=== PATIENT | female | born 1940 | race Caucasian/White ===

== ENCOUNTER 2021-02-07 14:41 | Inpatient (IN) | payer MEDICARE, OTHER ==
[2021-02-07] MEDS ORDERED: SODIUM CHLORIDE 0.9% 500 ML 500 ML IV ONE (15:02)
--- NOTE | 2021-02-07 15:21 | ED ---
Altered Mental Status HPI - General Chief Complaint: Altered Mental Status Stated Complaint: Altered mental status Time Seen by Provider: 02/07/21 15:01 Source: EMS Mode of arrival: EMS Limitations: no limitations - History of Present Illness Initial Comments: Sari is a 80 yo F who presents to the ER via ambulance to generalized weakness and change in mental status. Patient's family member works for [employer] and visits the patient daily. She states yesterday she noted she seemed to be weaker and more fatigued than usual, at that time she made her a doctor's appointment to be seen later today. When she went to the house today to check on the patient she noted that she was much more weak and fatigued and didn't think she could get her to the doctor's appointment on her own thought she needed to come to the ER. Patient reports she just does not feel good. She denies any specific complaints. He denies any dysuria hematuria or fever. Family member states that she always looks pale and has never been anemic for needed blood transfusions in the past. Patient has no history of A. fib. - Related Data Home Medications Medication Instructions Recorded Confirmed Gabapentin 300 mg PO TID 02/07/21 02/07/21 Levothyroxine Sodium [Synthroid] 100 mcg PO DAILY 02/07/21 02/07/21 Milnacipran HCl [Savella] 100 mg PO BID 02/07/21 02/07/21 Omeprazole [PriLOSEC] 20 mg PO DAILY 02/07/21 02/07/21 Pioglitazone [Actos] 15 mg PO DAILY 02/07/21 02/07/21 Trospium Chloride [Sanctura] 20 mg PO BID 02/07/21 02/07/21 Venlafaxine HCl ER [Effexor Xr] 37.5 mg PO BID 02/07/21 02/07/21 amLODIPine [Norvasc] 5 mg PO DAILY 02/07/21 02/07/21 atenoloL [Atenolol] 25 mg PO DAILY 02/07/21 02/07/21 metFORMIN HCL 500 mg PO DAILY 02/07/21 02/07/21 traMADol HCL 50 mg PO BID 02/07/21 02/07/21 traZODone HCL [Desyrel] 50 mg PO HS 02/07/21 02/07/21 Allergies Allergy/AdvReac Type Severity Reaction Status Date / Time codeine Allergy Itching Verified 02/07/21 16:35 Review of Systems ROS Statement: Those systems with pertinent positive or pertinent negative responses have been documented in the HPI. ROS Other: All systems not noted in ROS Statement are negative. Past Medical History Smoking Status: Never smoker General Exam - General Exam Comments Initial Comments: Physical Exam GENERAL: Ill-appearing elderly female, quite pale in appearance HENT: Normocephalic, Atraumatic. EYES: PERRL, EOMI Conjunctiva pallor PULMONARY: Unlabored respirations. No audible rales rhonchi or wheezing was noted. CARDIOVASCULAR: Irregularly irregular tachycardia ABDOMEN: Soft and nontender with normal bowel sounds. SKIN: Skin is clear with no lesions or rashes and otherwise unremarkable. : Deferred NEUROLOGIC: Patient is alert and oriented x3. Moving all extremities spontaneously MUSCULOSKELETAL: Normal extremities with adequate strength and full range of motion. No lower extremity swelling or edema. No calf tenderness. PSYCHIATRIC: Normal psychiatric evaluation. Limitations: no limitations Course Vital Signs 02/07/21 02/07/21 02/07/21 14:48 16:13 17:01 Temperature 97.9 F Pulse Rate 129 H 134 H 130 H Pulse Rate [ Pulse Oximetery ] Respiratory 18 18 18 Rate Blood Pressure 131/97 128/86 130/93 Blood Pressure [Right Arm Supine] O2 Sat by Pulse 95 95 96 Oximetry 02/07/21 02/07/21 02/07/21 18:15 18:28 19:16 Temperature 97.9 F Pulse Rate 104 H 98 Pulse Rate [ 109 H Pulse Oximetery ] Respiratory 18 16 18 Rate Blood Pressure 142/89 121/69 Blood Pressure 96/50 [Right Arm Supine] O2 Sat by Pulse 95 97 97 Oximetry Medical Decision Making - Medical Decision Making Patient was seen and evaluated history is obtained from the patient and family member bedside Elderly females quite pale appearing, is tachycardic in A. fib with RVR Labs and imaging ordered At this time we will hold on heparin until hemoglobin results as the tachycardia may be reactive to anemia Labs were obtained, patient has leukocytosis, normal hemoglobin level Patient has evidence of a UTI, Rocephin was ordered Cardizem and heparin were ordered for new onset A. fib with RVR Patient care was discussed with admitting physician, Dr. Patton who accepts admission - Lab Data Result diagrams: 02/07/21 15:36 02/07/21 15:27 Lab Results 02/07/21 02/07/21 02/07/21 Range/Units 15:27 15:27 15:27 WBC (3.8-10.6) k/uL RBC (3.80-5.40) m/uL Hgb (11.4-16.0) gm/dL Hct (34.0-46.0) % MCV (80.0-100.0) fL MCH (25.0-35.0) pg MCHC (31.0-37.0) g/dL RDW (11.5-15.5) % Plt Count (150-450) k/uL MPV Neutrophils % % Lymphocytes % % Monocytes % % Eosinophils % % Basophils % % Neutrophils # (1.3-7.7) k/uL Lymphocytes # (1.0-4.8) k/uL Monocytes # (0-1.0) k/uL Eosinophils # (0-0.7) k/uL Basophils # (0-0.2) k/uL PT (9.0-12.0) sec INR (<1.2) APTT (22.0-30.0) sec Sodium 135 L (137-145) mmol/L Potassium 3.9 (3.5-5.1) mmol/L Chloride 102 (98-107) mmol/L Carbon Dioxide 22 (22-30) mmol/L Anion Gap 11 mmol/L BUN 21 H (7-17) mg/dL Creatinine 0.71 (0.52-1.04) mg/dL Est GFR (CKD-EPI)AfAm >90 (>60 ml/min/1.73 sqM) Est GFR (CKD-EPI)NonAf 80 (>60 ml/min/1.73 sqM) Glucose 263 H (74-99) mg/dL POC Glucose (mg/dL) (75-99) mg/dL POC Glu [employer] ID Calcium 8.9 (8.4-10.2) mg/dL Total Bilirubin 0.7 (0.2-1.3) mg/dL AST 21 (14-36) U/L ALT 14 (4-34) U/L Alkaline Phosphatase 109 (38-126) U/L Troponin I <0.012 (0.000-0.034) ng/mL Total Protein 6.7 (6.3-8.2) g/dL Albumin 3.4 L (3.5-5.0) g/dL TSH 1.450 (0.465-4.680) mIU/L Urine Color Urine Appearance (Clear) Urine pH (5.0-8.0) Ur Specific [place] (1.001-1.035) Urine Protein (Negative) Urine Glucose (UA) (Negative) Urine Ketones (Negative) Urine Blood (Negative) Urine Nitrite (Negative) Urine Bilirubin (Negative) Urine Urobilinogen (<2.0) mg/dL Ur Leukocyte Esterase (Negative) Urine RBC (0-5) /hpf Urine WBC (0-5) /hpf Ur Squamous Epith Cells (0-4) /hpf Urine Bacteria (None) /hpf Urine Mucus (None) /hpf Urine Opiates Screen (NotDetected) Ur Oxycodone Screen (NotDetected) Urine Methadone Screen (NotDetected) Ur Propoxyphene Screen (NotDetected) Ur Barbiturates Screen (NotDetected) U Tricyclic Antidepress (NotDetected) Ur Phencyclidine Scrn (NotDetected) Ur Amphetamines Screen (NotDetected) U Methamphetamines Scrn (NotDetected) U Benzodiazepines Scrn (NotDetected) Urine Cocaine Screen (NotDetected) U Marijuana (THC) Screen (NotDetected) 02/07/21 02/07/21 02/07/21 Range/Units 15:36 15:36 15:36 WBC 16.7 H (3.8-10.6) k/uL RBC 4.05 (3.80-5.40) m/uL Hgb 12.0 (11.4-16.0) gm/dL Hct 37.0 (34.0-46.0) % MCV 91.3 (80.0-100.0) fL MCH 29.7 (25.0-35.0) pg MCHC 32.5 (31.0-37.0) g/dL RDW 14.3 (11.5-15.5) % Plt Count 244 (150-450) k/uL MPV 7.8 Neutrophils % 85 % Lymphocytes % 9 % Monocytes % 5 % Eosinophils % 1 % Basophils % 0 % Neutrophils # 14.2 H (1.3-7.7) k/uL Lymphocytes # 1.4 (1.0-4.8) k/uL Monocytes # 0.8 (0-1.0) k/uL Eosinophils # 0.1 (0-0.7) k/uL Basophils # 0.0 (0-0.2) k/uL PT 11.3 (9.0-12.0) sec INR 1.1 (<1.2) APTT 25.5 (22.0-30.0) sec Sodium (137-145) mmol/L Potassium (3.5-5.1) mmol/L Chloride (98-107) mmol/L Carbon Dioxide (22-30) mmol/L Anion Gap mmol/L BUN (7-17) mg/dL Creatinine (0.52-1.04) mg/dL Est GFR (CKD-EPI)AfAm (>60 ml/min/1.73 sqM) Est GFR (CKD-EPI)NonAf (>60 ml/min/1.73 sqM) Glucose (74-99) mg/dL POC Glucose (mg/dL) (75-99) mg/dL POC Glu [employer] ID Calcium (8.4-10.2) mg/dL Total Bilirubin (0.2-1.3) mg/dL AST (14-36) U/L ALT (4-34) U/L Alkaline Phosphatase (38-126) U/L Troponin I (0.000-0.034) ng/mL Total Protein (6.3-8.2) g/dL Albumin (3.5-5.0) g/dL TSH (0.465-4.680) mIU/L Urine Color Yellow Urine Appearance Cloudy H (Clear) Urine pH 5.5 (5.0-8.0) Ur Specific [place] 1.019 (1.001-1.035) Urine Protein 1+ H (Negative) Urine Glucose (UA) 1+ H (Negative) Urine Ketones 1+ H (Negative) Urine Blood Negative (Negative) Urine Nitrite Negative (Negative) Urine Bilirubin Negative (Negative) Urine Urobilinogen <2.0 (<2.0) mg/dL Ur Leukocyte Esterase Moderate H (Negative) Urine RBC <1 (0-5) /hpf Urine WBC 14 H (0-5) /hpf Ur Squamous Epith Cells <1 (0-4) /hpf Urine Bacteria Many H (None) /hpf Urine Mucus Few H (None) /hpf Urine Opiates Screen Not Detected (NotDetected) Ur Oxycodone Screen Not Detected (NotDetected) Urine Methadone Screen Not Detected (NotDetected) Ur Propoxyphene Screen Not Detected (NotDetected) Ur Barbiturates Screen Not Detected (NotDetected) U Tricyclic Antidepress Not Detected (NotDetected) Ur Phencyclidine Scrn Not Detected (NotDetected) Ur Amphetamines Screen Not Detected (NotDetected) U Methamphetamines Scrn Not Detected (NotDetected) U Benzodiazepines Scrn Not Detected (NotDetected) Urine Cocaine Screen Not Detected (NotDetected) U Marijuana (THC) Screen Not Detected (NotDetected) 02/07/21 Range/Units 15:43 WBC (3.8-10.6) k/uL RBC (3.80-5.40) m/uL Hgb (11.4-16.0) gm/dL Hct (34.0-46.0) % MCV (80.0-100.0) fL MCH (25.0-35.0) pg MCHC (31.0-37.0) g/dL RDW (11.5-15.5) % Plt Count (150-450) k/uL MPV Neutrophils % % Lymphocytes % % Monocytes % % Eosinophils % % Basophils % % Neutrophils # (1.3-7.7) k/uL Lymphocytes # (1.0-4.8) k/uL Monocytes # (0-1.0) k/uL Eosinophils # (0-0.7) k/uL Basophils # (0-0.2) k/uL PT (9.0-12.0) sec INR (<1.2) APTT (22.0-30.0) sec Sodium (137-145) mmol/L Potassium (3.5-5.1) mmol/L Chloride (98-107) mmol/L Carbon Dioxide (22-30) mmol/L Anion Gap mmol/L BUN (7-17) mg/dL Creatinine (0.52-1.04) mg/dL Est GFR (CKD-EPI)AfAm (>60 ml/min/1.73 sqM) Est GFR (CKD-EPI)NonAf (>60 ml/min/1.73 sqM) Glucose (74-99) mg/dL POC Glucose (mg/dL) 242 H (75-99) mg/dL POC Glu [employer] Ghassan Sloan Calcium (8.4-10.2) mg/dL Total Bilirubin (0.2-1.3) mg/dL AST (14-36) U/L ALT (4-34) U/L Alkaline Phosphatase (38-126) U/L Troponin I (0.000-0.034) ng/mL Total Protein (6.3-8.2) g/dL Albumin (3.5-5.0) g/dL TSH (0.465-4.680) mIU/L Urine Color Urine Appearance (Clear) Urine pH (5.0-8.0) Ur Specific [place] (1.001-1.035) Urine Protein (Negative) Urine Glucose (UA) (Negative) Urine Ketones (Negative) Urine Blood (Negative) Urine Nitrite (Negative) Urine Bilirubin (Negative) Urine Urobilinogen (<2.0) mg/dL Ur Leukocyte Esterase (Negative) Urine RBC (0-5) /hpf Urine WBC (0-5) /hpf Ur Squamous Epith Cells (0-4) /hpf Urine Bacteria (None) /hpf Urine Mucus (None) /hpf Urine Opiates Screen (NotDetected) Ur Oxycodone Screen (NotDetected) Urine Methadone Screen (NotDetected) Ur Propoxyphene Screen (NotDetected) Ur Barbiturates Screen (NotDetected) U Tricyclic Antidepress (NotDetected) Ur Phencyclidine Scrn (NotDetected) Ur Amphetamines Screen (NotDetected) U Methamphetamines Scrn (NotDetected) U Benzodiazepines Scrn (NotDetected) Urine Cocaine Screen (NotDetected) U Marijuana (THC) Screen (NotDetected) - EKG Data -: EKG Interpreted by Me EKG Comments: EKG was obtained at 1510, rate is 138 rhythm is narrow complex irregularly irregular tachycardia consistent with atrial fibrillation with RVR. There are no acute ST elevations or depressions no evidence of acute ischemia or infarction. Disposition Clinical Impression: Altered mental status, Atrial fibrillation with RVR, UTI (urinary tract infection) Disposition: ADMITTED IP TO THIS HOSP Condition: Serious Is patient prescribed a controlled substance at d/c from ED?: No
[2021-02-07 15:44] LABS: Glucose,Whole Blood 242 mg/dL (75-99)
[2021-02-07 15:46] LABS: Basophils % (A) 0 %; Eosinophils # (A) 0.1 k/uL (0-0.7); Eosinophils % (A) 1 %; Lymphocytes # (A) 1.4 k/uL (1.0-4.8); Lymphocytes % (A) 9 %; MCH 29.7 pg (25.0-35.0); MCHC 32.5 g/dL (31.0-37.0); MCV 91.3 fL (80.0-100.0); Mean Platelet Volume 7.8; Monocytes # (A) 0.8 k/uL (0-1.0); Monocytes % (A) 5 %; Neutrophils # (A) 14.2 k/uL (1.3-7.7); Neutrophils % (A) 85 %; Platelet Count 244 k/uL (150-450); RBC 4.05 m/uL (3.80-5.40); RDW 14.3 % (11.5-15.5); WBC 16.7 k/uL (3.8-10.6)
[2021-02-07 15:56] LABS: ALT 14 U/L (4-34); AST 21 U/L (14-36); African American GFR (CKD) >90 (>60 ml/min/1.73 sqM); Albumin 3.4 g/dL (3.5-5.0); Alkaline Phosphatase 109 U/L (38-126); Anion Gap 11 mmol/L; Blood Urea Nitrogen 21 mg/dL (7-17); Calcium 8.9 mg/dL (8.4-10.2); Carbon Dioxide 22 mmol/L (22-30); Chloride 102 mmol/L (98-107); Glucose 263 mg/dL (74-99); Non-African American GFR(CKD) 80 (>60 ml/min/1.73 sqM); Potassium 3.9 mmol/L (3.5-5.1); Sodium 135 mmol/L (137-145); Total Bilirubin 0.7 mg/dL (0.2-1.3); Total Protein 6.7 g/dL (6.3-8.2)
[2021-02-07 16:03] LABS: INR 1.1 (<1.2); Partial Thromboplastin Time 25.5 sec (22.0-30.0); Prothrombin Time 11.3 sec (9.0-12.0)
[2021-02-07 16:30] LABS: Appearance,Urine Cloudy (Clear); Bacteria,Urine Many /hpf; Bilirubin,Urine Negative (Negative); Blood,Urine Negative (Negative); Color,Urine Yellow; Glucose,Urine (UA) 1+ (Negative); Ketones,Urine 1+ (Negative); Leukocyte Esterase,Urine Moderate (Negative); Mucus,Urine Few /hpf; Nitrite,Urine Negative (Negative); PH, Urine 5.5 (5.0-8.0); Protein,Urine 1+ (Negative); RBC,Urine <1 /hpf (0-5); Specific Gravity,Urine 1.019 (1.001-1.035); Squamous Epithelial Cell,Urine <1 /hpf (0-4); Urobilinogen,Urine <2.0 mg/dL (<2.0); WBC,Urine 14 /hpf (0-5)
[2021-02-07 16:46] LABS: Amphetamine Screen,Urine Not Detected (NotDetected); Barbiturate Screen,Urine Not Detected (NotDetected); Benzodiazepines Screen,Urine Not Detected (NotDetected); Cocaine Screen,Urine Not Detected (NotDetected); Methadone Screen, Urine Not Detected (NotDetected); Opiate Screen,Urine Not Detected (NotDetected); Oxycodone Screen, Urine Not Detected (NotDetected); Phencyclidine Screen,Urine Not Detected (NotDetected); Tricyclic Antidepressant,Urine Not Detected (NotDetected); Urn Cannabinoid Scrn Not Detected (NotDetected)
[2021-02-07] MEDS ORDERED: DILTIAZEM DRIP BOLUS FROM BAG 1 MG SOLN IV ONE (17:26)
[2021-02-07] MEDS ORDERED: HEPARIN SODIUM 1,000 UN/ML (10ML VL) IV ONE (17:26)
[2021-02-07] MEDS ORDERED: cefTRIAXone IN SWFI 1,000 MG/10 ML SYRINGE IVP STA (17:26)
[2021-02-07] MEDS ORDERED: NALOXONE 0.4 MG/ML 1 ML VIAL IV PRN (17:31)
--- NOTE | 2021-02-07 17:46 | XR ---
EXAMINATION TYPE: XR chest 2V DATE OF EXAM: 02/07/2021 COMPARISON: NONE HISTORY: 80-year-old female with altered mental status TECHNIQUE: Frontal and lateral views of the chest are obtained. FINDINGS: Pulmonary vascular congestion. Patchy peripheral opacities greater on the left. Cardiomegaly. No evidence of pneumothorax or pleural effusion. No acute osseous abnormality. IMPRESSION: 1. Cardiomegaly with pulmonary vascular congestion concern for CHF. 2. Patchy bilateral left greater than right opacities, correlate clinically for multifocal pneumonia such as Covid 19 infection.
[2021-02-07] MEDS: HEPARIN SOD,PORK IN 0.45% NACL 25,000 UNIT in 0.45% NACL 1 250ML.BAG IV SCH (17:56)
[2021-02-07] MEDS: DILTIAZEM 125 MG in SODIUM CHLORIDE 0.9% 100 ML IV SCH (18:27)
[2021-02-07 20:21] LABS: Glucose,Whole Blood 139 mg/dL (75-99)
[2021-02-08] MEDS: DILTIAZEM 125 MG in SODIUM CHLORIDE 0.9% 100 ML IV SCH (03:02)
[2021-02-08 06:17] LABS: Glucose,Whole Blood 137 mg/dL (75-99)
[2021-02-08 07:41] LABS: INR 1.1 (<1.2); Prothrombin Time 11.1 sec (9.0-12.0)
[2021-02-08 07:43] LABS: Basophils % (A) 0 %; Eosinophils # (A) 0.1 k/uL (0-0.7); Eosinophils % (A) 1 %; HCT 34.8 % (34.0-46.0); HGB 11.6 gm/dL (11.4-16.0); Lymphocytes # (A) 1.8 k/uL (1.0-4.8); Lymphocytes % (A) 14 %; MCH 30.3 pg (25.0-35.0); MCHC 33.3 g/dL (31.0-37.0); MCV 91.2 fL (80.0-100.0); Mean Platelet Volume 7.8; Monocytes # (A) 0.8 k/uL (0-1.0); Monocytes % (A) 6 %; Neutrophils # (A) 9.7 k/uL (1.3-7.7); Neutrophils % (A) 77 %; Platelet Count 221 k/uL (150-450); RBC 3.81 m/uL (3.80-5.40); RDW 14.3 % (11.5-15.5); WBC 12.6 k/uL (3.8-10.6)
[2021-02-08 07:58] LABS: Partial Thromboplastin Time 27.5 sec (22.0-30.0)
[2021-02-08] MEDS: metFORMIN 500 MG TAB PO SCH (08:58)
[2021-02-08] MEDS: HEPARIN SODIUM 1,000 UN/ML (10ML VL) IV PRN ×2 (08:59→16:01)
[2021-02-08] MEDS ORDERED: amLODIPine 5 MG TAB PO SCH (09:00)
[2021-02-08] MEDS ORDERED: atenoloL 25 MG TAB PO SCH (09:00)
[2021-02-08] MEDS ORDERED: GABAPENTIN 300 MG CAP PO SCH (09:00)
[2021-02-08] MEDS: PANTOPRAZOLE 40 MG TABLET PO SCH (10:00)
[2021-02-08] MEDS: PIOGLITAZONE 15 MG TAB PO SCH (10:01)
[2021-02-08] MEDS: MILNACIPRAN HCL 100 MG PO SCH ×2 (10:01→21:10)
[2021-02-08] MEDS: VENLAFAXINE HCL ER 37.5 MG CAP PO SCH ×2 (10:01→21:24)
[2021-02-08] MEDS: LEVOTHYROXINE 100 MCG TAB PO SCH (10:01)
[2021-02-08 11:41] LABS: Glucose,Whole Blood 154 mg/dL (75-99)
[2021-02-08] MEDS: INSULIN ASPART (NovoLOG) 100 UNIT/ML VIAL SQ SCH ×3 (12:04→21:09)
--- NOTE | 2021-02-08 12:42 | P.CRDCN ---
History of Present Illness Consult date: 02/08/21 Consult reason: atrial fibrillation History of present illness: The patient is an 80-year-old female who was recently admitted to the hospital with mental status changes and new onset of atrial fibrillation. According to ER report, she was brought in by a family member for increased weakness, fatigue, and confusion. EKG showed atrial fibrillation, which is a new finding for the patient. Patient was noted to have a urinary tract infection as well as elevated white blood cell count. She was admitted to the floor with heparin and Cardizem drip. The patient was interviewed and examined lying in bed. She is quite confused and review of systems was difficult to obtain. She appears labored lying flat in bed, however she did recently undergo linen change with the nursing staff, where she was required to rollover several times. DIAGNOSTICS: EKG showed atrial fibrillation with heart rates in the 140s. Chest x-ray shows cardiomegaly with vascular congestion, as well as patchy bilateral opacities. CHF versus COVID pneumonia. Laboratory data: WBC 16.7, hemoglobin 12, hematocrit 37, platelet 244, sodium 135, potassium 3.9, BUN 21, creatinine 0.71, TSH 1.4, troponin less than 0.012, AST 21, ALT 14, urine positive for bacteria, leukocyte esterase, ketones, and protein Vital signs: Blood pressure 129/59, pulse rate 106, respiratory rate 18, temperature 98.9F, SpO2 94% on room air PAST MEDICAL HISTORY: Diabetes mellitus, hypertension PHYSICAL EXAMINATION: This is a 80-year-old female in no apparent distress at the time of my examination. HEENT: Head is atraumatic, normocephalic. Pupils are equal, round. Sclerae anicteric. Conjunctivae are clear. Mucous membranes of the mouth are moist. Neck is supple. There is no jugular venous distention. No carotid bruit is heard. CHEST EXAMINATION: Lungs are clear to auscultation. No chest wall tenderness is noted on palpation or with deep breathing. HEART EXAMINATION: Irregular rate and rhythm. S1, S2 heard. No murmurs, gallops or rub. ABDOMEN: Soft, nontender. Bowel sounds are heard. No organomegaly noted. EXTREMITIES: 2+ peripheral pulses with mild edema and no calf tenderness noted. NEUROLOGIC EXAMINATION: Patient is awake and confused. FINAL ASSESSMENT AND PLAN: A. fib with RVR, new onset Leukocytosis, secondary to urinary tract infection History of Hypertension History of diabetes mellitus History of hyperthyroidism PLAN: Switch to metoprolol tartrate 25 mg twice daily; maximize her heart rate pressure control Discontinue amlodipine until patient is weaned off of Cardizem drip Continue anticoagulation; transition to novel anticoagulation in the future Further recommendations based upon clinical course The patient has been seen and evaluated. Plan of care has been reviewed and agreed upon by Dr Pena. Past Medical History Past Medical History: Diabetes Mellitus, Fibromyalgia, Hypertension History of Any Multi-Drug Resistant Organisms: None Reported Past Surgical History: Hysterectomy Additional Past Surgical History / Comment(s): Knee replacement Past Anesthesia/Blood Transfusion Reactions: No Reported Reaction Smoking Status: Never smoker Medications and Allergies Home Medications Medication Instructions Recorded Confirmed Type Gabapentin 300 mg PO TID 02/07/21 02/07/21 History Levothyroxine Sodium [Synthroid] 100 mcg PO DAILY 02/07/21 02/07/21 History Milnacipran HCl [Savella] 100 mg PO BID 02/07/21 02/07/21 History Omeprazole [PriLOSEC] 20 mg PO DAILY 02/07/21 02/07/21 History Pioglitazone [Actos] 15 mg PO DAILY 02/07/21 02/07/21 History Trospium Chloride [Sanctura] 20 mg PO BID 02/07/21 02/07/21 History Venlafaxine HCl ER [Effexor Xr] 37.5 mg PO BID 02/07/21 02/07/21 History amLODIPine [Norvasc] 5 mg PO DAILY 02/07/21 02/07/21 History atenoloL [Atenolol] 25 mg PO DAILY 02/07/21 02/07/21 History metFORMIN HCL 500 mg PO DAILY 02/07/21 02/07/21 History traMADol HCL 50 mg PO BID 02/07/21 02/07/21 History traZODone HCL [Desyrel] 50 mg PO HS 02/07/21 02/07/21 History Allergies Allergy/AdvReac Type Severity Reaction Status Date / Time codeine Allergy Itching Verified 02/07/21 16:35 Physical Exam Vitals: Vital Signs Temp Pulse Pulse Resp BP BP BP 02/08/21 12:00 98.8 F 92 24 139/77 02/08/21 08:55 02/08/21 08:54 98.9 F 106 H 18 129/59 02/08/21 08:00 106 H 18 02/08/21 03:34 98.6 F 113 H 19 129/66 02/08/21 01:05 102 H 19 02/07/21 23:14 98.5 F 102 H 19 126/75 02/07/21 21:00 109 H 18 02/07/21 19:16 98 18 121/69 02/07/21 18:28 104 H 16 142/89 02/07/21 18:15 97.9 F 109 H 18 96/50 02/07/21 17:01 130 H 18 130/93 02/07/21 16:13 134 H 18 128/86 02/07/21 14:48 97.9 F 129 H 18 131/97 Pulse Ox 02/08/21 12:00 95 02/08/21 08:55 94 L 02/08/21 08:54 94 L 02/08/21 08:00 02/08/21 03:34 94 L 02/08/21 01:05 02/07/21 23:14 95 02/07/21 21:00 02/07/21 19:16 97 02/07/21 18:28 97 02/07/21 18:15 95 02/07/21 17:01 96 02/07/21 16:13 95 02/07/21 14:48 95 Intake and Output 02/07/21 02/08/21 02/08/21 22:59 06:59 14:59 Intake Total 8 275.805 105.377 Balance 8 275.805 105.377 Intake: Intake, IV Titration 8 175.805 105.377 Amount Diltiazem 125 mg In 8 116.75 Sodium Chloride 0.9% 100 ml @ Per Protocol IV .Q0M [facility] Rx#:[id number] Heparin Sod,Pork in 0.45% 59.055 105.377 NaCl 25,000 unit In 0.45 % NaCl 1 250ml.bag @ 12 UNITS/KG/HR 9.525 mls/hr IV .Q24H [facility] Rx#: [id number] Oral 100 Other: Voiding Method Diaper Diaper Diaper # Voids 1 # Bowel Movements 1 Weight 79.379 kg Results 02/08/21 07:04 02/07/21 15:27 Cardiac Enzymes 02/07/21 02/07/21 Range/Units 15:27 15:27 AST 21 (14-36) U/L Troponin I <0.012 (0.000-0.034) ng/mL Coagulation 02/07/21 02/07/21 02/08/21 Range/Units 15:36 23:14 07:04 PT 11.3 11.1 (9.0-12.0) sec APTT 25.5 25.9 27.5 (22.0-30.0) sec CBC 02/07/21 02/08/21 Range/Units 15:36 07:04 WBC 16.7 H 12.6 H (3.8-10.6) k/uL RBC 4.05 3.81 (3.80-5.40) m/uL Hgb 12.0 11.6 (11.4-16.0) gm/dL Hct 37.0 34.8 (34.0-46.0) % Plt Count 244 221 (150-450) k/uL Comprehensive Metabolic Panel 02/07/21 Range/Units 15:27 Sodium 135 L (137-145) mmol/L Potassium 3.9 (3.5-5.1) mmol/L Chloride 102 (98-107) mmol/L Carbon Dioxide 22 (22-30) mmol/L BUN 21 H (7-17) mg/dL Creatinine 0.71 (0.52-1.04) mg/dL Glucose 263 H (74-99) mg/dL Calcium 8.9 (8.4-10.2) mg/dL AST 21 (14-36) U/L ALT 14 (4-34) U/L Alkaline Phosphatase 109 (38-126) U/L Total Protein 6.7 (6.3-8.2) g/dL Albumin 3.4 L (3.5-5.0) g/dL Current Medications Generic Name Dose Route Start Last Admin Trade Name Freq PRN Reason Stop Dose Admin Amlodipine Besylate 5 mg 02/08/21 09:00 02/08/21 08:58 Amlodipine 5 Mg Tab PO 5 mg DAILY [facility] Administration Atenolol 25 mg 02/08/21 09:00 02/08/21 08:58 Atenolol 25 Mg Tab PO 25 mg DAILY [facility] Administration Heparin Sodium (Porcine) 0 unit 02/07/21 17:26 02/08/21 08:59 Heparin Sodium 1,000 Un/Ml (10ml Vl) IV 3,950 unit PER PROTOCOL PRN Administration Low PTT Protocol Heparin Sodium/Sodium Chloride 250 mls @ 9.525 mls/hr 02/07/21 17:30 02/08/21 08:59 25,000 unit/ Sodium Chloride IV 18 units/kg/hr .Q24H [facility] 14.288 mls/hr Titration Protocol 12 UNITS/KG/HR Diltiazem HCl 125 mg/ Sodium 125 mls @ 0 mls/hr 02/07/21 17:30 02/08/21 03:02 Chloride IV 15 ml/hr .Q0M [facility] 15 mls/hr Administration Protocol Per Protocol Ceftriaxone Sodium 1 gm/ 50 mls @ 100 mls/hr 02/08/21 09:00 02/08/21 08:58 Sodium Chloride IVPB 100 mls/hr Q24HR [facility] Administration Insulin Aspart 0 unit 02/08/21 12:30 02/08/21 12:04 Insulin Aspart (Novolog) 100 Unit/Ml Vial SQ 1 unit ACHS [facility] Administration Protocol Levothyroxine Sodium 100 mcg 02/08/21 09:00 02/08/21 10:01 Levothyroxine 100 Mcg Tab PO 100 mcg DAILY@0630 [facility] Administration Metformin HCl 500 mg 02/08/21 09:00 02/08/21 08:58 Metformin 500 Mg Tab PO 500 mg DAILY [facility] Administration Naloxone HCl 0.2 mg 02/07/21 17:31 Naloxone 0.4 Mg/Ml 1 Ml Vial IV Q2M PRN Opioid Reversal Non-Formulary Medication 100 mg 02/08/21 09:00 02/08/21 10:01 Milnacipran Hcl [Savella] PO Not Given BID [facility] Pantoprazole Sodium 40 mg 02/08/21 09:00 02/08/21 10:00 Pantoprazole 40 Mg Tablet PO 40 mg [id number] [facility] Administration Pioglitazone HCl 15 mg 02/08/21 09:00 02/08/21 10:01 Pioglitazone 15 Mg Tab PO 15 mg DAILY [facility] Administration Trazodone HCl 50 mg 02/08/21 21:00 Trazodone Hcl 50 Mg Tab PO HS [facility] Venlafaxine HCl 37.5 mg 02/08/21 09:00 02/08/21 10:01 Venlafaxine Hcl Er 37.5 Mg Cap PO 37.5 mg BID [facility] Administration Intake and Output 02/07/21 02/08/21 02/08/21 22:59 06:59 14:59 Intake Total 8 275.805 105.377 Balance 8 275.805 105.377 Intake: Intake, IV Titration 8 175.805 105.377 Amount Diltiazem 125 mg In 8 116.75 Sodium Chloride 0.9% 100 ml @ Per Protocol IV .Q0M [facility] Rx#:[id number] Heparin Sod,Pork in 0.45% 59.055 105.377 NaCl 25,000 unit In 0.45 % NaCl 1 250ml.bag @ 12 UNITS/KG/HR 9.525 mls/hr IV .Q24H [facility] Rx#: [id number] Oral 100 Other: Voiding Method Diaper Diaper Diaper # Voids 1 # Bowel Movements 1 Weight 79.379 kg 02/08/21 07:04 02/07/21 15:27
--- NOTE | 2021-02-08 14:03 | P.HPIM ---
History of Present Illness H&P Date: 02/08/21 Chief Complaint: Mental status change This is a pleasant 80-year-old female, who comes in from home, with acute mental status changes, patient cannot provide much more often history today as the patient cannot remain focused on questions asked of her, she is only motivated o n the food that in front of her, however per history that comes from family member, she's had increasing weakness fatigue and increasing confusion, she normally gets this way whenever she gets a urinary tract infection. She has underlying history of diabetes mellitus, fibromyalgia, hypertension, no history of CVA, no history of seizures. She was in the emergency room, with new onset atrial fibrillation, heart rate in the 140s, chest x-ray shows cardiomegaly, with vascular congestion, and bilateral opacification, Covid is negative. Patient's tachypnea, when seen afebrile, T-max of 98 9, with pulse ox of 94% on room air. Urinalysis also shows pyuria, she was given IV Rocephin emergency clovis m, for which we had obtained cultures as well, and continued on Rocephin. She was started on IV Cardizem for A. fib RVR, and IV heparin., Review of Systems Constitutional: Reports as per HPI, Reports anorexia, Reports fatigue, Reports malaise Cardiovascular: Reports dyspnea on exertion, Reports irregular heart beat, Denies chest pain, Denies edema Respiratory: Reports dyspnea Gastrointestinal: Reports as per HPI Genitourinary: Reports as per HPI, Denies dysuria Menstruation: Reports as per HPI Musculoskeletal: Reports as per HPI, Reports muscle weakness Neurological: Reports as per HPI Psychiatric: Reports as per HPI Endocrine: Reports as per HPI Hematologic/Lymphatic: Reports as per HPI Allergic/Immunologic: Reports as per HPI Past Medical History Past Medical History: Diabetes Mellitus, Fibromyalgia, Hypertension History of Any Multi-Drug Resistant Organisms: None Reported Past Surgical History: Hysterectomy Additional Past Surgical History / Comment(s): Knee replacement Past Anesthesia/Blood Transfusion Reactions: No Reported Reaction Smoking Status: Never smoker Medications and Allergies Home Medications Medication Instructions Recorded Confirmed Type Gabapentin 300 mg PO TID 02/07/21 02/07/21 History Levothyroxine Sodium [Synthroid] 100 mcg PO DAILY 02/07/21 02/07/21 History Milnacipran HCl [Savella] 100 mg PO BID 02/07/21 02/07/21 History Omeprazole [PriLOSEC] 20 mg PO DAILY 02/07/21 02/07/21 History Pioglitazone [Actos] 15 mg PO DAILY 02/07/21 02/07/21 History Trospium Chloride [Sanctura] 20 mg PO BID 02/07/21 02/07/21 History Venlafaxine HCl ER [Effexor Xr] 37.5 mg PO BID 02/07/21 02/07/21 History amLODIPine [Norvasc] 5 mg PO DAILY 02/07/21 02/07/21 History atenoloL [Atenolol] 25 mg PO DAILY 02/07/21 02/07/21 History metFORMIN HCL 500 mg PO DAILY 02/07/21 02/07/21 History traMADol HCL 50 mg PO BID 02/07/21 02/07/21 History traZODone HCL [Desyrel] 50 mg PO HS 02/07/21 02/07/21 History Allergies Allergy/AdvReac Type Severity Reaction Status Date / Time codeine Allergy Itching Verified 02/07/21 16:35 Physical Exam Vitals: Vital Signs Temp Pulse Pulse Resp BP BP BP 02/08/21 08:55 02/08/21 08:54 98.9 F 106 H 18 129/59 02/08/21 08:00 106 H 18 02/08/21 03:34 98.6 F 113 H 19 129/66 02/08/21 01:05 102 H 19 02/07/21 23:14 98.5 F 102 H 19 126/75 02/07/21 21:00 109 H 18 02/07/21 19:16 98 18 121/69 02/07/21 18:28 104 H 16 142/89 02/07/21 18:15 97.9 F 109 H 18 96/50 02/07/21 17:01 130 H 18 130/93 02/07/21 16:13 134 H 18 128/86 02/07/21 14:48 97.9 F 129 H 18 131/97 Pulse Ox 02/08/21 08:55 94 L 02/08/21 08:54 94 L 02/08/21 08:00 02/08/21 03:34 94 L 02/08/21 01:05 02/07/21 23:14 95 02/07/21 21:00 02/07/21 19:16 97 02/07/21 18:28 97 02/07/21 18:15 95 02/07/21 17:01 96 02/07/21 16:13 95 02/07/21 14:48 95 Intake and Output 02/07/21 02/08/21 02/08/21 22:59 06:59 14:59 Intake Total 8 275.805 105.377 Balance 8 275.805 105.377 Intake: Intake, IV Titration 8 175.805 105.377 Amount Diltiazem 125 mg In 8 116.75 Sodium Chloride 0.9% 100 ml @ Per Protocol IV .Q0M [facility] Rx#:[id number] Heparin Sod,Pork in 0.45% 59.055 105.377 NaCl 25,000 unit In 0.45 % NaCl 1 250ml.bag @ 12 UNITS/KG/HR 9.525 mls/hr IV .Q24H [facility] Rx#: [id number] Oral 100 Other: Voiding Method Diaper Diaper Diaper # Voids 1 # Bowel Movements 1 Weight 79.379 kg - Constitutional General appearance: cooperative, no acute distress - EENT Eyes: anicteric sclerae, PERRLA, poor dentition, normal appearance ENT: NA/AT, normal oropharynx - Neck Neck: normal ROM - Respiratory Tachypneic Respiratory: bilateral: CTA, negative: diminished, dullness - Cardiovascular Rhythm: regular Heart sounds: normal: S1, S2 Abnormal Heart Sounds: no systolic murmur, no diastolic murmur, no rub, no S3 Gallop, no S4 Gallop, no click, no other - Gastrointestinal General gastrointestinal: normal bowel sounds, soft - Integumentary Integumentary: decreased turgor, normal - Neurologic Neurologic: CNII-XII intact - Musculoskeletal Musculoskeletal: gait normal, strength equal bilaterally Results CBC & Chem 7: 02/08/21 07:04 02/07/21 15:27 Labs: Abnormal Lab Results - Last 24 Hours (Table) 02/07/21 02/07/21 02/07/21 Range/Units 15:27 15:36 15:36 WBC 16.7 H (3.8-10.6) k/uL Neutrophils # 14.2 H (1.3-7.7) k/uL Sodium 135 L (137-145) mmol/L BUN 21 H (7-17) mg/dL Glucose 263 H (74-99) mg/dL POC Glucose (mg/dL) (75-99) mg/dL Albumin 3.4 L (3.5-5.0) g/dL Urine Appearance Cloudy H (Clear) Urine Protein 1+ H (Negative) Urine Glucose (UA) 1+ H (Negative) Urine Ketones 1+ H (Negative) Ur Leukocyte Esterase Moderate H (Negative) Urine WBC 14 H (0-5) /hpf Urine Bacteria Many H (None) /hpf Urine Mucus Few H (None) /hpf 02/07/21 02/07/21 02/08/21 Range/Units 15:43 20:19 06:16 WBC (3.8-10.6) k/uL Neutrophils # (1.3-7.7) k/uL Sodium (137-145) mmol/L BUN (7-17) mg/dL Glucose (74-99) mg/dL POC Glucose (mg/dL) 242 H 139 H 137 H (75-99) mg/dL Albumin (3.5-5.0) g/dL Urine Appearance (Clear) Urine Protein (Negative) Urine Glucose (UA) (Negative) Urine Ketones (Negative) Ur Leukocyte Esterase (Negative) Urine WBC (0-5) /hpf Urine Bacteria (None) /hpf Urine Mucus (None) /hpf 02/08/21 Range/Units 07:04 WBC 12.6 H (3.8-10.6) k/uL Neutrophils # 9.7 H (1.3-7.7) k/uL Sodium (137-145) mmol/L BUN (7-17) mg/dL Glucose (74-99) mg/dL POC Glucose (mg/dL) (75-99) mg/dL Albumin (3.5-5.0) g/dL Urine Appearance (Clear) Urine Protein (Negative) Urine Glucose (UA) (Negative) Urine Ketones (Negative) Ur Leukocyte Esterase (Negative) Urine WBC (0-5) /hpf Urine Bacteria (None) /hpf Urine Mucus (None) /hpf Microbiology - Last 24 Hours (Table) 02/07/21 15:36 Urine Culture - Preliminary Urine,Voided Laboratory Results WBC 12.6 k/uL (3.8-10.6) H 02/08/21 07:04 RBC 3.81 m/uL (3.80-5.40) 02/08/21 07:04 Hgb 11.6 gm/dL (11.4-16.0) 02/08/21 07:04 Hct 34.8 % (34.0-46.0) 02/08/21 07:04 MCV 91.2 fL (80.0-100.0) 02/08/21 07:04 MCH 30.3 pg (25.0-35.0) 02/08/21 07:04 MCHC 33.3 g/dL (31.0-37.0) 02/08/21 07:04 RDW 14.3 % (11.5-15.5) 02/08/21 07:04 Plt Count 221 k/uL (150-450) 02/08/21 07:04 MPV 7.8 02/08/21 07:04 Neutrophils % 77 % 02/08/21 07:04 Lymphocytes % 14 % 02/08/21 07:04 Monocytes % 6 % 02/08/21 07:04 Eosinophils % 1 % 02/08/21 07:04 Basophils % 0 % 02/08/21 07:04 Neutrophils # 9.7 k/uL (1.3-7.7) H 02/08/21 07:04 Lymphocytes # 1.8 k/uL (1.0-4.8) 02/08/21 07:04 Monocytes # 0.8 k/uL (0-1.0) 02/08/21 07:04 Eosinophils # 0.1 k/uL (0-0.7) 02/08/21 07:04 Basophils # 0.0 k/uL (0-0.2) 02/08/21 07:04 PT 11.1 sec (9.0-12.0) 02/08/21 07:04 INR 1.1 (<1.2) 02/08/21 07:04 APTT 27.5 sec (22.0-30.0) 02/08/21 07:04 Sodium 135 mmol/L (137-145) L 02/07/21 15:27 Potassium 3.9 mmol/L (3.5-5.1) 02/07/21 15:27 Chloride 102 mmol/L (98-107) 02/07/21 15:27 Carbon Dioxide 22 mmol/L (22-30) 02/07/21 15:27 Anion Gap 11 mmol/L 02/07/21 15:27 BUN 21 mg/dL (7-17) H 02/07/21 15:27 Creatinine 0.71 mg/dL (0.52-1.04) 02/07/21 15:27 Est GFR (CKD-EPI)AfAm >90 (>60 ml/min/1.73 sqM) 02/07/21 15:27 Est GFR (CKD-EPI)NonAf 80 (>60 ml/min/1.73 sqM) 02/07/21 15:27 Glucose 263 mg/dL (74-99) H 02/07/21 15:27 POC Glucose (mg/dL) 154 mg/dL (75-99) H 02/08/21 11:40 POC Glu Room Service Attendant ID Rosa Sosa 02/08/21 11:40 Calcium 8.9 mg/dL (8.4-10.2) 02/07/21 15:27 Magnesium 1.8 mg/dL (1.6-2.3) 02/08/21 07:04 Total Bilirubin 0.7 mg/dL (0.2-1.3) 02/07/21 15:27 AST 21 U/L (14-36) 02/07/21 15:27 ALT 14 U/L (4-34) 02/07/21 15:27 Alkaline Phosphatase 109 U/L (38-126) 02/07/21 15:27 Troponin I <0.012 ng/mL (0.000-0.034) 02/07/21 15:27 Total Protein 6.7 g/dL (6.3-8.2) 02/07/21 15:27 Albumin 3.4 g/dL (3.5-5.0) L 02/07/21 15:27 TSH 1.450 mIU/L (0.465-4.680) 02/07/21 15:27 Urine Color Yellow 02/07/21 15:36 Urine Appearance Cloudy (Clear) H 02/07/21 15:36 Urine pH 5.5 (5.0-8.0) 02/07/21 15:36 Ur Specific [place] 1.019 (1.001-1.035) 02/07/21 15:36 Urine Protein 1+ (Negative) H 02/07/21 15:36 Urine Glucose (UA) 1+ (Negative) H 02/07/21 15:36 Urine Ketones 1+ (Negative) H 02/07/21 15:36 Urine Blood Negative (Negative) 02/07/21 15:36 Urine Nitrite Negative (Negative) 02/07/21 15:36 Urine Bilirubin Negative (Negative) 02/07/21 15:36 Urine Urobilinogen <2.0 mg/dL (<2.0) 02/07/21 15:36 Ur Leukocyte Esterase Moderate (Negative) H 02/07/21 15:36 Urine RBC <1 /hpf (0-5) 02/07/21 15:36 Urine WBC 14 /hpf (0-5) H 02/07/21 15:36 Ur Squamous Epith Cells <1 /hpf (0-4) 02/07/21 15:36 Urine Bacteria Many /hpf (None) H 02/07/21 15:36 Urine Mucus Few /hpf (None) H 02/07/21 15:36 Urine Opiates Screen Not Detected (NotDetected) 02/07/21 15:36 Ur Oxycodone Screen Not Detected (NotDetected) 02/07/21 15:36 Urine Methadone Screen Not Detected (NotDetected) 02/07/21 15:36 Ur Propoxyphene Screen Not Detected (NotDetected) 02/07/21 15:36 Ur Barbiturates Screen Not Detected (NotDetected) 02/07/21 15:36 U Tricyclic Antidepress Not Detected (NotDetected) 02/07/21 15:36 Ur Phencyclidine Scrn Not Detected (NotDetected) 02/07/21 15:36 Ur Amphetamines Screen Not Detected (NotDetected) 02/07/21 15:36 U Methamphetamines Scrn Not Detected (NotDetected) 02/07/21 15:36 U Benzodiazepines Scrn Not Detected (NotDetected) 02/07/21 15:36 Urine Cocaine Screen Not Detected (NotDetected) 02/07/21 15:36 U Marijuana (THC) Screen Not Detected (NotDetected) 02/07/21 15:36 Coronavirus (PCR) Not Detected (Not Detectd) 02/08/21 08:45 Thrombosis Risk Factor Assmnt - DVT/VTE Prophylaxis DVT/VTE Prophylaxis: Pharmacologic Prophylaxis ordered - Choose All That Apply Any of the Below Risk Factors Present?: Yes Each Factor Represents 1 point: Obesity (BMI >25) Each Risk Factor Represents 3 Points: Age 75 years or older Thrombosis Risk Factor Assessment Total Risk Factor Score: 4 Thrombosis Risk Factor Assessment Level: Moderate Risk Assessment and Plan Plan: 1. Acute metabolic encephalopathy, with sepsis, UTI as a primary source, cannot rule out aspiration pneumonia, eyes patient has bilateral infiltrates also noted, patient on Rocephin, we will change to IV Zosyn, cultures to be done, including sputum if able. Check a pro-calcitonin 2. New onset A. fib with RVR, on IV Cardizem, and IV heparin, for which cardiology has been consulted, and they have recommended weaning off Cardizem, and metoprolol 25 mg twice a day has been started. Patient will be converted to oral anticoagulation with a factor X inhibition prior to discharge 3. Diabetes mellitus type 2 patient on Actos and metformin, check A1c 4. Delirium most likely, patient is on Desyrel 50 mg at bedtime, which we could continue, and continue on Effexor XR 37.5 twice a day. We'll going to the discontinue Savella, and hold off gabapentin at this time 5 hypothyroidism, with control TSH, on 100 g levothyroxine daily no changes. 6. Chronic pain, from from fibromyalgia, on tramadol 50 mg twice a day, which we will hold off at this time, until mentation would be clear, although of gabapentin, and hold off Savella continue venlafaxine and trazodone 7. Hypertension, amlodipine is on hold while on IV Cardizem, this. Will be resumed when stabilized 9. DVT prophylaxis 10 GI prophylaxis 11. CODE STATUS
[2021-02-08] MEDS: HEPARIN SOD,PORK IN 0.45% NACL 25,000 UNIT in 0.45% NACL 1 250ML.BAG IV SCH (15:45)
[2021-02-08 16:48] LABS: Glucose,Whole Blood 168 mg/dL (75-99)
[2021-02-08 20:24] LABS: Glucose,Whole Blood 127 mg/dL (75-99)
[2021-02-08] MEDS: traZODone HCL 50 MG TAB PO SCH (21:04)
[2021-02-08] MEDS: METOPROLOL TARTRATE 25 MG TAB PO SCH (21:04)
[2021-02-09] MEDS: DILTIAZEM 125 MG in SODIUM CHLORIDE 0.9% 100 ML IV SCH ×5 (02:23→20:29)
[2021-02-09] MEDS: HEPARIN SOD,PORK IN 0.45% NACL 25,000 UNIT in 0.45% NACL 1 250ML.BAG IV SCH ×2 (04:06→20:28)
[2021-02-09 06:07] LABS: Glucose,Whole Blood 131 mg/dL (75-99)
[2021-02-09] MEDS: PANTOPRAZOLE 40 MG TABLET PO SCH (06:51)
[2021-02-09] MEDS: LEVOTHYROXINE 100 MCG TAB PO SCH (06:51)
[2021-02-09] MEDS: INSULIN ASPART (NovoLOG) 100 UNIT/ML VIAL SQ SCH ×4 (07:12→20:44)
[2021-02-09 07:58] LABS: Basophils # (A) 0.1 k/uL (0-0.2); Basophils % (A) 0 %; Eosinophils # (A) 0.1 k/uL (0-0.7); Eosinophils % (A) 1 %; HCT 33.1 % (34.0-46.0); Lymphocytes # (A) 1.9 k/uL (1.0-4.8); Lymphocytes % (A) 14 %; MCH 30.3 pg (25.0-35.0); MCHC 33.1 g/dL (31.0-37.0); MCV 91.6 fL (80.0-100.0); Mean Platelet Volume 7.8; Monocytes # (A) 0.7 k/uL (0-1.0); Monocytes % (A) 5 %; Neutrophils # (A) 10.3 k/uL (1.3-7.7); Neutrophils % (A) 77 %; Platelet Count 249 k/uL (150-450); RBC 3.61 m/uL (3.80-5.40); RDW 14.3 % (11.5-15.5); WBC 13.4 k/uL (3.8-10.6)
[2021-02-09 08:23] LABS: African American GFR (CKD) >90 (>60 ml/min/1.73 sqM); Anion Gap 10 mmol/L; Blood Urea Nitrogen 13 mg/dL (7-17); Calcium 8.3 mg/dL (8.4-10.2); Carbon Dioxide 20 mmol/L (22-30); Chloride 108 mmol/L (98-107); Creatine Kinase 84 U/L (30-135); Glucose 143 mg/dL (74-99); Non-African American GFR(CKD) 88 (>60 ml/min/1.73 sqM); Potassium 3.6 mmol/L (3.5-5.1); Sodium 138 mmol/L (137-145)
[2021-02-09] MEDS: PIOGLITAZONE 15 MG TAB PO SCH (08:36)
[2021-02-09] MEDS: VENLAFAXINE HCL ER 37.5 MG CAP PO SCH ×2 (08:36→20:44)
[2021-02-09] MEDS: METOPROLOL TARTRATE 25 MG TAB PO SCH (08:36)
[2021-02-09] MEDS: metFORMIN 500 MG TAB PO SCH (08:36)
[2021-02-09] MEDS: ACETAMINOPHEN TAB 325 MG TAB PO PRN ×2 (08:39→20:46)
[2021-02-09] MEDS: MILNACIPRAN HCL 100 MG PO SCH ×2 (08:40→20:44)
[2021-02-09] MEDS ORDERED: FUROSEMIDE 10 MG/ML 4 ML VIAL IV STA (10:28)
[2021-02-09 11:16] LABS: ABG Base Excess -2.7 mmol/L; ABG HCO3 21 mmol/L (21-25); ABG Oxygen Saturation 94.8 % (94-97); ABG PCO2 29 mmHg (35-45); ABG PH 7.47 (7.35-7.45); ABG PO2 70 mmHg (83-108); ABG TCO2 22 mmol/L (19-24); Allen Test Performed? Yes
[2021-02-09] MEDS: PIPERACILLIN-TAZOBACTAM 3.375 GM in SODIUM CHLORIDE 0.9% 100 ML IVPB SCH ×2 (11:19→20:43)
[2021-02-09 12:07] LABS: Glucose,Whole Blood 169 mg/dL (75-99)
--- NOTE | 2021-02-09 12:13 | CT ---
EXAMINATION TYPE: CT brain wo con DATE OF EXAM: 02/09/2021 COMPARISON: None HISTORY: 80-year-old female confusion, altered mental status TECHNIQUE: Examination was done in axial plane without intravenous contrast. Coronal and sagittal r econstructions performed. CT DLP: 1098.4 mGycm Automated exposure control for dose reduction was used. FINDINGS: There is a large area of cortical and subcortical hypodensity involving the mid posterior left MCA te rritory distribution involving the left frontoparietal junction extending into the anterior left temp oral lobe. There is associated sulcal effacement on the side. Trace 2 mm of rightward midline shift m ay be present. No effacement of basal subarachnoid cisterns. Patchy white matter hypodensities in both cerebral hemispheres. Atelectatic calcifications within the carotid siphons. No extra-axial fluid collection and no acute intracranial hemorrhage. No hydrocephalus. Mild hyperostosis frontalis interna. Partially empty sella. Prominent bilateral superior ophthalmic veins. Orbits and globes otherwise intact. Paranasal sinuses and mastoid air cells well pneumatized. IMPRESSION: 1. 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 The vascular territory is sizable involving more than a third of the left MCA distribution. Associated sulcal effacement and minimal 2 mm of rig htward midline shift. No herniation, hydrocephalus, or acute intracranial hemorrhage. 2. Prominent bilateral superior ophthalmic veins may be secondary to some degree of elevated intracra nial pressures as a result. 3. Background moderate patchy burden of chronic small vessel ischemic disease.
--- NOTE | 2021-02-09 12:14 | P.PN ---
Subjective Progress Note Date: 02/09/21 The patient was interviewed and examined lying in bed. Labored breathing with accessory muscle use. Patient is barely responsive, arousing to physical stimuli. No coherent verbal response. Nursing staff state just prior to my examination, the patient was speaking a foreign language during her linen change. The patient was clearly confused at that time, however she was responsive. Patient was given pain medication at that time. GENERAL: Well-appearing, obese, with labored breathing NECK: Supple without JVD or thyromegaly. LUNGS: Labored with a sensory muscle use. Inspiratory wheezes. No rales or rhonchi. HEART: Irregular rate and rhythm without murmurs, rubs or gallops. S1 and S2 heard. EXTREMITIES: Normal range of motion, no edema. No clubbing or cyanosis. Peripheral pulses intact and strong. VITALS: BP 133/73, SpO2 93% on 4 L nasal cannula, respiratory rate 22, ulcerated 89, temp 100.7 oral TELEMETRY: Atrial fibrillation with heart rates in the 80s LABS: WBC 13.4, hemoglobin 11, hematocrit 33, lately to 249, sodium 138, potassium 3.6, BUN 13, creatinine 0.55 IMPRESSION: A. fib with RVR, new onset, rate controlled with Cardizem drip Leukocytosis, secondary to urinary tract infection History of hypertension History of diabetes mellitus History of hyperthyroidism Mental status changes PLAN: Increase beta daiana to 50 mg twice daily Wean Cardizem drip Further recommendations based upon clinical course. The patient has been seen and evaluated. Plan of care has been reviewed and agreed upon by Dr Pena. Objective - Vital Signs Vital signs: Vital Signs Temp 98.4 F 02/09/21 11:02 Pulse 75 02/09/21 11:56 Resp 24 02/09/21 11:56 BP 120/70 02/09/21 11:56 Pulse Ox 93 L 02/09/21 11:56 Intake & Output 02/08/21 02/09/21 02/09/21 18:59 06:59 18:59 Intake Total 419.279 202.205 118 Output Total 200 Balance 419.279 2.205 118 Intake: Intake, IV Titration 319.279 202.205 Amount Diltiazem 125 mg In 125 Sodium Chloride 0.9% 100 ml @ Per Protocol IV .Q0M [facility] Rx#:[id number] Heparin Sod,Pork in 0.45% 194.279 202.205 NaCl 25,000 unit In 0.45 % NaCl 1 250ml.bag @ 12 UNITS/KG/HR 9.525 mls/hr IV .Q24H [facility] Rx#: [id number] Oral 100 118 Output: Urine 200 Other: Voiding Method Diaper Diaper Diaper External Catheter External Catheter # Voids 2 1 - Labs CBC & Chem 7: 02/09/21 07:34 02/09/21 07:34 Labs: Abnormal Lab Results - Last 24 Hours (Table) 02/08/21 02/08/21 02/08/21 Range/Units 15:25 16:47 20:23 WBC (3.8-10.6) k/uL RBC (3.80-5.40) m/uL Hgb (11.4-16.0) gm/dL Hct (34.0-46.0) % Neutrophils # (1.3-7.7) k/uL APTT 37.8 H (22.0-30.0) sec ABG pH (7.35-7.45) ABG pCO2 (35-45) mmHg ABG pO2 (83-108) mmHg Chloride (98-107) mmol/L Carbon Dioxide (22-30) mmol/L Glucose (74-99) mg/dL POC Glucose (mg/dL) 168 H 127 H (75-99) mg/dL Calcium (8.4-10.2) mg/dL 02/08/21 02/09/21 02/09/21 Range/Units 22:25 06:06 07:34 WBC 13.4 H (3.8-10.6) k/uL RBC 3.61 L (3.80-5.40) m/uL Hgb 11.0 L (11.4-16.0) gm/dL Hct 33.1 L (34.0-46.0) % Neutrophils # 10.3 H (1.3-7.7) k/uL APTT 31.4 H (22.0-30.0) sec ABG pH (7.35-7.45) ABG pCO2 (35-45) mmHg ABG pO2 (83-108) mmHg Chloride (98-107) mmol/L Carbon Dioxide (22-30) mmol/L Glucose (74-99) mg/dL POC Glucose (mg/dL) 131 H (75-99) mg/dL Calcium (8.4-10.2) mg/dL 02/09/21 02/09/21 02/09/21 Range/Units 07:34 07:34 11:05 WBC (3.8-10.6) k/uL RBC (3.80-5.40) m/uL Hgb (11.4-16.0) gm/dL Hct (34.0-46.0) % Neutrophils # (1.3-7.7) k/uL APTT 45.7 H (22.0-30.0) sec ABG pH 7.47 H (7.35-7.45) ABG pCO2 29 L (35-45) mmHg ABG pO2 70 L (83-108) mmHg Chloride 108 H (98-107) mmol/L Carbon Dioxide 20 L (22-30) mmol/L Glucose 143 H (74-99) mg/dL POC Glucose (mg/dL) (75-99) mg/dL Calcium 8.3 L (8.4-10.2) mg/dL Microbiology - Last 24 Hours (Table) 02/07/21 15:36 Urine Culture - Preliminary Urine,Voided Gram Neg Bacilli
[2021-02-09] MEDS ORDERED: DILTIAZEM 125 MG in SODIUM CHLORIDE 0.9% 100 ML IV SCH (12:15)
--- NOTE | 2021-02-09 12:25 | P.CNPUL ---
History of Present Illness Consult date: 02/09/21 Requesting physician: Odette Patton Reason for consult: pneumonia, abnormal CXR/CT, other Chief complaint: UTI, possible pneumonia, CVA. History of present illness: Pulmonary consult dated 02/09/2021. 80-year-old female who presents to the emergency department on February 07. She apparently went to the emergency department with mental status changes. Apparently according to a visiting nurse, the patient appeared weaker and more fatigued than normal. The patient apparently had a doctor's appointment that day, but instead, ended up in the emergency department. She is apparently diagnoses having patchy pneumonia, and urinary tract infection. Mental status changes apparently were blamed on the urinary tract infection as apparently, he has happened before. The patient finally had a computed tomography scan of the brain today, which showed a large left MCA ischemic infarct. A blood gas was done, because the nurse thought maybe the patient was retaining carbon dioxide, which may have explained the mental status changes. In addition, the patient was admitted with a diagnosis of atrial fibrillation with RVR, and started on heparin. In addition, she was on saline at KVO, and Cardizem 15 mg an hour. She was admitted by Dr. Montelongo to the emergency department, with a diagnosis of mental status changes, ER, and urinary tract infection. The brain CT was just ordered today. White count 13.4, hemoglobin 11, hematocrit 33.1, and platelet count normal. Blood gases on 36% oxygen showed a pO2 of 70, pCO2 of 29, and pH is 7.47. His blood gas was consistent with respiratory alkalosis. PTT was 46. Sodium 138, potassium 3.6, chlorides 108, CO2 20, anion gap 10, BUN 13, and creatinine 0.55. In addition, there are bilateral infiltrates, potentially consistent with pneumonia. Review of Systems REVIEW OF SYSTEMS: CONSTITUTIONAL: Weakness and fatigue. NEUROLOGIC: Mental status changes. HEENT: [ Negative.] CARDIAC: [Negative.] PULMONARY: [Negative.] GI: [Negative.] : Urinary tract infection. RHEUMATOLOGIC: [ Negative.] IMMUNOLOGIC: [ Negative.] ENDOCRINE: [Negative. ] DERMATOLOGIC: [Negative.] Past Medical History Past Medical History: Diabetes Mellitus, Fibromyalgia, Hypertension History of Any Multi-Drug Resistant Organisms: None Reported Past Surgical History: Hysterectomy Additional Past Surgical History / Comment(s): Knee replacement Past Anesthesia/Blood Transfusion Reactions: No Reported Reaction Smoking Status: Never smoker Medications and Allergies Home Medications Medication Instructions Recorded Confirmed Type Gabapentin 300 mg PO TID 02/07/21 02/07/21 History Levothyroxine Sodium [Synthroid] 100 mcg PO DAILY 02/07/21 02/07/21 History Milnacipran HCl [Savella] 100 mg PO BID 02/07/21 02/07/21 History Omeprazole [PriLOSEC] 20 mg PO DAILY 02/07/21 02/07/21 History Pioglitazone [Actos] 15 mg PO DAILY 02/07/21 02/07/21 History Trospium Chloride [Sanctura] 20 mg PO BID 02/07/21 02/07/21 History Venlafaxine HCl ER [Effexor Xr] 37.5 mg PO BID 02/07/21 02/07/21 History amLODIPine [Norvasc] 5 mg PO DAILY 02/07/21 02/07/21 History atenoloL [Atenolol] 25 mg PO DAILY 02/07/21 02/07/21 History metFORMIN HCL 500 mg PO DAILY 02/07/21 02/07/21 History traMADol HCL 50 mg PO BID 02/07/21 02/07/21 History traZODone HCL [Desyrel] 50 mg PO HS 02/07/21 02/07/21 History Allergies Allergy/AdvReac Type Severity Reaction Status Date / Time codeine Allergy Itching Verified 02/07/21 16:35 Physical Exam Osteopathic Statement: *. No significant issues noted on an osteopathic structural exam other than those noted in the History and Physical/Consult. Vitals: Vital Signs Temp Pulse Resp BP BP Pulse Ox 02/09/21 11:56 75 24 120/70 93 L 02/09/21 11:02 98.4 F 02/09/21 08:34 100.7 F H 89 22 133/73 93 L 02/09/21 08:00 89 22 02/09/21 04:00 98.7 F 99 19 102/58 94 L 02/09/21 01:10 88 22 02/09/21 00:00 98.8 F 88 22 131/84 92 L 02/08/21 20:00 99.8 F H 92 19 120/74 96 02/08/21 16:00 98.9 F 87 20 123/68 93 L 02/08/21 13:43 92 24 Intake and Output 02/08/21 02/09/21 02/09/21 22:59 06:59 14:59 Intake Total 53.334 202.205 118 Output Total 120 80 Balance -66.666 122.205 118 Intake: Intake, IV Titration 3.334 202.205 Amount Heparin Sod,Pork in 0.45% 3.334 202.205 NaCl 25,000 unit In 0.45 % NaCl 1 250ml.bag @ 12 UNITS/KG/HR 9.525 mls/hr IV .Q24H [facility] Rx#: [id number] Oral 50 118 Output: Urine 120 80 Other: Voiding Method Diaper Diaper Diaper External Catheter External Catheter External Catheter # Voids 1 Lethargic and very sleepy, but does respond to painful stimuli. No obvious respiratory distress. Currently on 4 L nasal cannula. HEENT examination is grossly unremarkable. Neck supple. Full range of motion. No adenopathy thyromegaly or neck vein distention. Cardiovascular examination reveals an irregular rhythm and rate. S1-S2 normal. No S3 or S4. No discernible murmur noted. Heart rate 75 bpm. Lungs reveal mostly clear breath sounds. Breath sounds are diminished at the bases. No wheezes, rhonchi, or crackles. Abdomen soft bowel sounds are heard. No masses or tenderness. Extremities are intact. No cyanosis clubbing or edema. Skin is without rash or lesion. Neurologic examination is currently being conducted by the neurology nurse, in front of the neurologist. Results - Laboratory Findings CBC and BMP: 02/09/21 07:34 02/09/21 07:34 ABG ABG pH 7.47 (7.35-7.45) H 02/09/21 11:05 ABG pCO2 29 mmHg (35-45) L 02/09/21 11:05 ABG pO2 70 mmHg (83-108) L 02/09/21 11:05 ABG O2 Saturation 94.8 % (94-97) 02/09/21 11:05 PT/INR, D-dimer PT 11.1 sec (9.0-12.0) 02/08/21 07:04 INR 1.1 (<1.2) 02/08/21 07:04 Abnormal lab findings: Abnormal Labs 02/07/21 02/07/21 02/07/21 15:27 15:36 15:36 WBC 16.7 H RBC Hgb Hct Neutrophils # 14.2 H APTT ABG pH ABG pCO2 ABG pO2 Sodium 135 L Chloride Carbon Dioxide BUN 21 H Glucose 263 H POC Glucose (mg/dL) Calcium Albumin 3.4 L Urine Appearance Cloudy H Urine Protein 1+ H Urine Glucose (UA) 1+ H Urine Ketones 1+ H Ur Leukocyte Esterase Moderate H Urine WBC 14 H Urine Bacteria Many H Urine Mucus Few H 02/07/21 02/07/21 02/08/21 15:43 20:19 06:16 WBC RBC Hgb Hct Neutrophils # APTT ABG pH ABG pCO2 ABG pO2 Sodium Chloride Carbon Dioxide BUN Glucose POC Glucose (mg/dL) 242 H 139 H 137 H Calcium Albumin Urine Appearance Urine Protein Urine Glucose (UA) Urine Ketones Ur Leukocyte Esterase Urine WBC Urine Bacteria Urine Mucus 02/08/21 02/08/21 02/08/21 07:04 11:40 15:25 WBC 12.6 H RBC Hgb Hct Neutrophils # 9.7 H APTT 37.8 H ABG pH ABG pCO2 ABG pO2 Sodium Chloride Carbon Dioxide BUN Glucose POC Glucose (mg/dL) 154 H Calcium Albumin Urine Appearance Urine Protein Urine Glucose (UA) Urine Ketones Ur Leukocyte Esterase Urine WBC Urine Bacteria Urine Mucus 02/08/21 02/08/21 02/08/21 16:47 20:23 22:25 WBC RBC Hgb Hct Neutrophils # APTT 31.4 H ABG pH ABG pCO2 ABG pO2 Sodium Chloride Carbon Dioxide BUN Glucose POC Glucose (mg/dL) 168 H 127 H Calcium Albumin Urine Appearance Urine Protein Urine Glucose (UA) Urine Ketones Ur Leukocyte Esterase Urine WBC Urine Bacteria Urine Mucus 02/09/21 02/09/21 02/09/21 06:06 07:34 07:34 WBC 13.4 H RBC 3.61 L Hgb 11.0 L Hct 33.1 L Neutrophils # 10.3 H APTT ABG pH ABG pCO2 ABG pO2 Sodium Chloride 108 H Carbon Dioxide 20 L BUN Glucose 143 H POC Glucose (mg/dL) 131 H Calcium 8.3 L Albumin Urine Appearance Urine Protein Urine Glucose (UA) Urine Ketones Ur Leukocyte Esterase Urine WBC Urine Bacteria Urine Mucus 02/09/21 02/09/21 02/09/21 07:34 11:05 12:05 WBC RBC Hgb Hct Neutrophils # APTT 45.7 H ABG pH 7.47 H ABG pCO2 29 L ABG pO2 70 L Sodium Chloride Carbon Dioxide BUN Glucose POC Glucose (mg/dL) 169 H Calcium Albumin Urine Appearance Urine Protein Urine Glucose (UA) Urine Ketones Ur Leukocyte Esterase Urine WBC Urine Bacteria Urine Mucus - Diagnostic Findings Chest x-ray: image reviewed Assessment and Plan Assessment: Mental status changes, likely related to large left MCA territory ischemic in farct. Chronic recurrent urinary tract infections. Diffuse bilateral infiltrates, likely related to underlying heart failure and/or pneumonia. New onset atrial fibrillation with rapid ventricular response. History of diabetes mellitus. History of hypothyroidism. History of hypertension. Plan: Plan dated 02/09/2021. The patient will have a pro-calcitonin level ordered, as well as an N-terminal proBNP. Additional recommendations and suggestions are forthcoming. We will continue to follow make recommendations where appropriate. Currently, the pat ient is being evaluated by the neurologist. The patient's on 4 L nasal cannula, Cardizem 50 mg an hour, saline at KVO, and heparin via weightbase protocol. We will continue to follow and make recommendations where appropriate. Time with Patient: Greater than 30
--- NOTE | 2021-02-09 16:11 | P.PN ---
Subjective Progress Note Date: 02/09/21 This is a pleasant 80-year-old female, who comes in from home, with acute mental status changes, patient cannot provide much more often history today as the patient cannot remain focused on questions asked of her, she is only motivated on the food that in front of her, however per history that comes from family member, she's had increasing weakness fatigue and increasing confusion, she normally gets this way whenever she gets a urinary tract infection. She has underlying history of diabetes mellitus, fibromyalgia, hypertension, no history of CVA, no history of seizures. She was in the emergency room, with new onset atrial fibrillation, heart rate in the 140s, chest x-ray shows cardiomegaly, with vascular congestion, and bilateral opacification, Covid is negative. Patient's tachypnea, when seen afebrile, T-max of 98 9, with pulse ox of 94% on room air. Urinalysis also shows pyuria, she was given IV Rocephin emergency room, for which we had obtained cultures as well, and continued on Rocephin. She was started on IV Cardizem for A. fib RVR, and IV heparin., 02/09 patient was seen for eval, there is on CAT scan findings, large area of cortical and subcortical hypodensity involving the left mid posterior left MCA territory, left frontoparietal junction, anterior left temporal lobe, suspicious of subacute left MCA territory, there is sulcal effacement, with rightward midline shift, no herniation or hydrocephalus, prominent bilateral spray ophthalmic veins possibly related to elevated increasing intracranial pressure, patient is still on IV heparin, seen by neurology, there is a right cranial sixth nervec, on physical examination. Patient is still disoriented confused, can follow verbal commands, can move all approximately 7 lower extremities, patient is alert and oriented 2, sometimes cannot give me the right answers, chest x-ray shows bilateral infiltrates, pro-calcitonin ordered, on 4 L nasal cannula, patient is on IV Zosyn, PT, OT consulted, EEG of the brain, MRI of the brain patient was able to eat oatmeal this morning, without any clinical evidence of aspiration, we'll provide Diet, thickened liquids, until speech eval Objective - Vital Signs Vital signs: Vital Signs Temp 98.4 F 02/09/21 11:02 Pulse 75 02/09/21 13:51 Resp 24 02/09/21 13:51 BP 120/70 02/09/21 11:56 Pulse Ox 93 L 02/09/21 11:56 Intake & Output 02/08/21 02/09/21 02/09/21 18:59 06:59 18:59 Intake Total 419.279 202.205 243.25 Output Total 200 3 Balance 419.279 2.205 240.25 Intake: Intake, IV Titration 319.279 202.205 125.25 Amount Diltiazem 125 mg In 125 125.25 Sodium Chloride 0.9% 100 ml @ 10 mls/hr IV . [id number] [facility] Rx#:[id number] Heparin Sod,Pork in 0.45% 194.279 202.205 NaCl 25,000 unit In 0.45 % NaCl 1 250ml.bag @ 12 UNITS/KG/HR 9.525 mls/hr IV .Q24H [facility] Rx#: [id number] Oral 100 118 Output: Urine 200 3 Other: Voiding Method Diaper Diaper Diaper External Catheter External Catheter # Voids 2 1 - Constitutional General appearance: Present: cooperative, no acute distress - EENT Eyes: Present: anicteric sclerae, EOMI, normal appearance ENT: Present: NA/AT, normal oropharynx - Neck Neck: Present: normal ROM - Respiratory Respiratory: bilateral: CTA, negative: diminished, dullness - Cardiovascular Rhythm: regular Heart sounds: normal: S1, S2 Abnormal Heart Sounds: Absent: systolic murmur, diastolic murmur, rub, S3 Gallop, S4 Gallop, click, other - Gastrointestinal General gastrointestinal: Present: hyperactive bowel sounds, normal bowel sounds - Integumentary Integumentary: Present: normal - Neurologic Neurologic: Present: CNII-XII intact - Musculoskeletal Musculoskeletal: Present: gait normal, strength equal bilaterally - Psychiatric Psychiatric: Present: A&O x's 3, appropriate affect - Labs CBC & Chem 7: 02/09/21 07:34 02/09/21 07:34 Labs: Abnormal Lab Results - Last 24 Hours (Table) 02/08/21 02/08/21 02/08/21 Range/Units 15:25 16:47 20:23 WBC (3.8-10.6) k/uL RBC (3.80-5.40) m/uL Hgb (11.4-16.0) gm/dL Hct (34.0-46.0) % Neutrophils # (1.3-7.7) k/uL APTT 37.8 H (22.0-30.0) sec ABG pH (7.35-7.45) ABG pCO2 (35-45) mmHg ABG pO2 (83-108) mmHg Chloride (98-107) mmol/L Carbon Dioxide (22-30) mmol/L Glucose (74-99) mg/dL POC Glucose (mg/dL) 168 H 127 H (75-99) mg/dL Calcium (8.4-10.2) mg/dL 02/08/21 02/09/21 02/09/21 Range/Units 22:25 06:06 07:34 WBC 13.4 H (3.8-10.6) k/uL RBC 3.61 L (3.80-5.40) m/uL Hgb 11.0 L (11.4-16.0) gm/dL Hct 33.1 L (34.0-46.0) % Neutrophils # 10.3 H (1.3-7.7) k/uL APTT 31.4 H (22.0-30.0) sec ABG pH (7.35-7.45) ABG pCO2 (35-45) mmHg ABG pO2 (83-108) mmHg Chloride (98-107) mmol/L Carbon Dioxide (22-30) mmol/L Glucose (74-99) mg/dL POC Glucose (mg/dL) 131 H (75-99) mg/dL Calcium (8.4-10.2) mg/dL 02/09/21 02/09/21 02/09/21 Range/Units 07:34 07:34 11:05 WBC (3.8-10.6) k/uL RBC (3.80-5.40) m/uL Hgb (11.4-16.0) gm/dL Hct (34.0-46.0) % Neutrophils # (1.3-7.7) k/uL APTT 45.7 H (22.0-30.0) sec ABG pH 7.47 H (7.35-7.45) ABG pCO2 29 L (35-45) mmHg ABG pO2 70 L (83-108) mmHg Chloride 108 H (98-107) mmol/L Carbon Dioxide 20 L (22-30) mmol/L Glucose 143 H (74-99) mg/dL POC Glucose (mg/dL) (75-99) mg/dL Calcium 8.3 L (8.4-10.2) mg/dL 02/09/21 Range/Units 12:05 WBC (3.8-10.6) k/uL RBC (3.80-5.40) m/uL Hgb (11.4-16.0) gm/dL Hct (34.0-46.0) % Neutrophils # (1.3-7.7) k/uL APTT (22.0-30.0) sec ABG pH (7.35-7.45) ABG pCO2 (35-45) mmHg ABG pO2 (83-108) mmHg Chloride (98-107) mmol/L Carbon Dioxide (22-30) mmol/L Glucose (74-99) mg/dL POC Glucose (mg/dL) 169 H (75-99) mg/dL Calcium (8.4-10.2) mg/dL Microbiology - Last 24 Hours (Table) 02/07/21 15:36 Urine Culture - Preliminary Urine,Voided Gram Neg Bacilli Assessment and Plan Plan: 1. Acute metabolic encephalopathy, with sepsis, UTI as a primary source, cannot rule out aspiration pneumonia, eyes patient has bilateral infiltrates also noted, patient on Rocephin, we will change to IV Zosyn, cultures to be done, including sputum if able. Check a pro-calcitonin 2. New onset A. fib with RVR, on IV Cardizem, and IV heparin, for which cardiology has been consulted, and they have recommended weaning off Cardizem, and metoprolol 25 mg twice a day has been started. Patient will be converted to oral anticoagulation with a factor X inhibition prior to discharge 3. Large area of cortical and subcortical hypodensity, suspicious for a large infarct, involving the left posterior left MCA territory, left frontoparietal anterior left temporal lobe, with 2 mm rightward midline shift, neurology is followed, stat MRI of the brain, on IV heparin, for new onset atrial fibrillation PT OT, speech, patient was able to feed with assistance, without evidence of clinical aspiration 3. Diabetes mellitus type 2 patient on Actos and metformin, check A1c 4. Delirium most likely, patient is on Desyrel 50 mg at bedtime, which we could continue, and continue on Effexor XR 37.5 twice a day. We'll going to the discontinue Savella, and hold off gabapentin at this time 5 hypothyroidism, with control TSH, on 100 g levothyroxine daily no changes. 6. Chronic pain, from from fibromyalgia, on tramadol 50 mg twice a day, which we will hold off at this time, until mentation would be clear, although of gabapentin, and hold off Savella continue venlafaxine and trazodone 7. Hypertension, amlodipine is on hold while on IV Cardizem, this. Will be resumed when stabilized 9. DVT prophylaxis 10 GI prophylaxis 11. CODE STATUS
--- NOTE | 2021-02-09 16:30 | P.CNNES ---
History of Present Illness Consult date: 02/09/21 History of Present Illness: The patient is an 80-year-old female who is seen in neurologic consultation on February 09, 2021, via teleneurology. The patient was brought into the emergency department via EMS, on February 07, 2021, after a friend found her confused and weak. According to the friend, the patient has had similar episodes like this and they are usually related to a urinary tract infection. In the emergency department, the patient was found to be in atrial fibrillation with rapid ventricular response. Urinalysis was also consistent with infection. Blood work was done and the patient was found to have a slightly elevated white blood cell count with a normal hemoglobin. The patient was started on IV heparin drip for the atrial fibrillation. CT scan of the brain was not performed in the emergency department. According to other notes in the chart, the patient had previously been able to answer questions to some degree. She was moving all 4 extremities. She reportedly was able to eat some breakfast this morning. According to the patient's nurse, today, the patient is talking "gibberish". She is saying words that make no sense. Later in the morning she reportedly was not even speaking real words. Past Medical History Past Medical History: Diabetes Mellitus, Fibromyalgia, Hypertension History of Any Multi-Drug Resistant Organisms: None Reported Past Surgical History: Hysterectomy Additional Past Surgical History / Comment(s): Knee replacement Past Anesthesia/Blood Transfusion Reactions: No Reported Reaction Smoking Status: Never smoker Medications and Allergies Home Medications Medication Instructions Recorded Confirmed Type Gabapentin 300 mg PO TID 02/07/21 02/07/21 History Levothyroxine Sodium [Synthroid] 100 mcg PO DAILY 02/07/21 02/07/21 History Milnacipran HCl [Savella] 100 mg PO BID 02/07/21 02/07/21 History Omeprazole [PriLOSEC] 20 mg PO DAILY 02/07/21 02/07/21 History Pioglitazone [Actos] 15 mg PO DAILY 02/07/21 02/07/21 History Trospium Chloride [Sanctura] 20 mg PO BID 02/07/21 02/07/21 History Venlafaxine HCl ER [Effexor Xr] 37.5 mg PO BID 02/07/21 02/07/21 History amLODIPine [Norvasc] 5 mg PO DAILY 02/07/21 02/07/21 History atenoloL [Atenolol] 25 mg PO DAILY 02/07/21 02/07/21 History metFORMIN HCL 500 mg PO DAILY 02/07/21 02/07/21 History traMADol HCL 50 mg PO BID 02/07/21 02/07/21 History traZODone HCL [Desyrel] 50 mg PO HS 02/07/21 02/07/21 History Allergies Allergy/AdvReac Type Severity Reaction Status Date / Time codeine Allergy Itching Verified 02/07/21 16:35 Physical Examination - Vital Signs Vital Signs: Vital Signs Temp Pulse Resp BP BP Pulse Ox 02/09/21 11:02 98.4 F 02/09/21 08:34 100.7 F H 89 22 133/73 93 L 02/09/21 08:00 89 22 02/09/21 04:00 98.7 F 99 19 102/58 94 L 02/09/21 01:10 88 22 02/09/21 00:00 98.8 F 88 22 131/84 92 L 02/08/21 20:00 99.8 F H 92 19 120/74 96 02/08/21 16:00 98.9 F 87 20 123/68 93 L 02/08/21 13:43 92 24 02/08/21 12:00 98.8 F 92 24 139/77 95 Intake and Output 02/08/21 02/09/21 02/09/21 22:59 06:59 14:59 Intake Total 53.334 202.205 118 Output Total 120 80 Balance -66.666 122.205 118 Intake: Intake, IV Titration 3.334 202.205 Amount Heparin Sod,Pork in 0.45% 3.334 202.205 NaCl 25,000 unit In 0.45 % NaCl 1 250ml.bag @ 12 UNITS/KG/HR 9.525 mls/hr IV .Q24H [facility] Rx#: [id number] Oral 50 118 Output: Urine 120 80 Other: Voiding Method Diaper Diaper Diaper External Catheter External Catheter External Catheter # Voids 1 Gen.: The patient is reclining in the bed. She is very lethargic. She does not open her eyes to verbal stimulation. She has labored breathing. HEENT: Head is atraumatic, normocephalic. Fundus not visualized. There is no scleral icterus. Mucous membranes are moist. Neck: Supple without carotid bruits. Heart: Regular rate and rhythm Lungs: There are upper airway sounds Neurological examination Mental status: The patient does not open her eyes to verbal stimulation. She is arousable to sternal rub. She localizes pain to her extremities. Does not withdraw from noxious stimulation. She is nonverbal. After noxious stimulation, the patient is more awake. Her eyes are open. She follows some simple commands to wiggle her hands and feet. Cranial nerves: Pupils are equal at 2 mm and sluggish. Visual field testing is difficult to accurately assess the contrary to mental status of the patient. There is a right facial droop. Motor: Bilateral upper extremities are flaccid. There is increased tone in the lower extremities, left greater than right. Sensation: The patient does localize noxious stimulation to her extremities. Deep tendon reflexes: Difficult to assess. Plantar responses are extensor bilaterally. Results - Laboratory Findings CBC and BMP: 02/09/21 07:34 02/09/21 07:34 Abnormal Lab Findings: Abnormal Labs 02/07/21 02/07/21 02/07/21 15:27 15:36 15:36 WBC 16.7 H RBC Hgb Hct Neutrophils # 14.2 H APTT ABG pH ABG pCO2 ABG pO2 Sodium 135 L Chloride Carbon Dioxide BUN 21 H Glucose 263 H POC Glucose (mg/dL) Calcium Albumin 3.4 L Urine Appearance Cloudy H Urine Protein 1+ H Urine Glucose (UA) 1+ H Urine Ketones 1+ H Ur Leukocyte Esterase Moderate H Urine WBC 14 H Urine Bacteria Many H Urine Mucus Few H 02/07/21 02/07/21 02/08/21 15:43 20:19 06:16 WBC RBC Hgb Hct Neutrophils # APTT ABG pH ABG pCO2 ABG pO2 Sodium Chloride Carbon Dioxide BUN Glucose POC Glucose (mg/dL) 242 H 139 H 137 H Calcium Albumin Urine Appearance Urine Protein Urine Glucose (UA) Urine Ketones Ur Leukocyte Esterase Urine WBC Urine Bacteria Urine Mucus 02/08/21 02/08/21 02/08/21 07:04 11:40 15:25 WBC 12.6 H RBC Hgb Hct Neutrophils # 9.7 H APTT 37.8 H ABG pH ABG pCO2 ABG pO2 Sodium Chloride Carbon Dioxide BUN Glucose POC Glucose (mg/dL) 154 H Calcium Albumin Urine Appearance Urine Protein Urine Glucose (UA) Urine Ketones Ur Leukocyte Esterase Urine WBC Urine Bacteria Urine Mucus 02/08/21 02/08/21 02/08/21 16:47 20:23 22:25 WBC RBC Hgb Hct Neutrophils # APTT 31.4 H ABG pH ABG pCO2 ABG pO2 Sodium Chloride Carbon Dioxide BUN Glucose POC Glucose (mg/dL) 168 H 127 H Calcium Albumin Urine Appearance Urine Protein Urine Glucose (UA) Urine Ketones Ur Leukocyte Esterase Urine WBC Urine Bacteria Urine Mucus 02/09/21 02/09/21 02/09/21 06:06 07:34 07:34 WBC 13.4 H RBC 3.61 L Hgb 11.0 L Hct 33.1 L Neutrophils # 10.3 H APTT ABG pH ABG pCO2 ABG pO2 Sodium Chloride 108 H Carbon Dioxide 20 L BUN Glucose 143 H POC Glucose (mg/dL) 131 H Calcium 8.3 L Albumin Urine Appearance Urine Protein Urine Glucose (UA) Urine Ketones Ur Leukocyte Esterase Urine WBC Urine Bacteria Urine Mucus 02/09/21 02/09/21 07:34 11:05 WBC RBC Hgb Hct Neutrophils # APTT 45.7 H ABG pH 7.47 H ABG pCO2 29 L ABG pO2 70 L Sodium Chloride Carbon Dioxide BUN Glucose POC Glucose (mg/dL) Calcium Albumin Urine Appearance Urine Protein Urine Glucose (UA) Urine Ketones Ur Leukocyte Esterase Urine WBC Urine Bacteria Urine Mucus Assessment and Plan Assessment: 1. 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 New onset mental status changes with worsening of mental status and speech likely secondary to the above noted cerebral infarct 3. Urinary tract infection-etiology of initial mental status changes 4. New onset atrial fibrillation with rapid ventricular response 5. History of hypertension 6. History of diabetes mellitus Plan: 1. Heparin drip should be discontinued because of risk of hemorrhagic transformation of large cerebral infarct 2. MRI of brain to further evaluate for current known ischemic area and possible other areas related to atrial fibrillation 3. Stroke workup including PT, OT and speech therapy evaluations. 2-D echocardiogram, lipid panel, hemoglobin A1c and TSH should be checked 4. Neuro checks should be continued on this patient Thank you for allowing me to participate in the care of this patient. Dr. Jonnathan Walker will assume neurologic coverage as of February 10, 2021 Time with Patient: Greater than 30 (Spent 40 minutes with patient via teleneurology)
[2021-02-09 17:04] LABS: Glucose,Whole Blood 140 mg/dL (75-99)
[2021-02-09 20:11] LABS: Glucose,Whole Blood 158 mg/dL (75-99)
[2021-02-09] MEDS: traZODone HCL 50 MG TAB PO SCH (20:44)
[2021-02-09] MEDS: METOPROLOL TARTRATE 50 MG TAB PO SCH (20:44)
[2021-02-10] MEDS: PIPERACILLIN-TAZOBACTAM 3.375 GM in SODIUM CHLORIDE 0.9% 100 ML IVPB SCH ×3 (04:08→21:19)
[2021-02-10] MEDS: ACETAMINOPHEN TAB 325 MG TAB PO PRN ×2 (04:17→15:41)
[2021-02-10 06:14] LABS: Glucose,Whole Blood 139 mg/dL (75-99)
[2021-02-10] MEDS: INSULIN ASPART (NovoLOG) 100 UNIT/ML VIAL SQ SCH ×4 (06:52→21:15)
[2021-02-10] MEDS: LEVOTHYROXINE 100 MCG TAB PO SCH (06:52)
[2021-02-10] MEDS: PANTOPRAZOLE 40 MG TABLET PO SCH (06:52)
[2021-02-10] MEDS: DILTIAZEM 125 MG in SODIUM CHLORIDE 0.9% 100 ML IV SCH (08:19)
[2021-02-10] MEDS: METOPROLOL TARTRATE 50 MG TAB PO SCH ×2 (08:20→21:19)
[2021-02-10] MEDS: MILNACIPRAN HCL 100 MG PO SCH ×2 (08:20→21:16)
[2021-02-10] MEDS: metFORMIN 500 MG TAB PO SCH (08:20)
[2021-02-10] MEDS: VENLAFAXINE HCL ER 37.5 MG CAP PO SCH ×2 (08:20→21:19)
[2021-02-10] MEDS: PIOGLITAZONE 15 MG TAB PO SCH (08:20)
--- NOTE | 2021-02-10 08:49 | US ---
EXAMINATION TYPE: US carotid duplex BILAT DATE OF EXAM: 02/10/2021 COMPARISON: NONE CLINICAL HISTORY: stroke rule out occlusion. EXAM MEASUREMENTS: RIGHT: Peak Systolic Velocity (PSV) cm/sec ----- Right CCA: 75.5 ----- Right ICA: 73.5 ----- Right ECA: 96.9 ICA/CCA ratio: 1.0 RIGHT: End Diastole cm/sec ----- Right CCA: 12.9 ----- Right ICA: 14.2 ----- Right ECA: 0.0 LEFT: Peak Systolic Velocity (PSV) cm/sec ----- Left CCA: 80.1 ----- Left ICA: 112.5 ----- Left ECA: 153.6 ICA/CCA ratio: 1.4 LEFT: End Diastole cm/sec ----- Left CCA: 19.3 ----- Left ICA: 37.4 ----- Left ECA: 5.7 VERTEBRALS (direction of flow): Right Vertebral: Antegrade Left Vertebral: Antegrade Rhythm: Normal Grayscale, color Doppler, spectral Doppler imaging performed of the carotid arteries. Mild atheromato us change present at the carotid bifurcations. Waveform analysis does not show significant stenosis o f the internal carotid arteries. No significant stenosis seen IMPRESSION: No hemodynamic significant stenosis of the proximal internal carotid arteries by Doppler criteria, an indirect measurement of carotid stenosis Criteria for Assigning % of Stenosis / Diameter reduction (Estimation based on the indirect measurements of the internal carotid artery velocities (ICA PSV). 1. Normal (no stenosis)=ICA PSV < 125 cm/s: ratio < 2.0: ICA EDV<40 cm/s. 2. Less than 50% stenosis=ICA PSV < 125 cm/s: ratio < 2.0: ICA EDV<40 cm/s. 3. 50 to 69% stenosis=ICA PSV of 125 to 230 cm/s: ration 2.0 ? 4.0: ICA EDV 40-100 cm/s. 4. Greater than 70% stenosis to near occlusion= ICA PSV > 230 cm/s: ratio > 4.0: ICA EDV > 100 cm/s. 5. Near occlusion= ICA PSV velocities may be low or undetectable: variable ratio and ICA EDV. 6. Total occlusion=unable to detect flow.
[2021-02-10] MEDS ORDERED: METOPROLOL TARTRATE 50 MG TAB PO STA (11:03)
[2021-02-10] MEDS ORDERED: DILTIAZEM 125 MG in SODIUM CHLORIDE 0.9% 100 ML IV SCH (11:15)
--- NOTE | 2021-02-10 11:15 | P.PN ---
Subjective Progress Note Date: 02/10/21 Principal diagnosis: Sepsis, urinary tract infection, atrial fibrillation, CVA. Pulmonary consult dated 02/09/2021. 80-year-old female who presents to the emergency department on February 07. She apparently went to the emergency department with mental status changes. Apparently according to a visiting nurse, the patient appeared weaker and more fatigued than normal. The patient apparently had a doctor's appointment that day, but instead, ended up in the emergency department. She is apparently diagnoses having patchy pneumonia, and urinary tract infection. Mental status changes apparently were blamed on the urinary tract infection as apparently, he has happened before. The patient finally had a computed tomography scan of the brain today, which showed a large left MCA ischemic infarct. A blood gas was done, because the nurse thought maybe the patient was retaining carbon dioxide, which may have explained the mental status changes. In addition, the patient was admitted with a diagnosis of atrial fibrillation with RVR, and started on heparin. In addition, she was on saline at KVO, and Cardizem 15 mg an hour. She was admitted by Dr. Montelongo to the emergency department, with a diagnosis of mental status changes, ER, and urinary tract infection. The brain CT was just ordered today. White count 13.4, hemoglobin 11, hematocrit 33.1, and platelet count normal. Blood gases on 36% oxygen showed a pO2 of 70, pCO2 of 29, and pH is 7.47. His blood gas was consistent with respiratory alkalosis. PTT was 46. Sodium 138, potassium 3.6, chlorides 108, CO2 20, anion gap 10, BUN 13, and creatinine 0.55. In addition, there are bilateral infiltrates, potentially consistent with pneumonia. Progress note dated 02/10/2021. Patient is again seen in room 359. Currently, the patient is on a heparin drip, a Cardizem drip at 10 mg an hour, and saline at 20 mL an hour. In addition, the patient's getting O2 at 4 L, with saturations between 96-97%. The patient appears recently comfortable, but she is somewhat lethargic. She does arouse easily. Lab data today includes a PTT of 44.9. The patient's acute diagnoses included left MCA ischemic infarct, urinary tract infection, possible pneumonia, and atrial fibrillation with RVR. Objective - Vital Signs Vital signs: Vital Signs Temp 98.4 F 02/10/21 08:00 Pulse 85 02/10/21 08:00 Resp 22 02/10/21 08:00 BP 165/92 02/10/21 08:00 Pulse Ox 96 02/10/21 08:00 Intake & Output 02/09/21 02/10/21 02/10/21 18:59 06:59 18:59 Intake Total 611.25 243.5 82 Output Total 453 500 Balance 158.25 -256.5 82 Weight 78.5 kg Intake: Intake, IV Titration 375.25 243.5 2 Amount Diltiazem 125 mg In 125.25 243.5 2 Sodium Chloride 0.9% 100 ml @ 10 mls/hr IV . [id number] [facility] Rx#:[id number] Heparin Sod,Pork in 0.45% 250 NaCl 25,000 unit In 0.45 % NaCl 1 250ml.bag @ 12 UNITS/KG/HR 9.525 mls/hr IV .Q24H [facility] Rx#: [id number] Oral 236 80 Output: Urine 453 500 Other: Voiding Method Diaper Diaper Diaper External Catheter External Catheter External Catheter # Bowel Movements 1 - Exam No apparent distress. Currently on 4 L nasal cannula. The patient does arouse. Seems a bit more awake and alert today than yesterday. HEENT examination is grossly unremarkable. Neck supple. Full range of motion. No adenopathy thyromegaly or neck vein distention. Cardiovascular examination reveals an irregular rhythm and rate. S1-S2 normal. No S3 or S4. No discernible murmur noted. Heart rate 85 bpm. Lungs reveal mostly clear breath sounds. Breath sounds are diminished at the bases. No wheezes, rhonchi, or crackles. Abdomen soft bowel sounds are heard. No masses or tenderness. Extremities are intact. No cyanosis clubbing or edema. Skin is without rash or lesion. Neurologic examination is essentially unchanged. - Labs CBC & Chem 7: 02/09/21 07:34 02/09/21 07:34 Labs: Abnormal Lab Results - Last 24 Hours (Table) 02/09/21 02/09/21 02/09/21 Range/Units 07:34 11:05 12:05 APTT (22.0-30.0) sec ABG pH 7.47 H (7.35-7.45) ABG pCO2 29 L (35-45) mmHg ABG pO2 70 L (83-108) mmHg POC Glucose (mg/dL) 169 H (75-99) mg/dL Procalcitonin 0.52 H (0.02-0.09) ng/mL 02/09/21 02/09/21 02/10/21 Range/Units 17:02 20:10 06:13 APTT (22.0-30.0) sec ABG pH (7.35-7.45) ABG pCO2 (35-45) mmHg ABG pO2 (83-108) mmHg POC Glucose (mg/dL) 140 H 158 H 139 H (75-99) mg/dL Procalcitonin (0.02-0.09) ng/mL 02/10/21 Range/Units 06:24 APTT 44.9 H (22.0-30.0) sec ABG pH (7.35-7.45) ABG pCO2 (35-45) mmHg ABG pO2 (83-108) mmHg POC Glucose (mg/dL) (75-99) mg/dL Procalcitonin (0.02-0.09) ng/mL Assessment and Plan Assessment: Mental status changes, likely related to large left MCA territory ischemic infarct. Chronic recurrent urinary tract infections, with gram-negative bacilli again in the urine. Diffuse bilateral infiltrates, likely related to underlying heart failure and/or pneumonia. New onset atrial fibrillation with rapid ventricular response. History of diabetes mellitus. History of hypothyroidism. History of hypertension. Plan: Plan dated 02/09/2021. The patient will have a pro-calcitonin level ordered, as well as an N-terminal proBNP. Additional recommendations and suggestions are forthcoming. We will continue to follow make recommendations where appropriate. Currently, the patient is being evaluated by the neurologist. The patient's on 4 L nasal cannula, Cardizem 50 mg an hour, saline at KVO, and heparin via weightbase protocol. We will continue to follow and make recommendations where appropriate. Plan dated 02/10/2021. The patient remains on Zosyn. The patient's pro-calcitonin level was 0.52, and the N-terminal proBNP was 3800. The patient is currently on a heparin drip, Cardizem drip at 10 mg an hour, and saline at 20 mL an hour. The patient's also receiving nasal O2 at 4 L. She still seems quite lethargic, but she does arouse. Additional recommendations and suggestions are forthcoming. Prognosis is guarded. We will continue to follow make recommendations where appropriate. Time with Patient: Less than 30
[2021-02-10 11:32] LABS: Chol/HDL Ratio 5.29; LDL Cholesterol,Calculated 81.4 mg/dL (0.0-131.0); VLDL Calculation 21.6 mg/dL (5.00-40.00)
[2021-02-10 11:40] LABS: Glucose,Whole Blood 168 mg/dL (75-99)
--- NOTE | 2021-02-10 13:15 | MR ---
EXAMINATION TYPE: MR brain wo/w con DATE OF EXAM: 02/10/2021 COMPARISON: CT 02/09/2021, MR brain 02/14/2014 HISTORY: CVA, Confusion, Weakness TECHNIQUE: Multiplanar, multisequence images of the brain and brainstem is performed without and with IV contras t, utilizing 7.5 mL intravenous Gadavist . FINDINGS: Diffusion weighted images demonstrate restricted diffusion involving the left cerebellar he misphere peripherally, the left temporoparietal lobe, there is corresponding hyperintensity and inver shana recovery T2-weighted sequences. Some effacement of the sulci noted in the distribution of the pa tient's infarcts. There is some motion on the exam. There is no extra-axial fluid collection. Scatte red and confluent periventricular hyperintensity and inversion recovery T2-weighted sequences in the pericallosal, periventricular and subcortical white matter noted similar to prior exam but perhaps pr ogressed somewhat in the interval. The ventricular system and cisternal spaces are normal in size and appearance. The brain volume is age appropriate, cortical atrophy again noted. Lacunar infarcts aga in noted external capsule on the right, basal ganglia. Midline structures demonstrate normal morphology. The craniocervical junction appears within normal limits. Post contrast images demonstrate no abnormal enhancement. The dural venous sinuses appear pa tent. The visualized sinuses are clear and the globes are intact. IMPRESSION: Subacute infarcts as described. Age-related changes of atrophy and chronic small vessel i schemia.
--- NOTE | 2021-02-10 15:53 | EEG ---
ELECTROENCEPHALOGRAM REPORT DATE OF SERVICE: 02/10/2021. CLINICAL HISTORY: This is an 80-year-old woman with a history of subacute stroke over the left temporoparietal and cerebellar region and who is hypersomnia. This video EEG is obtained to evaluate for seizure and epileptiform activity. RELEVANT MEDICATION: The patient is not on any antiepileptic drugs.. EEG TYPE: A routine 21-channel EEG is performed with video using the 10/20 electrode system. DESCRIPTION: Wakefulness is obtained. During wakefulness, the background over the right hemisphere, consists of low to moderate voltage of 8-8.5 hertz posterior dominant rhythm. While over the left, the background consists of delta intermixed with theta activity. There is focal slowing over the left hemisphere, predominantly over the left temporoparietal region, of moderate voltage of 1-2 hertz nonrhythmic delta slowing while over the left central region there is theta intermixed with delta activity. Interictal and ictal is none. ACTIVATION PROCEDURE: Photic stimulation, hyperventilation are not performed. CLINICAL INTERPRETATION: This is an abnormal routine EEG. The background is asymmetrical with the left hemisphere suggestive of moderate to severe encephalopathy, while the right hemisphere is normal. The focal slowing over the left temporoparietal is consistent with the patient's history of subacute stroke. There are no epileptiform activity or seizure during the study. Clinical correlation is recommended. [facility] / LETAN: [id number] / [id number]
--- NOTE | 2021-02-10 16:13 | P.PN ---
Subjective Progress Note Date: 02/10/21 I'm seeing the patient for the first time. The please refer to Dr. Augustine's note for further neurological history and impression and plan. Per the patient's nurse she stated that the heparin drip was discontinued about an hour ago which was 3:00 PM and that she was getting heparin drip yesterday and she thinks overnight told today. Per our team Dr. Augustine recommended happened to be discontinued from yesterday to avoid hemorrhagic conversion. I spoke with the patient's daughter (Bree) who stated her language difficulty started on 02/07/2021 and was talking gibberish. But now she feels she is follo wing commands but is currently taking [place] but per the daughter she has not spoken [place] but family stated they her children speak limited in [place] and do not know if she is speaking purely intact. She feels her language is improvement compared to Wednesday. Objective - Vital Signs Vital signs: Vital Signs Temp 99.5 F 02/10/21 15:34 Pulse 93 02/10/21 15:34 Resp 20 02/10/21 15:34 BP 163/85 02/10/21 15:34 Pulse Ox 94 L 02/10/21 15:34 Intake & Output 02/09/21 02/10/21 02/10/21 18:59 06:59 18:59 Intake Total 611.25 243.5 82 Output Total 453 500 Balance 158.25 -256.5 82 Weight 78.5 kg Intake: Intake, IV Titration 375.25 243.5 2 Amount Diltiazem 125 mg In 125.25 243.5 2 Sodium Chloride 0.9% 100 ml @ 10 mls/hr IV . [id number] [facility] Rx#:[id number] Heparin Sod,Pork in 0.45% 250 NaCl 25,000 unit In 0.45 % NaCl 1 250ml.bag @ 12 UNITS/KG/HR 9.525 mls/hr IV .Q24H [facility] Rx#: [id number] Oral 236 80 Output: Urine 453 500 Other: Voiding Method Diaper Diaper Diaper External Catheter External Catheter External Catheter # Bowel Movements 1 - Exam Gen.: Patient is not acute distress. Neurological examination Mental status: The patient is awake, alert. She is speaking jibberish to me and I do not know what she say but speaking in a different language. She stated "ok". She is not following commands. o Cranial nerves: Pupils are equal at 2 mm and sluggish. EOM is tracking throughout the room and no nystagmus. There is a right facial droop. Motor: Bilateral upper extremities are flaccid. She is able to lift the right leg and cross it to left leg. Sensation: The patient does localize noxious stimulation to her extremities. Deep tendon reflexes: Difficult to assess. Plantar responses are extensor bilaterally. LABS/IMAGING: * MRI the brain is reported as subacute infarct as described. Age-related changes of atrophy and chronic small vessel ischemia.The body of report it is reported as diffusion-weighted image demonstrated restriction diffusion involving the left cerebellar hemisphere peripherally, the left temporal parietal lobe, there is corresponding hyperintensity in the inversion recovery T2-weighted sequences. * Carotid duplex is reported as no hemodynamic significant stenosis of the proximal internal carotid arteries by Doppler criteria, and in direct measurement of carotid stenosis. * Lipid panel: Triglyceride of 108, cholesterol 127, LDL 81 and HDL of 24. * TSH is 1.45 which is considered within normal limits. - Labs CBC & Chem 7: 02/09/21 07:34 02/09/21 07:34 Labs: Abnormal Lab Results - Last 24 Hours (Table) 02/09/21 02/09/21 02/09/21 Range/Units 07:34 17:02 20:10 APTT (22.0-30.0) sec POC Glucose (mg/dL) 140 H 158 H (75-99) mg/dL HDL Cholesterol (40.0-60.0) mg/dL Procalcitonin 0.52 H (0.02-0.09) ng/mL 02/10/21 02/10/21 02/10/21 Range/Units 06:13 06:24 06:24 APTT 44.9 H (22.0-30.0) sec POC Glucose (mg/dL) 139 H (75-99) mg/dL HDL Cholesterol 24.0 L (40.0-60.0) mg/dL Procalcitonin (0.02-0.09) ng/mL 02/10/21 Range/Units 11:39 APTT (22.0-30.0) sec POC Glucose (mg/dL) 168 H (75-99) mg/dL HDL Cholesterol (40.0-60.0) mg/dL Procalcitonin (0.02-0.09) ng/mL Assessment and Plan Assessment: 1. 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 New onset mental status changes with worsening of mental status and speech likely secondary to the above noted cerebral infarct 3. Urinary tract infection-etiology of initial mental status changes 4. New onset atrial fibrillation with rapid ventricular response 5. History of hypertension 6. History of diabetes mellitus Plan: 1. Heparin drip was discontinued today about 1 hour ago (per nurse possibly about 3pm) because of risk of hemorrhagic transformation of large cerebral infarct. Will consider anticoagulation within 4 days from now but will get repeat image prior to anticoagulation. 2. I started the patient on aspirin 81 mg (starting tomorrow since was getting heparin and to prevent risk of bleed) and Lipitor 40 mg daily at bedtime for secondary stroke prophylaxis. I avoided use of dual antiplateletes for now (for concern if she has any significant edema down the line and require surgical intervention, which is unllikely), and once she continues to be stable will start it. 3. Ordered 2-D echo with bubble study and HbA1c. 4. PT, OT and speech therapy evaluations are on board. 5. Placed on Q4 hour Neuro checks. 6.. On continuos cardiac monitoring. 7. A routine EEG is ordered by the primary team: Preliminary Report: Abnormal EEG. The background is asymetrical with left hemipshere suggestive of moderate to severe encephalpathy while the right is normal. The focal slowing over the left temporal-parietal is consistent with patient history of subacute stroke. There are no epileptiform discharges or seizure on the EEG. 8. Cardiology team is on board. 9. Regarding DVT prophylaxis will defer that to the primary team. The plan is discussed withe the patient's daughter (Bree) via phone and her nurse. Jonnathan Vivas MD Neuro-Hospitalist Time with Patient: Less than 30
[2021-02-10 16:51] LABS: Glucose,Whole Blood 105 mg/dL (75-99)
--- NOTE | 2021-02-10 16:51 | P.PN ---
Subjective Progress Note Date: 02/10/21 This is a pleasant 80-year-old female, who comes in from home, with acute mental status changes, patient cannot provide much more often history today as the patient cannot remain focused on questions asked of her, she is only motivated on the food that in front of her, however per history that comes from family member, she's had increasing weakness fatigue and increasing confusion, she normally gets this way whenever she gets a urinary tract infection. She has underlying history of diabetes mellitus, fibromyalgia, hypertension, no history of CVA, no history of seizures. She was in the emergency room, with new onset atrial fibrillation, heart rate in the 140s, chest x-ray shows cardiomegaly, with vascular congestion, and bilateral opacification, Covid is negative. Patient's tachypnea, when seen afebrile, T-max of 98 9, with pulse ox of 94% on room air. Urinalysis also shows pyuria, she was given IV Rocephin emergency room, for which we had obtained cultures as well, and continued on Rocephin. She was started on IV Cardizem for A. fib RVR, and IV heparin., 02/09 patient was seen for eval, there is on CAT scan findings, large area of cortical and subcortical hypodensity involving the left mid posterior left MCA territory, left frontoparietal junction, anterior left temporal lobe, suspicious of subacute left MCA territory, there is sulcal effacement, with rightward midline shift, no herniation or hydrocephalus, prominent bilateral spray ophthalmic veins possibly related to elevated increasing intracranial pressure, patient is still on IV heparin, seen by neurology, there is a right cranial sixth nervec, on physical examination. Patient is still disoriented confused, can follow verbal commands, can move all approximately 7 lower extremities, patient is alert and oriented 2, sometimes cannot give me the right answers, chest x-ray shows bilateral infiltrates, pro-calcitonin ordered, on 4 L nasal cannula, patient is on IV Zosyn, PT, OT consulted, EEG of the brain, MRI of the brain patient was able to eat oatmeal this morning, without any clinical evidence of aspiration, we'll provide Diet, thickened liquids, until speech eval atient is alert more coherent very happy and pleased today, spontaneous speech fluent, speaking yi. neurology has recommended to hold off heaparin and even aspirirn as this involves large area of ischemic stroke and is at higher risk of hemorrhagic conversion. 2d echo with buble study eeg pt ot speech consulted, continue IV antibiotics for aspiration pneumonia, start aspirin as per recommendation low dose, as per neurology, Objective - Vital Signs Vital signs: Vital Signs Temp 99.4 F 02/10/21 12:00 Pulse 89 02/10/21 12:00 Resp 22 02/10/21 12:00 BP 122/67 02/10/21 12:00 Pulse Ox 97 02/10/21 12:00 Intake & Output 02/09/21 02/10/21 02/10/21 18:59 06:59 18:59 Intake Total 611.25 243.5 82 Output Total 453 500 Balance 158.25 -256.5 82 Weight 78.5 kg Intake: Intake, IV Titration 375.25 243.5 2 Amount Diltiazem 125 mg In 125.25 243.5 2 Sodium Chloride 0.9% 100 ml @ 10 mls/hr IV . [id number] [facility] Rx#:[id number] Heparin Sod,Pork in 0.45% 250 NaCl 25,000 unit In 0.45 % NaCl 1 250ml.bag @ 12 UNITS/KG/HR 9.525 mls/hr IV .Q24H [facility] Rx#: [id number] Oral 236 80 Output: Urine 453 500 Other: Voiding Method Diaper Diaper Diaper External Catheter External Catheter External Catheter # Bowel Movements 1 - Constitutional General appearance: Present: cooperative, no acute distress - EENT Eyes: Present: EOMI, PERRLA, dentition normal ENT: Present: NA/AT, normal oropharynx - Neck Neck: Present: normal ROM - Respiratory Respiratory: bilateral: CTA, negative: diminished, dullness, rales, rhonchi - Cardiovascular Rhythm: regular Heart sounds: normal: S1, S2 Abnormal Heart Sounds: Absent: systolic murmur, diastolic murmur, rub, S3 Gallop, S4 Gallop, click, other - Gastrointestinal General gastrointestinal: Present: normal bowel sounds, soft - Integumentary Integumentary: Present: decreased turgor, normal - Neurologic Neurologic: Present: CNII-XII intact - Musculoskeletal Musculoskeletal: Present: strength equal bilaterally - Psychiatric Psychiatric: Present: A&O x's 3, appropriate affect - Labs CBC & Chem 7: 02/09/21 07:34 02/09/21 07:34 Labs: Abnormal Lab Results - Last 24 Hours (Table) 02/09/21 02/09/21 02/09/21 Range/Units 07:34 17:02 20:10 APTT (22.0-30.0) sec POC Glucose (mg/dL) 140 H 158 H (75-99) mg/dL HDL Cholesterol (40.0-60.0) mg/dL Procalcitonin 0.52 H (0.02-0.09) ng/mL 02/10/21 02/10/21 02/10/21 Range/Units 06:13 06:24 06:24 APTT 44.9 H (22.0-30.0) sec POC Glucose (mg/dL) 139 H (75-99) mg/dL HDL Cholesterol 24.0 L (40.0-60.0) mg/dL Procalcitonin (0.02-0.09) ng/mL 02/10/21 Range/Units 11:39 APTT (22.0-30.0) sec POC Glucose (mg/dL) 168 H (75-99) mg/dL HDL Cholesterol (40.0-60.0) mg/dL Procalcitonin (0.02-0.09) ng/mL Assessment and Plan Plan: 1. Acute metabolic encephalopathy, with sepsis, UTI as a primary source, cannot rule out aspiration pneumonia, eyes patient has bilateral infiltrates also noted, patient on Rocephin, we will change to IV Zosyn, cultures to be done, including sputum if able. Check a pro-calcitonin 2. New onset A. fib with RVR, on IV Cardizem, and IV heparin which is discontinued February 10, secondary to a large CVA, ischemic, with risks to transformation to hemorrhagic stroke, for which cardiology has been consulted, and they have recommended weaning off Cardizem, and metoprolol 25 mg twice a day has been started. Echo with bubble contrast study 3. Ischemic CVA Large area of cortical and subcortical hypodensity, suspicious for a large infarct, involving the left posterior left MCA territory, left frontoparietal anterior left temporal lobe, with 2 mm rightward midline shift, neurology is followed, stat MRI of the brain, on IV heparin, for new onset atrial fibrillation PT OT, speech, patient was able to feed with assistance, without evidence of clinical aspiration patient is on IV antibiotics, for suspected aspiration pneumonia EEG of the brain showing asymmetrical left hemisphere consistent with moderate to severe encephalopathy, right hemisphere is normal, there is slowing of the left temporoparietal consistent with subacute stroke, no epileptiform or seizure during this study. Carotid Doppler, failed to reveal any hemodynamically significant stenosis, by Doppler criteria, 3. Diabetes mellitus type 2 patient on Actos and metformin, check A1c 4. Delirium most likely, patient is on Desyrel 50 mg at bedtime, which we could continue, and continue on Effexor XR 37.5 twice a day. We'll going to the discontinue Savella, and hold off gabapentin at this time 5 hypothyroidism, with control TSH, on 100 g levothyroxine daily no changes. 6. Chronic pain, from from fibromyalgia, on tramadol 50 mg twice a day, which we will hold off at this time, until mentation would be clear, although of gabapentin, and hold off Savella continue venlafaxine and trazodone 7. Hypertension, amlodipine is on hold while on IV Cardizem, this. Will be resumed when stabilized 9. DVT prophylaxis 10 GI prophylaxis Covid PCR negative 11. CODE STATUS
[2021-02-10 20:46] LABS: Glucose,Whole Blood 105 mg/dL (75-99)
[2021-02-10] MEDS: ATORVASTATIN 40 MG TAB PO SCH (21:19)
[2021-02-10] MEDS: traZODone HCL 50 MG TAB PO SCH (21:19)
[2021-02-11] MEDS: PIPERACILLIN-TAZOBACTAM 3.375 GM in SODIUM CHLORIDE 0.9% 100 ML IVPB SCH ×3 (05:00→21:07)
[2021-02-11 06:07] LABS: Glucose,Whole Blood 113 mg/dL (75-99)
[2021-02-11] MEDS: INSULIN ASPART (NovoLOG) 100 UNIT/ML VIAL SQ SCH ×4 (06:40→21:19)
[2021-02-11] MEDS: LEVOTHYROXINE 100 MCG TAB PO SCH (06:41)
[2021-02-11] MEDS: PANTOPRAZOLE 40 MG TABLET PO SCH (06:41)
[2021-02-11 07:23] LABS: Basophils % (A) 0 %; Eosinophils # (A) 0.1 k/uL (0-0.7); Eosinophils % (A) 1 %; HCT 40.2 % (34.0-46.0); HGB 13.4 gm/dL (11.4-16.0); Lymphocytes % (A) 15 %; MCH 30.2 pg (25.0-35.0); MCHC 33.2 g/dL (31.0-37.0); MCV 90.7 fL (80.0-100.0); Mean Platelet Volume 8.2; Monocytes # (A) 0.7 k/uL (0-1.0); Monocytes % (A) 5 %; Neutrophils # (A) 10.1 k/uL (1.3-7.7); Neutrophils % (A) 77 %; Platelet Count 328 k/uL (150-450); RBC 4.44 m/uL (3.80-5.40); RDW 14.6 % (11.5-15.5); WBC 13.2 k/uL (3.8-10.6)
[2021-02-11 07:33] LABS: ALT 12 U/L (4-34); AST 28 U/L (14-36); African American GFR (CKD) >90 (>60 ml/min/1.73 sqM); Albumin 3.3 g/dL (3.5-5.0); Alkaline Phosphatase 94 U/L (38-126); Anion Gap 12 mmol/L; Blood Urea Nitrogen 7 mg/dL (7-17); Carbon Dioxide 22 mmol/L (22-30); Chloride 105 mmol/L (98-107); Glucose 120 mg/dL (74-99); Non-African American GFR(CKD) >90 (>60 ml/min/1.73 sqM); Potassium 3.3 mmol/L (3.5-5.1); Sodium 139 mmol/L (137-145); Total Bilirubin 0.7 mg/dL (0.2-1.3); Total Protein 6.6 g/dL (6.3-8.2)
[2021-02-11] MEDS: ASPIRIN 81 MG PO SCH ×2 (09:44→12:07)
[2021-02-11] MEDS: VENLAFAXINE HCL ER 37.5 MG CAP PO SCH ×2 (09:45→21:08)
[2021-02-11] MEDS: METOPROLOL TARTRATE 50 MG TAB PO SCH ×2 (09:45→21:08)
[2021-02-11] MEDS: DILTIAZEM ORAL 30 MG TAB PO SCH ×3 (09:45→21:08)
[2021-02-11] MEDS: PIOGLITAZONE 15 MG TAB PO SCH (09:45)
[2021-02-11] MEDS: metFORMIN 500 MG TAB PO SCH (09:45)
[2021-02-11] MEDS: MILNACIPRAN HCL 100 MG PO SCH ×2 (09:49→21:19)
--- NOTE | 2021-02-11 11:05 | P.PN ---
Subjective Progress Note Date: 02/11/21 HISTORY OF PRESENT ILLNESS: This is a 80 year old female with a history of hypertension and diabetes who is admitted to the hospital secondary to altered mental status. 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 Patient is on aspirin and lipitor. No plavix started per neurology. Patient was found to have atrial fibrillation with RVR. Per neurology, no anticoagulation for 3-4 days due to risk of hemorrhagic t ransformation. Patient is currently on a Cardizem drip at 5 mg an hour. Patient is also receiving metoprolol 100 mg twice a day. During examination, the patient has periods where she is speaking [place] and is answering questions appropriately and then she says thinks that are uncomfortable. PHYSICAL EXAM: VITAL SIGNS: Reviewed. GENERAL: Well-developed in no acute distress. NECK: Supple. No JVD or thyromegaly LUNGS: Respirations even and unlabored. Lungs essentially clear to auscultation bilaterally. HEART: Mildly tachycardic. Irregular rate and rhythm. S1 and S2 heard. EXTREMITIES: Normal range of motion. No clubbing or cyanosis. Peripheral pulses intact. No lower extremity edema ASSESSMENT: large left middle cerebral artery and left cerebellar ischemic infarct Altered mental status New-onset persistent atrial fibrillation with RVR Hypertension Diabetes Urinary tract infection PLAN: Continue aspirin and lipitor. No plavix at this time per neurology Begin anticoagulation for a-fib when cleared by neurology Will have case management check insurance coverage of Eliquis Continue metoprolol 100mg BID Add Cardizem PO 30mg TID Discontinue Cardizem drip 2D echo ordered. Await results Patient to follow up outpatient with Dr. Pena as she has not followed with a law enforcement instructor previously in the office Further recommendations pending patient course Nurse practitioner note has been reviewed by physician. Signing provider agrees with the documented findings, assessment, and plan of care. Objective - Vital Signs Vital signs: Vital Signs Temp 98.4 F 02/11/21 08:00 Pulse 103 H 02/11/21 08:00 Resp 20 02/11/21 08:00 BP 149/57 02/11/21 08:00 Pulse Ox 99 02/11/21 08:00 Intake & Output 02/10/21 02/11/21 02/11/21 18:59 06:59 18:59 Intake Total 132 120 Output Total 200 450 Balance -68 -450 120 Weight 104.5 kg Intake: Intake, IV Titration 2 Amount Diltiazem 125 mg In 2 Sodium Chloride 0.9% 100 ml @ 10 mls/hr IV . [id number] [facility] Rx#:[id number] Oral 130 120 Output: Urine 200 450 Other: Voiding Method Diaper Diaper External Catheter External Catheter # Bowel Movements 2 - Labs CBC & Chem 7: 02/11/21 06:59 02/11/21 06:59 Labs: Abnormal Lab Results - Last 24 Hours (Table) 02/10/21 02/10/21 02/10/21 Range/Units 06:24 11:39 16:50 WBC (3.8-10.6) k/uL Neutrophils # (1.3-7.7) k/uL Potassium (3.5-5.1) mmol/L Creatinine (0.52-1.04) mg/dL Glucose (74-99) mg/dL POC Glucose (mg/dL) 168 H 105 H (75-99) mg/dL Albumin (3.5-5.0) g/dL HDL Cholesterol 24.0 L (40.0-60.0) mg/dL 02/10/21 02/11/21 02/11/21 Range/Units 20:44 06:01 06:59 WBC 13.2 H (3.8-10.6) k/uL Neutrophils # 10.1 H (1.3-7.7) k/uL Potassium (3.5-5.1) mmol/L Creatinine (0.52-1.04) mg/dL Glucose (74-99) mg/dL POC Glucose (mg/dL) 105 H 113 H (75-99) mg/dL Albumin (3.5-5.0) g/dL HDL Cholesterol (40.0-60.0) mg/dL 02/11/21 Range/Units 06:59 WBC (3.8-10.6) k/uL Neutrophils # (1.3-7.7) k/uL Potassium 3.3 L (3.5-5.1) mmol/L Creatinine 0.43 L (0.52-1.04) mg/dL Glucose 120 H (74-99) mg/dL POC Glucose (mg/dL) (75-99) mg/dL Albumin 3.3 L (3.5-5.0) g/dL HDL Cholesterol (40.0-60.0) mg/dL Microbiology - Last 24 Hours (Table) 02/07/21 15:36 Urine Culture - Final Urine,Voided Klebsiella ozaenae
--- NOTE | 2021-02-11 12:01 | ECHOF ---
Referral Reason:stroke. Peform with bubble study MEASUREMENTS -------- HEIGHT: 162.6 cm WEIGHT: 104.3 kg BP: 134/73 RVIDd: 2.3 cm (< 3.3) IVSd: 1.0 cm (0.6 - 1.1) LVIDd: 4.5 cm (3.9 - 5.3) LVPWd: 1.2 cm (0.6 - 1.1) LAESV Index (A-L): 32.57 ml/m Ao Diam: 3.2 cm (2.0 - 3.7) AV Cusp: 2.0 cm (1.5 - 2.6) LA Diam: 4.4 cm (2.7 - 3.8) RAP: 5.00 mmHg RVSP: 46.28 mmHg FINDINGS -------- Atrial fibrillation. This was a technically difficult study with suboptimal views. Left ventricular wall thickness is normal. Overall left ventricular systolic function is normal wit h, an EF between 55 - 60 %. Left ventricular fillimg pressure cannot be estimated due to Atrial fib rillation. The right ventricle is normal in size. LA is midly dilated 29-33ml/m2. The right atrium is mildly enlarged. Unable to perform saline study due to poor images and use of Lumason. 5.0mg of Lumason was utilized for enhancement of images Interatrial and interventricular septum intact. There is no evidence of aortic regurgitation. There is no evidence of aortic stenosis. Mild mitral regurgitation is present. [id number] tricuspid regurgitation present. There is moderate pulmonary hypertension. The r ight ventricular systolic pressure, as measured by Doppler, is 46.28mmHg. There is no pulmonic regurgitation present. The aortic root size is normal. IVC Not well visulized. There is no pericardial effusion. CONCLUSIONS -------- 1. Left ventricular wall thickness is normal. 2. Overall left ventricular systolic function is normal with, an EF between 55 - 60 %. 3. Left ventricular fillimg pressure cannot be estimated due to Atrial fibrillation. 4. LA is midly dilated 29-33ml/m2. 5. The right atrium is mildly enlarged. 6. Mild mitral regurgitation is present. 7. [id number] tricuspid regurgitation present. 8. There is moderate pulmonary hypertension. 9. The right ventricular systolic pressure, as measured by Doppler, is 46.28mmHg. ACCOUNTING SYSTEM EXPERT: Alexa Liang RDCS
[2021-02-11 12:09] LABS: Glucose,Whole Blood 163 mg/dL (75-99)
--- NOTE | 2021-02-11 13:10 | P.PN ---
Subjective Progress Note Date: 02/11/21 80-year-old female who presents to the emergency department on February 07. She apparently went to the emergency department with mental status changes. Apparently according to a visiting nurse, the patient appeared weaker and more fatigued than normal. The patient apparently had a doctor's appointment that day, but instead, ended up in the emergency department. She is apparently diagnoses having patchy pneumonia, and urinary tract infection. Mental status changes apparently were blamed on the urinary tract infection as apparently, he has happened before. The patient finally had a computed tomography scan of the brain today, which showed a large left MCA ischemic infarct. A blood gas was done, because the nurse thought maybe the patient was retaining carbon dioxide, which may have explained the mental status changes. In addition, the patient was admitted with a diagnosis of atrial fibrillation with RVR, and started on heparin. In addition, she was on saline at KVO, and Cardizem 15 mg an hour. She was admitted by Dr. Montelongo to the emergency department, with a diagnosis of mental status changes, ER, and urinary tract infection. The brain CT was just ordered today. White count 13.4, hemoglobin 11, hematocrit 33.1, and platelet count normal. Blood gases on 36% oxygen showed a pO2 of 70, pCO2 of 29, and pH is 7.47. His blood gas was consistent with respiratory alkalosis. PTT was 46. Sodium 138, potassium 3.6, chlorides 108, CO2 20, anion gap 10, BUN 13, and creatinine 0.55. In addition, there are bilateral infiltrates, potentially consistent with pneumonia. Progress note dated 02/10/2021. Patient is again seen in room 359. Currently, the patient is on a heparin drip, a Cardizem drip at 10 mg an hour, and saline at 20 mL an hour. In addition, the patient's getting O2 at 4 L, with saturations between 96-97%. The patient appears recently comfortable, but she is somewhat lethargic. She does arouse easily. Lab data today includes a PTT of 44.9. The patient's acute diagnoses included left MCA ischemic infarct, urinary tract infection, possible pneumonia, and atrial fibrillation with RVR. 02/11/2021, the patient is being seen on a follow-up on a medical floor. The patient is resting comfortably in bed. She is on oxygen at the distal mid nasal cannula. No signs of any respiratory distress. Obviously the left side of the body remains weaker compared to the right. I was able to appreciate adequate movement although the patient prefers to use her right side compared to her left. At times his speech is also garbled. She remains in atrial fibrillation. Rate is controlled for now. In terms of treatment, the patient is also being treated for a Klebsiella urinary tract infection. She remains on IV Zosyn. She remains on aspirin 81 mg by mouth daily. We have achieved adequate blood sugar control. The blood work from today shows a white cell count of 15.2. Electrolytes are normal, renal function is are normal, and LDL cholesterol is at 127. A cardiogram was essentially normal with an ejection fraction of 55-60%. Objective - Vital Signs Vital signs: Vital Signs Temp 98.6 F 02/11/21 11:49 Pulse 89 02/11/21 11:49 Resp 22 02/11/21 11:49 BP 116/80 02/11/21 11:49 Pulse Ox 95 02/11/21 11:49 Intake & Output 02/10/21 02/11/21 02/11/21 18:59 06:59 18:59 Intake Total 132 220 Output Total 200 450 Balance -68 -450 220 Weight 104.5 kg Intake: Intake, IV Titration 2 Amount Diltiazem 125 mg In 2 Sodium Chloride 0.9% 100 ml @ 10 mls/hr IV . [id number] [facility] Rx#:[id number] Oral 130 220 Output: Urine 200 450 Other: Voiding Method Diaper Diaper Diaper External Catheter External Catheter External Catheter # Bowel Movements 2 - Exam No apparent distress. Currently on 4 L nasal cannula. The patient does arouse. Seems a bit more awake and alert today than yesterday. HEENT examination is grossly unremarkable. Neck supple. Full range of motion. No adenopathy thyromegaly or neck vein di stention. Cardiovascular examination reveals an irregular rhythm and rate. S1-S2 normal. No S3 or S4. No discernible murmur noted. Lungs reveal mostly clear breath sounds. Breath sounds are diminished at the bases. No wheezes, rhonchi, or crackles. Abdomen soft bowel sounds are heard. No masses or tenderness. Extremities are intact. No cyanosis clubbing or edema. Skin is without rash or lesion. Neurologic examination is essentially unchanged. - Labs CBC & Chem 7: 02/11/21 06:59 02/11/21 06:59 Labs: Abnormal Lab Results - Last 24 Hours (Table) 02/10/21 02/10/21 02/11/21 Range/Units 16:50 20:44 06:01 WBC (3.8-10.6) k/uL Neutrophils # (1.3-7.7) k/uL Potassium (3.5-5.1) mmol/L Creatinine (0.52-1.04) mg/dL Glucose (74-99) mg/dL POC Glucose (mg/dL) 105 H 105 H 113 H (75-99) mg/dL Albumin (3.5-5.0) g/dL 02/11/21 02/11/21 02/11/21 Range/Units 06:59 06:59 12:08 WBC 13.2 H (3.8-10.6) k/uL Neutrophils # 10.1 H (1.3-7.7) k/uL Potassium 3.3 L (3.5-5.1) mmol/L Creatinine 0.43 L (0.52-1.04) mg/dL Glucose 120 H (74-99) mg/dL POC Glucose (mg/dL) 163 H (75-99) mg/dL Albumin 3.3 L (3.5-5.0) g/dL Microbiology - Last 24 Hours (Table) 02/07/21 15:36 Urine Culture - Final Urine,Voided Klebsiella ozaenae Assessment and Plan Plan: 1 Mental status changes, related to large left MCA territory ischemic infarct. She is stable on ASA. Likely an embolic event as the patient was found to have new onset atrial fibrillation. 2 Chronic recurrent urinary tract infections, with gram-negative bacilli again in the urine, and the patient is found to have Klebsiella in the urine, currently on IV Zosyn 3 Diffuse bilateral infiltrates, likely related to underlying heart failure and/or pneumonia, awaiting follow-up chest x-ray 4 New onset atrial fibrillation with rapid ventricular response. 5 History of diabetes mellitus. 6 History of hypothyroidism. 7 History of hypertension. Plan Continue IV Zosyn Obtain a follow-up chest exit regarding left lower lobe pulmonary infiltration Follow-up with neurology regarding CVA No anticoagulants for now continue aspirin Continue the combination of metoprolol and Cardizem for rate control Continue high-dose statins Wean FiO2 as tolerated We'll continue to follow
--- NOTE | 2021-02-11 14:57 | P.PN ---
Subjective Progress Note Date: 02/11/21 HISTORY OF PRESENT ILLNESS This is a pleasant 80-year-old female, who comes in from home, with acute mental status changes, patient cannot provide much more often history today as the patient cannot remain focused on questions asked of her, she is only motivated on the food that in front of her, however per history that comes from family member, she's had increasing weakness fatigue and increasing confusion, she normally gets this way whenever she gets a urinary tract infection. She has underlying history of diabetes mellitus, fibromyalgia, hypertension, no history of CVA, no history of seizures. She was in the emergency room, with new onset atrial fibrillation, heart rate in the 140s, chest x-ray shows cardiomegaly, with vascular congestion, and bilateral opacification, Covid is negative. Toni waller's tachypnea, when seen afebrile, T-max of 98 9, with pulse ox of 94% on room air. Urinalysis also shows pyuria, she was given IV Rocephin emergency room, for which we had obtained cultures as well, and continued on Rocephin. She was started on IV Cardizem for A. fib RVR, and IV heparin., 02/09 patient was seen for eval, there is on CAT scan findings, large area of cortical and subcortical hypodensity involving the left mid posterior left MCA territory, left frontoparietal junction, anterior left temporal lobe, suspicious of subacute left MCA territory, there is sulcal effacement, with rightward midline shift, no herniation or hydrocephalus, prominent bilateral spray ophthalmic veins possibly related to elevated increasing intracranial pressure, patient is still on IV heparin, seen by neurology, there is a right cranial sixth nervec, on physical examination. Patient is still disoriented confused, can follow verbal commands, can move all approximately 7 lower extremities, patient is alert and oriented 2, sometimes cannot give me the right answers, chest x-ray shows bilateral infiltrates, pro-calcitonin ordered, on 4 L nasal cannula, patient is on IV Zosyn, PT, OT consulted, EEG of the brain, MRI of the brain patient was able to eat oatmeal this morning, without any clinical evidence of aspiration, we'll provide Diet, thickened liquids, until speech eval atient is alert more coherent very happy and pleased today, spontaneous speech fluent, speaking barbadian. neurology has recommended to hold off heaparin and even aspirirn as this involves large area of ischemic stroke and is at higher risk of hemorrhagic conversion. 2d echo with buble study eeg pt ot speech consulted, continue IV antibiotics for aspiration pneumonia, start aspirin as per recommendation low dose, as per neurology, 02/11: Patient has been afebrile, heart rate in the 90s, blood pressure 149/57, pulse ox 99% on 2 L nasal cannula. WBC 13.2, hemoglobin 13.4, platelet count 328. Sodium 139, potassium 3.3 and has been replaced, chloride 105, CO2 22, BUN 7 and creatinine 0.43. Blood sugars running between 105 163. Liver function tests are normal. Urine culture is positive for Klebsiella ozaenae susceptible to ceftriaxone. Echocardiogram reveals EF 55-60%, Mild mitral regurgitation, m [id number] tricuspid regurgitation, moderate pulmonary hypertension. Repeat chest x-ray will be ordered for today. EEG was abnormal suggesting moderate to severe encephalopathy in the left hemisphere while the right hemisphere is normal. Slowing over the left temporoparietal is consistent with history of subacute stroke. REVIEW OF SYSTEMS Unable to obtain due to patient's mental status. PHYSICAL EXAMINATION Gen: This is an 80-year-old female. Patient is resting in bed and appears to be comfortable and in no acute distress. HEENT: Head is atraumatic, normocephalic. Pupils equal, round. Sclerae is anicteric. NECK: Supple. No JVD. No lymphadenopathy. No thyromegaly. LUNGS: Clear to auscultation. No wheezes or rhonchi. No intercostal retractions. HEART: Regular rate and rhythm. No murmur. ABDOMEN: Soft. Bowel sounds are present. No masses. No tenderness. EXTREMITIES: No pedal edema. No calf tenderness. NEUROLOGICAL: Patient is awake, not oriented. ASSESSMENT AND PLAN 1. Acute metabolic encephalopathy, with sepsis, UTI as a primary source, cannot rule out aspiration pneumonia, eyes patient has bilateral infiltrates also noted, patient on Rocephin, we will change to IV Zosyn, cultures to be done, including sputum if able. Check a pro-calcitonin 2. New onset A. fib with RVR, on IV Cardizem, and IV heparin change to oral today a cardiology consult 3. Ischemic CVA Large area of cortical and subcortical hypodensity, suspicious for a large infarct, involving the left posterior left MCA territory, left frontoparietal anterior left temporal lobe, with 2 mm rightward midline shift, neurology is followed, stat MRI of the brain, on IV heparin, for new onset atrial fibrillation PT OT, speech, patient was able to feed with assistance, without evidence of clinical aspiration patient is on IV antibiotics, for suspected aspiration pneumonia EEG of the brain showing asymmetrical left hemisphere consistent with moderate to severe encephalopathy, right hemisphere is normal, there is slowing of the left temporoparietal consistent with subacute stroke, no epileptiform or seizure during this study. Carotid Doppler, failed to reveal any hemodynamically significant stenosis, by Doppler criteria, 4. Diabetes mellitus type 2 patient on Actos and metformin, check A1c 5. Delirium most likely, patient is on Desyrel 50 mg at bedtime, which we could continue, and continue on Effexor XR 37.5 twice a day. We'll going to the discontinue Savella, and hold off gabapentin at this time 6. Hypothyroidism, with control TSH, on 100 g levothyroxine daily no changes. 7. Chronic pain, from from fibromyalgia, on tramadol 50 mg twice a day, which we will hold off at this time, until mentation would be clear, although of gabapentin, and hold off Savella continue venlafaxine and trazodone 8. Hypertension, amlodipine is on hold while on IV Cardizem, this. Will be resumed when stabilized 9. DVT prophylaxis 10 GI prophylaxis 11. CODE STATUS DISCHARGE PLAN [facility]. Impression and plan of care have been directed as dictated by the signing ysician. Gabrielle Nuno nurse practitioner acting as scribe for signing physician. Objective - Vital Signs Vital signs: Vital Signs Temp 98.4 F 02/11/21 08:00 Pulse 103 H 02/11/21 08:00 Resp 20 02/11/21 08:00 BP 149/57 02/11/21 08:00 Pulse Ox 99 02/11/21 08:00 Intake & Output 02/10/21 02/11/21 02/11/21 18:59 06:59 18:59 Intake Total 132 120 Output Total 200 450 Balance -68 -450 120 Weight 104.5 kg Intake: Intake, IV Titration 2 Amount Diltiazem 125 mg In 2 Sodium Chloride 0.9% 100 ml @ 10 mls/hr IV . [id number] [facility] Rx#:[id number] Oral 130 120 Output: Urine 200 450 Other: Voiding Method Diaper Diaper External Catheter External Catheter # Bowel Movements 2 - Labs CBC & Chem 7: 02/11/21 06:59 02/11/21 06:59 Labs: Abnormal Lab Results - Last 24 Hours (Table) 02/10/21 02/10/21 02/10/21 Range/Units 06:24 11:39 16:50 WBC (3.8-10.6) k/uL Neutrophils # (1.3-7.7) k/uL Potassium (3.5-5.1) mmol/L Creatinine (0.52-1.04) mg/dL Glucose (74-99) mg/dL POC Glucose (mg/dL) 168 H 105 H (75-99) mg/dL Albumin (3.5-5.0) g/dL HDL Cholesterol 24.0 L (40.0-60.0) mg/dL 02/10/21 02/11/21 02/11/21 Range/Units 20:44 06:01 06:59 WBC 13.2 H (3.8-10.6) k/uL Neutrophils # 10.1 H (1.3-7.7) k/uL Potassium (3.5-5.1) mmol/L Creatinine (0.52-1.04) mg/dL Glucose (74-99) mg/dL POC Glucose (mg/dL) 105 H 113 H (75-99) mg/dL Albumin (3.5-5.0) g/dL HDL Cholesterol (40.0-60.0) mg/dL 02/11/21 Range/Units 06:59 WBC (3.8-10.6) k/uL Neutrophils # (1.3-7.7) k/uL Potassium 3.3 L (3.5-5.1) mmol/L Creatinine 0.43 L (0.52-1.04) mg/dL Glucose 120 H (74-99) mg/dL POC Glucose (mg/dL) (75-99) mg/dL Albumin 3.3 L (3.5-5.0) g/dL HDL Cholesterol (40.0-60.0) mg/dL Microbiology - Last 24 Hours (Table) 02/07/21 15:36 Urine Culture - Final Urine,Voided Zuleyka rush
--- NOTE | 2021-02-11 15:11 | XR ---
EXAMINATION TYPE: XR chest 1V portable DATE OF EXAM: 02/11/2021 COMPARISON: Chest x-ray 02/07/2021 HISTORY: Aspiration pneumonia TECHNIQUE: Single frontal view of the chest is obtained. FINDINGS: There is retrocardiac density, the left hemidiaphragm is obscured. Lung volumes are low. C ardiac mediastinal silhouette is likely stable accounting for differences in rotation, technique. No evident pneumothorax. There are overlying artifacts. IMPRESSION: Left lower lobe atelectasis versus pneumonia and associated effusion.
[2021-02-11 16:00] LABS: Hemoglobin A1C 6.7 % (4.0-6.0)
[2021-02-11] MEDS: HEPARIN SODIUM,PORCINE/PF 5,000 UNIT/0.5 ML SYRINGE SQ SCH ×2 (16:08→23:49)
--- NOTE | 2021-02-11 16:10 | P.PN ---
Subjective Progress Note Date: 02/11/21 The patient was seen at bedside and per nurse she is about the same. The nurse states she would follow few simple commands and would speak few words in latvian. Objective - Vital Signs Vital signs: Vital Signs Temp 98.6 F 02/11/21 11:49 Pulse 89 02/11/21 11:49 Resp 22 02/11/21 11:49 BP 116/80 02/11/21 11:49 Pulse Ox 95 02/11/21 11:49 Intake & Output 02/10/21 02/11/21 02/11/21 18:59 06:59 18:59 Intake Total 132 220 Output Total 200 450 Balance -68 -450 220 Weight 104.5 kg Intake: Intake, IV Titration 2 Amount Diltiazem 125 mg In 2 Sodium Chloride 0.9% 100 ml @ 10 mls/hr IV . [id number] [facility] Rx#:[id number] Oral 130 220 Output: Urine 200 450 Other: Voiding Method Diaper Diaper Diaper External Catheter External Catheter External Catheter # Bowel Movements 2 - Exam Gen.: Patient is not acute distress. Neurological examination Mental status: The patient is awake, alert. She is speaking jibberish to me and I do not know what she say but speaking in a different language. She stated "ok, stop". She is not following commands. Cranial nerves: Pupils are equal at 3 mm and sluggish. EOM is tracking throughout the room and no nystagmus. There is a right facial droop. Motor: Limited because of cooperation. She is able to lift bilateral upper extremities above gravity without drift but was extremely brief. She is able to lift the left lower extremity above gravity and briefly bend the right knee. Sensation: Hard to assess light touch. Plantar responses are extensor bilaterally. LABS/IMAGING: * MRI the brain is reported as subacute infarct as described. Age-related changes of atrophy and chronic small vessel ischemia.The body of report it is reported as diffusion-weighted image demonstrated restriction diffusion involving the left cerebellar hemisphere peripherally, the left temporal parietal lobe, there is corresponding hyperintensity in the inversion recovery T2-weighted sequences. * Carotid duplex is reported as no hemodynamic significant stenosis of the proximal internal carotid arteries by Doppler criteria, and in direct measurement of carotid stenosis. * Lipid panel: Triglyceride of 108, cholesterol 127, LDL 81 and HDL of 24. * TSH is 1.45 which is considered within normal limits. * Hemoglobin A1c 6.7 with slightly elevated. * 2-D echo was reported as age are fibrillation. Technically difficult study with suboptimal views. Overall left ventricle Jared function is normal with ejection fraction between 55-60%. Left ventricular filling pressure cannot be estimated to atrial fibrillation. Left atrium is mildly dilated. Unable to perform saline study due to poor images and use of Lumason. * A routine EEG is ordered by the primary team:Abnormal EEG. The background is asymetrical with left hemipshere suggestive of moderate to severe encep halpathy while the right is normal. The focal slowing over the left temporal- parietal is consistent with patient history of subacute stroke. There are no epileptiform discharges or seizure on the EEG. - Labs CBC & Chem 7: 02/11/21 06:59 02/11/21 06:59 Labs: Abnormal Lab Results - Last 24 Hours (Table) 02/10/21 02/10/21 02/11/21 Range/Units 16:50 20:44 06:01 WBC (3.8-10.6) k/uL Neutrophils # (1.3-7.7) k/uL Potassium (3.5-5.1) mmol/L Creatinine (0.52-1.04) mg/dL Glucose (74-99) mg/dL POC Glucose (mg/dL) 105 H 105 H 113 H (75-99) mg/dL Hemoglobin A1c (4.0-6.0) % Albumin (3.5-5.0) g/dL 02/11/21 02/11/21 02/11/21 Range/Units 06:59 06:59 06:59 WBC 13.2 H (3.8-10.6) k/uL Neutrophils # 10.1 H (1.3-7.7) k/uL Potassium 3.3 L (3.5-5.1) mmol/L Creatinine 0.43 L (0.52-1.04) mg/dL Glucose 120 H (74-99) mg/dL POC Glucose (mg/dL) (75-99) mg/dL Hemoglobin A1c 6.7 H (4.0-6.0) % Albumin 3.3 L (3.5-5.0) g/dL 02/11/21 Range/Units 12:08 WBC (3.8-10.6) k/uL Neutrophils # (1.3-7.7) k/uL Potassium (3.5-5.1) mmol/L Creatinine (0.52-1.04) mg/dL Glucose (74-99) mg/dL POC Glucose (mg/dL) 163 H (75-99) mg/dL Hemoglobin A1c (4.0-6.0) % Albumin (3.5-5.0) g/dL Microbiology - Last 24 Hours (Table) 02/07/21 15:36 Urine Culture - Final Urine,Voided Klebsiella ozaenae Assessment and Plan Assessment: 1. Large Left middle cerebral artery (temporal/parietal) and left cerebellar is chemic infarct-very likely embolic secondary to atrial fibrillation 2. New onset mental status changes with worsening of mental status and speech likely secondary to the above noted cerebral infarct 3. Urinary tract infection-etiology of initial mental status changes 4. New onset atrial fibrillation with rapid ventricular response 5. History of hypertension 6. History of diabetes mellitus Plan: 1. Heparin drip is discontinued on 02/10/2021 because of risk of hemorrhagic transformation of large cerebral infarct. Will consider anticoagulation within 3 days from now but will get repeat image prior to anticoagulation. 2. Continue aspirin 81 mg (starting tomorrow since was getting heparin and to prevent risk of bleed) and Lipitor 40 mg daily at bedtime for secondary stroke prophylaxis. I avoided use of dual antiplateletes for now (for concern if she has any significant edema down the line and require surgical intervention, which is unllikely), and once she continues to be stable will start it. 3. PT, OT and speech therapy evaluations are on board. 4. Continue Q4 hour Neuro checks. 5. On continuos cardiac monitoring. 6. Cardiology team is on board. 7. Regarding DVT prophylaxis will defer that to the primary team. The plan is discussed withe the patient's nurse today and was explained to her daughter (Bree) via phone on 02/10/2021. Jonnathan Vivas MD Neuro-Hospitalist Time with Patient: Less than 30
[2021-02-11 17:00] LABS: Glucose,Whole Blood 145 mg/dL (75-99)
[2021-02-11 20:33] LABS: Glucose,Whole Blood 142 mg/dL (75-99)
[2021-02-11] MEDS: ATORVASTATIN 40 MG TAB PO SCH (21:08)
[2021-02-11] MEDS: traZODone HCL 50 MG TAB PO SCH (21:08)
[2021-02-11] MEDS: ACETAMINOPHEN TAB 325 MG TAB PO PRN (23:48)
[2021-02-12] MEDS: PIPERACILLIN-TAZOBACTAM 3.375 GM in SODIUM CHLORIDE 0.9% 100 ML IVPB SCH ×3 (03:32→21:12)
[2021-02-12 06:15] LABS: Glucose,Whole Blood 166 mg/dL (75-99)
[2021-02-12] MEDS: INSULIN ASPART (NovoLOG) 100 UNIT/ML VIAL SQ SCH ×4 (06:38→21:12)
[2021-02-12] MEDS: LEVOTHYROXINE 100 MCG TAB PO SCH (06:38)
[2021-02-12] MEDS: PANTOPRAZOLE 40 MG TABLET PO SCH (06:38)
[2021-02-12 07:24] LABS: Basophils # (A) 0.1 k/uL (0-0.2); Basophils % (A) 0 %; Eosinophils # (A) 0.2 k/uL (0-0.7); Eosinophils % (A) 2 %; HCT 41.7 % (34.0-46.0); HGB 13.8 gm/dL (11.4-16.0); Lymphocytes # (A) 2.1 k/uL (1.0-4.8); Lymphocytes % (A) 19 %; MCH 30.1 pg (25.0-35.0); MCHC 33.2 g/dL (31.0-37.0); MCV 90.8 fL (80.0-100.0); Mean Platelet Volume 7.2; Monocytes # (A) 0.7 k/uL (0-1.0); Monocytes % (A) 6 %; Neutrophils # (A) 8.3 k/uL (1.3-7.7); Neutrophils % (A) 72 %; Platelet Count 362 k/uL (150-450); RBC 4.59 m/uL (3.80-5.40); RDW 14.3 % (11.5-15.5); WBC 11.5 k/uL (3.8-10.6)
[2021-02-12 07:42] LABS: African American GFR (CKD) >90 (>60 ml/min/1.73 sqM); Anion Gap 10 mmol/L; Blood Urea Nitrogen 10 mg/dL (7-17); Calcium 9.2 mg/dL (8.4-10.2); Carbon Dioxide 26 mmol/L (22-30); Chloride 107 mmol/L (98-107); Glucose 153 mg/dL (74-99); Non-African American GFR(CKD) 88 (>60 ml/min/1.73 sqM); Potassium 3.3 mmol/L (3.5-5.1); Sodium 143 mmol/L (137-145)
[2021-02-12] MEDS: metFORMIN 500 MG TAB PO SCH (08:23)
[2021-02-12] MEDS: ASPIRIN 81 MG PO SCH (08:23)
[2021-02-12] MEDS: DILTIAZEM ORAL 30 MG TAB PO SCH (08:23)
[2021-02-12] MEDS: METOPROLOL TARTRATE 50 MG TAB PO SCH ×2 (08:23→21:12)
[2021-02-12] MEDS: MILNACIPRAN HCL 100 MG PO SCH ×2 (08:24→21:22)
[2021-02-12] MEDS: HEPARIN SODIUM,PORCINE/PF 5,000 UNIT/0.5 ML SYRINGE SQ SCH ×2 (08:24→23:34)
[2021-02-12] MEDS: VENLAFAXINE HCL ER 37.5 MG CAP PO SCH ×2 (08:25→21:14)
[2021-02-12] MEDS: PIOGLITAZONE 15 MG TAB PO SCH (08:25)
[2021-02-12 11:44] LABS: Glucose,Whole Blood 241 mg/dL (75-99)
--- NOTE | 2021-02-12 12:19 | P.PN ---
Subjective Progress Note Date: 02/12/21 HISTORY OF PRESENT ILLNESS: This is a 80 year old female with a history of hypertension and diabetes who is admitted to the hospital secondary to altered mental status. 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 Patient is on aspirin and lipitor. No plavix started per neurology. Patient was found to have atrial fibrillation with RVR. Per neurology, no anticoagulation for 3-4 days due to risk of hemorrhagic t ransformation. Patient is currently on a Cardizem drip at 5 mg an hour. Patient is also receiving metoprolol 100 mg twice a day. During examination, the patient has periods where she is speaking Sinhala and is answering questions appropriately and then she says thinks that are uncomfortable. 02/12/2021 Patient examined this morning at the bedside. Patient appears to be conversing more appropriately today with provider. She denies chest pain or pressure. Denies shortness of breath. She remains in atrial fibrillation/flutter with controlled ventricular rates. Anticoagulation remains on hold per neurology. Echocardiogram completed revealed ejection fraction 55-60%. PHYSICAL EXAM: VITAL SIGNS: Reviewed. GENERAL: Well-developed in no acute distress. NECK: Supple. No JVD or thyromegaly LUNGS: Respirations even and unlabored. Lungs essentially clear to auscultation bilaterally. HEART: Irregular rate and rhythm. S1 and S2 heard. EXTREMITIES: Normal range of motion. No clubbing or cyanosis. Peripheral pulses intact. 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 No plavix at this time per neurology Begin anticoagulation for a-fib when cleared by neurology. Per case management, patient is covered for Eliquis Will have case management check insurance coverage of Eliquis Continue oral Cardizem and metoprolol. Continue telemetry monitoring. Patient to follow up outpatient with Dr. Pena as she has not followed with a parish visitor previously in the office We will sign off. Please reconsult if needed. Nurse practitioner note has been reviewed by physician. Signing provider agrees with the documented findings, assessment, and plan of care. Objective - Vital Signs Vital signs: Vital Signs Temp 98.8 F 02/12/21 08:00 Pulse 115 H 02/12/21 08:00 Resp 19 02/12/21 08:00 BP 150/90 02/12/21 08:00 Pulse Ox 95 02/12/21 08:00 Intake & Output 02/11/21 02/12/21 02/12/21 18:59 06:59 18:59 Intake Total 340 50 240 Output Total 800 Balance -460 50 240 Weight 81 kg Intake: Oral 340 50 240 Output: Urine 800 Other: Voiding Method Diaper Diaper Diaper External Catheter # Voids 1 1 2 # Bowel Movements 1 1 - Labs CBC & Chem 7: 02/12/21 07:06 02/12/21 07:06 Labs: Abnormal Lab Results - Last 24 Hours (Table) 02/11/21 02/11/21 02/11/21 Range/Units 06:59 16:59 20:32 WBC (3.8-10.6) k/uL Neutrophils # (1.3-7.7) k/uL Potassium (3.5-5.1) mmol/L Glucose (74-99) mg/dL POC Glucose (mg/dL) 145 H 142 H (75-99) mg/dL Hemoglobin A1c 6.7 H (4.0-6.0) % 02/12/21 02/12/21 02/12/21 Range/Units 06:13 07:06 07:06 WBC 11.5 H (3.8-10.6) k/uL Neutrophils # 8.3 H (1.3-7.7) k/uL Potassium 3.3 L (3.5-5.1) mmol/L Glucose 153 H (74-99) mg/dL POC Glucose (mg/dL) 166 H (75-99) mg/dL Hemoglobin A1c (4.0-6.0) % 02/12/21 Range/Units 11:42 WBC (3.8-10.6) k/uL Neutrophils # (1.3-7.7) k/uL Potassium (3.5-5.1) mmol/L Glucose (74-99) mg/dL POC Glucose (mg/dL) 241 H (75-99) mg/dL Hemoglobin A1c (4.0-6.0) %
--- NOTE | 2021-02-12 14:42 | P.PN ---
Subjective Progress Note Date: 02/12/21 Principal diagnosis: Altered mental status, large left MCA ischemic infarct, acute urinary tract infection, bilateral infiltrates 80-year-old female who presents to the emergency department on February 07. She apparently went to the emergency department with mental status changes. Apparently according to a visiting nurse, the patient appeared weaker and more fatigued than normal. The patient apparently had a doctor's appointment that day, but instead, ended up in the emergency department. She is apparently diagnoses having patchy pneumonia, and urinary tract infection. Mental status changes apparently were blamed on the urinary tract infection as apparently, he has happened before. The patient finally had a computed tomography scan of the brain today, which showed a large left MCA ischemic infarct. A blood gas was done, because the nurse thought maybe the patient was retaining carbon dioxide, which may have explained the mental status changes. In addition, the patient was admitted with a diagnosis of atrial fibrillation with RVR, and started on heparin. In addition, she was on saline at KVO, and Cardizem 15 mg an hour. She was admitted by Dr. Montelongo to the emergency department, with a diagnosis of mental status changes, ER, and urinary tract infection. The brain CT was just ordered today. White count 13.4, hemoglobin 11, hematocrit 33.1, and platelet count normal. Blood gases on 36% oxygen showed a pO2 of 70, pCO2 of 29, and pH is 7.47. His blood gas was consistent with respiratory alkalosis. PTT was 46. Sodium 138, potassium 3.6, chlorides 108, CO2 20, anion gap 10, BUN 13, and creatinine 0.55. In addition, there are bilateral infiltrates, potentially consistent with pneumonia. Progress note dated 02/10/2021. Patient is again seen in room 359. Currently, the patient is on a heparin drip, a Cardizem drip at 10 mg an hour, and saline at 20 mL an hour. In addition, the patient's getting O2 at 4 L, with saturations between 96-97%. The patient appears recently comfortable, but she is somewhat lethargic. She does arouse easily. Lab data today includes a PTT of 44.9. The patient's acute diagnoses included left MCA ischemic infarct, urinary tract infection, possible pneumonia, and atrial fibrillation with RVR. 02/11/2021, the patient is being seen on a follow-up on a medical floor. The patient is resting comfortably in bed. She is on oxygen at the distal mid nasal cannula. No signs of any respiratory distress. Obviously the left side of the body remains weaker compared to the right. I was able to appreciate adequate movement although the patient prefers to use her right side compared to her left. At times his speech is also garbled. She remains in atrial fibrillation. Rate is controlled for now. In terms of treatment, the patient is also being treated for a Klebsiella urinary tract infection. She remains on IV Zosyn. She remains on aspirin 81 mg by mouth daily. We have achieved adequate blood sugar control. The blood work from today shows a white cell count of 15.2. Electrolytes are normal, renal function is are normal, and LDL cholesterol is at 127. A cardiogram was essentially normal with an ejection fraction of 55-60%. On 02/12/2021 patient seen in follow-up on selective care unit, she sits up in the recliner today, she is breathing comfortably, patient is awake and alert, however her speech is difficult to understand, she appears to speak in the language at times, and speaking in Beninese. No facial asymmetry, she is moving bilateral arms and legs equally. She is currently on room air, pulse ox is 95%, hemodynamically she has been stable, she is afebrile, her repeat chest x-ray showed a left lower lobe atelectasis versus pneumonia and associated effusion, no pulmonary symptoms, no cough, no chest discomfort. She is on Zosyn for underlying urinary tract infection, and possibility of pneumonia is unlikely but not completely excluded. Today's white blood cell count is 11.5, improving, hemoglobin is 13.8, sodium is 143, potassium is 3.3, BUN is 10, creatinine 0.54. Respirations were even and unlabored, lungs were essentially clear to auscultation bilaterally. Objective - Vital Signs Vital signs: Vital Signs Temp 98.8 F 02/12/21 08:00 Pulse 95 02/12/21 12:00 Resp 19 02/12/21 12:00 BP 167/93 02/12/21 12:00 Pulse Ox 95 02/12/21 12:00 Intake & Output 02/11/21 02/12/21 02/12/21 18:59 06:59 18:59 Intake Total 340 50 360 Output Total 800 Balance -460 50 360 Weight 81 kg Intake: Oral 340 50 360 Output: Urine 800 Other: Voiding Method Diaper Diaper Diaper External Catheter # Voids 1 1 2 # Bowel Movements 1 1 - Exam GENERAL EXAM: Alert, oriented to self, but not place and time, patient is difficult to understand, speech pattern is unclear, seems to be speaking to different languages at times, comfortable in no apparent distress. HEAD: Normocephalic/atraumatic. EYES: Normal reaction of pupils, equal size. Conjunctiva pink, sclera white. NOSE: Clear with pink turbinates. THROAT: No erythema or exudates. NECK: No masses, no JVD, no thyroid enlargement, no adenopathy. CHEST: No chest wall deformity. Symmetrical expansion. LUNGS: Equal air entry with no crackles, wheeze, rhonchi or dullness. CVS: Regular rate and rhythm, normal S1 and S2, no gallops, no murmurs, no rubs ABDOMEN: Soft, nontender. No hepatosplenomegaly, normal bowel sounds, no guarding or rigidity. EXTREMITIES: No clubbing, no edema, no cyanosis, 2+ pulses and upper and lower extremities. MUSCULOSKELETAL: Muscle strength and tone normal. SPINE: No scoliosis or deformity SKIN: No rashes CENTRAL NERVOUS SYSTEM: Alert and oriented -1. No focal deficits, tone is normal in all 4 extremities. PSYCHIATRIC: Alert and oriented -1. Appropriate affect. Intact judgment and insight. - Labs CBC & Chem 7: 02/12/21 07:06 02/12/21 07:06 Labs: Abnormal Lab Results - Last 24 Hours (Table) 02/11/21 02/11/21 02/11/21 Range/Units 06:59 16:59 20:32 WBC (3.8-10.6) k/uL Neutrophils # (1.3-7.7) k/uL Potassium (3.5-5.1) mmol/L Glucose (74-99) mg/dL POC Glucose (mg/dL) 145 H 142 H (75-99) mg/dL Hemoglobin A1c 6.7 H (4.0-6.0) % 02/12/21 02/12/21 02/12/21 Range/Units 06:13 07:06 07:06 WBC 11.5 H (3.8-10.6) k/uL Neutrophils # 8.3 H (1.3-7.7) k/uL Potassium 3.3 L (3.5-5.1) mmol/L Glucose 153 H (74-99) mg/dL POC Glucose (mg/dL) 166 H (75-99) mg/dL Hemoglobin A1c (4.0-6.0) % 02/12/21 Range/Units 11:42 WBC (3.8-10.6) k/uL Neutrophils # (1.3-7.7) k/uL Potassium (3.5-5.1) mmol/L Glucose (74-99) mg/dL POC Glucose (mg/dL) 241 H (75-99) mg/dL Hemoglobin A1c (4.0-6.0) % Assessment and Plan Plan: Assessment: 1 Mental status changes, related to large left MCA territory ischemic infarct. She is stable on ASA. Likely an embolic event as the patient was found to have new onset atrial fibrillation. 2 Chronic recurrent urinary tract infections, with gram-negative bacilli again in the urine, and the patient is found to have Klebsiella in the urine, c urrently on IV Zosyn 3 Diffuse bilateral infiltrates, likely related to underlying heart failure an d/or pneumonia, awaiting follow-up chest x-ray 4 New onset atrial fibrillation with rapid ventricular response. 5 History of diabetes mellitus. 6 History of hypothyroidism. 7 History of hypertension. Plan: Today's chest x-ray has been reviewed, Left lower lobe atelectasis, and associated effusion, small Lungs essentially clear to auscultation Maintain aspiration precautions Patient is already covered Zosyn for underlying urinary tract infection No pulmonary symptoms I performed a history & physical examination of the patient and discussed their management with my nurse practitioner, Machelle Morales. I reviewed the nurse practitioner's note and agree with the documented findings and plan of care. Lung sounds are positive for diminished breath sounds. The findings and the impression was discussed with the patient. I attest to the documentation by the nurse practitioner. Time with Patient: Less than 30
--- NOTE | 2021-02-12 16:06 | P.PN ---
Subjective Progress Note Date: 02/12/21 HISTORY OF PRESENT ILLNESS This is a pleasant 80-year-old female, who comes in from home, with acute mental status changes, patient cannot provide much more often history today as the patient cannot remain focused on questions asked of her, she is only motivated on the food that in front of her, however per history that comes from family member, she's had increasing weakness fatigue and increasing confusion, she normally gets this way whenever she gets a urinary tract infection. She has underlying history of diabetes mellitus, fibromyalgia, hypertension, no history of CVA, no history of seizures. She was in the emergency room, with new onset atrial fibrillation, heart rate in the 140s, chest x-ray shows cardiomegaly, with vascular congestion, and bilateral opacification, Covid is negative. Toni waller's tachypnea, when seen afebrile, T-max of 98 9, with pulse ox of 94% on room air. Urinalysis also shows pyuria, she was given IV Rocephin emergency room, for which we had obtained cultures as well, and continued on Rocephin. She was started on IV Cardizem for A. fib RVR, and IV heparin., 02/09 patient was seen for eval, there is on CAT scan findings, large area of cortical and subcortical hypodensity involving the left mid posterior left MCA territory, left frontoparietal junction, anterior left temporal lobe, suspicious of subacute left MCA territory, there is sulcal effacement, with rightward midline shift, no herniation or hydrocephalus, prominent bilateral spray ophthalmic veins possibly related to elevated increasing intracranial pressure, patient is still on IV heparin, seen by neurology, there is a right cranial sixth nervec, on physical examination. Patient is still disoriented confused, can follow verbal commands, can move all approximately 7 lower extremities, patient is alert and oriented 2, sometimes cannot give me the right answers, chest x-ray shows bilateral infiltrates, pro-calcitonin ordered, on 4 L nasal cannula, patient is on IV Zosyn, PT, OT consulted, EEG of the brain, MRI of the brain patient was able to eat oatmeal this morning, without any clinical evidence of aspiration, we'll provide Diet, thickened liquids, until speech eval atient is alert more coherent very happy and pleased today, spontaneous speech fluent, speaking serbian. neurology has recommended to hold off heaparin and even aspirirn as this involves large area of ischemic stroke and is at higher risk of hemorrhagic conversion. 2d echo with buble study eeg pt ot speech consulted, continue IV antibiotics for aspiration pneumonia, start aspirin as per recommendation low dose, as per neurology, 02/11: Patient has been afebrile, heart rate in the 90s, blood pressure 149/57, pulse ox 99% on 2 L nasal cannula. WBC 13.2, hemoglobin 13.4, platelet count 328. Sodium 139, potassium 3.3 and has been replaced, chloride 105, CO2 22, BUN 7 and creatinine 0.43. Blood sugars running between 105 163. Liver function tests are normal. Urine culture is positive for Klebsiella ozaenae susceptible to ceftriaxone. Echocardiogram reveals EF 55-60%, Mild mitral regurgitation, m [id number] tricuspid regurgitation, moderate pulmonary hypertension. Repeat chest x-ray will be ordered for today. EEG was abnormal suggesting moderate to severe encephalopathy in the left hemisphere while the right hemisphere is normal. Slowing over the left temporoparietal is consistent with history of subacute stroke. 02/12: Patient states that she is feeling much better today. She did have a fever of 100.2 at midnight. Urine culture finalized with Klebsiella and patient is currently on Zosyn. 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 Cardiology has placed the patient on oral Cardizem 60 mg 3 times daily and plan is for eliquis 5 mg twice daily, neurology is planning to hold for 3 days and will get repeat imaging prior to anticoagulation. José mmendations from neurology is aspirin 81 mg daily, Lipitor 40 mg daily orally at bedtime, avoid dual antiplatelets for now. REVIEW OF SYSTEMS Unable to obtain due to patient's mental status. PHYSICAL EXAMINATION Gen: This is an 80-year-old female. Patient is resting in chair and appears to be comfortable and in no acute distress. HEENT: Head is atraumatic, normocephalic. Pupils equal, round. Sclerae is anicteric. NECK: Supple. No JVD. No lymphadenopathy. No thyromegaly. LUNGS: Clear to auscultation. No wheezes or rhonchi. No intercostal retractions. HEART: Regular rate and rhythm. No murmur. ABDOMEN: Soft. Bowel sounds are present. No masses. No tenderness. EXTREMITIES: No pedal edema. No calf tenderness. NEUROLOGICAL: Patient is awake, not oriented. ASSESSMENT AND PLAN 1. Acute metabolic encephalopathy, with sepsis, UTI as a primary source, cannot rule out aspiration pneumonia, eyes patient has bilateral infiltrates also noted, patient on Zosyn, cultures to be done, including sputum if able. Check a pro-calcitonin 2. New onset A. fib with RVR, on IV Cardizem, and IV heparin change to oral today a cardiology consult 3. Ischemic CVA Large area of cortical and subcortical hypodensity, suspicious for a large infarct, involving the left posterior left MCA territory, left frontoparietal anterior left temporal lobe, with 2 mm rightward midline shift, neurology is followed, stat MRI of the brain, on IV heparin, for new onset atrial fibrillation PT OT, speech, patient was able to feed with assistance, without evidence of clinical aspiration patient is on IV antibiotics, for suspected aspiration pneumonia EEG of the brain showing asymmetrical left he misphere consistent with moderate to severe encephalopathy, right hemisphere is normal, there is slowing of the left temporoparietal consistent with subacute stroke, no epileptiform or seizure during this study. Carotid Doppler, failed to reveal any hemodynamically significant stenosis, by Doppler criteria, 4. Diabetes mellitus type 2 patient on Actos and metformin, check A1c 5. Delirium most likely, patient is on Desyrel 50 mg at bedtime, which we could continue, and continue on Effexor XR 37.5 twice a day. We'll going to the discontinue Savella, and hold off gabapentin at this time 6. Hypothyroidism, with control TSH, on 100 g levothyroxine daily no changes. 7. Chronic pain, from from fibromyalgia, on tramadol 50 mg twice a day, which we will hold off at this time, until mentation would be clear, although of gabapentin, and hold off Savella continue venlafaxine and trazodone 8. Hypertension Cardizem 60 mg 3 times daily. 9. DVT prophylaxis 10 GI prophylaxis 11. CODE STATUS DISCHARGE PLAN [facility] normally on Wednesday. Impression and plan of care have been directed as dictated by the signing physician. Gabrielle Nuno nurse practitioner acting as scribe for signing physician. Objective - Vital Signs Vital signs: Vital Signs Temp 98.8 F 02/12/21 08:00 Pulse 115 H 02/12/21 08:00 Resp 19 02/12/21 08:00 BP 150/90 02/12/21 08:00 Pulse Ox 95 02/12/21 08:00 Intake & Output 02/11/21 02/12/21 02/12/21 18:59 06:59 18:59 Intake Total 340 50 240 Output Total 800 Balance -460 50 240 Weight 81 kg Intake: Oral 340 50 240 Output: Urine 800 Other: Voiding Method Diaper Diaper Diaper External Catheter # Voids 1 1 1 # Bowel Movements 1 - Labs CBC & Chem 7: 02/12/21 07:06 02/12/21 07:06 Labs: Abnormal Lab Results - Last 24 Hours (Table) 02/11/21 02/11/21 02/11/21 Range/Units 06:59 12:08 16:59 WBC (3.8-10.6) k/uL Neutrophils # (1.3-7.7) k/uL Potassium (3.5-5.1) mmol/L Glucose (74-99) mg/dL POC Glucose (mg/dL) 163 H 145 H (75-99) mg/dL Hemoglobin A1c 6.7 H (4.0-6.0) % 02/11/21 02/12/21 02/12/21 Range/Units 20:32 06:13 07:06 WBC 11.5 H (3.8-10.6) k/uL Neutrophils # 8.3 H (1.3-7.7) k/uL Potassium (3.5-5.1) mmol/L Glucose (74-99) mg/dL POC Glucose (mg/dL) 142 H 166 H (75-99) mg/dL Hemoglobin A1c (4.0-6.0) % 02/12/21 Range/Units 07:06 WBC (3.8-10.6) k/uL Neutrophils # (1.3-7.7) k/uL Potassium 3.3 L (3.5-5.1) mmol/L Glucose 153 H (74-99) mg/dL POC Glucose (mg/dL) (75-99) mg/dL Hemoglobin A1c (4.0-6.0) %
[2021-02-12] MEDS: ACETAMINOPHEN TAB 325 MG TAB PO PRN ×2 (16:32→23:34)
[2021-02-12 16:47] LABS: Glucose,Whole Blood 133 mg/dL (75-99)
[2021-02-12 20:48] LABS: Glucose,Whole Blood 187 mg/dL (75-99)
[2021-02-12] MEDS ORDERED: APIXABAN 5 MG TAB PO SCH (21:00)
[2021-02-12] MEDS: ATORVASTATIN 40 MG TAB PO SCH (21:12)
[2021-02-12] MEDS: DILTIAZEM ORAL 60 MG TAB PO SCH ×2 (21:12)
[2021-02-12] MEDS: traZODone HCL 50 MG TAB PO SCH (21:12)
[2021-02-13] MEDS: PIPERACILLIN-TAZOBACTAM 3.375 GM in SODIUM CHLORIDE 0.9% 100 ML IVPB SCH ×3 (04:36→20:14)
[2021-02-13 06:04] LABS: Glucose,Whole Blood 179 mg/dL (75-99)
[2021-02-13] MEDS: LEVOTHYROXINE 100 MCG TAB PO SCH (06:21)
[2021-02-13] MEDS: INSULIN ASPART (NovoLOG) 100 UNIT/ML VIAL SQ SCH ×4 (06:21→20:14)
[2021-02-13] MEDS: PANTOPRAZOLE 40 MG TABLET PO SCH (06:22)
[2021-02-13 08:21] LABS: Basophils % (A) 0 %; Eosinophils # (A) 0.2 k/uL (0-0.7); Eosinophils % (A) 1 %; HCT 39.7 % (34.0-46.0); HGB 13.1 gm/dL (11.4-16.0); Lymphocytes # (A) 2.6 k/uL (1.0-4.8); Lymphocytes % (A) 22 %; MCH 29.9 pg (25.0-35.0); MCV 90.4 fL (80.0-100.0); Mean Platelet Volume 7.9; Monocytes # (A) 0.8 k/uL (0-1.0); Monocytes % (A) 6 %; Neutrophils # (A) 8.1 k/uL (1.3-7.7); Neutrophils % (A) 69 %; Platelet Count 364 k/uL (150-450); RBC 4.39 m/uL (3.80-5.40); RDW 14.3 % (11.5-15.5); WBC 11.8 k/uL (3.8-10.6)
[2021-02-13 08:31] LABS: African American GFR (CKD) >90 (>60 ml/min/1.73 sqM); Anion Gap 9 mmol/L; Blood Urea Nitrogen 12 mg/dL (7-17); Calcium 9.2 mg/dL (8.4-10.2); Carbon Dioxide 28 mmol/L (22-30); Chloride 105 mmol/L (98-107); Glucose 156 mg/dL (74-99); Non-African American GFR(CKD) 89 (>60 ml/min/1.73 sqM); Potassium 3.3 mmol/L (3.5-5.1); Sodium 142 mmol/L (137-145)
[2021-02-13] MEDS: HEPARIN SODIUM,PORCINE/PF 5,000 UNIT/0.5 ML SYRINGE SQ SCH (09:10)
[2021-02-13] MEDS: ASPIRIN 81 MG PO SCH (09:11)
[2021-02-13] MEDS: METOPROLOL TARTRATE 50 MG TAB PO SCH ×2 (09:11→20:13)
[2021-02-13] MEDS: PIOGLITAZONE 15 MG TAB PO SCH (09:11)
[2021-02-13] MEDS: DILTIAZEM ORAL 60 MG TAB PO SCH ×3 (09:11→20:13)
[2021-02-13] MEDS: VENLAFAXINE HCL ER 37.5 MG CAP PO SCH ×2 (09:11→20:14)
[2021-02-13] MEDS: MILNACIPRAN HCL 100 MG PO SCH ×2 (09:11→23:23)
[2021-02-13] MEDS: metFORMIN 500 MG TAB PO SCH (09:11)
--- NOTE | 2021-02-13 10:30 | P.DS ---
Providers Date of admission: 02/07/21 17:31 Expected date of discharge: 02/14/21 Attending physician: Odette Patton Consults: 02/09/21 10:26 Consult Physician Urgent Consulting Provider: Jonnathan Vivas Consult Reason/Comments: altered mental status Do you want consulting provider notified?: Yes 02/09/21 10:30 Consult Physician Urgent Consulting Provider: Deo Vivas Consult Reason/Comments: CHF, sob Do you want consulting provider notified?: Yes Primary care physician: [facility] Course: HISTORY OF PRESENT ILLNESS This is a pleasant 80-year-old female, who comes in from home, with acute mental status changes, patient cannot provide much more often history today as the patient cannot remain focused on questions asked of her, she is only motivated on the food that in front of her, however per history that comes from family member, she's had increasing weakness fatigue and increasing confusion, she normally gets this way whenever she gets a urinary tract infection. She has underlying history of diabetes mellitus, fibromyalgia, hypertension, no history of CVA, no history of seizures. She was in the emergency room, with new onset atrial fibrillation, heart rate in the 140s, chest x-ray shows cardiomegaly, with vascular congestion, and bilateral opacification, Covid is negative. Patient's tachypnea, when seen afebrile, T-max of 98 9, with pulse ox of 94% on room air. Urinalysis also shows pyuria, she was given IV Rocephin emergency room, for which we had obtained cultures as well, and continued on Rocephin. She was started on IV Cardizem for A. fib RVR, and IV heparin., 02/09 patient was seen for eval, there is on CAT scan findings, large area of cortical and subcortical hypodensity involving the left mid posterior left MCA territory, left frontoparietal junction, anterior left temporal lobe, suspicious of subacute left MCA territory, there is sulcal effacement, with rightward midline shift, no herniation or hydrocephalus, prominent bilateral spray ophthalmic veins possibly related to elevated increasing intracranial pressure, patient is still on IV heparin, seen by neurology, there is a right cranial sixth nervec, on physical examination. Patient is still disoriented confused, can follow verbal commands, can move all approximately 7 lower extremities, patient is alert and oriented 2, sometimes cannot give me the right answers, chest x-ray shows bilateral infiltrates, pro-calcitonin ordered, on 4 L nasal cannula, patient is on IV Zosyn, PT, OT consulted, EEG of the brain, MRI of the brain patient was able to eat oatmeal this morning, without any clinical evidence of aspiration, we'll provide Diet, thickened liquids, until speech eval 7/5patient is alert more coherent very happy and pleased today, spontaneous speech fluent, speaking thai. neurology has recommended to hold off heaparin and even aspirirn as this involves large area of ischemic stroke and is at higher risk of hemorrhagic conversion. 2d echo with buble study eeg pt ot speech consulted, continue IV antibiotics for aspiration pneumonia, start aspirin as per recommendation low dose, as per neurology, 02/11: Patient has been afebrile, heart rate in the 90s, blood pressure 149/57, pulse ox 99% on 2 L nasal cannula. WBC 13.2, hemoglobin 13.4, platelet count 328. Sodium 139, potassium 3.3 and has been replaced, chloride 105, CO2 22, BUN 7 and creatinine 0.43. Blood sugars running between 105 163. Liver function tests are normal. Urine culture is positive for Klebsiella ozaenae susceptible to ceftriaxone. Echocardiogram reveals EF 55-60%, Mild mitral regurgitation, [id number] tricuspid regurgitation, moderate pulmonary hypertension. Repeat chest x-ray will be ordered for today. EEG was abnormal suggesting moderate to severe encephalopathy in the left hemisphere while the right hemisphere is normal. Slowing over the left temporoparietal is consistent with history of subacute stroke. 02/12: Patient states that she is feeling much better today. She did have a fever of 100.2 at midnight. Urine culture finalized with Klebsiella and patient is currently on Zosyn. ekg monitor remains atrial fibrillation/flutter with controlled rate. Cardiology has placed the patient on oral Cardizem 60 mg 3 times daily and plan is for eliquis 5 mg twice daily, neurology is planning to hold for 3 days and will get repeat imaging prior to anticoagulation. Recommendations from neurology is aspirin 81 mg daily, Lipitor 40 mg daily orally at bedtime, avoid dual antiplatelets for now. 02/13: Repeat CAT scan of the brain revealed continued evolution of patient's subacute left MCA territory infarct. The some of the cortical density is normalizing. Similar slight mass effect with minimal 2 mm of rightward midline shift. No herniation or acute intracranial hemorrhage. Newly apparent acute to subacute infarct involving the lateral left cerebellar hemisphere. Dr. Vivas has cleared the patient to start eliquis and discontinue baby aspirin. Patient has been afebrile, heart rate 107, blood pressure 163/94, pulse ox 94% on room air. Repeat blood work reveals WBC of 11.8, hemoglobin 13.1 and platelet count 364. Sodium 142, potassium 3.3 and will be replaced, chloride 105, CO2 28, BUN 12 and creatinine 0.52. Blood sugars are running between 133 and 179. Patient is awake and alert. She is speaking in more Croatian today and is pleasantly confused. Patient will be discharged to [facility] once arrangements are completed and currently waiting on insurance authorization. 02/13: Repeat CAT scan of the brain revealed continued evolution of patient's subacute left MCA territory infarct. The some of the cortical density is normalizing. Similar slight mass effect with minimal 2 mm of rightward midline shift. No herniation or acute intracranial hemorrhage. Newly apparent acute to subacute infarct involving the lateral left cerebellar hemisphere. Dr. Vivas has cleared the patient to start eliquis and discontinue baby aspirin. Patient has been afebrile, heart rate 107, blood pressure 163/94, pulse ox 94% on room air. Repeat blood work reveals WBC of 11.8, hemoglobin 13.1 and platelet count 364. Sodium 142, potassium 3.3 and will be replaced, chloride 105, CO2 28, BUN 12 and creatinine 0.52. Blood sugars are running between 133 and 179. Patient is awake and alert. She is speaking in more Croatian today and is pleasantly confused. Patient will be discharged to [facility] once arrangements are completed and currently waiting on insurance authorization. 02/14: Insurance authorization has been obtained and patient will be discharged today. ASSESSMENT AND PLAN 1. Acute metabolic encephalopathy, with sepsis, UTI 2. New onset A. fib with RVR, paroxysmal atrial fibrillation 3. 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 Diabetes mellitus type 2 5. Delirium acute 6. Hypothyroidism 7. Chronic pain from fibromyalgia 8. Hypertension DISCHARGE PLAN [facility] Impression and plan of care have been directed as dictated by the signing physician. Gabrielle Nuno nurse practitioner acting as scribe for signing physician. Patient Condition at Discharge: Good Plan - Discharge Summary Discharge Rx Participant: No New Discharge Prescriptions: New Diltiazem Oral [Cardizem*] 60 mg PO TID tab Atorvastatin [Lipitor] 40 mg PO HS tab Lisinopril [Prinivil] 10 mg PO DAILY #30 tab Apixaban [Eliquis] 5 mg PO BID #60 tab Metoprolol Tartrate [Lopressor] 100 mg PO BID tab Acetaminophen Tab [Tylenol] 650 mg PO Q6HR PRN tab PRN Reason: Fever And/ Or Pain Levofloxacin [Levaquin] 500 mg PO DAILY 7 Days #7 tab Continue Venlafaxine HCl ER [Effexor XR] 37.5 mg PO BID Trospium Chloride [Sanctura] 20 mg PO BID Pioglitazone [Actos] 15 mg PO DAILY Omeprazole [PriLOSEC] 20 mg PO DAILY Levothyroxine Sodium [Synthroid] 100 mcg PO DAILY traZODone HCL [Desyrel] 50 mg PO HS Milnacipran HCl [Savella] 100 mg PO BID metFORMIN HCL 500 mg PO DAILY traMADol HCL 50 mg PO BID #6 tab Discontinued Gabapentin 300 mg PO TID atenoloL [Atenolol] 25 mg PO DAILY amLODIPine [Norvasc] 5 mg PO DAILY Discharge Medication List Levothyroxine Sodium [Synthroid] 100 mcg PO DAILY 02/07/21 [History] Milnacipran HCl [Savella] 100 mg PO BID 02/07/21 [History] Omeprazole [PriLOSEC] 20 mg PO DAILY 02/07/21 [History] Pioglitazone [Actos] 15 mg PO DAILY 02/07/21 [History] Trospium Chloride [Sanctura] 20 mg PO BID 02/07/21 [History] Venlafaxine HCl ER [Effexor XR] 37.5 mg PO BID 02/07/21 [History] metFORMIN HCL 500 mg PO DAILY 02/07/21 [History] traZODone HCL [Desyrel] 50 mg PO HS 02/07/21 [History] Apixaban [Eliquis] 5 mg PO BID #60 tab 02/11/21 [Rx] Acetaminophen Tab [Tylenol] 650 mg PO Q6HR PRN tab 02/13/21 [Rx] Atorvastatin [Lipitor] 40 mg PO HS tab 02/13/21 [Rx] Diltiazem Oral [Cardizem*] 60 mg PO TID tab 02/13/21 [Rx] Levofloxacin [Levaquin] 500 mg PO DAILY 7 Days #7 tab 02/13/21 [Rx] Lisinopril [Prinivil] 10 mg PO DAILY #30 tab 02/13/21 [Rx] Metoprolol Tartrate [Lopressor] 100 mg PO BID tab 02/13/21 [Rx] traMADol HCL 50 mg PO BID #6 tab 02/13/21 [Rx] Follow up Appointment(s)/Referral(s): Kalin Beltran MD [Primary Care Provider] - 1 Week (at [facility] ) Discharge Disposition: TRANSFER TO SNF/ECF
--- NOTE | 2021-02-13 10:50 | CT ---
EXAMINATION TYPE: CT brain wo con DATE OF EXAM: 02/13/2021 COMPARISON: 02/09/2021 HISTORY: 80-year-old female assess for stroke evolution. TECHNIQUE: Examination was done in axial plane without intravenous contrast. Coronal and sagittal r econstructions performed. CT DLP: 1143.4 mGycm Automated exposure control for dose reduction was used. FINDINGS: Redemonstrated superior left sulcal effacement with continuing hypodensity throughout the left MCA te rritory, posterior left frontal lobe, anterior left parietal lobe, and anterior left temporal lobe. C ontinued slight mass effect on the left lateral ventricle and minimal 2 mm of rightward midline shift . Some of the cortical density is normalizing now. No evidence for acute intracranial hemorrhage, herniation, or hydrocephalus. No extra-axial fluid col lection. Redemonstrated moderate patchy background of hypodensity in both cerebral hemispheres. Newly apparent hypodensity lateral left cerebellar hemisphere measuring 2.4 cm not well appreciated o n prior exams. Mild hyperostosis frontalis interna. Paranasal sinuses and mastoid air cells well pneumatized. Orbits and globes are intact. Improved gina lindsey to the superior ophthalmic veins compared to prior exam. IMPRESSION: 1. Continued evolution of patient's subacute left MCA territory infarct. Some of the cortical density is normalizing now. Similar slight mass effect with minimal 2 mm of rightward midline shift. No evelyn iation or acute intracranial hemorrhage. 2. Newly apparent acute to subacute infarct also involving the lateral left cerebellar hemisphere.
[2021-02-13 11:44] LABS: Glucose,Whole Blood 177 mg/dL (75-99)
--- NOTE | 2021-02-13 11:45 | P.PN ---
Subjective Progress Note Date: 02/13/21 Principal diagnosis: Altered mental status, large left MCA ischemic infarct, acute urinary tract infection, bilateral infiltrates 80-year-old female who presents to the emergency department on February 07. She apparently went to the emergency department with mental status changes. Apparently according to a visiting nurse, the patient appeared weaker and more fatigued than normal. The patient apparently had a doctor's appointment that day, but instead, ended up in the emergency department. She is apparently diagnoses having patchy pneumonia, and urinary tract infection. Mental status changes apparently were blamed on the urinary tract infection as apparently, he has happened before. The patient finally had a computed tomography scan of the brain today, which showed a large left MCA ischemic infarct. A blood gas was done, because the nurse thought maybe the patient was retaining carbon dioxide, which may have explained the mental status changes. In addition, the patient was admitted with a diagnosis of atrial fibrillation with RVR, and started on heparin. In addition, she was on saline at KVO, and Cardizem 15 mg an hour. She was admitted by Dr. Montelongo to the emergency department, with a diagnosis of mental status changes, ER, and urinary tract infection. The brain CT was just ordered today. White count 13.4, hemoglobin 11, hematocrit 33.1, and platelet count normal. Blood gases on 36% oxygen showed a pO2 of 70, pCO2 of 29, and pH is 7.47. His blood gas was consistent with respiratory alkalosis. PTT was 46. Sodium 138, potassium 3.6, chlorides 108, CO2 20, anion gap 10, BUN 13, and creatinine 0.55. In addition, there are bilateral infiltrates, potentially consistent with pneumonia. Progress note dated 02/10/2021. Patient is again seen in room 359. Currently, the patient is on a heparin drip, a Cardizem drip at 10 mg an hour, and saline at 20 mL an hour. In addition, the patient's getting O2 at 4 L, with saturations between 96-97%. The patient appears recently comfortable, but she is somewhat lethargic. She does arouse easily. Lab data today includes a PTT of 44.9. The patient's acute diagnoses included left MCA ischemic infarct, urinary tract infection, possible pneumonia, and atrial fibrillation with RVR. 02/11/2021, the patient is being seen on a follow-up on a medical floor. The patient is resting comfortably in bed. She is on oxygen at the distal mid nasal cannula. No signs of any respiratory distress. Obviously the left side of the body remains weaker compared to the right. I was able to appreciate adequate movement although the patient prefers to use her right side compared to her left. At times his speech is also garbled. She remains in atrial fibrillation. Rate is controlled for now. In terms of treatment, the patient is also being treated for a Klebsiella urinary tract infection. She remains on IV Zosyn. She remains on aspirin 81 mg by mouth daily. We have achieved adequate blood sugar control. The blood work from today shows a white cell count of 15.2. Electrolytes are normal, renal function is are normal, and LDL cholesterol is at 127. A cardiogram was essentially normal with an ejection fraction of 55-60%. On 02/12/2021 patient seen in follow-up on selective care unit, she sits up in the recliner today, she is breathing comfortably, patient is awake and alert, however her speech is difficult to understand, she appears to speak in the language at times, and speaking in French. No facial asymmetry, she is moving bilateral arms and legs equally. She is currently on room air, pulse ox is 95%, hemodynamically she has been stable, she is afebrile, her repeat chest x-ray showed a left lower lobe atelectasis versus pneumonia and associated effusion, no pulmonary symptoms, no cough, no chest discomfort. She is on Zosyn for underlying urinary tract infection, and possibility of pneumonia is unlikely but not completely excluded. Today's white blood cell count is 11.5, improving, hemoglobin is 13.8, sodium is 143, potassium is 3.3, BUN is 10, creatinine 0.54. Respirations were even and unlabored, lungs were essentially clear to auscultation bilaterally. On 02/13/2021 patient seen in follow-up on selective care unit. Patient is breathing comfortably, she is on room air, pulse ox is 94%, vital signs have been stable, she did have elevated temperatures overnight, as high as 100.2F. Overall seems to be breathing comfortably, no complaints of chest discomfort, neurologically she still speaking in unknown language, reportedly Khmer, and she is speaking more French during our today's conversation. No facial asymmetry, she is moving all 4 extremities, no swallowing difficulty, she is tolerating oral diet, and she is requiring supervision and assistance with meals. Brain CT was completed today, showing continued evolution of patient subacute left MCA territory infarct. With some improvement of the cortical density, presented newly apparent acute subacute infarct also involving the lateral left cerebellar hemisphere. Neurology service is following the patient. Patient continues on baby aspirin, Lipitor 40 mg, patient continues on Zosyn, and she is on GI and DVT prophylaxis. Her sugars are being monitored Objective - Vital Signs Vital signs: Vital Signs Temp 98.1 F 02/13/21 04:00 Pulse 101 H 02/13/21 04:00 Resp 17 02/13/21 04:00 BP 145/86 02/13/21 04:00 Pulse Ox 94 L 02/13/21 09:03 Intake & Output 02/12/21 02/13/21 02/13/21 18:59 06:59 18:59 Intake Total 625 100 240 Balance 625 100 240 Weight 104 kg Intake: Intake, IV Titration 25 Amount Piperacillin-Tazobactam 3 25 .375 gm In Sodium Chloride 0.9% 100 ml @ 25 mls/hr IVPB Q8H [facility] Rx#: [id number] Oral 600 100 240 Other: Voiding Method Diaper Diaper # Voids 2 1 # Bowel Movements 1 1 - Exam GENERAL EXAM: Alert, oriented to self, but not place and time, patient is difficult to understand, speech pattern is unclear, seems to be speaking to different languages at times, comfortable in no apparent distress. HEAD: Normocephalic/atraumatic. EYES: Normal reaction of pupils, equal size. Conjunctiva pink, sclera white. NOSE: Clear with pink turbinates. THROAT: No erythema or exudates. NECK: No masses, no JVD, no thyroid enlargement, no adenopathy. CHEST: No chest wall deformity. Symmetrical expansion. LUNGS: Equal air entry with no crackles, wheeze, rhonchi or dullness. CVS: Regular rate and rhythm, normal S1 and S2, no gallops, no murmurs, no rubs ABDOMEN: Soft, nontender. No hepatosplenomegaly, normal bowel sounds, no guarding or rigidity. EXTREMITIES: No clubbing, no edema, no cyanosis, 2+ pulses and upper and lower extremities. MUSCULOSKELETAL: Muscle strength and tone normal. SPINE: No scoliosis or deformity SKIN: No rashes CENTRAL NERVOUS SYSTEM: Alert and oriented -1. No focal deficits, tone is normal in all 4 extremities. PSYCHIATRIC: Alert and oriented -1. Appropriate affect. Intact judgment and insight. - Labs CBC & Chem 7: 02/13/21 07:20 02/13/21 07:20 Labs: Abnormal Lab Results - Last 24 Hours (Table) 02/12/21 02/12/21 02/12/21 Range/Units 11:42 16:46 20:46 WBC (3.8-10.6) k/uL Neutrophils # (1.3-7.7) k/uL Potassium (3.5-5.1) mmol/L Glucose (74-99) mg/dL POC Glucose (mg/dL) 241 H 133 H 187 H (75-99) mg/dL 02/13/21 02/13/21 02/13/21 Range/Units 06:02 07:20 07:20 WBC 11.8 H (3.8-10.6) k/uL Neutrophils # 8.1 H (1.3-7.7) k/uL Potassium 3.3 L (3.5-5.1) mmol/L Glucose 156 H (74-99) mg/dL POC Glucose (mg/dL) 179 H (75-99) mg/dL Assessment and Plan Plan: Assessment: 1 Mental status changes, related to large left MCA territory ischemic infarct. She is stable on ASA. Likely an embolic event as the patient was found to have new onset atrial fibrillation. 2 Chronic recurrent urinary tract infections, with gram-negative bacilli again in the urine, and the patient is found to have Klebsiella in the urine, curren tly on IV Zosyn 3 Diffuse bilateral infiltrates, likely related to underlying heart failure and/or pneumonia, awaiting follow-up chest x-ray 4 New onset atrial fibrillation with rapid ventricular response. 5 History of diabetes mellitus. 6 History of hypothyroidism. 7 History of hypertension. Plan: Continue current medical treatment Maintain aspiration precautions Continue antibiotics No dyspnea or hypoxia no cough or congestion Today's brain CT has been noted From pulmonary perspective patient is stable for discharge to ECF as long as she's been cleared by neurology I performed a history & physical examination of the patient and discussed their management with my nurse practitioner, Machelle Morales. I reviewed the nurse practitioner's note and agree with the documented findings and plan of care. Lung sounds are positive for diminished breath sounds. The findings and the impression was discussed with the patient. I attest to the documentation by the nurse practitioner. Time with Patient: Less than 30
[2021-02-13 13:13] VITALS: BMI 39.3
[2021-02-13] MEDS ORDERED: POTASSIUM CHLORIDE ER 20 MEQ TAB.ER PO STA (13:42)
--- NOTE | 2021-02-13 13:48 | P.PN ---
Subjective Progress Note Date: 02/13/21 HISTORY OF PRESENT ILLNESS This is a pleasant 80-year-old female, who comes in from home, with acute mental status changes, patient cannot provide much more often history today as the patient cannot remain focused on questions asked of her, she is only motivated on the food that in front of her, however per history that comes from family member, she's had increasing weakness fatigue and increasing confusion, she normally gets this way whenever she gets a urinary tract infection. She has underlying history of diabetes mellitus, fibromyalgia, hypertension, no history of CVA, no history of seizures. She was in the emergency room, with new onset atrial fibrillation, heart rate in the 140s, chest x-ray shows cardiomegaly, with vascular congestion, and bilateral opacification, Covid is negative. Toni waller's tachypnea, when seen afebrile, T-max of 98 9, with pulse ox of 94% on room air. Urinalysis also shows pyuria, she was given IV Rocephin emergency room, for which we had obtained cultures as well, and continued on Rocephin. She was started on IV Cardizem for A. fib RVR, and IV heparin., 02/09 patient was seen for eval, there is on CAT scan findings, large area of cortical and subcortical hypodensity involving the left mid posterior left MCA territory, left frontoparietal junction, anterior left temporal lobe, suspicious of subacute left MCA territory, there is sulcal effacement, with rightward midline shift, no herniation or hydrocephalus, prominent bilateral spray ophthalmic veins possibly related to elevated increasing intracranial pressure, patient is still on IV heparin, seen by neurology, there is a right cranial sixth nervec, on physical examination. Patient is still disoriented confused, can follow verbal commands, can move all approximately 7 lower extremities, patient is alert and oriented 2, sometimes cannot give me the right answers, chest x-ray shows bilateral infiltrates, pro-calcitonin ordered, on 4 L nasal cannula, patient is on IV Zosyn, PT, OT consulted, EEG of the brain, MRI of the brain patient was able to eat oatmeal this morning, without any clinical evidence of aspiration, we'll provide Diet, thickened liquids, until speech eval atient is alert more coherent very happy and pleased today, spontaneous speech fluent, speaking qatari. neurology has recommended to hold off heaparin and even aspirirn as this involves large area of ischemic stroke and is at higher risk of hemorrhagic conversion. 2d echo with buble study eeg pt ot speech consulted, continue IV antibiotics for aspiration pneumonia, start aspirin as per recommendation low dose, as per neurology, 02/11: Patient has been afebrile, heart rate in the 90s, blood pressure 149/57, pulse ox 99% on 2 L nasal cannula. WBC 13.2, hemoglobin 13.4, platelet count 328. Sodium 139, potassium 3.3 and has been replaced, chloride 105, CO2 22, BUN 7 and creatinine 0.43. Blood sugars running between 105 163. Liver function tests are normal. Urine culture is positive for Klebsiella ozaenae susceptible to ceftriaxone. Echocardiogram reveals EF 55-60%, Mild mitral regurgitation, m [id number] tricuspid regurgitation, moderate pulmonary hypertension. Repeat chest x-ray will be ordered for today. EEG was abnormal suggesting moderate to severe encephalopathy in the left hemisphere while the right hemisphere is normal. Slowing over the left temporoparietal is consistent with history of subacute stroke. 02/12: Patient states that she is feeling much better today. She did have a fever of 100.2 at midnight. Urine culture finalized with Klebsiella and patient is currently on Zosyn. 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 Cardiology has placed the patient on oral Cardizem 60 mg 3 times daily and plan is for eliquis 5 mg twice daily, neurology is planning to hold for 3 days and will get repeat imaging prior to anticoagulation. José mmendations from neurology is aspirin 81 mg daily, Lipitor 40 mg daily orally at bedtime, avoid dual antiplatelets for now. 02/13: Repeat CAT scan of the brain revealed continued evolution of patient's subacute left MCA territory infarct. The some of the cortical density is normalizing. Similar slight mass effect with minimal 2 mm of rightward midline shift. No herniation or acute intracranial hemorrhage. Newly apparent acute to subacute infarct involving the lateral left cerebellar hemisphere. Dr. Vivas has cleared the patient to start eliquis and discontinue baby aspirin. Patient has been afebrile, heart rate 107, blood pressure 163/94, pulse ox 94% on room air. Repeat blood work reveals WBC of 11.8, hemoglobin 13.1 and platelet count 364. Sodium 142, potassium 3.3 and will be replaced, chloride 105, CO2 28, BUN 12 and creatinine 0.52. Blood sugars are running between 133 and 179. Patient is awake and alert. She is speaking in more [place]uran today and is pleasantly confused. Patient will be discharged to [facility] once arrangements are completed and currently waiting on insurance authorization. REVIEW OF SYSTEMS Unable to obtain due to patient's mental status. PHYSICAL EXAMINATION Gen: This is an 80-year-old female. Patient is resting in chair and appears to be comfortable and in no acute distress. HEENT: Head is atraumatic, normocephalic. Pupils equal, round. Sclerae is anicteric. NECK: Supple. No JVD. No lymphadenopathy. No thyromegaly. LUNGS: Clear to auscultation. No wheezes or rhonchi. No intercostal retractions. HEART: Regular rate and rhythm. No murmur. ABDOMEN: Soft. Bowel sounds are present. No masses. No tenderness. EXTREMITIES: No pedal edema. No calf tenderness. NEUROLOGICAL: Patient is awake, alert and speaking more [place]uran.. ASSESSMENT AND PLAN 1. Acute metabolic encephalopathy, with sepsis, UTI as a primary source, cannot rule out aspiration pneumonia, eyes patient has bilateral infiltrates also noted, patient on Zosyn, cultures to be done, including sputum if able. Check a pro-calcitonin 2. New onset A. fib with RVR, on IV Cardizem, and IV heparin change to oral today a cardiology consult 3. Ischemic CVA Large area of cortical and subcortical hypodensity, suspicious for a large infarct, involving the left posterior left MCA territory, left frontoparietal anterior left temporal lobe, with 2 mm rightward midline shift. Repeat CAT scan as above. Dr. Vivas is cleared the patient to start eliquis 5 mg twice daily and discontinue aspirin. 4. Diabetes mellitus type 2 patient on Actos and metformin, check A1c 5. Delirium most likely, patient is on Desyrel 50 mg at bedtime, which we could continue, and continue on Effexor XR 37.5 twice a day. We'll going to the discontinue Savella, and hold off gabapentin at this time 6. Hypothyroidism, with control TSH, on 100 g levothyroxine daily no changes. 7. Chronic pain, from from fibromyalgia, on tramadol 50 mg twice a day, which we will hold off at this time, until mentation would be clear, although of gabapentin, and hold off Savella continue venlafaxine and trazodone 8. Hypertension Cardizem 60 mg 3 times daily. 9. DVT prophylaxis 10 GI prophylaxis 11. CODE STATUS DISCHARGE PLAN [facility] Impression and plan of care have been directed as dictated by the signing physician. Gabrielle Nuno nurse practitioner acting as scribe for signing physician. Objective - Vital Signs Vital signs: Vital Signs Temp 98.8 F 02/13/21 08:00 Pulse 103 H 02/13/21 12:00 Resp 18 02/13/21 12:00 BP 157/91 02/13/21 12:00 Pulse Ox 95 02/13/21 12:00 Intake & Output 02/12/21 02/13/21 02/13/21 18:59 06:59 18:59 Intake Total 625 100 240 Balance 625 100 240 Weight 104 kg 104 kg Intake: Intake, IV Titration 25 Amount Piperacillin-Tazobactam 3 25 .375 gm In Sodium Chloride 0.9% 100 ml @ 25 mls/hr IVPB Q8H [facility] Rx#: [id number] Oral 600 100 240 Other: Voiding Method Diaper Diaper Diaper # Voids 2 1 # Bowel Movements 1 1 - Labs CBC & Chem 7: 02/13/21 07:20 02/13/21 07:20 Labs: Abnormal Lab Results - Last 24 Hours (Table) 02/12/21 02/12/21 02/13/21 Range/Units 16:46 20:46 06:02 WBC (3.8-10.6) k/uL Neutrophils # (1.3-7.7) k/uL Potassium (3.5-5.1) mmol/L Glucose (74-99) mg/dL POC Glucose (mg/dL) 133 H 187 H 179 H (75-99) mg/dL 02/13/21 02/13/21 02/13/21 Range/Units 07:20 07:20 11:39 WBC 11.8 H (3.8-10.6) k/uL Neutrophils # 8.1 H (1.3-7.7) k/uL Potassium 3.3 L (3.5-5.1) mmol/L Glucose 156 H (74-99) mg/dL POC Glucose (mg/dL) 177 H (75-99) mg/dL
--- NOTE | 2021-02-13 13:56 | CDI ---
Documentation Clarification Form Date: 02/13/2021 01:44:25 PM From: Radha Pearson CCS, CCDS Admit Date: 02/07/2021 05:31:00 PM Patient Name: Sari Duran Visit Number: [id number] Discharge Date: ATTENTION: The Clinical Documentation Specialists (CDI) and [facility] Coding Staff appreciate your assistance in clarifying documentation. Please respond to the clarification below the line at the bottom and electronically sign. The CDI & [facility] Coding staff will review the response and follow-up if needed. Please note: Queries are made part of the Legal Health Record. If you have any questions, please contact the author of this message via ITS. Dr. Oscar Pena: CHF is documented in the following documents: 02/07 CXR: Cardiomegaly with pulmonary vascular congestion concern for CHF. 02/08 Cardiology Consult: CHF versus COVID pneumonia. 02/13 Discharge Summary: (Cardiology) consult for CHF, SOB. Additional information regarding the type and acuity of the CHF is requested. History/Risk Factors per the 02/08 H/P: DM, Fibromyalgia, Hypertension. Non- smoker. Clinical Indicators: Presented to the ED on 02/07 with Altered Mental Status, Generalized Weakness. In Atrial Fibrillation with RVR, evidence of a UTI. Admitted with the same. 02/07 VS: T 97.9, P 129, R 18 BP 131/97, PO 95 2Lnc, BMI: 39.4 02/07 LAB: WBC 16.7, Neut 14.2, Na 135, BUN 21, Cr 0.71, Glucose 263, Albumin 3.4. 02/09 BNP: 0.52 02/07 CXR: Cardiomegaly with pulmonary vascular congestion concern for CHF. 02/11 CXR: Left lower lobe atelectasis versus pneumonia and associated effusion. 02/11 ECHO: Left ventricular systolic function is normal w/EF 55-60%, Atrial fibrillation, Right atrium mildly enlarged, Mild MR, Mild-Mod TR, Mod pulmonary hypertension, Right ventricular systolic pressure 46.28mmHg. Treatment 02/07: IV fl Na Cl 500 mls @ 999 mls/hr q31M, IV Rocephin, IV Cardizem Drip Bolus, IV Heparin, IV Cardizem 02/09: IV Lasix 40 mg x1 In your professional opinion, can you please clarify the acuity and type of CHF or clarify if CHF has been ruled out? [ ] Acute Diastolic Heart Failure [ ] Chronic Diastolic Heart Failure [ ] Acute on Chronic Diastolic Heart Failure [ [ Heart Failure is ruled out [ ] Other, please specify [ ] Unable to determine (Template Last Revised: September 2020) unable to determine MTDD
[2021-02-13 16:35] LABS: Glucose,Whole Blood 130 mg/dL (75-99)
[2021-02-13] MEDS: lisinopriL 10 MG TAB PO SCH (16:36)
--- NOTE | 2021-02-13 16:56 | P.PN ---
Subjective Progress Note Date: 02/13/21 The patient was seen at bedside and the she feels she is doing better. Upon seeing her she was talking in better today compared to prior. She she notified me that she speaks Nicaraguan and talking a bit more in Swazi this time around than last time. He continues to talk and a different language (likely [place]araguan). I ordered CT of the head that today to see if there is any evolution to the stroke and is reported as continued evolution of the patient's subacute left MCA territory infarct. Some of the cortical density is normalized now. Similar slight mass effect with the minimal 2 mm of right word midline shift. No herniation or acute intracranial hemorrhage at. Newly apparent acute to subac ryanne infarct involving the lateral left cerebellar hemisphere. Objective - Vital Signs Vital signs: Vital Signs Temp 98.8 F 02/13/21 08:00 Pulse 99 02/13/21 14:54 Resp 18 02/13/21 14:54 BP 167/96 02/13/21 14:54 Pulse Ox 93 L 02/13/21 14:54 Intake & Output 02/12/21 02/13/21 02/13/21 18:59 06:59 18:59 Intake Total 625 100 420 Balance 625 100 420 Weight 104 kg 104 kg Intake: Intake, IV Titration 25 Amount Piperacillin-Tazobactam 3 25 .375 gm In Sodium Chloride 0.9% 100 ml @ 25 mls/hr IVPB Q8H [facility] Rx#: [id number] Oral 600 100 420 Other: Voiding Method Diaper Diaper Diaper # Voids 2 1 # Bowel Movements 1 1 - Exam Gen.: Patient is not acute distress. Neurological examination Mental status: The patient is awake, alert. She is speaking more in mohawk and she said her name correctly. She asked me what I wanted but continues to be talking in a different language and talks few words of engligh back and forth. She follows some commands with pontomine. She is aphasic (seem wernicke). Cranial nerves: Pupils are equal at 3 mm and sluggish. EOM is tracking throughout the room and no nystagmus. There is a mild right facial droop. Motor: Limited because of cooperation. She is able to lift bilateral upper and lower extremities above gravity and hard to see if she had any focality because of limitation of exam. Sensation: Hard to assess light touch. Plantar responses are extensor bilaterally. LABS/IMAGING: * MRI the brain is reported as subacute infarct as described. Age-related changes of atrophy and chronic small vessel ischemia.The body of report it is reported as diffusion-weighted image demonstrated restriction diffusion involving the left cerebellar hemisphere peripherally, the left temporal parietal lobe, there is corresponding hyperintensity in the inversion recovery T2-weighted sequences. * Carotid duplex is reported as no hemodynamic significant stenosis of the proximal internal carotid arteries by Doppler criteria, and in direct measurement of carotid stenosis. * Lipid panel: Triglyceride of 108, cholesterol 127, LDL 81 and HDL of 24. * TSH is 1.45 which is considered within normal limits. * Hemoglobin A1c 6.7 with slightly elevated. * 2-D echo was reported as age are fibrillation. Technically difficult study with suboptimal views. Overall left ventricle Jared function is normal with ejection fraction between 55-60%. Left ventricular filling pressure cannot be estimated to atrial fibrillation. Left atrium is mildly dilated. Unable to perform saline study due to poor images and use of Lumason. * A routine EEG is ordered by the primary team:Abnormal EEG. The background is asymetrical with left hemipshere suggestive of moderate to severe encephalpathy while the right is normal. The focal slowing over the left temporal-parietal is consistent with patient history of subacute stroke. There are no epileptiform discharges or seizure on the EEG. * CT of the head (02/13/2021) is reported as continued evolution of the patient's subacute left MCA territory infarct. Some of the cortical density is normalized now. Similar slight mass effect with the minimal 2 mm of right word midline shift. No herniation or acute intracranial hemorrhage at. Newly apparent acute to subacute infarct involving the lateral left cerebellar hem isphere. - Labs CBC & Chem 7: 02/13/21 07:20 02/13/21 07:20 Labs: Abnormal Lab Results - Last 24 Hours (Table) 02/12/21 02/12/21 02/13/21 Range/Units 16:46 20:46 06:02 WBC (3.8-10.6) k/uL Neutrophils # (1.3-7.7) k/uL Potassium (3.5-5.1) mmol/L Glucose (74-99) mg/dL POC Glucose (mg/dL) 133 H 187 H 179 H (75-99) mg/dL 02/13/21 02/13/21 02/13/21 Range/Units 07:20 07:20 11:39 WBC 11.8 H (3.8-10.6) k/uL Neutrophils # 8.1 H (1.3-7.7) k/uL Potassium 3.3 L (3.5-5.1) mmol/L Glucose 156 H (74-99) mg/dL POC Glucose (mg/dL) 177 H (75-99) mg/dL 02/13/21 Range/Units 16:33 WBC (3.8-10.6) k/uL Neutrophils # (1.3-7.7) k/uL Potassium (3.5-5.1) mmol/L Glucose (74-99) mg/dL POC Glucose (mg/dL) 130 H (75-99) mg/dL Assessment and Plan Assessment: 1. 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 New onset mental status changes with worsening of mental status and speech likely secondary to the above noted cerebral infarct 3. Urinary tract infection-etiology of initial mental status changes 4. New onset atrial fibrillation with rapid ventricular response 5. History of hypertension 6. History of diabetes mellitus Plan: 1. Since the patient does not have any bleeding on the recent the CT of the head will stop the aspirin (was started on it during hospital stay). And will start the patient on Eliquis 5 mg 1 tablet twice a day starting today. Continue Lipitor 40 mg daily at bedtime for secondary prophylaxis. 2. PT, OT and speech therapy evaluations are on board. 3. Continue Q4 hour Neuro checks. 4. On continuos cardiac monitoring. 5. Cardiology team is on board. Upon discharge the patient needs to follow-up with a neurologist as outpatient within 1-2 weeks as outpatient. There is no further work-up. Jonnathan Vivas MD Neuro-Hospitalist Time with Patient: Less than 30
[2021-02-13 19:50] LABS: Glucose,Whole Blood 149 mg/dL (75-99)
[2021-02-13] MEDS: APIXABAN 5 MG TAB PO SCH (20:13)
[2021-02-13] MEDS: traZODone HCL 50 MG TAB PO SCH (20:13)
[2021-02-13] MEDS: ATORVASTATIN 40 MG TAB PO SCH (20:13)
[2021-02-13] MEDS: ACETAMINOPHEN TAB 325 MG TAB PO PRN (23:32)
[2021-02-14] MEDS: PIPERACILLIN-TAZOBACTAM 3.375 GM in SODIUM CHLORIDE 0.9% 100 ML IVPB SCH ×2 (05:14→12:25)
[2021-02-14] MEDS: LEVOTHYROXINE 100 MCG TAB PO SCH (05:15)
[2021-02-14] MEDS: PANTOPRAZOLE 40 MG TABLET PO SCH (05:15)
[2021-02-14 06:05] LABS: Glucose,Whole Blood 129 mg/dL (75-99)
[2021-02-14] MEDS: INSULIN ASPART (NovoLOG) 100 UNIT/ML VIAL SQ SCH ×2 (06:54→12:28)
[2021-02-14 08:59] VITALS: RESP 18
[2021-02-14] MEDS: METOPROLOL TARTRATE 50 MG TAB PO SCH (09:59)
[2021-02-14] MEDS: DILTIAZEM ORAL 60 MG TAB PO SCH (09:59)
[2021-02-14] MEDS: lisinopriL 10 MG TAB PO SCH (09:59)
[2021-02-14] MEDS: VENLAFAXINE HCL ER 37.5 MG CAP PO SCH (09:59)
[2021-02-14] MEDS: metFORMIN 500 MG TAB PO SCH (09:59)
[2021-02-14] MEDS: PIOGLITAZONE 15 MG TAB PO SCH (09:59)
[2021-02-14] MEDS: APIXABAN 5 MG TAB PO SCH (09:59)
[2021-02-14] MEDS: MILNACIPRAN HCL 100 MG PO SCH (10:00)
[2021-02-14 11:51] LABS: Glucose,Whole Blood 182 mg/dL (75-99)
[2021-02-14 12:22] VITALS: BP 145/75; PULSE 79; TEMP 98
--- NOTE | 2021-02-14 12:38 | P.PN ---
Subjective Progress Note Date: 02/14/21 80-year-old female who presents to the emergency department on February 07. She apparently went to the emergency department with mental status changes. Apparently according to a visiting nurse, the patient appeared weaker and more fatigued than normal. The patient apparently had a doctor's appointment that day, but instead, ended up in the emergency department. She is apparently diagnoses having patchy pneumonia, and urinary tract infection. Mental status changes apparently were blamed on the urinary tract infection as apparently, he has happened before. The patient finally had a computed tomography scan of the brain today, which showed a large left MCA ischemic infarct. A blood gas was done, because the nurse thought maybe the patient was retaining carbon dioxide, which may have explained the mental status changes. In addition, the patient was admitted with a diagnosis of atrial fibrillation with RVR, and started on heparin. In addition, she was on saline at KVO, and Cardizem 15 mg an hour. She was admitted by Dr. Montelongo to the emergency department, with a diagnosis of mental status changes, ER, and urinary tract infection. The brain CT was just ordered today. White count 13.4, hemoglobin 11, hematocrit 33.1, and platelet count normal. Blood gases on 36% oxygen showed a pO2 of 70, pCO2 of 29, and pH is 7.47. His blood gas was consistent with respiratory alkalosis. PTT was 46. Sodium 138, potassium 3.6, chlorides 108, CO2 20, anion gap 10, BUN 13, and creatinine 0.55. In addition, there are bilateral infiltrates, potentially consistent with pneumonia. Progress note dated 02/10/2021. Patient is again seen in room 359. Currently, the patient is on a heparin drip, a Cardizem drip at 10 mg an hour, and saline at 20 mL an hour. In addition, the patient's getting O2 at 4 L, with saturations between 96-97%. The patient appears recently comfortable, but she is somewhat lethargic. She does arouse easily. Lab data today includes a PTT of 44.9. The patient's acute diagnoses included left MCA ischemic infarct, urinary tract infection, possible pneumonia, and atrial fibrillation with RVR. 02/11/2021, the patient is being seen on a follow-up on a medical floor. The patient is resting comfortably in bed. She is on oxygen at the distal mid nasal cannula. No signs of any respiratory distress. Obviously the left side of the body remains weaker compared to the right. I was able to appreciate adequate movement although the patient prefers to use her right side compared to her left. At times his speech is also garbled. She remains in atrial fibrillation. Rate is controlled for now. In terms of treatment, the patient is also being treated for a Klebsiella urinary tract infection. She remains on IV Zosyn. She remains on aspirin 81 mg by mouth daily. We have achieved adequate blood sugar control. The blood work from today shows a white cell count of 15.2. Electrolytes are normal, renal function is are normal, and LDL cholesterol is at 127. A cardiogram was essentially normal with an ejection fraction of 55-60%. On 02/12/2021 patient seen in follow-up on selective care unit, she sits up in the recliner today, she is breathing comfortably, patient is awake and alert, however her speech is difficult to understand, she appears to speak in the language at times, and speaking in [place]. No facial asymmetry, she is moving bilateral arms and legs equally. She is currently on room air, pulse ox is 95%, hemodynamically she has been stable, she is afebrile, her repeat chest x-ray showed a left lower lobe atelectasis versus pneumonia and associated effusion, no pulmonary symptoms, no cough, no chest discomfort. She is on Zosyn for underlying urinary tract infection, and possibility of pneumonia is unlikely but not completely excluded. Today's white blood cell count is 11.5, improving, hemoglobin is 13.8, sodium is 143, potassium is 3.3, BUN is 10, creatinine 0.54. Respirations were even and unlabored, lungs were essentially clear to auscultation bilaterally. On 02/13/2021 patient seen in follow-up on selective care unit. Patient is breathing comfortably, she is on room air, pulse ox is 94%, vital signs have been stable, she did have elevated temperatures overnight, as high as 100.2F. Overall seems to be breathing comfortably, no complaints of chest discomfort, neurologically she still speaking in unknown language, reportedly Lao, and she is speaking more [place] during our today's conversation. No facial asymmetry, she is moving all 4 extremities, no swallowing difficulty, she is tolerating oral diet, and she is requiring supervision and assistance with meals. Brain CT was completed today, showing continued evolution of patient subacute left MCA territory infarct. With some improvement of the cortical density, presented newly apparent acute subacute infarct also involving the lateral left cerebellar hemisphere. Neurology service is following the patient. Patient continues on baby aspirin, Lipitor 40 mg, patient continues on Zosyn, and she is on GI and DVT prophylaxis. Her sugars are being monitored The patient is seen today 02/14/2021 in follow-up in the selective care unit. She is currently resting quite comfortably in bed. She is awake and alert. She is not answering questions appropriately. Some inappropriate responses. Some Lao language. No significant shortness of breath grade maintaining good O2 saturations in the mid 90s on room air. She remains afebrile. H emodynamically stable. Urine culture has been positive for Klebsiella back on 02/07/2021. Chronic virus not detected. Glucose 182. She is anticoagulated with Eliquis. Continued on Zosyn. Objective - Vital Signs Vital signs: Vital Signs Temp 98 F 02/14/21 12:00 Pulse 79 02/14/21 12:00 Resp 18 02/14/21 12:00 BP 145/75 02/14/21 12:00 Pulse Ox 95 02/14/21 12:00 Intake & Output 02/13/21 02/14/21 02/14/21 18:59 06:59 18:59 Intake Total 600 100 0 Output Total 700 Balance 600 -600 0 Weight 104 kg 103.5 kg Intake: Intake, IV Titration 100 Amount Piperacillin-Tazobactam 3 100 .375 gm In Sodium Chloride 0.9% 100 ml @ 25 mls/hr IVPB Q8H [facility] Rx#: [id number] Oral 600 0 Output: Urine 700 Other: Voiding Method Diaper Diaper Diaper # Voids 0 # Bowel Movements 0 - Exam GENERAL EXAM: Alert, oriented to self, but not place and time, patient is difficult to understand, seems to be speaking to different languages at times, on room air, comfortable in no apparent distress. HEAD: Normocephalic/atraumatic. EYES: Normal reaction of pupils, equal size. Conjunctiva pink, sclera white. NOSE: Clear with pink turbinates. THROAT: No erythema or exudates. NECK: No masses, no JVD, no thyroid enlargement, no adenopathy. CHEST: No chest wall deformity. Symmetrical expansion. LUNGS: Equal air entry with no crackles, wheeze, rhonchi or dullness. CVS: Regular rate and rhythm, normal S1 and S2, no gallops, no murmurs, no rubs ABDOMEN: Soft, nontender. No hepatosplenomegaly, normal bowel sounds, no guarding or rigidity. EXTREMITIES: No clubbing, no edema, no cyanosis, 2+ pulses and upper and lower extremities. MUSCULOSKELETAL: Muscle strength and tone normal. SPINE: No scoliosis or deformity SKIN: No rashes CENTRAL NERVOUS SYSTEM: Alert and oriented -1. No focal deficits, tone is normal in all 4 extremities. PSYCHIATRIC: Alert and oriented -1. Appropriate affect. Intact judgment and insight. - Labs CBC & Chem 7: 02/13/21 07:20 02/13/21 07:20 Labs: Abnormal Lab Results - Last 24 Hours (Table) 02/13/21 02/13/21 02/14/21 Range/Units 16:33 19:48 06:03 POC Glucose (mg/dL) 130 H 149 H 129 H (75-99) mg/dL 02/14/21 Range/Units 11:48 POC Glucose (mg/dL) 182 H (75-99) mg/dL Assessment and Plan Assessment: 1 Mental status changes, related to large left MCA territory ischemic infarct. She is stable on ASA. Likely an embolic event as the patient was found to have new onset atrial fibrillation. 2 Chronic recurrent urinary tract infections, with gram-negative bacilli again in the urine, and the patient is found to have Klebsiella in the urine, currently on IV Zosyn 3 Diffuse bilateral infiltrates, likely related to underlying heart failure and/or pneumonia, awaiting follow-up chest x-ray 4 New onset atrial fibrillation with rapid ventricular response. 5 History of diabetes mellitus. 6 History of hypothyroidism. 7 History of hypertension. Plan: The patient was seen and evaluated by Dr. Susan Howard from the pulmonary standpoint To ECF possibly today We will see as needed I, the cosigning physician, performed a history & physical examination of the patient. Lungs sounds are clear. Maintaining good O2 saturations in the 90s on room air. I discussed the assessment and plan of care with my nurse practitioner, Ngoc Cooper. I attest to the above note as dictated by her.
== END 2021-02-14 14:09 | DRG 64 ==
LOC: EC 14:41 → 3SCARD 17:31
PROVIDERS: ADMIT Family Medicine; ATTEND Family Medicine
PROC: 05HC33Z Insertion of Infusion Device into Left Basilic Vein, Percutaneous Approach (ICD-10-PCS; principal; 2021-02-11 12:35)
DX: I63.512 Cerebral infarction due to unspecified occlusion or stenosis of left middle cerebral artery (principal); J69.0 Pneumonitis due to inhalation of food and vomit; A41.9 Sepsis, unspecified organism; G93.41 Metabolic encephalopathy; I48.19 Other persistent atrial fibrillation; N39.0 Urinary tract infection, site not specified; E87.3 Alkalosis; I48.92 Unspecified atrial flutter; Z79.890 Hormone replacement therapy; Z79.84 Long term (current) use of oral hypoglycemic drugs; M79.7 Fibromyalgia; E11.9 Type 2 diabetes mellitus without complications; Z20.822 Contact with and (suspected) exposure to COVID-19; E03.9 Hypothyroidism, unspecified; G89.29 Other chronic pain; I11.0 Hypertensive heart disease with heart failure; B96.1 Klebsiella pneumoniae [K. pneumoniae] as the cause of diseases classified elsewhere; Z79.82 Long term (current) use of aspirin; Z87.440 Personal history of urinary (tract) infections; I63.81 Other cerebral infarction due to occlusion or stenosis of small artery; I08.1 Rheumatic disorders of both mitral and tricuspid valves; I27.20 Pulmonary hypertension, unspecified; I50.9 Heart failure, unspecified; E66.9 Obesity, unspecified; Z68.39 Body mass index [BMI] 39.0-39.9, adult; Z79.899 Other long term (current) drug therapy; Z90.710 Acquired absence of both cervix and uterus; Z96.659 Presence of unspecified artificial knee joint
CPT/HCPCS: 36410; 36415; 36600; 70450; 70553; 71045; 71046; 76937; 80048; 80053; 80061; 80306; 81001; 82550; 82805; 83036; 83735; 83880; 84145; 84443; 84484; 85025; 85610; 85730; 87077; 87086; 87186; 87635; 93005; 93306; 93880; 94760; 95816; 96360; 96361; 99285

== ENCOUNTER 2021-02-22 19:41 | Emergency (ER) | payer MEDICARE ==
--- NOTE | 2021-02-22 20:12 | ED ---
General Adult HPI - General Chief complaint: Recheck/Abnormal Lab/Rx Stated complaint: Abnormal Labs Time Seen by Provider: 02/22/21 19:56 Source: EMS, old records reviewed Mode of arrival: EMS Limitations: language barrier - History of Present Illness Initial comments: 80 year-old female patient recently admitted for UTI, sepsis, and atrial fibrillation. During the visit she was found to have had CVA to the left MCA region. She was discharged back to [facility] on antibiotics. Today family states that she seemed "out of it" and more drowsy than usual. Staff at [facility] states that she had labs drawn and showed an increase in WBC. Patient is not able to provide much information during the history taking. Daughter provides all of history. States she does not drink much water. Has been eating okay. They deny any known fever or chills. Deny any vomiting. Denies diarrhea. - Related Data Home Medications Medication Instructions Recorded Confirmed Levothyroxine Sodium [Synthroid] 100 mcg PO DAILY@0600 02/07/21 02/22/21 Milnacipran HCl [Savella] 100 mg PO BID@0800,1700 02/07/21 02/22/21 Omeprazole [PriLOSEC] 20 mg PO DAILY@0800 02/07/21 02/22/21 Pioglitazone [Actos] 15 mg PO DAILY@0800 02/07/21 02/22/21 Trospium Chloride [Sanctura] 20 mg PO BID@0800,1700 02/07/21 02/22/21 Venlafaxine HCl ER [Effexor XR] 37.5 mg PO BID@0800,1700 02/07/21 02/22/21 metFORMIN HCL 500 mg PO DAILY@0800 02/07/21 02/22/21 traZODone HCL [Desyrel] 50 mg PO HS 02/07/21 02/22/21 Apixaban [Eliquis] 5 mg PO BID@0800,1700 02/22/21 02/22/21 Diltiazem Oral [Cardizem*] 60 mg PO TID@0600,1400,2100 02/22/21 02/22/21 Levofloxacin [Levaquin] 500 mg PO DAILY@1200 02/22/21 02/22/21 Lisinopril [Prinivil] 10 mg PO DAILY@0800 02/22/21 02/22/21 Magnesium Hydroxide [Milk of 7,200 mg PO Q48H PRN 02/22/21 02/22/21 Magnesia Concentrate] Metoprolol Tartrate [Lopressor] 100 mg PO BID@0800,1700 02/22/21 02/22/21 Na Phos,M-B/Na Phos,Di-Ba [Fleet 133 ml RECTAL DAILY PRN 02/22/21 02/22/21 Adult] bisacodyL [Bisacodyl] 10 mg RECTAL DAILY PRN 02/22/21 02/22/21 traMADol HCL 50 mg PO BID@0800,2100 02/22/21 02/22/21 Previous Rx's Medication Instructions Recorded Acetaminophen Tab [Tylenol] 650 mg PO Q6HR PRN tab 02/13/21 Atorvastatin [Lipitor] 40 mg PO HS tab 02/13/21 Allergies Allergy/AdvReac Type Severity Reaction Status Date / Time codeine Allergy Itching Verified 02/07/21 16:35 Review of Systems ROS Statement: Those systems with pertinent positive or pertinent negative responses have been documented in the HPI. ROS Other: All systems not noted in ROS Statement are negative. Past Medical History Past Medical History: Atrial Fibrillation, Diabetes Mellitus, Fibromyalgia, Hypertension, Thyroid Disorder Additional Past Medical History / Comment(s): sepsis, UTI, Type 2 DM, hypothyroidism History of Any Multi-Drug Resistant Organisms: None Reported Past Surgical History: Hysterectomy Additional Past Surgical History / Comment(s): Knee replacement Past Anesthesia/Blood Transfusion Reactions: No Reported Reaction Past Psychological History: Depression Smoking Status: Never smoker Past Alcohol Use History: None Reported Past Drug Use History: None Reported General Exam Limitations: language barrier General appearance: alert, in no apparent distress, other (Physical well- developed, well-nourished adult female patient in no acute distress. Vital signs upon presentation are temperature 100.0F, pulse 91, respirations 16, blood pressure 101/80, pulse ox 94% on room air per) Eye exam: Present: normal appearance, PERRL, EOMI. Absent: scleral icterus, conjunctival injection, periorbital swelling ENT exam: Present: normal exam, normal oropharynx, mucous membranes moist Respiratory exam: Present: normal lung sounds bilaterally. Absent: respiratory distress, wheezes, rales, rhonchi, stridor Cardiovascular Exam: Present: regular rate, normal rhythm, normal heart sounds. Absent: systolic murmur, diastolic murmur, rubs, gallop, clicks GI/Abdominal exam: Present: soft, tenderness (Right upper quadrant, right lower quadrant), normal bowel sounds. Absent: distended, guarding, rebound, rigid Neurological exam: Present: alert, CN II-XII intact Psychiatric exam: Present: normal affect, normal mood Skin exam: Present: warm, dry, intact, normal color. Absent: rash Course Vital Signs 02/22/21 02/22/21 02/23/21 19:43 23:40 00:34 Temperature 100.0 F H 97.3 F L Pulse Rate 91 85 Respiratory 16 18 Rate Blood Pressure 101/80 110/70 O2 Sat by Pulse 94 L 96 Oximetry 02/23/21 00:44 Temperature Pulse Rate 92 Respiratory 18 Rate Blood Pressure 115/74 O2 Sat by Pulse 96 Oximetry EKG Findings - EKG Comments: EKG Findings:: EKG obtained at 2018 shows atrial flutter with a ventricular rate of 95, QRS duration 82, QT 368, QTC 462. Medical Decision Making - Medical Decision Making 80-year-old female patient presents to the emergency department today for evaluation of elevated white blood cell count and increased drowsiness weakness. EKG showed aflutter with a rate of 90. Physical examination did reveal generalized abdominal tenderness. Patient was very difficult IV start, multiple attempts at peripheral IV were performed. Multiple ultrasound attempts were performed. Dr. Del Rio was in and did obtain 22g IV to the right upper forearm. Labs were sent. Patient's white blood cell count of 16.0. INR 1.2. Sodium 136. BUN 18. Glucose 132. Lactic acid is 1.4. Urinalysis did have 9 wbc, unlikely causing infection, will be sent for culture. Cultures are pending. I did discuss results with the patient and daughter. She will be discharged back tomorrow at nursing and rehab. Return parameters were discussed in detail. Case discussed with my attending Dr. Ramos. - Lab Data Result diagrams: 02/23/21 00:04 02/22/21 20:04 Lab Results 02/22/21 02/22/21 02/22/21 Range/Units 20:04 22:58 23:30 WBC (3.8-10.6) k/uL RBC (3.80-5.40) m/uL Hgb (11.4-16.0) gm/dL Hct (34.0-46.0) % MCV (80.0-100.0) fL MCH (25.0-35.0) pg MCHC (31.0-37.0) g/dL RDW (11.5-15.5) % Plt Count (150-450) k/uL MPV Neutrophils % % Lymphocytes % % Monocytes % % Eosinophils % % Basophils % % Neutrophils # (1.3-7.7) k/uL Lymphocytes # (1.0-4.8) k/uL Monocytes # (0-1.0) k/uL Eosinophils # (0-0.7) k/uL Basophils # (0-0.2) k/uL PT (9.0-12.0) sec INR (<1.2) APTT (22.0-30.0) sec Sodium 136 L (137-145) mmol/L Potassium 3.8 (3.5-5.1) mmol/L Chloride 99 (98-107) mmol/L Carbon Dioxide 27 (22-30) mmol/L Anion Gap 10 mmol/L BUN 18 H (7-17) mg/dL Creatinine 0.78 (0.52-1.04) mg/dL Est GFR (CKD-EPI)AfAm 82 (>60 ml/min/1.73 sqM) Est GFR (CKD-EPI)NonAf 71 (>60 ml/min/1.73 sqM) Glucose 132 H (74-99) mg/dL Plasma Lactic Acid Agu[place] 1.4 (0.7-2.0) mmol/L Calcium 9.4 (8.4-10.2) mg/dL Total Bilirubin 0.3 (0.2-1.3) mg/dL AST 25 (14-36) U/L ALT 17 (4-34) U/L Alkaline Phosphatase 98 (38-126) U/L Total Protein 6.8 (6.3-8.2) g/dL Albumin 3.6 (3.5-5.0) g/dL Urine Color Yellow Urine Appearance Clear (Clear) Urine pH 5.0 (5.0-8.0) Ur Specific [place] 1.020 (1.001-1.035) Urine Protein Trace H (Negative) Urine Glucose (UA) Negative (Negative) Urine Ketones Negative (Negative) Urine Blood Negative (Negative) Urine Nitrite Negative (Negative) Urine Bilirubin Negative (Negative) Urine Urobilinogen <2.0 (<2.0) mg/dL Ur Leukocyte Esterase Small H (Negative) Urine RBC 1 (0-5) /hpf Urine WBC 9 H (0-5) /hpf Amorphous Sediment Rare H (None) /hpf Hyaline Casts 7 H (0-2) /lpf Urine Mucus Occasional H (None) /hpf 02/22/21 02/23/21 Range/Units 23:41 00:04 WBC 16.0 H (3.8-10.6) k/uL RBC 4.25 (3.80-5.40) m/uL Hgb 13.0 (11.4-16.0) gm/dL Hct 38.4 (34.0-46.0) % MCV 90.5 (80.0-100.0) fL MCH 30.5 (25.0-35.0) pg MCHC 33.7 (31.0-37.0) g/dL RDW 14.2 (11.5-15.5) % Plt Count 436 (150-450) k/uL MPV 7.0 Neutrophils % 71 % Lymphocytes % 22 % Monocytes % 5 % Eosinophils % 1 % Basophils % 0 % Neutrophils # 11.4 H (1.3-7.7) k/uL Lymphocytes # 3.5 (1.0-4.8) k/uL Monocytes # 0.9 (0-1.0) k/uL Eosinophils # 0.1 (0-0.7) k/uL Basophils # 0.1 (0-0.2) k/uL PT 12.5 H (9.0-12.0) sec INR 1.2 H (<1.2) APTT 25.9 (22.0-30.0) sec Sodium (137-145) mmol/L Potassium (3.5-5.1) mmol/L Chloride (98-107) mmol/L Carbon Dioxide (22-30) mmol/L Anion Gap mmol/L BUN (7-17) mg/dL Creatinine (0.52-1.04) mg/dL Est GFR (CKD-EPI)AfAm (>60 ml/min/1.73 sqM) Est GFR (CKD-EPI)NonAf (>60 ml/min/1.73 sqM) Glucose (74-99) mg/dL Plasma Lactic Acid Agu[place] (0.7-2.0) mmol/L Calcium (8.4-10.2) mg/dL Total Bilirubin (0.2-1.3) mg/dL AST (14-36) U/L ALT (4-34) U/L Alkaline Phosphatase (38-126) U/L Total Protein (6.3-8.2) g/dL Albumin (3.5-5.0) g/dL Urine Color Urine Appearance (Clear) Urine pH (5.0-8.0) Ur Specific [place] (1.001-1.035) Urine Protein (Negative) Urine Glucose (UA) (Negative) Urine Ketones (Negative) Urine Blood (Negative) Urine Nitrite (Negative) Urine Bilirubin (Negative) Urine Urobilinogen (<2.0) mg/dL Ur Leukocyte Esterase (Negative) Urine RBC (0-5) /hpf Urine WBC (0-5) /hpf Amorphous Sediment (None) /hpf Hyaline Casts (0-2) /lpf Urine Mucus (None) /hpf Disposition Clinical Impression: Leukocytosis Disposition: HOME SELF-CARE Condition: Good Instructions (If sedation given, give patient instructions): Leukocytosis (ED) Additional Instructions: With primary care physician as soon as possible. Return for any new, worsening, or concerning symptoms. Is patient prescribed a controlled substance at d/c from ED?: No Referrals: Kalin Beltran MD [Primary Care Provider] - 1-2 days Time of Disposition: 00:45
--- NOTE | 2021-02-22 21:19 | XR ---
EXAMINATION TYPE: XR chest 2V DATE OF EXAM: 02/22/2021 COMPARISON: 02/11/2021 HISTORY: Fever TECHNIQUE: FINDINGS: There is no heart failure nor confluent pneumonic infiltrate. There is slight elevation of the right diaphragm. There are no hilar masses. Bony thorax is intact. IMPRESSION: Elevated right diaphragm could relate to some partial paralysis and is increased compared to old exam. There is clearing of the mild infiltrate and atelectasis left lung base compared to old exam.
[2021-02-22 23:12] LABS: Amorphous Sediment,Urine Rare /hpf; Appearance,Urine Clear (Clear); Bilirubin,Urine Negative (Negative); Blood,Urine Negative (Negative); Color,Urine Yellow; Glucose,Urine (UA) Negative (Negative); Hyaline Casts,Urine 7 /lpf (0-2); Ketones,Urine Negative (Negative); Leukocyte Esterase,Urine Small (Negative); Mucus,Urine Occasional /hpf; Nitrite,Urine Negative (Negative); Protein,Urine Trace (Negative); RBC,Urine 1 /hpf (0-5); Urobilinogen,Urine <2.0 mg/dL (<2.0); WBC,Urine 9 /hpf (0-5)
[2021-02-22 23:41] VITALS: RESP 18
[2021-02-22 23:47] LABS: Basophils # (A) 0.1 k/uL (0-0.2); Basophils % (A) 0 %; Eosinophils # (A) 0.1 k/uL (0-0.7); Eosinophils % (A) 1 %; HCT 38.4 % (34.0-46.0); Lymphocytes # (A) 3.5 k/uL (1.0-4.8); Lymphocytes % (A) 22 %; MCH 30.5 pg (25.0-35.0); MCHC 33.7 g/dL (31.0-37.0); MCV 90.5 fL (80.0-100.0); Monocytes # (A) 0.9 k/uL (0-1.0); Monocytes % (A) 5 %; Neutrophils # (A) 11.4 k/uL (1.3-7.7); Neutrophils % (A) 71 %; Platelet Count 436 k/uL (150-450); RBC 4.25 m/uL (3.80-5.40); RDW 14.2 % (11.5-15.5)
[2021-02-22 23:58] LABS: Albumin 3.6 g/dL (3.5-5.0); Calcium 9.4 mg/dL (8.4-10.2); Potassium 3.8 mmol/L (3.5-5.1); Total Bilirubin 0.3 mg/dL (0.2-1.3); Total Protein 6.8 g/dL (6.3-8.2)
[2021-02-22 23:58] LABS: INR 1.2 (<1.2); Partial Thromboplastin Time 25.9 sec (22.0-30.0); Prothrombin Time 12.5 sec (9.0-12.0)
--- NOTE | 2021-02-23 00:09 | CT ---
EXAMINATION TYPE: CT abdomen pelvis wo con DATE OF EXAM: 02/22/2021 COMPARISON: HISTORY: pain. CT DLP: 1149.4 mGycm Automated exposure control for dose reduction was used. Images obtained from the diaphragm to the floor the pelvis with no contrast. There is mild subsegmental atelectasis at the lung bases. Heart appears enlarged. There is no pericar dial effusion. There is no pleural effusion. There are clips from cholecystectomy. Liver and spleen are intact. The stomach is intact. The bile du cts are not dilated. There is no evidence of pancreatic mass. There is 1 cm dense calcification in th e tail of the pancreas that could relate to old inflammatory disease. There is no adrenal mass. Kidneys have normal size. There is no hydronephrosis. Ureters are not dilat ed. There is no retroperitoneal adenopathy. Abdominal aorta shows mild atheromatous change. Ureters a re not dilated. Bladder distends smoothly. There is no inguinal hernia. There is no free fluid in the pelvis. There is no mesenteric edema. There is no ascites or free air. Appendix is not seen. There is no sign of thickened appendix. Lumbar vertebra have normal alignment. There is vacuum disc at L4-5 and L5-S1. There is no compressio n fracture. The bony pelvis is intact. Hip joints are intact. There is no hip dysplasia. IMPRESSION: No acute abnormality of the abdomen pelvis. Mild subsegmental atelectasis at the lung bases. Cardiomegaly.
[2021-02-23 00:34] VITALS: TEMP 97.3
[2021-02-23] MEDS ORDERED: SODIUM CHLORIDE 0.9% 500 ML 500 ML IV ONE (00:44)
[2021-02-23 00:45] VITALS: BP 115/74; PULSE 92
== END 2021-02-23 02:06 | disposition home or self-care (01) ==
LOC: EC 19:41
DX: D72.829 Elevated white blood cell count, unspecified (principal); E11.9 Type 2 diabetes mellitus without complications; I10 Essential (primary) hypertension; I48.91 Unspecified atrial fibrillation; E03.9 Hypothyroidism, unspecified; M79.7 Fibromyalgia; F32.9 Major depressive disorder, single episode, unspecified; Z79.01 Long term (current) use of anticoagulants; Z79.84 Long term (current) use of oral hypoglycemic drugs; Z79.899 Other long term (current) drug therapy; Z90.49 Acquired absence of other specified parts of digestive tract
CPT/HCPCS: 36415; 71046; 74176; 80053; 81001; 83605; 85025; 85610; 85730; 87040; 93005; 96360; 99285

== ENCOUNTER 2022-06-10 22:22 | Inpatient (IN) | payer MEDICARE, OTHER ==
[2022-06-10] MEDS ORDERED: ACETAMINOPHEN IV (For NPO) 1,000 MG in EMPTY BAG 1 BAG IVPB STA (22:26)
[2022-06-10] MEDS ORDERED: SODIUM CHLORIDE 0.9% 500 ML 500 ML IV ONE (22:27)
[2022-06-10] MEDS ORDERED: SODIUM CHLORIDE 0.9% 1,000 ML IV STA (22:27)
--- NOTE | 2022-06-10 22:41 | ED ---
General Adult HPI - General Chief complaint: Altered Mental Status Stated complaint: Altered Mental Status Time Seen by Provider: 06/10/22 22:26 Source: EMS, RN notes reviewed, old records reviewed Mode of arrival: EMS Limitations: altered mental status, physical limitation - History of Present Illness Initial comments: 82-year-old female presented from care home. History is very limited. Apparently the patient had had seizure activity with some altered mental status. The patient does have history of dementia apparently is alert and oriented 1 at baseline. She was given 10 mg of Versed by paramedics during transport for seizure activity. The patient did remain awake and was following commands but had generalized shaking. She is found to be febrile upon arrival. - Related Data Home Medications Medication Instructions Recorded Confirmed Levothyroxine Sodium [Synthroid] 100 mcg PO DAILY@0600 02/07/21 02/22/21 Milnacipran HCl [Savella] 100 mg PO BID@0800,1700 02/07/21 02/22/21 Omeprazole [PriLOSEC] 20 mg PO DAILY@0800 02/07/21 02/22/21 Pioglitazone [Actos] 15 mg PO DAILY@0800 02/07/21 02/22/21 Trospium Chloride [Sanctura] 20 mg PO BID@0800,1700 02/07/21 02/22/21 Venlafaxine HCl ER [Effexor XR] 37.5 mg PO BID@0800,1700 02/07/21 02/22/21 metFORMIN HCL 500 mg PO DAILY@0800 02/07/21 02/22/21 traZODone HCL [Desyrel] 50 mg PO HS 02/07/21 02/22/21 Apixaban [Eliquis] 5 mg PO BID@0800,1700 02/22/21 02/22/21 Diltiazem Oral [Cardizem*] 60 mg PO TID@0600,1400,2100 02/22/21 02/22/21 Levofloxacin [Levaquin] 500 mg PO DAILY@1200 02/22/21 02/22/21 Magnesium Hydroxide [Milk of 7,200 mg PO Q48H PRN 02/22/21 02/22/21 Magnesia Concentrate] Metoprolol Tartrate [Lopressor] 100 mg PO BID@0800,1700 02/22/21 02/22/21 Na Phos,M-B/Na Phos,Di-Ba [Fleet 133 ml RECTAL DAILY PRN 02/22/21 02/22/21 Adult] bisacodyL 10 mg RECTAL DAILY PRN 02/22/21 02/22/21 lisinopriL [Prinivil] 10 mg PO DAILY@0800 02/22/21 02/22/21 traMADol HCL 50 mg PO BID@0800,2100 02/22/21 02/22/21 Previous Rx's Medication Instructions Recorded Acetaminophen Tab [Tylenol] 650 mg PO Q6HR PRN tab 02/13/21 Atorvastatin [Lipitor] 40 mg PO HS tab 02/13/21 Allergies Allergy/AdvReac Type Severity Reaction Status Date / Time codeine Allergy Itching Verified 02/07/21 16:35 Review of Systems ROS Statement: Those systems with pertinent positive or pertinent negative responses have been documented in the HPI. ROS Other: All systems not noted in ROS Statement are negative. Past Medical History Past Medical History: Atrial Fibrillation, Diabetes Mellitus, Fibromyalgia, Hypertension, Thyroid Disorder Additional Past Medical History / Comment(s): sepsis, UTI, Type 2 DM, hypothyroidism History of Any Multi-Drug Resistant Organisms: VRE Date of last positivie culture/infection: 02/24/21 MDRO Source:: VRE URINE Past Surgical History: Hysterectomy Additional Past Surgical History / Comment(s): Knee replacement Past Anesthesia/Blood Transfusion Reactions: No Reported Reaction Past Psychological History: Depression Smoking Status: Never smoker Past Alcohol Use History: None Reported Past Drug Use History: None Reported General Exam Limitations: altered mental status, physical limitation General appearance: lethargic, in distress Head exam: Present: atraumatic, normocephalic Eye exam: Present: normal appearance, PERRL ENT exam: Present: mucous membranes dry Respiratory exam: Present: respiratory distress (tachypnic With good air entry) Cardiovascular Exam: Present: tachycardia, irregular rhythm GI/Abdominal exam: Present: soft. Absent: distended, tenderness, guarding, rebound Extremities exam: Present: normal capillary refill. Absent: pedal edema Neurological exam: Present: other (Patient maintaining her airway, will follow commands) Skin exam: Present: warm, diaphoretic. Absent: cyanosis Course Vital Signs 06/10/22 06/11/22 22:29 00:27 Temperature 100.1 F H Pulse Rate 147 H 91 Respiratory 48 H 19 Rate Blood Pressure 143/98 112/57 O2 Sat by Pulse 92 L 98 Oximetry - Reevaluation(s) Reevaluation #1: 06/10/22 23:49 Patient reevaluated, mental status improved, heart rate has converted to sinus rhythm. Blood pressure stable, afebrile, normal respiratory pattern. Reevaluation #2: 06/11/22 01:01 Patient reevaluated, resting comfortable, sinus rhythm, stable blood pressure. EKG Findings - EKG Comments: EKG Findings:: EKG: Atrial fibrillation with RVR, rate of 140, QRS duration 86, QTC [address] segment elevation. Medical Decision Making - Medical Decision Making History [id number] female who had presented with generalized shaking, suspected seizure activity. This had resolved prior to arrival. I did not personally witness seizure activity. She was febrile upon arrival, and atrial fibrillation with RVR. Given Tylenol and IV fluids and does convert into sinus rhythm. She has a leukocytosis of 15. She is acidotic with an anion gap of 27 and CO2 of 13 and a lactic of 14. I suspect this is from seizure, possibly a component of sepsis. This will be repeated in the emergency department. Chest x-ray negative for focal pneumonia. Negative influenza, negative coronavirus. Head CT negative for intracranial hemorrhage or mass effect coming showing old encephalomalacia. I did review these images myself. Urinalysis showing significant urinary tract infection. Urine culture pending, started on antibiotics. Will be admitted to Dr. Miguel with both infectious disease and her neurology on consult. - Lab Data Result diagrams: 06/10/22 22:40 06/10/22 22:40 Lab Results 06/10/22 06/10/22 06/10/22 Range/Units 22:40 22:40 22:40 WBC 15.2 H (3.8-10.6) k/uL RBC 4.46 (3.80-5.40) m/uL Hgb 13.9 (11.4-16.0) gm/dL Hct 43.6 (34.0-46.0) % MCV 97.8 (80.0-100.0) fL MCH 31.1 (25.0-35.0) pg MCHC 31.8 (31.0-37.0) g/dL RDW 13.6 (11.5-15.5) % Plt Count 351 (150-450) k/uL MPV 8.3 Neutrophils % 67 % Lymphocytes % 26 % Monocytes % 4 % Eosinophils % 1 % Basophils % 1 % Neutrophils # 10.1 H (1.3-7.7) k/uL Lymphocytes # 4.0 (1.0-4.8) k/uL Monocytes # 0.6 (0-1.0) k/uL Eosinophils # 0.2 (0-0.7) k/uL Basophils # 0.1 (0-0.2) k/uL Hypochromasia Moderate PT 10.9 (9.0-12.0) sec INR 1.0 (<1.2) APTT 21.0 L (22.0-30.0) sec Sodium 142 (137-145) mmol/L Potassium 4.6 (3.5-5.1) mmol/L Chloride 102 (98-107) mmol/L Carbon Dioxide 13 L (22-30) mmol/L Anion Gap 27 mmol/L BUN 12 (7-17) mg/dL Creatinine 0.90 (0.52-1.04) mg/dL Est GFR (CKD-EPI)AfAm 68 (>60 ml/min/1.73 sqM) Est GFR (CKD-EPI)NonAf 59 (>60 ml/min/1.73 sqM) Glucose 214 H (74-99) mg/dL Plasma Lactic Acid Aguilar (0.7-2.0) mmol/L Calcium 9.0 (8.4-10.2) mg/dL Total Bilirubin 0.6 (0.2-1.3) mg/dL AST 27 (14-36) U/L ALT 29 (4-34) U/L Alkaline Phosphatase 121 (38-126) U/L Total Protein 7.9 (6.3-8.2) g/dL Albumin 4.4 (3.5-5.0) g/dL TSH 1.000 (0.465-4.680) mIU/L Urine Color Urine Appearance (Clear) Urine pH (5.0-8.0) Ur Specific Icard (1.001-1.035) Urine Protein (Negative) Urine Glucose (UA) (Negative) Urine Ketones (Negative) Urine Blood (Negative) Urine Nitrite (Negative) Urine Bilirubin (Negative) Urine Urobilinogen (<2.0) mg/dL Ur Leukocyte Esterase (Negative) Urine RBC (0-5) /hpf Urine WBC (0-5) /hpf Urine WBC Clumps (None) /hpf Urine Bacteria (None) /hpf Hyaline Casts (0-2) /lpf Urine Mucus (None) /hpf Coronavirus (PCR) (Not Detectd) Influenza Type A RNA (Not Detectd) Influenza Type B (PCR) (Not Detectd) 06/10/22 06/10/22 06/10/22 Range/Units 22:40 22:40 22:40 WBC (3.8-10.6) k/uL RBC (3.80-5.40) m/uL Hgb (11.4-16.0) gm/dL Hct (34.0-46.0) % MCV (80.0-100.0) fL MCH (25.0-35.0) pg MCHC (31.0-37.0) g/dL RDW (11.5-15.5) % Plt Count (150-450) k/uL MPV Neutrophils % % Lymphocytes % % Monocytes % % Eosinophils % % Basophils % % Neutrophils # (1.3-7.7) k/uL Lymphocytes # (1.0-4.8) k/uL Monocytes # (0-1.0) k/uL Eosinophils # (0-0.7) k/uL Basophils # (0-0.2) k/uL Hypochromasia PT (9.0-12.0) sec INR (<1.2) APTT (22.0-30.0) sec Sodium (137-145) mmol/L Potassium (3.5-5.1) mmol/L Chloride (98-107) mmol/L Carbon Dioxide (22-30) mmol/L Anion Gap mmol/L BUN (7-17) mg/dL Creatinine (0.52-1.04) mg/dL Est GFR (CKD-EPI)AfAm (>60 ml/min/1.73 sqM) Est GFR (CKD-EPI)NonAf (>60 ml/min/1.73 sqM) Glucose (74-99) mg/dL Plasma Lactic Acid Aguilar 14.0 H* (0.7-2.0) mmol/L Calcium (8.4-10.2) mg/dL Total Bilirubin (0.2-1.3) mg/dL AST (14-36) U/L ALT (4-34) U/L Alkaline Phosphatase (38-126) U/L Total Protein (6.3-8.2) g/dL Albumin (3.5-5.0) g/dL TSH (0.465-4.680) mIU/L Urine Color Urine Appearance (Clear) Urine pH (5.0-8.0) Ur Specific Icard (1.001-1.035) Urine Protein (Negative) Urine Glucose (UA) (Negative) Urine Ketones (Negative) Urine Blood (Negative) Urine Nitrite (Negative) Urine Bilirubin (Negative) Urine Urobilinogen (<2.0) mg/dL Ur Leukocyte Esterase (Negative) Urine RBC (0-5) /hpf Urine WBC (0-5) /hpf Urine WBC Clumps (None) /hpf Urine Bacteria (None) /hpf Hyaline Casts (0-2) /lpf Urine Mucus (None) /hpf Coronavirus (PCR) Not Detected (Not Detectd) Influenza Type A RNA Not Detected (Not Detectd) Influenza Type B (PCR) Not Detected (Not Detectd) 06/10/22 06/11/22 Range/Units 23:37 00:18 WBC (3.8-10.6) k/uL RBC (3.80-5.40) m/uL Hgb (11.4-16.0) gm/dL Hct (34.0-46.0) % MCV (80.0-100.0) fL MCH (25.0-35.0) pg MCHC (31.0-37.0) g/dL RDW (11.5-15.5) % Plt Count (150-450) k/uL MPV Neutrophils % % Lymphocytes % % Monocytes % % Eosinophils % % Basophils % % Neutrophils # (1.3-7.7) k/uL Lymphocytes # (1.0-4.8) k/uL Monocytes # (0-1.0) k/uL Eosinophils # (0-0.7) k/uL Basophils # (0-0.2) k/uL Hypochromasia PT (9.0-12.0) sec INR (<1.2) APTT (22.0-30.0) sec Sodium (137-145) mmol/L Potassium (3.5-5.1) mmol/L Chloride (98-107) mmol/L Carbon Dioxide (22-30) mmol/L Anion Gap mmol/L BUN (7-17) mg/dL Creatinine (0.52-1.04) mg/dL Est GFR (CKD-EPI)AfAm (>60 ml/min/1.73 sqM) Est GFR (CKD-EPI)NonAf (>60 ml/min/1.73 sqM) Glucose (74-99) mg/dL Plasma Lactic Acid Aguilar 4.5 H* (0.7-2.0) mmol/L Calcium (8.4-10.2) mg/dL Total Bilirubin (0.2-1.3) mg/dL AST (14-36) U/L ALT (4-34) U/L Alkaline Phosphatase (38-126) U/L Total Protein (6.3-8.2) g/dL Albumin (3.5-5.0) g/dL TSH (0.465-4.680) mIU/L Urine Color Yellow Urine Appearance Turbid H (Clear) Urine pH 6.0 (5.0-8.0) Ur Specific Icard 1.019 (1.001-1.035) Urine Protein 4+ H (Negative) Urine Glucose (UA) Negative (Negative) Urine Ketones Trace H (Negative) Urine Blood Small H (Negative) Urine Nitrite Positive H (Negative) Urine Bilirubin Negative (Negative) Urine Urobilinogen <2.0 (<2.0) mg/dL Ur Leukocyte Esterase Large H (Negative) Urine RBC 19 H (0-5) /hpf Urine WBC >182 H (0-5) /hpf Urine WBC Clumps Many H (None) /hpf Urine Bacteria Few H (None) /hpf Hyaline Casts 9 H (0-2) /lpf Urine Mucus Few H (None) /hpf Coronavirus (PCR) (Not Detectd) Influenza Type A RNA (Not Detectd) Influenza Type B (PCR) (Not Detectd) Critical Care Time Critical Care Time: Yes Total Critical Care Time: 35 Disposition Clinical Impression: Atrial fibrillation with RVR, UTI (urinary tract infection), Altered mental status, New onset seizure Disposition: ADMITTED IP TO THIS HOSP Condition: Stable Instructions (If sedation given, give patient instructions): Seizure/Epilepsy Discharge Instructions & Follow-Up Is patient prescribed a controlled substance at d/c from ED?: No Referrals: Kalin Beltran MD [Primary Care Provider] - 1-2 days Time of Disposition: 23:51
[2022-06-10 22:55] LABS: Basophils # (A) 0.1 k/uL (0-0.2); Basophils % (A) 1 %; Eosinophils # (A) 0.2 k/uL (0-0.7); Eosinophils % (A) 1 %; HCT 43.6 % (34.0-46.0); HGB 13.9 gm/dL (11.4-16.0); Hypochromasia Moderate; Lymphocytes % (A) 26 %; MCH 31.1 pg (25.0-35.0); MCHC 31.8 g/dL (31.0-37.0); MCV 97.8 fL (80.0-100.0); Mean Platelet Volume 8.3; Monocytes # (A) 0.6 k/uL (0-1.0); Monocytes % (A) 4 %; Neutrophils # (A) 10.1 k/uL (1.3-7.7); Neutrophils % (A) 67 %; Platelet Count 351 k/uL (150-450); RBC 4.46 m/uL (3.80-5.40); RDW 13.6 % (11.5-15.5); WBC 15.2 k/uL (3.8-10.6)
[2022-06-10 23:06] LABS: AST 27 U/L (14-36); African American GFR (CKD) 68 (>60 ml/min/1.73 sqM); Albumin 4.4 g/dL (3.5-5.0); Alkaline Phosphatase 121 U/L (38-126); Anion Gap 27 mmol/L; Blood Urea Nitrogen 12 mg/dL (7-17); Carbon Dioxide 13 mmol/L (22-30); Chloride 102 mmol/L (98-107); Glucose 214 mg/dL (74-99); Non-African American GFR(CKD) 59 (>60 ml/min/1.73 sqM); Sodium 142 mmol/L (137-145); Total Bilirubin 0.6 mg/dL (0.2-1.3); Total Protein 7.9 g/dL (6.3-8.2)
[2022-06-10 23:14] LABS: Prothrombin Time 10.9 sec (9.0-12.0)
[2022-06-10 23:24] LABS: ALT 29 U/L (4-34)
[2022-06-10 23:25] LABS: Potassium 4.6 mmol/L (3.5-5.1)
[2022-06-10] MEDS ORDERED: SODIUM CHLORIDE 0.9% 1,000 ML IV ONE (23:28)
[2022-06-10] MEDS ORDERED: cefTRIAXone IN SWFI 1,000 MG/10 ML SYRINGE IVP STA (23:29)
--- NOTE | 2022-06-10 23:33 | CT ---
EXAMINATION TYPE: CT brain wo con DATE OF EXAM: 06/10/2022 COMPARISON: 02/13/2021 HISTORY: Altered mental status CT DLP: 1082.5 mGycm Automated exposure control for dose reduction was used. There is cerebral cortical atrophy. There is no mass effect nor midline shift. No sign of intracrania l hemorrhage. There is large area of hypodensity in the left temporal lobe related to old infarct. Th ere is extensive hypodensity in the periventricular white matter. There is cerebellar atrophy. The ca lvarium is intact. The skull base is intact. There is normal aeration of the mastoid sinuses. 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 Cerebral atrophy and chronic small vess el ischemia.
--- NOTE | 2022-06-10 23:36 | XR ---
EXAMINATION TYPE: XR chest 1V portable DATE OF EXAM: 06/10/2022 COMPARISON: 02/22/2021 HISTORY: Altered mental status TECHNIQUE: Single view FINDINGS: Heart is probably enlarged. There is mild pulmonary congestion. No pleural effusion. There are no hilar masses. Bony thorax is intact. IMPRESSION: There is mild pulmonary congestion slightly increased compared to last exam. No obvious h eart failure however. No pulmonary consolidation.
[2022-06-10] MEDS ORDERED: levETIRAcetam IV 1,000 MG in SALINE 1 100ML.BAG IVPB STA (23:48)
[2022-06-11 00:13] LABS: Appearance,Urine Turbid (Clear); Bacteria,Urine Few /hpf; Bilirubin,Urine Negative (Negative); Blood,Urine Small (Negative); Color,Urine Yellow; Glucose,Urine (UA) Negative (Negative); Hyaline Casts,Urine 9 /lpf (0-2); Ketones,Urine Trace (Negative); Leukocyte Esterase,Urine Large (Negative); Mucus,Urine Few /hpf; Nitrite,Urine Positive (Negative); Protein,Urine 4+ (Negative); RBC,Urine 19 /hpf (0-5); Specific Gravity,Urine 1.019 (1.001-1.035); Urobilinogen,Urine <2.0 mg/dL (<2.0); WBC,Urine >182 /hpf (0-5)
[2022-06-11] MEDS ORDERED: ACETAMINOPHEN TAB 325 MG TAB PO PRN (00:59)
[2022-06-11] MEDS ORDERED: NALOXONE 0.4 MG/ML 1 ML VIAL IV PRN (00:59)
[2022-06-11 05:50] LABS: Glucose,Whole Blood 104 mg/dL (70-110)
[2022-06-11] MEDS ORDERED: FUROSEMIDE 10 MG/ML 2 ML VIAL IV ONE (06:18)
[2022-06-11] MEDS ORDERED: SODIUM CHLORIDE 0.9% 1,000 ML IV SCH (06:30)
[2022-06-11 07:48] LABS: Basophils % (A) 0 %; Eosinophils # (A) 0.1 k/uL (0-0.7); Eosinophils % (A) 1 %; HCT 35.2 % (34.0-46.0); HGB 11.4 gm/dL (11.4-16.0); Hypochromasia Slight; Lymphocytes # (A) 2.4 k/uL (1.0-4.8); Lymphocytes % (A) 23 %; MCH 31.1 pg (25.0-35.0); MCHC 32.4 g/dL (31.0-37.0); MCV 95.9 fL (80.0-100.0); Mean Platelet Volume 8.3; Monocytes # (A) 0.7 k/uL (0-1.0); Monocytes % (A) 7 %; Neutrophils # (A) 7.3 k/uL (1.3-7.7); Neutrophils % (A) 68 %; Platelet Count 225 k/uL (150-450); RBC 3.67 m/uL (3.80-5.40); RDW 13.8 % (11.5-15.5); WBC 10.7 k/uL (3.8-10.6)
[2022-06-11] MEDS: DILTIAZEM ORAL 60 MG TAB PO SCH ×3 (08:14→20:10)
[2022-06-11] MEDS: LEVOTHYROXINE 100 MCG TAB PO SCH (08:14)
[2022-06-11 08:20] LABS: African American GFR (CKD) >90 (>60 ml/min/1.73 sqM); Anion Gap 11 mmol/L; Blood Urea Nitrogen 12 mg/dL (7-17); Calcium 7.7 mg/dL (8.4-10.2); Carbon Dioxide 22 mmol/L (22-30); Chloride 107 mmol/L (98-107); Glucose 102 mg/dL (74-99); Magnesium 1.8 mg/dL (1.6-2.3); Non-African American GFR(CKD) 88 (>60 ml/min/1.73 sqM); Potassium 3.9 mmol/L (3.5-5.1); Sodium 140 mmol/L (137-145)
[2022-06-11] MEDS ORDERED: bisacodyL 10 MG SUPP RECTAL PRN (10:02)
[2022-06-11] MEDS ORDERED: busPIRone HCl 10 MG TAB PO PRN (10:02)
[2022-06-11] MEDS ORDERED: DEXTROSE 50% SYRINGE 50 ML IVP PRN (10:05)
[2022-06-11] MEDS: METOPROLOL TARTRATE 50 MG TAB PO SCH ×2 (10:49→19:06)
[2022-06-11 12:08] LABS: Glucose,Whole Blood 102 mg/dL (70-110)
[2022-06-11] MEDS: INSULIN ASPART (NovoLOG) 100 UNIT/ML VIAL SQ SCH ×3 (12:57→20:04)
--- NOTE | 2022-06-11 14:24 | P.CNNES ---
History of Present Illness Consult date: 06/11/22 Requesting physician: Deo Burger Reason for Consult: New onset seizure History of Present Illness: Patient is a 82-year-old female with history of atrial fibrillation, previous stroke with expressive aphasia, resident of [facility], came to the hospital by ambulance yesterday at 10:22 PM for new onset seizure. 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 According to the EMS flow sheet, when they arrived on the scene, found patient laying in hospital bed. Patient presents with seizure-like activity. Patient exhibited involuntary rhythmic jerking movement in all extremities. Patient was alert, able to follow simple, arms, but unable to speak. [facility] staff states patient has been exhibiting this moment for approximately 1 hour prior to their arrival. Patient is alert and oriented 1 at baseline because of her history of dementia. No previous history of seizure. Patient was given 2 doses of 5 mg Versed intramuscularly for seizure-like activity. Patient's blood pressure was 139/103, pulse rate 142, respiration 22, blood sugar 207. Patient's blood test shows WBC 15.2 hemoglobin 13.9, platelets 351. PT/PTT normal, bilateral right side normal, plasma lactate 14.0, hepatic panel normal, renal functions normal, TSH 1.00. UA showed positive nitrite and large amount of leukocyte Estrace. Rob virus PCR negative, influenza screen negative. CT head showed large old left middle cerebral artery infarct without change. Cerebral atrophy and chronic small vessel ischemia. I personally reviewed CT head, agree with the findings. Evidence of old encephalomalacia involving the posterior MCA territory region. EKG shows atrial fibrillation with rapid ventricular rate. Chest x-ray showed mild pulmonary congestion, slightly inc reased compared to last exam. Patient had an EEG on 02/10/2021 which was abnormal. The background is asymmetrical with left hemisphere suggestive of moderate to severe encephalopathy while right hemisphere is normal. No epileptiform activity was seen. Patient currently on Eliquis 5 mg twice a day. Patient denies headache. She states that she had some before but not now. Review of systems difficult to assess because of her baseline receptive fluent aphasia. Review of Systems ROS unobtainable: due to mental status Constitutional: Denies chills, Denies fever Ears, nose, mouth and throat: Reports headache, Denies sore throat Cardiovascular: Denies chest pain, Denies shortness of breath Respiratory: Denies cough Gastrointestinal: Denies abdominal pain, Denies diarrhea, Denies nausea, Denies vomiting Past Medical History Past Medical History: Atrial Fibrillation, Diabetes Mellitus, Fibromyalgia, Hypertension, Thyroid Disorder Additional Past Medical History / Comment(s): sepsis, UTI, Type 2 DM, hypothyroidism History of Any Multi-Drug Resistant Organisms: VRE Date of last positivie culture/infection: 02/24/21 MDRO Source:: VRE URINE Past Surgical History: Hysterectomy Additional Past Surgical History / Comment(s): Knee replacement Past Anesthesia/Blood Transfusion Reactions: No Reported Reaction Past Psychological History: Depression Smoking Status: Never smoker Past Alcohol Use History: None Reported Past Drug Use History: None Reported Medications and Allergies Home Medications Medication Instructions Recorded Confirmed Type Levothyroxine Sodium [Synthroid] 100 mcg PO DAILY@0800 02/07/21 06/11/22 History Milnacipran HCl [Savella] 100 mg PO BID@0800,1700 02/07/21 06/11/22 History Pioglitazone [Actos] 15 mg PO DAILY@0800 02/07/21 06/11/22 History Trospium Chloride [Sanctura] 20 mg PO BID@0800,1700 02/07/21 06/11/22 History metFORMIN HCL 500 mg PO DAILY@0800 02/07/21 06/11/22 History traZODone HCL [Desyrel] 25 mg PO HS 02/07/21 06/11/22 History Atorvastatin [Lipitor] 40 mg PO HS tab 02/13/21 06/11/22 Rx Apixaban [Eliquis] 5 mg PO BID@0800,1700 02/22/21 06/11/22 History Diltiazem Oral [Cardizem*] 60 mg PO TID@0600,1400,2100 02/22/21 06/11/22 History Magnesium Hydroxide [Milk of 7,200 mg PO Q48H PRN 02/22/21 06/11/22 History Magnesia Concentrate] Metoprolol Tartrate [Lopressor] 100 mg PO BID@0800,1700 02/22/21 06/11/22 History Na Phos,M-B/Na Phos,Di-Ba [Fleet 133 ml RECTAL DAILY PRN 02/22/21 06/11/22 History Adult] bisacodyL 10 mg RECTAL DAILY PRN 02/22/21 06/11/22 History lisinopriL [Prinivil] 10 mg PO DAILY@0800 02/22/21 06/11/22 History traMADol HCL 50 mg PO Q12H PRN 02/22/21 06/11/22 History Acetaminophen Tab [Tylenol] 650 mg PO Q4H PRN 06/11/22 06/11/22 History Bacitracin Zinc Oint 1 applic TOPICAL BID 06/11/22 06/11/22 History Caldesene Powder 1 applic TOPICAL BID 06/11/22 06/11/22 History L.acidoph,Paracasei, B.lactis 1 cap PO DAILY@0800 06/11/22 06/11/22 History [Probiotic] Loperamide HCl [Loperamide] 2 mg PO QID PRN 06/11/22 06/11/22 History Maalox Plus 30 ml PO Q6H PRN 06/11/22 06/11/22 History Sennosides [Senokot] 8.6 mg PO BID PRN 06/11/22 06/11/22 History Sennosides [Senokot] 17.2 mg PO HS 06/11/22 06/11/22 History Venlafaxine HCl ER [Effexor Xr] 150 mg PO DAILY@0800 06/11/22 06/11/22 History busPIRone HCl [Buspar] 10 mg PO Q12H PRN 06/11/22 06/11/22 History Allergies Allergy/AdvReac Type Severity Reaction Status Date / Time codeine Allergy Itching Verified 06/11/22 09:27 Physical Examination - Vital Signs Vital Signs: Vital Signs Temp Pulse Pulse Pulse Resp BP BP 06/11/22 08:15 98.1 F 86 85 18 125/82 06/11/22 04:55 97.9 F 85 17 139/80 06/11/22 02:16 98 F 81 20 125/76 06/11/22 02:01 98.6 F 06/11/22 00:27 91 19 112/57 06/10/22 22:29 100.1 F H 147 H 48 H 143/98 Pulse Ox 06/11/22 08:15 96 06/11/22 04:55 98 06/11/22 02:16 97 06/11/22 02:01 06/11/22 00:27 98 06/10/22 22:29 92 L Intake and Output 06/10/22 06/11/22 06/11/22 22:59 06:59 14:59 Intake Total 240 Output Total 900 Balance -900 240 Intake: Oral 240 Output: Urine 900 Other: Voiding Method Indwelling Catheter Indwelling Catheter Weight 111.584 kg 111.584 kg Patient is an elderly female, very pleasant, in no acute distress. Patient is alert awake, has fluent aphasia. Patient could not tell me her name, states is 89 years of age. Patient has significant fluent aphasia with a lot of paraphasic errors. She was able to tell me that she lives in [place], and also able to speak spontaneous phrases like "I am a mess", "I'm too old", when I asked about where she is, patient states "I lay here and behave". No dysarthria. Patient could not name any object. For pen, patient states "Tensil", then said "stick". For eyeglasses patient said "Eye change shadow", for Button patient said "Diandello". Patient cannot repeat. Her comprehension is also somewhat affected. Attention, concentration and fund of knowledge is limited. On cranial nerve examination, pupils are equal, round and reacting to light, visual stern could not be tested reliably because of poor comprehension. Her face is symmetric. Tongue protrudes the midline. Extraocular muscles are inta ct. Palatal elevation and sensation normal, hearing and shoulder shrug normal, facial sensation normal. On muscle strength testing, patient has significant problems with comprehension. It appears patient does have weakness of the right arm and right leg. Right leg is weaker than the arm. Patient able to lift her right arm up and hold it in the year before getting tired. Her case management manager is slightly weaker on the right as compared to left. Her leg is definitely weaker right as compared to left. Deep tendon reflexes are 1+, and plantars are flat bilaterally. Sensory to touch patient feeling on both sides. Cerebellar function could not be performed because of patient noncooperation. Tone and bulk of muscles normal. Gait deferred.. On general examination, there is no carotid bruit or murmur, S1-S2 audible. Chest is clear on consultation. Abdomen is soft nontender. No organomegaly, bowel sounds present. Peripheral pulses are present. No edema. Results - Laboratory Findings CBC and BMP: 06/12/22 08:13 06/12/22 08:13 Abnormal Lab Findings: Abnormal Labs 06/10/22 06/10/22 06/10/22 22:40 22:40 22:40 WBC 15.2 H RBC Neutrophils # 10.1 H APTT 21.0 L Carbon Dioxide 13 L Glucose 214 H Plasma Lactic Acid Aguilar Calcium Urine Appearance Urine Protein Urine Ketones Urine Blood Urine Nitrite Ur Leukocyte Esterase Urine RBC Urine WBC Urine WBC Clumps Urine Bacteria Hyaline Casts Urine Mucus 06/10/22 06/10/22 06/11/22 22:40 23:37 00:18 WBC RBC Neutrophils # APTT Carbon Dioxide Glucose Plasma Lactic Acid Aguilar 14.0 H* 4.5 H* Calcium Urine Appearance Turbid H Urine Protein 4+ H Urine Ketones Trace H Urine Blood Small H Urine Nitrite Positive H Ur Leukocyte Esterase Large H Urine RBC 19 H Urine WBC >182 H Urine WBC Clumps Many H Urine Bacteria Few H Hyaline Casts 9 H Urine Mucus Few H 06/11/22 06/11/22 06:59 06:59 WBC 10.7 H RBC 3.67 L Neutrophils # APTT Carbon Dioxide Glucose 102 H Plasma Lactic Acid Aguilar Calcium 7.7 L Urine Appearance Urine Protein Urine Ketones Urine Blood Urine Nitrite Ur Leukocyte Esterase Urine RBC Urine WBC Urine WBC Clumps Urine Bacteria Hyaline Casts Urine Mucus Assessment and Plan Assessment: * New onset seizure, 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 * History of left MCA territory stroke. * Atrial fibrillation with rapid ventricular rate. * Acute UTI. Cultures have grown gram-negative bacilli > 100,000. * Dementia * Diabetes * Hypertension Plan: * EEG was performed today, which is abnormal because of near constant focal slowing and frequent sharp wave over the left temporal region. This is suggestive of focal cortical neuronal dysfunction, and may suggest underlying cortical irritability and tendency for seizures. * Continue Keppra 500 mg twice a day. * Patient on ceftriaxone 2 g every 24 hours for acute UTI. * Continue Eliquis 5 mg twice a day for stroke prevention related to atrial fibrillation. Continue Lipitor 40 mg. * We will try to contact family members as well for collateral history. * Neurologically clear otherwise. * Thank you for the consult.
[2022-06-11] MEDS: levETIRAcetam 500 MG TAB PO SCH ×2 (14:56→20:10)
[2022-06-11 16:47] LABS: Glucose,Whole Blood 171 mg/dL (70-110)
[2022-06-11] MEDS: APIXABAN 5 MG TAB PO SCH (19:07)
[2022-06-11 20:03] LABS: Glucose,Whole Blood 127 mg/dL (70-110)
[2022-06-11] MEDS: traZODone HCL 50 MG TAB PO SCH (20:10)
[2022-06-11] MEDS: ATORVASTATIN 40 MG TAB PO SCH (20:11)
--- NOTE | 2022-06-12 00:11 | P.HPIM ---
History of Present Illness H&P Date: 06/11/22 Chief Complaint: Seizures Patient is a 82-year-old female with a known history of CVA with expressive aphasia, hypertension, diabetes type 2, paroxysmal atrial fibrillation on anticoagulation with Eliquis, hypothyroidism, depression and other multiple medical problems, including dementia with baseline mental status alert oriented x1 was brought to the hospital from extended Care facility due to generalized seizures and shaking movements. Patient was given 10 mg of Versed by paramedics. On admission patient was febrile with T- max 100.1 with increased heart rate 147 and respiratory 48 and pulse ox 92% on room air. Patient did not have any nausea vomiting or diarrhea. No cough or sputum production. No complaints of chest pain or shortness of breath. History could not be obtained from the patient due to baseline mental status. Chest x-ray showed there is mild pulmonary vascular congestion slightly increased compared to last exam. No obvious heart failure however. No pulmonary consolidation. EKG showed atrial fibrillation with rapid regular rate with heart rate 140 CT head showed large old left MCA infarct without change. Cerebral atrophy and chronic small vessel ischemic changes Laboratory data showed WBC 15.2 hemoglobin 13.9 and platelets 351 Sodium 142 potassium 4.6 chloride 102 bicarb is 39 BUN 12 and anion gap 27 and creatinine 0.9 blood sugar 214 and lactic acid 14.0 and Liver enzymes are not elevated and TSH 1.0 urinalysis showed turbid with 4+ protein and trace ketones and nitrite positive and elevated RBCs and WBCs and large leukocyte esterase Coronavirus PCR not detected. Review of Systems Complete review of systems could not be obtained from the patient. Past Medical History Past Medical History: Atrial Fibrillation, Diabetes Mellitus, Fibromyalgia, Hypertension, Thyroid Disorder Additional Past Medical History / Comment(s): sepsis, UTI, Type 2 DM, hypothyroidism History of Any Multi-Drug Resistant Organisms: VRE Date of last positivie culture/infection: 02/24/21 MDRO Source:: VRE URINE Past Surgical History: Hysterectomy Additional Past Surgical History / Comment(s): Knee replacement Past Anesthesia/Blood Transfusion Reactions: No Reported Reaction Past Psychological History: Depression Smoking Status: Never smoker Past Alcohol Use History: None Reported Past Drug Use History: None Reported Medications and Allergies Home Medications Medication Instructions Recorded Confirmed Type Levothyroxine Sodium [Synthroid] 100 mcg PO DAILY@0800 02/07/21 06/11/22 History Milnacipran HCl [Savella] 100 mg PO BID@0800,1700 02/07/21 06/11/22 History Pioglitazone [Actos] 15 mg PO DAILY@0800 02/07/21 06/11/22 History Trospium Chloride [Sanctura] 20 mg PO BID@0800,1700 02/07/21 06/11/22 History metFORMIN HCL 500 mg PO DAILY@0800 02/07/21 06/11/22 History traZODone HCL [Desyrel] 25 mg PO HS 02/07/21 06/11/22 History Atorvastatin [Lipitor] 40 mg PO HS tab 02/13/21 06/11/22 Rx Apixaban [Eliquis] 5 mg PO BID@0800,1700 02/22/21 06/11/22 History Diltiazem Oral [Cardizem*] 60 mg PO TID@0600,1400,2100 02/22/21 06/11/22 History Magnesium Hydroxide [Milk of 7,200 mg PO Q48H PRN 02/22/21 06/11/22 History Magnesia Concentrate] Metoprolol Tartrate [Lopressor] 100 mg PO BID@0800,1700 02/22/21 06/11/22 History Na Phos,M-B/Na Phos,Di-Ba [Fleet 133 ml RECTAL DAILY PRN 02/22/21 06/11/22 History Adult] bisacodyL 10 mg RECTAL DAILY PRN 02/22/21 06/11/22 History lisinopriL [Prinivil] 10 mg PO DAILY@0800 02/22/21 06/11/22 History traMADol HCL 50 mg PO Q12H PRN 02/22/21 06/11/22 History Acetaminophen Tab [Tylenol] 650 mg PO Q4H PRN 06/11/22 06/11/22 History Bacitracin Zinc Oint 1 applic TOPICAL BID 06/11/22 06/11/22 History Caldesene Powder 1 applic TOPICAL BID 06/11/22 06/11/22 History L.acidoph,Paracasei, B.lactis 1 cap PO DAILY@0800 06/11/22 06/11/22 History [Probiotic] Loperamide HCl [Loperamide] 2 mg PO QID PRN 06/11/22 06/11/22 History Maalox Plus 30 ml PO Q6H PRN 06/11/22 06/11/22 History Sennosides [Senokot] 8.6 mg PO BID PRN 06/11/22 06/11/22 History Sennosides [Senokot] 17.2 mg PO HS 06/11/22 06/11/22 History Venlafaxine HCl ER [Effexor Xr] 150 mg PO DAILY@0800 06/11/22 06/11/22 History busPIRone HCl [Buspar] 10 mg PO Q12H PRN 06/11/22 06/11/22 History Allergies Allergy/AdvReac Type Severity Reaction Status Date / Time codeine Allergy Itching Verified 06/11/22 09:27 Physical Exam Vitals: Vital Signs Temp Pulse Pulse Pulse Resp BP BP 06/11/22 08:15 98.1 F 86 85 18 125/82 06/11/22 04:55 97.9 F 85 17 139/80 06/11/22 02:16 98 F 81 20 125/76 06/11/22 02:01 98.6 F 06/11/22 00:27 91 19 112/57 06/10/22 22:29 100.1 F H 147 H 48 H 143/98 Pulse Ox 06/11/22 08:15 96 06/11/22 04:55 98 06/11/22 02:16 97 06/11/22 02:01 06/11/22 00:27 98 06/10/22 22:29 92 L Intake and Output 06/10/22 06/11/22 06/11/22 22:59 06:59 14:59 Intake Total 240 Output Total 900 Balance -900 240 Intake: Oral 240 Output: Urine 900 Other: Voiding Method Indwelling Catheter Indwelling Catheter Weight 111.584 kg 111.584 kg PHYSICAL EXAMINATION: Patient is lying in the bed comfortably, no acute distress, awake alert and oriented x1.. HEENT: Normocephalic. Neck is supple. Pupils reactive. Nostrils clear. Oral cavity is moist. Neck reveals no JVD, carotid bruits, or thyromegaly. CHEST EXAMINATION: Trachea is central. Symmetrical expansion. Lung stern clear to auscultation and percussion. CARDIAC: Normal S1, S2 with no gallops. No murmurs ABDOMEN: Soft. Bowel sounds present. Nontender. No organomegaly. No abdominal bruits. Extremities: reveal no edema. No clubbing or cyanosis Neurologically awake, alert, oriented x1. Underlying dementia. Able to move extremities while in bed. Skin: No rash or skin lesions. Psychiatric: Coperative. Could not be assessed completely. Musculoskeletal: No joint swelling or deformity. Results CBC & Chem 7: 06/11/22 06:59 06/11/22 06:59 Labs: Abnormal Lab Results - Last 24 Hours (Table) 06/10/22 06/10/22 06/10/22 Range/Units 22:40 22:40 22:40 WBC 15.2 H (3.8-10.6) k/uL RBC (3.80-5.40) m/uL Neutrophils # 10.1 H (1.3-7.7) k/uL APTT 21.0 L (22.0-30.0) sec Carbon Dioxide 13 L (22-30) mmol/L Glucose 214 H (74-99) mg/dL Plasma Lactic Acid Aguilar (0.7-2.0) mmol/L Calcium (8.4-10.2) mg/dL Urine Appearance (Clear) Urine Protein (Negative) Urine Ketones (Negative) Urine Blood (Negative) Urine Nitrite (Negative) Ur Leukocyte Esterase (Negative) Urine RBC (0-5) /hpf Urine WBC (0-5) /hpf Urine WBC Clumps (None) /hpf Urine Bacteria (None) /hpf Hyaline Casts (0-2) /lpf Urine Mucus (None) /hpf 06/10/22 06/10/22 06/11/22 Range/Units 22:40 23:37 00:18 WBC (3.8-10.6) k/uL RBC (3.80-5.40) m/uL Neutrophils # (1.3-7.7) k/uL APTT (22.0-30.0) sec Carbon Dioxide (22-30) mmol/L Glucose (74-99) mg/dL Plasma Lactic Acid Aguilar 14.0 H* 4.5 H* (0.7-2.0) mmol/L Calcium (8.4-10.2) mg/dL Urine Appearance Turbid H (Clear) Urine Protein 4+ H (Negative) Urine Ketones Trace H (Negative) Urine Blood Small H (Negative) Urine Nitrite Positive H (Negative) Ur Leukocyte Esterase Large H (Negative) Urine RBC 19 H (0-5) /hpf Urine WBC >182 H (0-5) /hpf Urine WBC Clumps Many H (None) /hpf Urine Bacteria Few H (None) /hpf Hyaline Casts 9 H (0-2) /lpf Urine Mucus Few H (None) /hpf 06/11/22 06/11/22 Range/Units 06:59 06:59 WBC 10.7 H (3.8-10.6) k/uL RBC 3.67 L (3.80-5.40) m/uL Neutrophils # (1.3-7.7) k/uL APTT (22.0-30.0) sec Carbon Dioxide (22-30) mmol/L Glucose 102 H (74-99) mg/dL Plasma Lactic Acid Aguilar (0.7-2.0) mmol/L Calcium 7.7 L (8.4-10.2) mg/dL Urine Appearance (Clear) Urine Protein (Negative) Urine Ketones (Negative) Urine Blood (Negative) Urine Nitrite (Negative) Ur Leukocyte Esterase (Negative) Urine RBC (0-5) /hpf Urine WBC (0-5) /hpf Urine WBC Clumps (None) /hpf Urine Bacteria (None) /hpf Hyaline Casts (0-2) /lpf Urine Mucus (None) /hpf Microbiology - Last 24 Hours (Table) 06/10/22 23:37 Urine Culture - Preliminary Urine,Voided Thrombosis Risk Factor Assmnt - DVT/VTE Prophylaxis DVT/VTE Prophylaxis: Pharmacologic Prophylaxis ordered - Choose All That Apply Each Factor Represents 1 point: Medical pt on bed rest, Obesity (BMI >25) Each Risk Factor Represents 3 Points: Age 75 years or older Thrombosis Risk Factor Assessment Total Risk Factor Score: 5 Thrombosis Risk Factor Assessment Level: High Risk Assessment and Plan Assessment: New onset generalized seizures. Lactic acidosis Anion gap metabolic acidosis secondary to lactic acidosis Acute urinary tract infection with sepsis on admission Atrial fibrillation with rapid ventricular rate on anticoagulation with Eliquis History of CVA involving left MCA territory and expressive aphasia Dementia with baseline mental status oriented x1 History of VRE urinary tract infection Fibromyalgia Hypothyroidism Depression DVT prophylaxis patient is already on full anticoagulation Obesity with BMI 39.7 Plan: Patient will be continued telemetry monitoring. Start him back metoprolol and Cardizem. Continue with Eliquis. Patient was given a dose of IV Keppra in the ER and continued Keppra as per neurology recommendations. EEG was ordered. Continue with ceftriaxone and follow-up urine culture report. Continue all home medications. Prognosis is guarded with multiple medical problems and comorbid conditions. Time with Patient: Greater than 30
[2022-06-12] MEDS: LACTATED RINGERS 1,000 ML IV SCH (00:33)
[2022-06-12] MEDS: LEVOTHYROXINE 100 MCG TAB PO SCH (06:37)
[2022-06-12] MEDS: DILTIAZEM ORAL 60 MG TAB PO SCH ×3 (06:37→20:41)
[2022-06-12 06:46] LABS: Glucose,Whole Blood 125 mg/dL (70-110)
[2022-06-12] MEDS: INSULIN ASPART (NovoLOG) 100 UNIT/ML VIAL SQ SCH ×4 (06:46→20:41)
[2022-06-12 06:57] LABS: Glucose,Whole Blood 114 mg/dL (70-110)
--- NOTE | 2022-06-12 06:58 | EEG ---
ELECTROENCEPHALOGRAM REPORT PREAMBLE: This is an 82-year-old female with history of a stroke, came with new onset seizure. EEG FINDINGS: This is a 21-channel digital EEG recorded with video component, utilizing 10/20 international system with referential and bipolar montages. Background consists of well developed, well regulated moderate voltage activity in 9 hertz alpha. Background is posterior dominant and seems to be reactive to eye opening and closing. There is a near continuous focal slowing in dysrhythmic delta and theta range seen in the left temporal region. Frequent left temporal sharp waves were seen. Photic stimulation and hyperventilation were not performed. No electrographic seizure was recorded. EKG showed arrhythmia. Different stages of sleep were not seen. IMPRESSION: This is an abnormal EEG due to presence of focal slowing with focal epileptiform activity over the left temporal region. This is suggestive of focal cortical neural dysfunction with underlying cortical irritability and tendency for seizures. No electrographic seizure was recorded. MMCHECO / IJN: [id number] / MTDTaryn
[2022-06-12 09:02] LABS: African American GFR (CKD) >90 (>60 ml/min/1.73 sqM); Anion Gap 10 mmol/L; Blood Urea Nitrogen 10 mg/dL (7-17); Calcium 8.5 mg/dL (8.4-10.2); Carbon Dioxide 23 mmol/L (22-30); Chloride 107 mmol/L (98-107); Glucose 119 mg/dL (74-99); Non-African American GFR(CKD) 89 (>60 ml/min/1.73 sqM); Sodium 140 mmol/L (137-145)
[2022-06-12] MEDS: APIXABAN 5 MG TAB PO SCH ×2 (09:03→16:19)
[2022-06-12] MEDS: levETIRAcetam 500 MG TAB PO SCH ×2 (09:03→20:41)
[2022-06-12] MEDS: METOPROLOL TARTRATE 50 MG TAB PO SCH ×2 (09:04→16:18)
[2022-06-12 09:05] LABS: Basophils % (A) 0 %; Eosinophils # (A) 0.1 k/uL (0-0.7); Eosinophils % (A) 1 %; HCT 39.3 % (34.0-46.0); HGB 12.7 gm/dL (11.4-16.0); Hypochromasia Slight; Lymphocytes # (A) 2.2 k/uL (1.0-4.8); Lymphocytes % (A) 19 %; MCH 30.8 pg (25.0-35.0); MCHC 32.4 g/dL (31.0-37.0); Mean Platelet Volume 8.5; Monocytes # (A) 0.8 k/uL (0-1.0); Monocytes % (A) 7 %; Neutrophils # (A) 8.2 k/uL (1.3-7.7); Neutrophils % (A) 71 %; Platelet Count 217 k/uL (150-450); RBC 4.13 m/uL (3.80-5.40); RDW 14.1 % (11.5-15.5); WBC 11.6 k/uL (3.8-10.6)
--- NOTE | 2022-06-12 09:40 | P.CONS ---
History of Present Illness - Reason for Consult Consult date: 06/11/22 - History of Present Illness Patient is a 82-year-old female with a past medical history significant for atrial fibrillation CVA with expressive aphasia the patient was brought into the ER with concern for new onset seizure, EMS report mention seizure-like activity patient herself did not recall what happened patient on presentation to the hospital did have a low-grade fever 100.1 F patient did have a white count of 15.2 with a left shift kidney function has been normal liver enzymes are normal urine has been positive influenza and COVID testing were negative blood cultures obtained which are currently pending patient did have a CT of the brain that was negative for any bleed chest x-ray mild pulmonary vascular congestion patient was given a dose of Rocephin in the ER infectious disease was consulted for further management of antibiotic therapy patient time of evaluation slightly more awake and alert patient denies having any headache no chest pain or shortness of breath or cough no vomiting no abd ominal pain no diarrhea Past Medical History Past Medical History: Atrial Fibrillation, Diabetes Mellitus, Fibromyalgia, Hypertension, Thyroid Disorder Additional Past Medical History / Comment(s): sepsis, UTI, Type 2 DM, hypothyroidism History of Any Multi-Drug Resistant Organisms: VRE Year Discovered:: 02/24/21 MDRO Source:: VRE URINE Past Surgical History: Hysterectomy Additional Past Surgical History / Comment(s): Knee replacement Past Anesthesia/Blood Transfusion Reactions: No Reported Reaction Past Psychological History: Depression Smoking Status: Never smoker Past Alcohol Use History: None Reported Past Drug Use History: None Reported Medications and Allergies Home Medications Medication Instructions Recorded Confirmed Type Levothyroxine Sodium [Synthroid] 100 mcg PO DAILY@0800 02/07/21 06/11/22 History Milnacipran HCl [Savella] 100 mg PO BID@0800,1700 02/07/21 06/11/22 History Pioglitazone [Actos] 15 mg PO DAILY@0800 02/07/21 06/11/22 History Trospium Chloride [Sanctura] 20 mg PO BID@0800,1700 02/07/21 06/11/22 History metFORMIN HCL 500 mg PO DAILY@0800 02/07/21 06/11/22 History traZODone HCL [Desyrel] 25 mg PO HS 02/07/21 06/11/22 History Atorvastatin [Lipitor] 40 mg PO HS tab 02/13/21 06/11/22 Rx Apixaban [Eliquis] 5 mg PO BID@0800,1700 02/22/21 06/11/22 History Diltiazem Oral [Cardizem*] 60 mg PO TID@0600,1400,2100 02/22/21 06/11/22 History Magnesium Hydroxide [Milk of 7,200 mg PO Q48H PRN 02/22/21 06/11/22 History Magnesia Concentrate] Metoprolol Tartrate [Lopressor] 100 mg PO BID@0800,1700 02/22/21 06/11/22 History Na Phos,M-B/Na Phos,Di-Ba [Fleet 133 ml RECTAL DAILY PRN 02/22/21 06/11/22 History Adult] bisacodyL 10 mg RECTAL DAILY PRN 02/22/21 06/11/22 History lisinopriL [Prinivil] 10 mg PO DAILY@0800 02/22/21 06/11/22 History traMADol HCL 50 mg PO Q12H PRN 02/22/21 06/11/22 History Acetaminophen Tab [Tylenol] 650 mg PO Q4H PRN 06/11/22 06/11/22 History Bacitracin Zinc Oint 1 applic TOPICAL BID 06/11/22 06/11/22 History Caldesene Powder 1 applic TOPICAL BID 06/11/22 06/11/22 History L.acidoph,Paracasei, B.lactis 1 cap PO DAILY@0800 06/11/22 06/11/22 History [Probiotic] Loperamide HCl [Loperamide] 2 mg PO QID PRN 06/11/22 06/11/22 History Maalox Plus 30 ml PO Q6H PRN 06/11/22 06/11/22 History Sennosides [Senokot] 8.6 mg PO BID PRN 06/11/22 06/11/22 History Sennosides [Senokot] 17.2 mg PO HS 06/11/22 06/11/22 History Venlafaxine HCl ER [Effexor Xr] 150 mg PO DAILY@0800 06/11/22 06/11/22 History busPIRone HCl [Buspar] 10 mg PO Q12H PRN 06/11/22 06/11/22 History Allergies Allergy/AdvReac Type Severity Reaction Status Date / Time codeine Allergy Itching Verified 06/11/22 09:27 Physical Exam Vitals: Vital Signs Temp Pulse Pulse Pulse Resp BP BP 06/11/22 08:15 98.1 F 86 85 18 125/82 06/11/22 04:55 97.9 F 85 17 139/80 06/11/22 02:16 98 F 81 20 125/76 06/11/22 02:01 98.6 F 06/11/22 00:27 91 19 112/57 06/10/22 22:29 100.1 F H 147 H 48 H 143/98 Pulse Ox 06/11/22 08:15 96 06/11/22 04:55 98 06/11/22 02:16 97 06/11/22 02:01 06/11/22 00:27 98 06/10/22 22:29 92 L Intake and Output 06/10/22 06/11/22 06/11/22 22:59 06:59 14:59 Intake Total 240 Output Total 900 Balance -900 240 Intake: Oral 240 Output: Urine 900 Other: Voiding Method Indwelling Catheter Indwelling Catheter Weight 111.584 kg 111.584 kg Results CBC & Chem 7: 06/12/22 08:13 06/12/22 08:13 Labs: Abnormal Lab Results - Last 24 Hours (Table) 06/10/22 06/10/22 06/10/22 Range/Units 22:40 22:40 22:40 WBC 15.2 H (3.8-10.6) k/uL RBC (3.80-5.40) m/uL Neutrophils # 10.1 H (1.3-7.7) k/uL APTT 21.0 L (22.0-30.0) sec Carbon Dioxide 13 L (22-30) mmol/L Glucose 214 H (74-99) mg/dL Plasma Lactic Acid Aguilar (0.7-2.0) mmol/L Calcium (8.4-10.2) mg/dL Urine Appearance (Clear) Urine Protein (Negative) Urine Ketones (Negative) Urine Blood (Negative) Urine Nitrite (Negative) Ur Leukocyte Esterase (Negative) Urine RBC (0-5) /hpf Urine WBC (0-5) /hpf Urine WBC Clumps (None) /hpf Urine Bacteria (None) /hpf Hyaline Casts (0-2) /lpf Urine Mucus (None) /hpf 06/10/22 06/10/22 06/11/22 Range/Units 22:40 23:37 00:18 WBC (3.8-10.6) k/uL RBC (3.80-5.40) m/uL Neutrophils # (1.3-7.7) k/uL APTT (22.0-30.0) sec Carbon Dioxide (22-30) mmol/L Glucose (74-99) mg/dL Plasma Lactic Acid Aguilar 14.0 H* 4.5 H* (0.7-2.0) mmol/L Calcium (8.4-10.2) mg/dL Urine Appearance Turbid H (Clear) Urine Protein 4+ H (Negative) Urine Ketones Trace H (Negative) Urine Blood Small H (Negative) Urine Nitrite Positive H (Negative) Ur Leukocyte Esterase Large H (Negative) Urine RBC 19 H (0-5) /hpf Urine WBC >182 H (0-5) /hpf Urine WBC Clumps Many H (None) /hpf Urine Bacteria Few H (None) /hpf Hyaline Casts 9 H (0-2) /lpf Urine Mucus Few H (None) /hpf 06/11/22 06/11/22 Range/Units 06:59 06:59 WBC 10.7 H (3.8-10.6) k/uL RBC 3.67 L (3.80-5.40) m/uL Neutrophils # (1.3-7.7) k/uL APTT (22.0-30.0) sec Carbon Dioxide (22-30) mmol/L Glucose 102 H (74-99) mg/dL Plasma Lactic Acid Aguilar (0.7-2.0) mmol/L Calcium 7.7 L (8.4-10.2) mg/dL Urine Appearance (Clear) Urine Protein (Negative) Urine Ketones (Negative) Urine Blood (Negative) Urine Nitrite (Negative) Ur Leukocyte Esterase (Negative) Urine RBC (0-5) /hpf Urine WBC (0-5) /hpf Urine WBC Clumps (None) /hpf Urine Bacteria (None) /hpf Hyaline Casts (0-2) /lpf Urine Mucus (None) /hpf Microbiology - Last 24 Hours (Table) 06/10/22 23:37 Urine Culture - Preliminary Urine,Voided Assessment and Plan Plan: 1patient presented to hospital with sepsis in this patient who did have a fever elevated white count significantly positive UA likely urinary source likely from enteric gram-negative pathogen. 2we will start the patient Rocephin 2 g daily while waiting for the culture to finalize. 3gentle IV fluid. We will follow on clinical condition and cultures to further adjust medication if needed Thank you for this consultation will follow this patient along with you Time with Patient: Greater than 30
[2022-06-12 12:01] LABS: Glucose,Whole Blood 141 mg/dL (70-110)
[2022-06-12 16:42] LABS: Glucose,Whole Blood 191 mg/dL (70-110)
[2022-06-12 20:11] LABS: Glucose,Whole Blood 152 mg/dL (70-110)
[2022-06-12] MEDS: ATORVASTATIN 40 MG TAB PO SCH (20:41)
[2022-06-12] MEDS: traZODone HCL 50 MG TAB PO SCH (20:41)
--- NOTE | 2022-06-12 22:14 | P.PN ---
Subjective Progress Note Date: 06/12/22 Patient was seen for a follow-up. Patient is laying comfortably in the bed. Patient continues to be pleasantly confused, with significant fluent aphasia. No further seizure type spells. Patient does admit having headache, although somewhat unreliable. Objective - Vital Signs Vital signs: Vital Signs Temp 99.1 F 06/12/22 20:00 Pulse 82 06/12/22 20:00 Resp 16 06/12/22 20:00 BP 142/88 06/12/22 20:00 Pulse Ox 97 06/12/22 20:00 FiO2 Intake & Output 06/12/22 06/12/22 06/13/22 06:59 18:59 06:59 Intake Total 30 Output Total 950 700 800 Balance -950 -700 -770 Intake: Intake, IV Titration 30 Amount Lactated Ringers 1,000 ml 30 @ 75 mls/hr IV .[id number] [facility] Rx#:[id number] Output: Urine 950 700 800 Other: Voiding Method Indwelling Catheter Indwelling Catheter - Exam Examination is unchanged. - Labs CBC & Chem 7: 06/12/22 08:13 06/12/22 08:13 Labs: Abnormal Lab Results - Last 24 Hours (Table) 06/12/22 06/12/22 06/12/22 Range/Units 06:45 06:56 08:13 WBC 11.6 H (3.8-10.6) k/uL Neutrophils # 8.2 H (1.3-7.7) k/uL Creatinine (0.52-1.04) mg/dL Glucose (74-99) mg/dL POC Glucose (mg/dL) 125 H 114 H (70-110) mg/dL 06/12/22 06/12/22 06/12/22 Range/Units 08:13 11:35 16:13 WBC (3.8-10.6) k/uL Neutrophils # (1.3-7.7) k/uL Creatinine 0.51 L (0.52-1.04) mg/dL Glucose 119 H (74-99) mg/dL POC Glucose (mg/dL) 141 H 191 H (70-110) mg/dL 06/12/22 Range/Units 20:10 WBC (3.8-10.6) k/uL Neutrophils # (1.3-7.7) k/uL Creatinine (0.52-1.04) mg/dL Glucose (74-99) mg/dL POC Glucose (mg/dL) 152 H (70-110) mg/dL Microbiology - Last 24 Hours (Table) 06/10/22 23:37 Urine Culture - Preliminary Urine,Voided Gram Neg Bacilli 06/10/22 22:30 Blood Culture - Preliminary Blood No Growth after 24 hours 06/10/22 22:45 Blood Culture - Preliminary Blood No Growth after 24 hours Assessment and Plan Assessment: * New onset seizure, 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 * History of left MCA territory stroke. * Atrial fibrillation with rapid ventricular rate. * Dementia * Diabetes * Hypertension Plan: * EEG was performed today, which is abnormal because of near constant focal slowing and frequent sharp wave over the left temporal region. This is suggestive of focal cortical neuronal dysfunction, with underlying cortical irritability and tendency for seizures. * Continue Keppra 500 mg twice a day. * Tried to contact patient's legal guardian Michelle Pettit, but not able to get hold of her. Directly going to voice mail. * Neurologically clear for discharge. Recommend patient follow up with neurologist in 1-2 weeks.
[2022-06-13] MEDS: LACTATED RINGERS 1,000 ML IV SCH ×2 (01:46→12:16)
[2022-06-13] MEDS: METOPROLOL TARTRATE 50 MG TAB PO SCH ×2 (10:20→17:17)
[2022-06-13] MEDS: levETIRAcetam 500 MG TAB PO SCH ×2 (10:20→21:02)
[2022-06-13] MEDS: APIXABAN 5 MG TAB PO SCH ×2 (10:20→17:17)
[2022-06-13] MEDS: DILTIAZEM ORAL 60 MG TAB PO SCH ×3 (10:53→21:02)
[2022-06-13] MEDS: INSULIN ASPART (NovoLOG) 100 UNIT/ML VIAL SQ SCH ×4 (10:54→21:02)
[2022-06-13] MEDS: LEVOTHYROXINE 100 MCG TAB PO SCH (10:54)
[2022-06-13 11:36] LABS: Glucose,Whole Blood 130 mg/dL (70-110)
[2022-06-13 11:49] LABS: Glucose,Whole Blood 422 mg/dL (70-110)
[2022-06-13 16:42] LABS: Glucose,Whole Blood 97 mg/dL (70-110)
--- NOTE | 2022-06-13 19:36 | P.PN ---
Subjective Progress Note Date: 06/12/22 Patient is a 82-year-old female with a known history of CVA with expressive aphasia, hypertension, diabetes type 2, paroxysmal atrial fibrillation on anticoagulation with Eliquis, hypothyroidism, depression and other multiple medical problems, including dementia with baseline mental status alert oriented x1 was brought to the hospital from extended Care facility due to generalized seizures and shaking movements. Patient was given 10 mg of Versed by paramedics. On admission patient was febrile with T- max 100.1 with increased heart rate 147 and respiratory 48 and pulse ox 92% on room air. Patient did not have any nausea vomiting or diarrhea. No cough or sputum production. No complaints of chest pain or shortness of breath. History could not be obtained from the patient due to baseline mental status. Chest x-ray showed there is mild pulmonary vascular congestion slightly increased compared to last exam. No obvious heart failure however. No pulmonary consolidation. EKG showed atrial fibrillation with rapid regular rate with heart rate 140 CT head showed large old left MCA infarct without change. Cerebral atrophy and chronic small vessel ischemic changes Laboratory data showed WBC 15.2 hemoglobin 13.9 and platelets 351 Sodium 142 potassium 4.6 chloride 102 bicarb is 39 BUN 12 and anion gap 27 and creatinine 0.9 blood sugar 214 and lactic acid 14.0 and Liver enzymes are not elevated and TSH 1.0 urinalysis showed turbid with 4+ protein and trace ketones and nitrite positive and elevated RBCs and WBCs and large leukocyte esterase Coronavirus PCR not detected. 06/12/2022 Patient is currently lying in the bed comfortably. Awake alert but pleasantly confused. No further episodes of seizures while in the hospital. Patient is being continued on Keppra. EKG showed abnormal EEG due to presence of focal slowing with focal epileptiform activity over the left temporal region. This is suggestive of focal cortical neuronal dysfunction with underlying cortical irritability and tendency for seizures. Patient has been afebrile. Tolerating oral diet with assistance. as of nausea vomiting or diarrhea. No cough or sputum production. No complaints of chest pain. Urine cultures showing gram-negative bacilli. Final culture report is pending. Patient is being continued on antibiotics ceftriaxone. Afebrile. No complaints of abdominal pain. Current medications reviewed. Objective - Vital Signs Vital signs: Vital Signs Temp 97.3 F L 06/13/22 17:15 Pulse 81 06/13/22 17:15 Resp 18 06/13/22 17:15 BP 149/87 06/13/22 17:15 Pulse Ox 95 06/13/22 17:15 FiO2 Intake & Output 06/13/22 06/13/22 06/14/22 06:59 18:59 05:59 Intake Total 30 374 Output Total 1300 1550 Balance -1270 -1176 Intake: IV 20 Invasive Line 2 20 Intake, IV Titration 30 Amount Lactated Ringers 1,000 ml 30 @ 75 mls/hr IV .[id number] [facility] Rx#:[id number] Oral 354 Output: Urine 1300 1550 Other: Voiding Method Indwelling Catheter Indwelling Catheter - Exam PHYSICAL EXAMINATION: Patient is lying in the bed comfortably, no acute distress, awake alert and oriented x1.. HEENT: Normocephalic. Neck is supple. Pupils reactive. Nostrils clear. Oral cavity is moist. Neck reveals no JVD, carotid bruits, or thyromegaly. CHEST EXAMINATION: Trachea is central. Symmetrical expansion. Lung stern clear to auscultation and percussion. CARDIAC: Normal S1, S2 with no gallops. No murmurs ABDOMEN: Soft. Bowel sounds present. Nontender. No organomegaly. No abdominal bruits. Extremities: reveal no edema. No clubbing or cyanosis Neurologically awake, alert, oriented x1. Underlying dementia. Able to move extremities while in bed. Skin: No rash or skin lesions. Psychiatric: Coperative. Could not be assessed completely. Musculoskeletal: No joint swelling or deformity. - Labs CBC & Chem 7: 06/12/22 08:13 06/12/22 08:13 Labs: Abnormal Lab Results - Last 24 Hours (Table) 06/12/22 06/13/22 06/13/22 Range/Units 20:10 06:01 11:47 POC Glucose (mg/dL) 152 H 130 H 422 H (70-110) mg/dL Microbiology - Last 24 Hours (Table) 06/10/22 23:37 Urine Culture - Final Urine,Voided Escherichia coli 06/10/22 22:30 Blood Culture - Preliminary Blood No Growth after 48 hours 06/10/22 22:45 Blood Culture - Preliminary Blood No Growth after 48 hours Assessment and Plan Assessment: New onset generalized seizures. Lactic acidosis. Resolved. Anion gap metabolic acidosis secondary to lactic acidosis Acute urinary tract infection with gram-negative bacilli and sepsis on admission Atrial fibrillation with rapid ventricular rate on anticoagulation with Eliquis History of CVA involving left MCA territory and expressive aphasia Dementia with baseline mental status oriented x1 History of VRE urinary tract infection Fibromyalgia Hypothyroidism Depression DVT prophylaxis patient is already on full anticoagulation Obesity with BMI 39.7 Plan: Patient will be continued telemetry monitoring. Start him back metoprolol and Cardizem. Continue with Eliquis. Patient was given a dose of IV Keppra in the ER and continued Keppra as per neurology recommendations. EEG showed cortical irritability and tendency for seizure activity.. Continue with ceftriaxone and follow-up final urine culture report. Continue all home medications. Prognosis is guarded with multiple medical problems and comorbid conditions. Time with Patient: Greater than 30
[2022-06-13 20:10] LABS: Glucose,Whole Blood 108 mg/dL (70-110)
[2022-06-13] MEDS: ATORVASTATIN 40 MG TAB PO SCH (21:02)
[2022-06-13] MEDS: traZODone HCL 50 MG TAB PO SCH (21:02)
--- NOTE | 2022-06-13 22:28 | P.PN ---
Subjective Progress Note Date: 06/12/22 Principal diagnosis: Urinary tract infection Patient is a 82-year-old female with multiple comorbidities including CVA was brought into the hospital concern for possible seizure activity patient did have a low-grade fever, elevated white count and positive UA concerning for symptomatic urinary tract infection. On today's evaluation is 06/12/2022, the patient is afebrile the patient is more awake and alert today, the patient is breathing comfortably on room air, patient denies chest pain shortness of breath or cough no abdominal pain no diarrhea Objective - Vital Signs Vital signs: Vital Signs Temp 98.4 F 06/12/22 15:31 Pulse 85 06/12/22 15:31 Resp 18 06/12/22 15:31 BP 156/95 06/12/22 15:31 Pulse Ox 95 06/12/22 15:31 FiO2 Intake & Output 06/11/22 06/12/22 06/12/22 18:59 06:59 18:59 Intake Total 713 Output Total 1800 950 700 Balance -1087 -950 -700 Intake: Oral 713 Output: Urine 1800 950 700 Other: Voiding Method Indwelling Catheter Indwelling Catheter Indwelling Catheter - Exam GENERAL DESCRIPTION: An elderly female lying in bed in no distress RESPIRATORY SYSTEM: Unlabored breathing , decreased breath sounds at bases HEART: S1 S2 regular rate and rhythm , ABDOMEN: Soft , no tenderness EXTREMITIES: No edema feet - Labs CBC & Chem 7: 06/12/22 08:13 06/12/22 08:13 Labs: Abnormal Lab Results - Last 24 Hours (Table) 06/11/22 06/11/22 06/12/22 Range/Units 16:42 20:02 06:45 WBC (3.8-10.6) k/uL Neutrophils # (1.3-7.7) k/uL Creatinine (0.52-1.04) mg/dL Glucose (74-99) mg/dL POC Glucose (mg/dL) 171 H 127 H 125 H (70-110) mg/dL 06/12/22 06/12/22 06/12/22 Range/Units 06:56 08:13 08:13 WBC 11.6 H (3.8-10.6) k/uL Neutrophils # 8.2 H (1.3-7.7) k/uL Creatinine 0.51 L (0.52-1.04) mg/dL Glucose 119 H (74-99) mg/dL POC Glucose (mg/dL) 114 H (70-110) mg/dL 06/12/22 Range/Units 11:35 WBC (3.8-10.6) k/uL Neutrophils # (1.3-7.7) k/uL Creatinine (0.52-1.04) mg/dL Glucose (74-99) mg/dL POC Glucose (mg/dL) 141 H (70-110) mg/dL Microbiology - Last 24 Hours (Table) 06/10/22 23:37 Urine Culture - Preliminary Urine,Voided Gram Neg Bacilli 06/10/22 22:30 Blood Culture - Preliminary Blood No Growth after 24 hours 06/10/22 22:45 Blood Culture - Preliminary Blood No Growth after 24 hours Assessment and Plan (1) UTI (urinary tract infection) Current Visit: Yes Status: Acute Code(s): N39.0 - URINARY TRACT INFECTION, SITE NOT SPECIFIED SNOMED Code(s): 01841576 Plan: 1patient presented to hospital with sepsis in this patient who did have a fever elevated white count significantly positive UA likely urinary source likely from enteric gram-negative pathogen. 2patient will continue with Rocephin 2 g daily while waiting for the culture to finalize and monitor clinical course closely. Time with Patient: Less than 30
--- NOTE | 2022-06-13 22:30 | P.PN ---
Subjective Progress Note Date: 06/13/22 Principal diagnosis: Urinary tract infection Patient is a 82-year-old female with multiple comorbidities including CVA was brought into the hospital concern for possible seizure activity patient did have a low-grade fever, elevated white count and positive UA concerning for symptomatic urinary tract infection. On today's evaluation is 06/16/2022, the patient remains to be afebrile the patient is breathing comfortably on room air, patient denies chest pain shortness of breath or cough no abdominal pain no diarrhea Objective - Vital Signs Vital signs: Vital Signs Temp 98.1 F 06/13/22 11:40 Pulse 83 06/13/22 13:13 Resp 18 06/13/22 13:13 BP 144/88 06/13/22 11:40 Pulse Ox 94 L 06/13/22 11:40 FiO2 Intake & Output 06/12/22 06/13/22 06/13/22 18:59 06:59 18:59 Intake Total 30 374 Output Total 700 1300 1200 Balance -700 -2643 -826 Intake: IV 20 Invasive Line 2 20 Intake, IV Titration 30 Amount Lactated Ringers 1,000 ml 30 @ 75 mls/hr IV .[id number] [facility] Rx#:[id number] Oral 354 Output: Urine 700 1300 1200 Other: Voiding Method Indwelling Catheter Indwelling Catheter Indwelling Catheter - Exam GENERAL DESCRIPTION: An elderly female lying in bed in no distress RESPIRATORY SYSTEM: Unlabored breathing , decreased breath sounds at bases HEART: S1 S2 regular rate and rhythm , ABDOMEN: Soft , no tenderness EXTREMITIES: No edema feet - Labs CBC & Chem 7: 06/12/22 08:13 06/12/22 08:13 Labs: Abnormal Lab Results - Last 24 Hours (Table) 06/12/22 06/12/22 06/13/22 Range/Units 16:13 20:10 06:01 POC Glucose (mg/dL) 191 H 152 H 130 H (70-110) mg/dL 06/13/22 Range/Units 11:47 POC Glucose (mg/dL) 422 H (70-110) mg/dL Microbiology - Last 24 Hours (Table) 06/10/22 23:37 Urine Culture - Final Urine,Voided Escherichia coli 06/10/22 22:30 Blood Culture - Preliminary Blood No Growth after 48 hours 06/10/22 22:45 Blood Culture - Preliminary Blood No Growth after 48 hours Assessment and Plan (1) UTI (urinary tract infection) Current Visit: Yes Status: Acute Code(s): N39.0 - URINARY TRACT INFECTION, SITE NOT SPECIFIED SNOMED Code(s): 26789612 Plan: 1patient presented to hospital with sepsis in this patient who did have a fever elevated white count significantly positive UA likely urinary source likely from enteric gram-negative pathogen. 2patient seemed to showing clinical improvement, patient usually has been radha lized with E. coli that is sensitive to Rocephin which should be continued while inpatient Time with Patient: Less than 30
[2022-06-14] MEDS: LACTATED RINGERS 1,000 ML IV SCH ×2 (00:35→08:31)
[2022-06-14] MEDS: INSULIN ASPART (NovoLOG) 100 UNIT/ML VIAL SQ SCH ×4 (05:59→21:00)
[2022-06-14] MEDS: DILTIAZEM ORAL 60 MG TAB PO SCH ×3 (06:02→20:59)
[2022-06-14] MEDS: LEVOTHYROXINE 100 MCG TAB PO SCH (06:02)
[2022-06-14 06:20] LABS: Glucose,Whole Blood 139 mg/dL (70-110)
[2022-06-14] MEDS: APIXABAN 5 MG TAB PO SCH ×2 (08:31→16:25)
[2022-06-14] MEDS: METOPROLOL TARTRATE 50 MG TAB PO SCH ×2 (08:31→16:25)
[2022-06-14] MEDS: levETIRAcetam 500 MG TAB PO SCH ×2 (08:31→20:59)
--- NOTE | 2022-06-14 09:52 | P.PN ---
Subjective Progress Note Date: 06/13/22 Patient is a 82-year-old female with a known history of CVA with expressive aphasia, hypertension, diabetes type 2, paroxysmal atrial fibrillation on anticoagulation with Eliquis, hypothyroidism, depression and other multiple medical problems, including dementia with baseline mental status alert oriented x1 was brought to the hospital from extended Care facility due to generalized seizures and shaking movements. Patient was given 10 mg of Versed by paramedics. On admission patient was febrile with T- max 100.1 with increased heart rate 147 and respiratory 48 and pulse ox 92% on room air. Patient did not have any nausea vomiting or diarrhea. No cough or sputum production. No complaints of chest pain or shortness of breath. History could not be obtained from the patient due to baseline mental status. Chest x-ray showed there is mild pulmonary vascular congestion slightly increased compared to last exam. No obvious heart failure however. No pulmonary consolidation. EKG showed atrial fibrillation with rapid regular rate with heart rate 140 CT head showed large old left MCA infarct without change. Cerebral atrophy and chronic small vessel ischemic changes Laboratory data showed WBC 15.2 hemoglobin 13.9 and platelets 351 Sodium 142 potassium 4.6 chloride 102 bicarb is 39 BUN 12 and anion gap 27 and creatinine 0.9 blood sugar 214 and lactic acid 14.0 and Liver enzymes are not elevated and TSH 1.0 urinalysis showed turbid with 4+ protein and trace ketones and nitrite positive and elevated RBCs and WBCs and large leukocyte esterase Coronavirus PCR not detected. 06/12/2022 Patient is currently lying in the bed comfortably. Awake alert but pleasantly confused. No further episodes of seizures while in the hospital. Patient is being continued on Keppra. EKG showed abnormal EEG due to presence of focal slowing with focal epileptiform activity over the left temporal region. This is suggestive of focal cortical neuronal dysfunction with underlying cortical irritability and tendency for seizures. Patient has been afebrile. Tolerating oral diet with assistance. as of nausea vomiting or diarrhea. No cough or sputum production. No complaints of chest pain. Urine cultures showing gram-negative bacilli. Final culture report is pending. Patient is being continued on antibiotics ceftriaxone. Afebrile. No complaints of abdominal pain. 06/13/2022 Patient is currently in the bed. Awake alert and mental status is at baseline. No dysarthria or episodes of seizure activity noted. Afebrile. No nausea vomiting abdominal pain and diarrhea. No cough or sputum production. Patient is on ceftriaxone and urine cultures showed E. coli and is sensitive. Anticipate back to ECF in next 24-48 hours. No other acute overnight issues. No chest pain or shortness of breath. Current medications reviewed. Objective - Vital Signs Vital signs: Vital Signs Temp 97.3 F L 06/13/22 17:15 Pulse 81 06/13/22 17:15 Resp 18 06/13/22 17:15 BP 149/87 06/13/22 17:15 Pulse Ox 95 06/13/22 17:15 FiO2 Intake & Output 06/13/22 06/13/22 06/14/22 06:59 18:59 05:59 Intake Total 30 374 Output Total 1300 1550 Balance -1270 -1176 Intake: IV 20 Invasive Line 2 20 Intake, IV Titration 30 Amount Lactated Ringers 1,000 ml 30 @ 75 mls/hr IV .[id number] [facility] Rx#:[id number] Oral 354 Output: Urine 1300 1550 Other: Voiding Method Indwelling Catheter Indwelling Catheter - Exam PHYSICAL EXAMINATION: Patient is lying in the bed comfortably, no acute distress, awake alert and oriented x1.. HEENT: Normocephalic. Neck is supple. Pupils reactive. Nostrils clear. Oral cavity is moist. Neck reveals no JVD, carotid bruits, or thyromegaly. CHEST EXAMINATION: Trachea is central. Symmetrical expansion. Lung stern clear to auscultation and percussion. CARDIAC: Normal S1, S2 with no gallops. No murmurs ABDOMEN: Soft. Bowel sounds present. Nontender. No organomegaly. No abdominal bruits. Extremities: reveal no edema. No clubbing or cyanosis Neurologically awake, alert, oriented x1. Underlying dementia. Able to move extremities while in bed. Skin: No rash or skin lesions. Psychiatric: Coperative. Could not be assessed completely. Musculoskeletal: No joint swelling or deformity. - Labs CBC & Chem 7: 06/12/22 08:13 06/12/22 08:13 Labs: Abnormal Lab Results - Last 24 Hours (Table) 06/12/22 06/13/22 06/13/22 Range/Units 20:10 06:01 11:47 POC Glucose (mg/dL) 152 H 130 H 422 H (70-110) mg/dL Microbiology - Last 24 Hours (Table) 06/10/22 23:37 Urine Culture - Final Urine,Voided Escherichia coli 06/10/22 22:30 Blood Culture - Preliminary Blood No Growth after 48 hours 06/10/22 22:45 Blood Culture - Preliminary Blood No Growth after 48 hours Assessment and Plan Assessment: New onset generalized seizures. Lactic acidosis. Resolved. Anion gap metabolic acidosis secondary to lactic acidosis Acute urinary tract infection with E. 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 Dementia with baseline mental status oriented x1 History of VRE urinary tract infection Fibromyalgia Hypothyroidism Depression DVT prophylaxis patient is already on full anticoagulation Obesity with BMI 39.7 Plan: Patient will be continued telemetry monitoring. Start him back metoprolol and Cardizem. Continue with Eliquis. Patient was given a dose of IV Keppra in the ER and continued Keppra as per neurology recommendations. EEG showed cortical irritability and tendency for seizure activity.. Continue with ceftriaxone and urine culture showed E. coli and sensitive to ceftriaxone.. Continue all home medications. Prognosis is guarded with multiple medical problems and comorbid conditions. Anticipate discharge back to ECF. Time with Patient: Greater than 30
[2022-06-14 11:57] LABS: Basophils % (A) 0 %; Eosinophils # (A) 0.1 k/uL (0-0.7); Eosinophils % (A) 1 %; HCT 42.2 % (34.0-46.0); HGB 13.6 gm/dL (11.4-16.0); Lymphocytes # (A) 1.8 k/uL (1.0-4.8); Lymphocytes % (A) 14 %; MCH 30.4 pg (25.0-35.0); MCHC 32.3 g/dL (31.0-37.0); MCV 94.3 fL (80.0-100.0); Mean Platelet Volume 8.6; Monocytes # (A) 0.7 k/uL (0-1.0); Monocytes % (A) 6 %; Neutrophils # (A) 9.6 k/uL (1.3-7.7); Neutrophils % (A) 78 %; Platelet Count 270 k/uL (150-450); RBC 4.48 m/uL (3.80-5.40); WBC 12.4 k/uL (3.8-10.6)
[2022-06-14 11:59] LABS: Glucose,Whole Blood 142 mg/dL (70-110)
[2022-06-14 12:07] LABS: African American GFR (CKD) >90 (>60 ml/min/1.73 sqM); Anion Gap 10 mmol/L; Blood Urea Nitrogen 10 mg/dL (7-17); Calcium 8.4 mg/dL (8.4-10.2); Carbon Dioxide 24 mmol/L (22-30); Chloride 105 mmol/L (98-107); Glucose 166 mg/dL (74-99); Non-African American GFR(CKD) 90 (>60 ml/min/1.73 sqM); Potassium 3.5 mmol/L (3.5-5.1); Sodium 139 mmol/L (137-145)
[2022-06-14 16:22] LABS: Glucose,Whole Blood 154 mg/dL (70-110)
[2022-06-14 20:04] LABS: Glucose,Whole Blood 217 mg/dL (70-110)
[2022-06-14] MEDS: ATORVASTATIN 40 MG TAB PO SCH (20:59)
[2022-06-14] MEDS: traZODone HCL 50 MG TAB PO SCH (20:59)
[2022-06-15 06:23] LABS: Glucose,Whole Blood 125 mg/dL (70-110)
[2022-06-15] MEDS: INSULIN ASPART (NovoLOG) 100 UNIT/ML VIAL SQ SCH ×3 (06:54→17:29)
[2022-06-15] MEDS: LEVOTHYROXINE 100 MCG TAB PO SCH (06:59)
[2022-06-15] MEDS: DILTIAZEM ORAL 60 MG TAB PO SCH ×2 (06:59→15:35)
[2022-06-15] MEDS: LACTATED RINGERS 1,000 ML IV SCH ×2 (09:01→12:56)
[2022-06-15] MEDS: METOPROLOL TARTRATE 50 MG TAB PO SCH ×2 (09:06→17:29)
[2022-06-15] MEDS: APIXABAN 5 MG TAB PO SCH ×2 (09:06→17:28)
[2022-06-15] MEDS: levETIRAcetam 500 MG TAB PO SCH (09:06)
[2022-06-15 09:10] LABS: Basophils # (A) 0.1 k/uL (0-0.2); Basophils % (A) 0 %; Eosinophils # (A) 0.2 k/uL (0-0.7); Eosinophils % (A) 1 %; HCT 44.1 % (34.0-46.0); HGB 13.7 gm/dL (11.4-16.0); Hypochromasia Moderate; Lymphocytes # (A) 2.5 k/uL (1.0-4.8); Lymphocytes % (A) 18 %; MCH 30.1 pg (25.0-35.0); Mean Platelet Volume 8.4; Monocytes # (A) 0.6 k/uL (0-1.0); Monocytes % (A) 5 %; Neutrophils # (A) 9.9 k/uL (1.3-7.7); Neutrophils % (A) 73 %; Platelet Count 283 k/uL (150-450); RBC 4.54 m/uL (3.80-5.40); WBC 13.6 k/uL (3.8-10.6)
[2022-06-15 09:26] LABS: African American GFR (CKD) >90 (>60 ml/min/1.73 sqM); Anion Gap 10 mmol/L; Blood Urea Nitrogen 10 mg/dL (7-17); Calcium 8.9 mg/dL (8.4-10.2); Carbon Dioxide 23 mmol/L (22-30); Chloride 109 mmol/L (98-107); Glucose 202 mg/dL (74-99); Non-African American GFR(CKD) 89 (>60 ml/min/1.73 sqM); Potassium 3.6 mmol/L (3.5-5.1); Sodium 142 mmol/L (137-145)
[2022-06-15 11:45] LABS: Glucose,Whole Blood 176 mg/dL (70-110)
--- NOTE | 2022-06-15 14:06 | P.PN ---
Subjective Progress Note Date: 06/14/22 Patient is a 82-year-old female with a known history of CVA with expressive aphasia, hypertension, diabetes type 2, paroxysmal atrial fibrillation on anticoagulation with Eliquis, hypothyroidism, depression and other multiple medical problems, including dementia with baseline mental status alert oriented x1 was brought to the hospital from extended Care facility due to generalized seizures and shaking movements. Patient was given 10 mg of Versed by paramedics. On admission patient was febrile with T- max 100.1 with increased heart rate 147 and respiratory 48 and pulse ox 92% on room air. Patient did not have any nausea vomiting or diarrhea. No cough or sputum production. No complaints of chest pain or shortness of breath. History could not be obtained from the patient due to baseline mental status. Chest x-ray showed there is mild pulmonary vascular congestion slightly increased compared to last exam. No obvious heart failure however. No pulmonary consolidation. EKG showed atrial fibrillation with rapid regular rate with heart rate 140 CT head showed large old left MCA infarct without change. Cerebral atrophy and chronic small vessel ischemic changes Laboratory data showed WBC 15.2 hemoglobin 13.9 and platelets 351 Sodium 142 potassium 4.6 chloride 102 bicarb is 39 BUN 12 and anion gap 27 and creatinine 0.9 blood sugar 214 and lactic acid 14.0 and Liver enzymes are not elevated and TSH 1.0 urinalysis showed turbid with 4+ protein and trace ketones and nitrite positive and elevated RBCs and WBCs and large leukocyte esterase Coronavirus PCR not detected. 06/12/2022 Patient is currently lying in the bed comfortably. Awake alert but pleasantly confused. No further episodes of seizures while in the hospital. Patient is being continued on Keppra. EKG showed abnormal EEG due to presence of focal slowing with focal epileptiform activity over the left temporal region. This is suggestive of focal cortical neuronal dysfunction with underlying cortical irritability and tendency for seizures. Patient has been afebrile. Tolerating oral diet with assistance. as of nausea vomiting or diarrhea. No cough or sputum production. No complaints of chest pain. Urine cultures showing gram-negative bacilli. Final culture report is pending. Patient is being continued on antibiotics ceftriaxone. Afebrile. No complaints of abdominal pain. 06/13/2022 Patient is currently in the bed. Awake alert and mental status is at baseline. No dysarthria or episodes of seizure activity noted. Afebrile. No nausea vomiting abdominal pain and diarrhea. No cough or sputum production. Patient is on ceftriaxone and urine cultures showed E. coli and is sensitive. Anticipate back to ECF in next 24-48 hours. No other acute overnight issues. No chest pain or shortness of breath. 06/14/2022 Patient is currently lying in the bed. Mentation is at baseline. No further episodes of seizures. Tolerating oral diet with one-to-one feeding. complains of nausea vomiting. No chest pain or shortness of breath. No cough or sputum production. Patient is being covered on ceftriaxone for E. coli urinary tract infection. ID is on board. Anticipate discharge back to ECF in the next 24 hours with oral antibiotic course. Laboratory data reviewed. Current medications reviewed. Objective - Vital Signs Vital signs: Vital Signs Temp 99.3 F 06/14/22 15:43 Pulse 79 06/14/22 15:43 Resp 18 06/14/22 15:43 BP 149/80 06/14/22 15:43 Pulse Ox 95 06/14/22 15:43 FiO2 Intake & Output 06/13/22 06/14/22 06/14/22 19:59 06:59 18:59 Intake Total 220 Output Total 2049 Balance -183 Intake: IV 20 Invasive Line 2 20 Oral 200 Output: Urine 2049 Other: Voiding Method Indwelling Catheter - Exam PHYSICAL EXAMINATION: Patient is lying in the bed comfortably, no acute distress, awake alert and oriented x1.. HEENT: Normocephalic. Neck is supple. Pupils reactive. Nostrils clear. Oral cavity is moist. Neck reveals no JVD, carotid bruits, or thyromegaly. CHEST EXAMINATION: Trachea is central. Symmetrical expansion. Lung stern clear to auscultation and percussion. CARDIAC: Normal S1, S2 with no gallops. No murmurs ABDOMEN: Soft. Bowel sounds present. Nontender. No organomegaly. No abdominal bruits. Extremities: reveal no edema. No clubbing or cyanosis Neurologically awake, alert, oriented x1. Underlying dementia. Able to move extremities while in bed. Skin: No rash or skin lesions. Psychiatric: Coperative. Could not be assessed completely. Musculoskeletal: No joint swelling or deformity. - Labs CBC & Chem 7: 06/15/22 08:23 06/15/22 08:23 Labs: Abnormal Lab Results - Last 24 Hours (Table) 06/14/22 06/14/22 06/14/22 Range/Units 05:52 10:24 10:24 WBC 12.4 H (3.8-10.6) k/uL Neutrophils # 9.6 H (1.3-7.7) k/uL Creatinine 0.49 L (0.52-1.04) mg/dL Glucose 166 H (74-99) mg/dL POC Glucose (mg/dL) 139 H (70-110) mg/dL 06/14/22 06/14/22 Range/Units 11:45 16:20 WBC (3.8-10.6) k/uL Neutrophils # (1.3-7.7) k/uL Creatinine (0.52-1.04) mg/dL Glucose (74-99) mg/dL POC Glucose (mg/dL) 142 H 154 H (70-110) mg/dL Microbiology - Last 24 Hours (Table) 06/10/22 22:30 Blood Culture - Preliminary Blood No Growth after 72 hours 06/10/22 22:45 Blood Culture - Preliminary Blood No Growth after 72 hours Assessment and Plan Assessment: New onset generalized seizures. Lactic acidosis. Resolved. Anion gap metabolic acidosis secondary to lactic acidosis. Resolved. Acute urinary tract infection with E. 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 Dementia with baseline mental status oriented x1 History of VRE urinary tract infection Fibromyalgia Hypothyroidism Depression DVT prophylaxis patient is already on full anticoagulation Obesity with BMI 39.7 Plan: Patient will be continued telemetry monitoring. Started back metoprolol and Cardizem. Continue with Eliquis. Patient was given a dose of IV Keppra in the ER and continued Keppra as per neurology recommendations. EEG showed cortical irritability and tendency for seizure activity.. Continue with ceftriaxone and urine culture showed E. coli and sensitive to ceftriaxone.. Continue all home medications. Prognosis is guarded with multiple medical pro blems and comorbid conditions. Anticipate discharge back to ECF. Time with Patient: Greater than 30
--- NOTE | 2022-06-15 14:35 | P.DS ---
Providers Date of admission: 06/11/22 00:59 Expected date of discharge: 06/15/22 Attending physician: Derrell iMguel MD Consults: 06/11/22 00:59 Consult Physician Routine Consulting Provider: Mattie Lindquist Consult Reason/Comments: New onset seizure Do you want consulting provider notified?: Yes Consult Physician Routine Consulting Provider: Penelope Underwood Consult Reason/Comments: UTI, sepsis Do you want consulting provider notified?: Yes Primary care physician: [facility] Course: Discharge diagnosis New onset generalized seizures. Started on Keppra twice a day. Lactic acidosis. Resolved. Anion gap metabolic acidosis secondary to lactic acidosis. Resolved. Acute urinary tract infection with E. 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 Dementia with baseline mental status oriented x1 History of VRE urinary tract infection Fibromyalgia Hypothyroidism Depression DVT prophylaxis patient is already on full anticoagulation Obesity with BMI 39.7 Hospital course Patient is a 82-year-old female with a known history of CVA with expressive aphasia, hypertension, diabetes type 2, paroxysmal atrial fibrillation on anticoagulation with Eliquis, hypothyroidism, depression and other multiple medical problems, including dementia with baseline mental status alert oriented x1 was brought to the hospital from extended Care facility due to generalized seizures and shaking movements. Patient was given 10 mg of Versed by paramedics. On admission patient was febrile with T- max 100.1 with increased heart rate 147 and respiratory 48 and pulse ox 92% on room air. Patient did not have any nausea vomiting or diarrhea. No cough or sputum production. No complaints of chest pain or shortness of breath. History could not be obtained from the patient due to baseline mental status. Chest x-ray showed there is mild pulmonary vascular congestion slightly increased compared to last exam. No obvious heart failure however. No pulmonary consolidation. EKG showed atrial fibrillation with rapid regular rate with heart rate 140 CT head showed large old left MCA infarct without change. Cerebral atrophy and chronic small vessel ischemic changes Laboratory data showed WBC 15.2 hemoglobin 13.9 and platelets 351 Sodium 142 potassium 4.6 chloride 102 bicarb is 39 BUN 12 and anion gap 27 and creatinine 0.9 blood sugar 214 and lactic acid 14.0 and Liver enzymes are not elevated and TSH 1.0 urinalysis showed turbid with 4+ protein and trace ketones and nitrite positive and elevated RBCs and WBCs and large leukocyte esterase Coronavirus PCR not detected. 06/12/2022 Patient is currently lying in the bed comfortably. Awake alert but pleasantly confused. No further episodes of seizures while in the hospital. Patient is being continued on Keppra. EKG showed abnormal EEG due to presence of focal slowing with focal epileptiform activity over the left temporal region. This is suggestive of focal cortical neuronal dysfunction with underlying cortical irritability and tendency for seizures. Patient has been afebrile. Tolerating oral diet with assistance. as of nausea vomiting or diarrhea. No cough or sputum production. No complaints of chest pain. Urine cultures showing gram-negative bacilli. Final culture report is pending. Patient is being continued on antibiotics ceftriaxone. Afebrile. No complaints of abdominal pain. 06/13/2022 Patient is currently in the bed. Awake alert and mental status is at baseline. No dysarthria or episodes of seizure activity noted. Afebrile. No nausea vomiting abdominal pain and diarrhea. No cough or sputum production. Patient is on ceftriaxone and urine cultures showed E. coli and is sensitive. Anticipate back to ECF in next 24-48 hours. No other acute overnight issues. No chest pain or shortness of breath. 06/14/2022 Patient is currently lying in the bed. Mentation is at baseline. No further episodes of seizures. Tolerating oral diet with one-to-one feeding. complains of nausea vomiting. No chest pain or shortness of breath. No cough or sputum production. Patient is being covered on ceftriaxone for E. coli urinary tract infection. ID is on board. Anticipate discharge back to ECF in the next 24 hours with oral antibiotic course. Laboratory data reviewed. 06/15/2022 Patient is lying in the bed. Awake alert and mental status is at baseline. Patient does have underlying dementia. Pleasantly confused. No complains of nausea vomiting or abdominal pain or diarrhea. No chest pain or shortness of breath. Patient has been afebrile. Next and continue with antibiotic course with Ceftin for 3 more days. IV fluids have been discontinued. Laboratory data showed WBC 13.6 today. Patient did improve clinically. Cleared from ID standpoint and is being discharged to ECF. PHYSICAL EXAMINATION: Patient is lying in the bed comfortably, no acute distress, awake alert and oriented x1.. HEENT: Normocephalic. Neck is supple. Pupils reactive. Nostrils clear. Oral cavity is moist. Neck reveals no JVD, carotid bruits, or thyromegaly. CHEST EXAMINATION: Trachea is central. Symmetrical expansion. Lung stern clear to auscultation and percussion. CARDIAC: Normal S1, S2 with no gallops. No murmurs ABDOMEN: Soft. Bowel sounds present. Nontender. No organomegaly. No abdominal bruits. Extremities: reveal no edema. No clubbing or cyanosis Neurologically awake, alert, oriented x1. Underlying dementia. Able to move extremities while in bed. Skin: No rash or skin lesions. Psychiatric: Coperative. Could not be assessed completely. Musculoskeletal: No joint swelling or deformity. Vital Signs 06/15/22 06/15/22 08:57 12:28 Temperature 99.1 F 98.4 F Pulse Rate [ 92 Bilateral Dorsalis Pedis] Pulse Rate [ 76 Pulse Oximetery ] Respiratory 18 15 Rate Blood Pressure 129/82 128/72 [Right Arm] O2 Sat by Pulse 94 L 94 L Oximetry Total time taken greater than 35 minutes including 18 minutes for counseling and coordination of care. Patient Condition at Discharge: Stable Plan - Discharge Summary Discharge Rx Participant: No New Discharge Prescriptions: New cefUROXime axetiL [Ceftin] 500 mg PO BID 3 Days #6 tab levETIRAcetam [Keppra] 500 mg PO Q12HR #60 tab Continue Trospium Chloride [Sanctura] 20 mg PO BID@0800,1700 Pioglitazone [Actos] 15 mg PO DAILY@0800 Levothyroxine Sodium [Synthroid] 100 mcg PO DAILY@0800 Atorvastatin [Lipitor] 40 mg PO HS tab lisinopriL [Prinivil] 10 mg PO DAILY@0800 Diltiazem Oral [Cardizem*] 60 mg PO TID@0600,1400,2100 Apixaban [Eliquis] 5 mg PO BID@0800,1700 Na Phos,M-B/Na Phos,Di-Ba [Fleet Adult] 133 ml RECTAL DAILY PRN PRN Reason: Constipation Magnesium Hydroxide [Milk of Magnesia Concentrate] 7,200 mg PO Q48H PRN PRN Reason: Constipation Caldesene Powder 1 applic TOPICAL BID Sennosides [Senokot] 8.6 mg PO BID PRN PRN Reason: Constipation Maalox Plus 30 ml PO Q6H PRN PRN Reason: Indigestion busPIRone HCl [Buspar] 10 mg PO Q12H PRN PRN Reason: Anxiety Acetaminophen Tab [Tylenol] 650 mg PO Q4H PRN PRN Reason: Fever And/ Or Pain L.acidoph,Paracasei, B.lactis [Probiotic] 1 cap PO DAILY@0800 traZODone HCL [Desyrel] 25 mg PO HS Milnacipran HCl [Savella] 100 mg PO BID@0800,1700 metFORMIN HCL 500 mg PO DAILY@0800 traMADol HCL 50 mg PO Q12H PRN PRN Reason: Pain Metoprolol Tartrate [Lopressor] 100 mg PO BID@0800,1700 bisacodyL 10 mg RECTAL DAILY PRN PRN Reason: Constipation Loperamide HCl [Loperamide] 2 mg PO QID PRN PRN Reason: Diarrhea Venlafaxine HCl ER [Effexor XR] 150 mg PO DAILY@0800 Sennosides [Senokot] 17.2 mg PO HS Bacitracin Zinc Oint 1 applic TOPICAL BID Discharge Medication List Levothyroxine Sodium [Synthroid] 100 mcg PO DAILY@0800 02/07/21 [History] Milnacipran HCl [Savella] 100 mg PO BID@0800,1700 02/07/21 [History] Pioglitazone [Actos] 15 mg PO DAILY@0800 02/07/21 [History] Trospium Chloride [Sanctura] 20 mg PO BID@0800,1700 02/07/21 [History] metFORMIN HCL 500 mg PO DAILY@0800 02/07/21 [History] traZODone HCL [Desyrel] 25 mg PO HS 02/07/21 [History] Atorvastatin [Lipitor] 40 mg PO HS tab 02/13/21 [Rx] Apixaban [Eliquis] 5 mg PO BID@0800,1700 02/22/21 [History] Diltiazem Oral [Cardizem*] 60 mg PO TID@0600,1400,2100 02/22/21 [History] Magnesium Hydroxide [Milk of Magnesia Concentrate] 7,200 mg PO Q48H PRN 02/22/21 [History] Metoprolol Tartrate [Lopressor] 100 mg PO BID@0800,1700 02/22/21 [History] Na Phos,M-B/Na Phos,Di-Ba [Fleet Adult] 133 ml RECTAL DAILY PRN 02/22/21 [History] bisacodyL 10 mg RECTAL DAILY PRN 02/22/21 [History] lisinopriL [Prinivil] 10 mg PO DAILY@0800 02/22/21 [History] traMADol HCL 50 mg PO Q12H PRN 02/22/21 [History] Acetaminophen Tab [Tylenol] 650 mg PO Q4H PRN 06/11/22 [History] Bacitracin Zinc Oint 1 applic TOPICAL BID 06/11/22 [History] Caldesene Powder 1 applic TOPICAL BID 06/11/22 [History] L.acidoph,Paracasei, B.lactis [Probiotic] 1 cap PO DAILY@0800 06/11/22 [History] Loperamide HCl [Loperamide] 2 mg PO QID PRN 06/11/22 [History] Maalox Plus 30 ml PO Q6H PRN 06/11/22 [History] Sennosides [Senokot] 8.6 mg PO BID PRN 06/11/22 [History] Sennosides [Senokot] 17.2 mg PO HS 06/11/22 [History] Venlafaxine HCl ER [Effexor XR] 150 mg PO DAILY@0800 06/11/22 [History] busPIRone HCl [Buspar] 10 mg PO Q12H PRN 06/11/22 [History] cefUROXime axetiL [Ceftin] 500 mg PO BID 3 Days #6 tab 06/15/22 [Rx] levETIRAcetam [Keppra] 500 mg PO Q12HR #60 tab 06/15/22 [Rx] Follow up Appointment(s)/Referral(s): Kalin Beltran MD [Primary Care Provider] - 1-2 days Ambulatory/Diagnostic Orders: Complete Blood Count w/diff [LAB.AMB] Time Frame: 3 Days, Location: None Selected Patient Instructions/Handouts: Seizure/Epilepsy Discharge Instructions & Follow-Up Activity/Diet/Wound Care/Special Instructions: Patient is returning to [facility] as tolerated Continue current medications Recommend repeat labs of CBC BMP in 2-3 days Discharge Disposition: TRANSFER TO SNF/ECF
[2022-06-15 15:34] VITALS: BP 142/87; PULSE 89; RESP 16; TEMP 97.1
== END 2022-06-15 18:55 | DRG 872 ==
LOC: EC 22:22 → EEVIPCON 22:22 → 3SCARD 06-11 00:59
PROVIDERS: ADMIT Internal Medicine; ATTEND Internal Medicine
PROC: 4A10X4Z Monitoring of Central Nervous Electrical Activity, External Approach (ICD-10-PCS; principal; 2022-06-11)
DX: A41.51 Sepsis due to Escherichia coli [E. coli] (principal); E87.20 Acidosis, unspecified; N39.0 Urinary tract infection, site not specified; E11.9 Type 2 diabetes mellitus without complications; I48.0 Paroxysmal atrial fibrillation; G40.909 Epilepsy, unspecified, not intractable, without status epilepticus; F03.90 Unspecified dementia, unspecified severity, without behavioral disturbance, psychotic disturbance, mood disturbance, and anxiety; Z20.822 Contact with and (suspected) exposure to COVID-19; I69.398 Other sequelae of cerebral infarction; I69.320 Aphasia following cerebral infarction; I10 Essential (primary) hypertension; E03.9 Hypothyroidism, unspecified; G93.89 Other specified disorders of brain; G31.89 Other specified degenerative diseases of nervous system; E66.9 Obesity, unspecified; M79.7 Fibromyalgia; F32.A Depression, unspecified; Z96.659 Presence of unspecified artificial knee joint; Z68.39 Body mass index [BMI] 39.0-39.9, adult; Z88.5 Allergy status to narcotic agent; Z79.890 Hormone replacement therapy; Z79.4 Long term (current) use of insulin; Z79.01 Long term (current) use of anticoagulants; Z79.899 Other long term (current) drug therapy; Z87.440 Personal history of urinary (tract) infections; Z79.84 Long term (current) use of oral hypoglycemic drugs; Z90.710 Acquired absence of both cervix and uterus
CPT/HCPCS: 36415; 70450; 71045; 80048; 80053; 81001; 83036; 83605; 83735; 84443; 85025; 85610; 85730; 87040; 87077; 87086; 87186; 87502; 87635; 93005; 95816; 96361; 96365; 96375; 99291

== ENCOUNTER 2023-07-28 02:44 | Inpatient (IN) | payer MEDICARE, OTHER ==
[2023-07-28] MEDS ORDERED: ACETAMINOPHEN TAB 500 MG TAB PO STA (02:57)
[2023-07-28] MEDS ORDERED: ACETAMINOPHEN IV (For NPO) 1,000 MG in EMPTY BAG 1 BAG IVPB ONE (03:30)
[2023-07-28 03:48] LABS: Basophils % (A) 0 %; Eosinophils # (A) 0.1 k/uL (0-0.7); Eosinophils % (A) 2 %; HCT 39.1 % (34.0-46.0); HGB 12.2 gm/dL (11.4-16.0); Hypochromasia Slight; Lymphocytes # (A) 1.4 k/uL (1.0-4.8); Lymphocytes % (A) 16 %; MCH 28.5 pg (25.0-35.0); MCHC 31.3 g/dL (31.0-37.0); MCV 90.8 fL (80.0-100.0); Mean Platelet Volume 7.6; Monocytes # (A) 0.5 k/uL (0-1.0); Monocytes % (A) 6 %; Neutrophils # (A) 6.6 k/uL (1.3-7.7); Neutrophils % (A) 75 %; Platelet Count 239 k/uL (150-450); RDW 15.1 % (11.5-15.5); WBC 8.8 k/uL (3.8-10.6)
[2023-07-28 04:01] LABS: ALT 14 U/L (4-34); AST 54 U/L (14-36); African American GFR (CKD) >90 (>60 ml/min/1.73 sqM); Albumin 4.2 g/dL (3.5-5.0); Alkaline Phosphatase 79 U/L (38-126); Anion Gap 9 mmol/L; Blood Urea Nitrogen 16 mg/dL (7-17); Calcium 8.5 mg/dL (8.4-10.2); Carbon Dioxide 23 mmol/L (22-30); Chloride 102 mmol/L (98-107); Glucose 113 mg/dL (74-99); Magnesium 1.8 mg/dL (1.6-2.3); Non-African American GFR(CKD) >90 (>60 ml/min/1.73 sqM); Sodium 134 mmol/L (137-145); Total Bilirubin 1.8 mg/dL (0.2-1.3); Total Protein 8.4 g/dL (6.3-8.2)
[2023-07-28 04:02] LABS: VBG PH 7.24 (7.31-7.41)
[2023-07-28 04:05] LABS: INR 1.1 (<1.2); Partial Thromboplastin Time 26.2 sec (22.0-30.0); Prothrombin Time 11.8 sec (10.0-12.5)
[2023-07-28 04:10] LABS: NT-Pro-B-Type Natriuretic Pept 1640 pg/mL
[2023-07-28] MEDS ORDERED: AZITHROMYCIN 500 MG in SODIUM CHLORIDE 0.9% 250 ML IVPB STA (05:50)
[2023-07-28] MEDS ORDERED: NALOXONE 0.4 MG/ML 1 ML VIAL IV PRN (05:51)
[2023-07-28] MEDS ORDERED: ACETAMINOPHEN TAB 325 MG TAB PO PRN (05:51)
[2023-07-28 06:03] LABS: Appearance,Urine Cloudy (Clear); Bacteria,Urine Many /hpf; Bilirubin,Urine Negative (Negative); Blood,Urine Negative (Negative); Color,Urine Yellow; Glucose,Urine (UA) Negative (Negative); Ketones,Urine Negative (Negative); Leukocyte Esterase,Urine Large (Negative); Mucus,Urine Few /hpf; Nitrite,Urine Negative (Negative); Protein,Urine Trace (Negative); RBC,Urine 2 /hpf (0-5); Specific Gravity,Urine 1.023 (1.001-1.035); Squamous Epithelial Cell,Urine 1 /hpf (0-4); Urobilinogen,Urine <2.0 mg/dL (<2.0); WBC,Urine 136 /hpf (0-5)
[2023-07-28] MEDS: SODIUM CHLORIDE 0.9% 1,000 ML IV SCH (06:16)
--- NOTE | 2023-07-28 06:18 | ED ---
General Adult HPI - General Chief complaint: Shortness of Breath Stated complaint: SOB Time Seen by Provider: 07/28/23 02:49 Source: EMS, RN notes reviewed, old records reviewed Mode of arrival: EMS - History of Present Illness Initial comments: Patient is an 83 year old female with past medical history remarkable for dementia, atrial fibrillation, diabetes, hypertension who presents emergency Department for increased work of breathing, fevers from her nursing facility. Presents from [facility]. Unable to provide much history. Apparently since last night has been having increased work of breathing, cough, fevers. Presents for further evaluation at this time. She is at baseline mental status. - Related Data Home Medications Medication Instructions Recorded Confirmed Levothyroxine Sodium [Synthroid] 100 mcg PO DAILY@0800 02/07/21 06/11/22 Milnacipran HCl [Savella] 100 mg PO BID@0800,1700 02/07/21 06/11/22 Pioglitazone [Actos] 15 mg PO DAILY@0800 02/07/21 06/11/22 Trospium Chloride [Sanctura] 20 mg PO BID@0800,1700 02/07/21 06/11/22 metFORMIN HCL 500 mg PO DAILY@0800 02/07/21 06/11/22 traZODone HCL [Desyrel] 25 mg PO HS 02/07/21 06/11/22 Apixaban [Eliquis] 5 mg PO BID@0800,1700 02/22/21 06/11/22 Diltiazem Oral [Cardizem*] 60 mg PO TID@0600,1400,2100 02/22/21 06/11/22 Magnesium Hydroxide [Milk of 7,200 mg PO Q48H PRN 02/22/21 06/11/22 Magnesia Concentrate] Metoprolol Tartrate [Lopressor] 100 mg PO BID@0800,1700 02/22/21 06/11/22 Na Phos,M-B/Na Phos,Di-Ba [Fleet 133 ml RECTAL DAILY PRN 02/22/21 06/11/22 Adult] bisacodyL 10 mg RECTAL DAILY PRN 02/22/21 06/11/22 lisinopriL [Prinivil] 10 mg PO DAILY@0800 02/22/21 06/11/22 traMADol HCL 50 mg PO Q12H PRN 02/22/21 06/11/22 Acetaminophen Tab [Tylenol] 650 mg PO Q4H PRN 06/11/22 06/11/22 Bacitracin Zinc Oint 1 applic TOPICAL BID 06/11/22 06/11/22 Caldesene Powder 1 applic TOPICAL BID 06/11/22 06/11/22 L.acidoph,Paracasei, B.lactis 1 cap PO DAILY@0800 06/11/22 06/11/22 [Probiotic] Loperamide HCl [Loperamide] 2 mg PO QID PRN 06/11/22 06/11/22 Maalox Plus 30 ml PO Q6H PRN 06/11/22 06/11/22 Sennosides [Senokot] 8.6 mg PO BID PRN 06/11/22 06/11/22 Sennosides [Senokot] 17.2 mg PO HS 06/11/22 06/11/22 Venlafaxine HCl ER [Effexor XR] 150 mg PO DAILY@0800 06/11/22 06/11/22 busPIRone HCl [Buspar] 10 mg PO Q12H PRN 06/11/22 06/11/22 Previous Rx's Medication Instructions Recorded Atorvastatin [Lipitor] 40 mg PO HS tab 02/13/21 cefUROXime axetiL [Ceftin] 500 mg PO BID 3 Days #6 tab 06/15/22 levETIRAcetam [Keppra] 500 mg PO Q12HR #60 tab 06/15/22 Allergies Allergy/AdvReac Type Severity Reaction Status Date / Time codeine Allergy Itching Verified 06/11/22 09:27 Review of Systems ROS Statement: Those systems with pertinent positive or pertinent negative responses have been documented in the HPI. ROS Other: All systems not noted in ROS Statement are negative. Past Medical History Past Medical History: Atrial Fibrillation, Diabetes Mellitus, Fibromyalgia, Hypertension, Thyroid Disorder Additional Past Medical History / Comment(s): sepsis, UTI, Type 2 DM, hypothyroidism History of Any Multi-Drug Resistant Organisms: VRE Date of last positivie culture/infection: 02/24/21 MDRO Source:: VRE URINE Past Surgical History: Hysterectomy Additional Past Surgical History / Comment(s): Knee replacement Past Anesthesia/Blood Transfusion Reactions: No Reported Reaction Past Psychological History: Depression Smoking Status: Never smoker Past Alcohol Use History: None Reported Past Drug Use History: None Reported General Exam - General Exam Comments Initial Comments: General: Appears in moderate respiratory distress. febrile. HEAD: Normal with no signs of head trauma. EYES: PERRLA, EOMI, conjunctiva normal, no discharge. ENT: Hearing grossly intact, normal oropharynx. RESPIRATORY: Increased work of breathing. Patient has accessory muscle usage. Increased respiratory rate in the 30s. No significant diminished breath sounds. Mildly coarse breath sounds bilaterally. No significant hypoxia on CPAP. C/V: Tachycardic. S1 and S2 auscultated, symmetrical lower extremity pitting edema, peripheral pulses 2+ and intact throughout ABD: Abd is soft, nontender, nondistended EXT: Normal range of motion, no obvious deformity SKIN: No rashes or lesions observed on exposed skin. NEURO: Alert and oriented x1 which is her baseline. Course Vital Signs 07/28/23 07/28/23 07/28/23 02:53 03:03 03:09 Temperature 101.6 F H Pulse Rate 103 H Respiratory 30 H Rate Blood Pressure 169/99 O2 Sat by Pulse 97 Oximetry Fraction of 70 50 Inspired Oxygen (FIO2) 07/28/23 07/28/23 07/28/23 03:43 04:00 04:15 Temperature 99.2 F Pulse Rate 115 H Respiratory 24 Rate Blood Pressure 164/97 O2 Sat by Pulse 99 Oximetry Fraction of 40 Inspired Oxygen (FIO2) 07/28/23 06:17 Temperature Pulse Rate 886 H Respiratory 24 Rate Blood Pressure 138/82 O2 Sat by Pulse 99 Oximetry Fraction of Inspired Oxygen (FIO2) Medical Decision Making - Medical Decision Making Was pt. sent in by a medical professional or institution (, PA, AUTOMATIC CHIEF, urgent c are, hospital, or detention...) When possible be specific @ -Sent from [facility] for fever and increased work of breathing Did you speak to anyone other than the patient for history (EMS, parent, family, police, friend...)? What history was obtained from this source @ -No Did you review nursing and triage notes (agree or disagree)? Why? @ -I reviewed and agree with nursing and triage notes Were old charts reviewed (outside hosp., previous admission, EMS record, old EKG, old radiological studies, urgent care reports/EKG's, detention records)? Report findings @ -Old charts reviewed Differential Diagnosis (chest pain, altered mental status, abdominal pain women, abdominal pain men, vaginal bleeding, weakness, fever, dyspnea, syncope, headache, dizziness, GI bleed, back pain, seizure, CVA, palpatations, mental health, musculoskeletal)? @ -Differential Dyspnea: Coronary syndrome, arrhythmia, tamponade, asthma, COPD, pulmonary embolism, pneumonia, pneumothorax, pulmonary effusion, anaphylaxis, diabetic ketoacidosis, flailed chest, pulmonary contusion, diaphragmatic rupture, anemia, neuromuscular, this is not meant to be an all-inclusive list. EKG interpreted by me (3pts min.). @ -As above X-rays interpreted by me (1pt min.). @ -Chest x-ray reveals no significant cardiopulmonary process. Appears overall improved when compared with prior chest x-rays. CT interpreted by me (1pt min.). @ -None done U/S interpreted by me (1pt. min.). @ -None done What testing was considered but not performed or refused? (CT, X-rays, U/S, labs)? Why? @ -None What meds were considered but not given or refused? Why? @ -None Did you discuss the management of the patient with other professionals (professionals i.e. , PA, AUTOMATIC CHIEF, lab, RT, psych nurse, sr. social media & mobile manager, health careers instructor, teacher, unclaimed property officer, outsole caser)? Give summary @ - Spoke with the admitting physician, KATELYNN hickey of [facility] who accepted the admission. Was smoking cessation discussed for >3mins.? @ -No Was critical care preformed (if so, how long)? @ -Yes, 35 min Were there social determinants of health that impacted care today? How? (Homelessness, low income, unemployed, alcoholism, drug addiction, transportation, low edu. Level, literacy, decrease access to med. care, residential, rehab)? @ -No Was there de-escalation of care discussed even if they declined (Discuss DNR or withdrawal of care, Hospice)? DNR status @ -No What co-morbidities impacted this encounter? (DM, HTN, Smoking, COPD, CAD, Cancer, CVA, ARF, Chemo, Hep., AIDS, mental health diagnosis, sleep apnea, morbid obesity)? @ -None Was patient admitted / discharged? Hospital course, mention meds given and route, prescriptions, significant lab abnormalities, going to OR and other pertinent info. @ -Based on the patient's presentation and physical exam, presents with increased work of breathing. Respiratory rates in the 30s. Febrile. We will transition the patient a BiPAP from CPAP. We will obtain dyspneic workup. She is demented and therefore limited historian. Vital signs otherwise within acceptable limits. EKG shows no signs of acute ischemia. Shows A. fib which is chronic. Chest x-ray shows no significant infiltrate or acute cardio pulmonary process. Patient's laboratory studies are remarkable for an undetectable troponin. BNP is not elevated for her age. Patient is RSV positive. Urinalysis remarkable for leukocyte esterase as well as 136 over the bases. Many bacteria as well. Appears to be having a UTI. On reevaluation, patient is resting comfortably at this time. We will continue BiPAP until evaluation by pulmonology in the morning. Patient was started on IV Rocephin and azithromycin for empiric pneumonia as well as UTI. Patient agreement this plan. She does have a history of CHF and we will avoid volume overloading the patient. Does not require fluids at this time. Spoke with the admitting physician, KATELYNN hickey of [facility] who accepted the admission. Undiagnosed new problem with uncertain prognosis? @ -No Drug Therapy requiring intensive monitoring for toxicity (Heparin, Nitro, Insulin, Cardizem)? @ -No Were any procedures done? @ -No Diagnosis/symptom? @ -UTI, respiratory failure requiring BiPAP, RSV infection, febrile illness Acute, or Chronic, or Acute on Chronic? @ -Acute Uncomplicated (without systemic symptoms) or Complicated (systemic symptoms)? @ -Complicated Side effects of treatment? @ -No Exacerbation, Progression, or Severe Exacerbation? @ -No Poses a threat to life or bodily function? How? (Chest pain, USA, IA, pneumonia, PE, COPD, DKA, ARF, appy, cholecystitis, CVA, Diverticulitis, Homicidal, Suicidal, threat to staff... and all critical care pts) @ -Yes - Lab Data Result diagrams: 07/28/23 03:32 07/28/23 03:32 Lab Results 07/28/23 07/28/23 07/28/23 Range/Units 03:32 03:32 03:32 WBC 8.8 (3.8-10.6) k/uL RBC 4.30 (3.80-5.40) m/uL Hgb 12.2 (11.4-16.0) gm/dL Hct 39.1 (34.0-46.0) % MCV 90.8 (80.0-100.0) fL MCH 28.5 (25.0-35.0) pg MCHC 31.3 (31.0-37.0) g/dL RDW 15.1 (11.5-15.5) % Plt Count 239 (150-450) k/uL MPV 7.6 Neutrophils % 75 % Lymphocytes % 16 % Monocytes % 6 % Eosinophils % 2 % Basophils % 0 % Neutrophils # 6.6 (1.3-7.7) k/uL Lymphocytes # 1.4 (1.0-4.8) k/uL Monocytes # 0.5 (0-1.0) k/uL Eosinophils # 0.1 (0-0.7) k/uL Basophils # 0.0 (0-0.2) k/uL Hypochromasia Slight PT 11.8 (10.0-12.5) sec INR 1.1 (<1.2) APTT 26.2 (22.0-30.0) sec VBG pH (7.31-7.41) VBG pCO2 (37-51) mmHg VBG HCO3 (24-28) mmol/L Sodium 134 L (137-145) mmol/L Potassium (3.5-5.1) mmol/L Chloride 102 (98-107) mmol/L Carbon Dioxide 23 (22-30) mmol/L Anion Gap 9 mmol/L BUN 16 (7-17) mg/dL Creatinine 0.47 L (0.52-1.04) mg/dL Est GFR (CKD-EPI)AfAm >90 (>60 ml/min/1.73 sqM) Est GFR (CKD-EPI)NonAf >90 (>60 ml/min/1.73 sqM) Glucose 113 H (74-99) mg/dL Plasma Lactic Acid [place] (0.7-2.0) mmol/L Calcium 8.5 (8.4-10.2) mg/dL Magnesium 1.8 (1.6-2.3) mg/dL Total Bilirubin 1.8 H (0.2-1.3) mg/dL AST 54 H (14-36) U/L ALT 14 (4-34) U/L Alkaline Phosphatase 79 (38-126) U/L Troponin I (0.000-0.034) ng/mL NT-Pro-B Natriuret Pep 1640 pg/mL Total Protein 8.4 H (6.3-8.2) g/dL Albumin 4.2 (3.5-5.0) g/dL Urine Color Urine Appearance (Clear) Urine pH (5.0-8.0) Ur Specific [place] (1.001-1.035) Urine Protein (Negative) Urine Glucose (UA) (Negative) Urine Ketones (Negative) Urine Blood (Negative) Urine Nitrite (Negative) Urine Bilirubin (Negative) Urine Urobilinogen (<2.0) mg/dL Ur Leukocyte Esterase (Negative) Urine RBC (0-5) /hpf Urine WBC (0-5) /hpf Ur Squamous Epith Cells (0-4) /hpf Urine Bacteria (None) /hpf Urine Mucus (None) /hpf Influenza Type A (PCR) (Not Detectd) Influenza Type B (PCR) (Not Detectd) RSV (PCR) (Not Detectd) SARS-CoV-2 (PCR) (Not Detectd) 07/28/23 07/28/23 07/28/23 Range/Units 03:32 03:32 03:32 WBC (3.8-10.6) k/uL RBC (3.80-5.40) m/uL Hgb (11.4-16.0) gm/dL Hct (34.0-46.0) % MCV (80.0-100.0) fL MCH (25.0-35.0) pg MCHC (31.0-37.0) g/dL RDW (11.5-15.5) % Plt Count (150-450) k/uL MPV Neutrophils % % Lymphocytes % % Monocytes % % Eosinophils % % Basophils % % Neutrophils # (1.3-7.7) k/uL Lymphocytes # (1.0-4.8) k/uL Monocytes # (0-1.0) k/uL Eosinophils # (0-0.7) k/uL Basophils # (0-0.2) k/uL Hypochromasia PT (10.0-12.5) sec INR (<1.2) APTT (22.0-30.0) sec VBG pH 7.24 L (7.31-7.41) VBG pCO2 40 (37-51) mmHg VBG HCO3 17 L (24-28) mmol/L Sodium (137-145) mmol/L Potassium (3.5-5.1) mmol/L Chloride (98-107) mmol/L Carbon Dioxide (22-30) mmol/L Anion Gap mmol/L BUN (7-17) mg/dL Creatinine (0.52-1.04) mg/dL Est GFR (CKD-EPI)AfAm (>60 ml/min/1.73 sqM) Est GFR (CKD-EPI)NonAf (>60 ml/min/1.73 sqM) Glucose (74-99) mg/dL Plasma Lactic Acid [place] 1.1 (0.7-2.0) mmol/L Calcium (8.4-10.2) mg/dL Magnesium (1.6-2.3) mg/dL Total Bilirubin (0.2-1.3) mg/dL AST (14-36) U/L ALT (4-34) U/L Alkaline Phosphatase (38-126) U/L Troponin I <0.012 (0.000-0.034) ng/mL NT-Pro-B Natriuret Pep pg/mL Total Protein (6.3-8.2) g/dL Albumin (3.5-5.0) g/dL Urine Color Urine Appearance (Clear) Urine pH (5.0-8.0) Ur Specific [place] (1.001-1.035) Urine Protein (Negative) Urine Glucose (UA) (Negative) Urine Ketones (Negative) Urine Blood (Negative) Urine Nitrite (Negative) Urine Bilirubin (Negative) Urine Urobilinogen (<2.0) mg/dL Ur Leukocyte Esterase (Negative) Urine RBC (0-5) /hpf Urine WBC (0-5) /hpf Ur Squamous Epith Cells (0-4) /hpf Urine Bacteria (None) /hpf Urine Mucus (None) /hpf Influenza Type A (PCR) (Not Detectd) Influenza Type B (PCR) (Not Detectd) RSV (PCR) (Not Detectd) SARS-CoV-2 (PCR) (Not Detectd) 07/28/23 07/28/23 Range/Units 04:09 05:04 WBC (3.8-10.6) k/uL RBC (3.80-5.40) m/uL Hgb (11.4-16.0) gm/dL Hct (34.0-46.0) % MCV (80.0-100.0) fL MCH (25.0-35.0) pg MCHC (31.0-37.0) g/dL RDW (11.5-15.5) % Plt Count (150-450) k/uL MPV Neutrophils % % Lymphocytes % % Monocytes % % Eosinophils % % Basophils % % Neutrophils # (1.3-7.7) k/uL Lymphocytes # (1.0-4.8) k/uL Monocytes # (0-1.0) k/uL Eosinophils # (0-0.7) k/uL Basophils # (0-0.2) k/uL Hypochromasia PT (10.0-12.5) sec INR (<1.2) APTT (22.0-30.0) sec VBG pH (7.31-7.41) VBG pCO2 (37-51) mmHg VBG HCO3 (24-28) mmol/L Sodium (137-145) mmol/L Potassium (3.5-5.1) mmol/L Chloride (98-107) mmol/L Carbon Dioxide (22-30) mmol/L Anion Gap mmol/L BUN (7-17) mg/dL Creatinine (0.52-1.04) mg/dL Est GFR (CKD-EPI)AfAm (>60 ml/min/1.73 sqM) Est GFR (CKD-EPI)NonAf (>60 ml/min/1.73 sqM) Glucose (74-99) mg/dL Plasma Lactic Acid [place] (0.7-2.0) mmol/L Calcium (8.4-10.2) mg/dL Magnesium (1.6-2.3) mg/dL Total Bilirubin (0.2-1.3) mg/dL AST (14-36) U/L ALT (4-34) U/L Alkaline Phosphatase (38-126) U/L Troponin I (0.000-0.034) ng/mL NT-Pro-B Natriuret Pep pg/mL Total Protein (6.3-8.2) g/dL Albumin (3.5-5.0) g/dL Urine Color Yellow Urine Appearance Cloudy H (Clear) Urine pH 7.0 (5.0-8.0) Ur Specific [place] 1.023 (1.001-1.035) Urine Protein Trace H (Negative) Urine Glucose (UA) Negative (Negative) Urine Ketones Negative (Negative) Urine Blood Negative (Negative) Urine Nitrite Negative (Negative) Urine Bilirubin Negative (Negative) Urine Urobilinogen <2.0 (<2.0) mg/dL Ur Leukocyte Esterase Large H (Negative) Urine RBC 2 (0-5) /hpf Urine WBC 136 H (0-5) /hpf Ur Squamous Epith Cells 1 (0-4) /hpf Urine Bacteria Many H (None) /hpf Urine Mucus Few H (None) /hpf Influenza Type A (PCR) Not Detected (Not Detectd) Influenza Type B (PCR) Not Detected (Not Detectd) RSV (PCR) Detected A (Not Detectd) SARS-CoV-2 (PCR) Not Detected (Not Detectd) - EKG Data -: EKG Interpreted by Me EKG Comments: 12-lead Electrocardiogram Interpretation Note EKG was reviewed and interpreted by myself. 12-lead ECG performed at 0247 is interpreted by me as revealing atrial fibrillation at a rate of 111 beats per minute. [place] is normal. QRS duration 78 ms, QTc is 392 ms.. There were no ST or T wave abnormalities to suggest myocardial ischemia or injury. R wave progression across the precordium was satisfactory. By my interpretation this EKG is non-diagnostic for acute ischemia. Critical Care Time Critical Care Time: Yes Total Critical Care Time: 35 Disposition Clinical Impression: Respiratory failure, UTI (urinary tract infection), RSV (respiratory syncytial virus infection), Febrile illness, acute Disposition: ADMITTED IP TO THIS HOSP Condition: Stable Time of Disposition: 05:41
--- NOTE | 2023-07-28 07:17 | XR ---
EXAMINATION TYPE: XR chest 1V portable DATE OF EXAM: 07/28/2023 3:21 AM CLINICAL INDICATION:Female, 83 years old with history of dyspnea; [facility] COMPARISON: Chest radiographs from 06/10/2022 TECHNIQUE: XR chest 1V portable Frontal view of the chest. FINDINGS: Lungs/Pleura: There is no evidence of pleural effusion, focal consolidation, or pneumothorax. Pulmonary vascularity: Unremarkable. Heart/mediastinum: Cardiomediastinal silhouette is enlarged and stable. Musculoskeletal: No acute osseous pathology. IMPRESSION: No acute cardiopulmonary disease/process.
[2023-07-28] MEDS ORDERED: IPRATROPIUM-ALBUTEROL 3 ML NEB INHALATION STA (08:05)
--- NOTE | 2023-07-28 08:11 | P.HPIM ---
History of Present Illness This is a pleasant 83 years old female with multiple medical problems as below. Sent from [facility] for respiratory distress of one-day duration since 1 PM. Patient herself is poor historian. She is currently on BiPAP which limits her ability to come to gait but she opens eyes to take Tectile and verbal stimuli's. She smiles and keep nodding [id number] as he "yes" but she does not answers questions. She goes back to sleep right away. Chest mildly tachypneic and currently on BiPAP with the setting of 12/5 with Fi O2 of 40%. She does not have suprapubic tenderness. No leg edema. Other history is limited because of patient condition. However she is having significant wheezing bilaterally. On admission patient had a fever of 101.6. She is tachycardic around 100 for 15 and tachypneic at 24 breaths per minute. Labs reviewed showing unremarkable CBC, INR, BMP, LFTs and troponin are negative. 10 with no leukocytosis and WBCs 8.8. Total bili is mildly elevated 1.8. Patient has a low pH of 7.2, HCO3 is low at 17 with normal pCO2 Patient received antibiotics of Rocephin and continued with same dose of ceftriaxone. Also received 1 time dose of Zithromax Review of Systems ROS unobtainable: due to mental status Past Medical History Past Medical History: Atrial Fibrillation, Diabetes Mellitus, Fibromyalgia, Hypertension, Thyroid Disorder Additional Past Medical History / Comment(s): sepsis, UTI, Type 2 DM, hypothyroidism History of Any Multi-Drug Resistant Organisms: VRE Date of last positivie culture/infection: 02/24/21 MDRO Source:: VRE URINE Past Surgical History: Hysterectomy Additional Past Surgical History / Comment(s): Knee replacement Past Anesthesia/Blood Transfusion Reactions: No Reported Reaction Past Psychological History: Depression Smoking Status: Never smoker Past Alcohol Use History: None Reported Past Drug Use History: None Reported Medications and Allergies Home Medications Medication Instructions Recorded Confirmed Type Levothyroxine Sodium [Synthroid] 100 mcg PO DAILY@0800 02/07/21 06/11/22 History Milnacipran HCl [Savella] 100 mg PO BID@0800,1700 02/07/21 06/11/22 History Pioglitazone [Actos] 15 mg PO DAILY@0800 02/07/21 06/11/22 History Trospium Chloride [Sanctura] 20 mg PO BID@0800,1700 02/07/21 06/11/22 History metFORMIN HCL 500 mg PO DAILY@0800 02/07/21 06/11/22 History traZODone HCL [Desyrel] 25 mg PO HS 02/07/21 06/11/22 History Atorvastatin [Lipitor] 40 mg PO HS tab 02/13/21 06/11/22 Rx Apixaban [Eliquis] 5 mg PO BID@0800,1700 02/22/21 06/11/22 History Diltiazem Oral [Cardizem*] 60 mg PO TID@0600,1400,2100 02/22/21 06/11/22 History Magnesium Hydroxide [Milk of 7,200 mg PO Q48H PRN 02/22/21 06/11/22 History Magnesia Concentrate] Metoprolol Tartrate [Lopressor] 100 mg PO BID@0800,1700 02/22/21 06/11/22 History Na Phos,M-B/Na Phos,Di-Ba [Fleet 133 ml RECTAL DAILY PRN 02/22/21 06/11/22 History Adult] bisacodyL 10 mg RECTAL DAILY PRN 02/22/21 06/11/22 History lisinopriL [Prinivil] 10 mg PO DAILY@0800 02/22/21 06/11/22 History traMADol HCL 50 mg PO Q12H PRN 02/22/21 06/11/22 History Acetaminophen Tab [Tylenol] 650 mg PO Q4H PRN 06/11/22 06/11/22 History Bacitracin Zinc Oint 1 applic TOPICAL BID 06/11/22 06/11/22 History Caldesene Powder 1 applic TOPICAL BID 06/11/22 06/11/22 History L.acidoph,Paracasei, B.lactis 1 cap PO DAILY@0800 06/11/22 06/11/22 History [Probiotic] Loperamide HCl [Loperamide] 2 mg PO QID PRN 06/11/22 06/11/22 History Maalox Plus 30 ml PO Q6H PRN 06/11/22 06/11/22 History Sennosides [Senokot] 8.6 mg PO BID PRN 06/11/22 06/11/22 History Sennosides [Senokot] 17.2 mg PO HS 06/11/22 06/11/22 History Venlafaxine HCl ER [Effexor XR] 150 mg PO DAILY@0800 06/11/22 06/11/22 History busPIRone HCl [Buspar] 10 mg PO Q12H PRN 06/11/22 06/11/22 History cefUROXime axetiL [Ceftin] 500 mg PO BID 3 Days #6 tab 06/15/22 Rx levETIRAcetam [Keppra] 500 mg PO Q12HR #60 tab 06/15/22 Rx Allergies Allergy/AdvReac Type Severity Reaction Status Date / Time codeine Allergy Itching Verified 06/11/22 09:27 Physical Exam Vitals: Vital Signs Temp Pulse Resp BP Pulse Ox FiO2 07/28/23 07:48 40 07/28/23 07:28 86 18 151/87 99 07/28/23 06:17 86 24 138/82 99 07/28/23 04:15 40 07/28/23 04:00 99.2 F 07/28/23 03:43 115 H 24 164/97 99 07/28/23 03:09 50 07/28/23 03:03 70 07/28/23 02:53 101.6 F H 103 H 30 H 169/99 97 Intake and Output 07/27/23 07/28/23 07/28/23 22:59 06:59 14:59 Output Total 150 Balance -150 Output: Urine 150 Straight 150 Other: Weight 99.79 kg -GENERAL: The patient is confused, she opens eyes to take Tylenol and verbal stimuli eyes, go back to sleep easily. Does not follow commands. She is mildly tachypneic. Obese HEENT: Pupils are round and equally reacting to light. EOMI. No scleral icterus. No conjunctival pallor. Normocephalic, atraumatic. No pharyngeal erythema. No thyromegaly. CARDIOVASCULAR: S1 and S2 present. No murmurs, rubs, or gallops. PULMONARY: Chest is clear to auscultation, no wheezing , no crackles. ABDOMEN: Soft, nontender, nondistended, normoactive bowel sounds. No palpable organomegaly. MUSCULOSKELETAL: No joint swelling or deformity. EXTREMITIES: No cyanosis, clubbing, or pedal edema. NEUROLOGICAL: Gross neurological examination did not reveal any focal deficits. SKIN: No rashes. no petechiae. Results CBC & Chem 7: 07/28/23 03:32 07/28/23 03:32 Labs: Abnormal Lab Results - Last 24 Hours (Table) 07/28/23 07/28/23 07/28/23 Range/Units 03:32 03:32 04:09 VBG pH 7.24 L (7.31-7.41) VBG HCO3 17 L (24-28) mmol/L Sodium 134 L (137-145) mmol/L Creatinine 0.47 L (0.52-1.04) mg/dL Glucose 113 H (74-99) mg/dL Total Bilirubin 1.8 H (0.2-1.3) mg/dL AST 54 H (14-36) U/L Total Protein 8.4 H (6.3-8.2) g/dL Urine Appearance Cloudy H (Clear) Urine Protein Trace H (Negative) Ur Leukocyte Esterase Large H (Negative) Urine WBC 136 H (0-5) /hpf Urine Bacteria Many H (None) /hpf Urine Mucus Few H (None) /hpf RSV (PCR) (Not Detectd) 07/28/23 Range/Units 05:04 VBG pH (7.31-7.41) VBG HCO3 (24-28) mmol/L Sodium (137-145) mmol/L Creatinine (0.52-1.04) mg/dL Glucose (74-99) mg/dL Total Bilirubin (0.2-1.3) mg/dL AST (14-36) U/L Total Protein (6.3-8.2) g/dL Urine Appearance (Clear) Urine Protein (Negative) Ur Leukocyte Esterase (Negative) Urine WBC (0-5) /hpf Urine Bacteria (None) /hpf Urine Mucus (None) /hpf RSV (PCR) Detected A (Not Detectd) Assessment and Plan Assessment: Sepsis with fever, tachycardia and tachypnea Metabolic acidosis Acute RSV bronchitis Metabolic/toxic encephalopathy Obesity with BMI of 39 Paroxysmal atrial fibrillation Diabetes mellitus Hypertension Hypothyroidism History of fibromyalgia Plan: Continue with Rocephin Follow-up urine culture (I talked to the lab and to the nurses of emergency room) Follow-up procalcitonin and CRP Follow-up blood culture Infectious disease on pulmonary team consult Labs and medication were reviewed.. Continue same treatment. Continue with symptomatic treatment. Resume home medication. Monitor labs and vitals. DVT and GI prophylaxis. Further recommendations as per clinical course of the patient DVT prophylaxis: Subcutaneous heparin (may resume eliquis was verified as prison medication) GI Prophylaxis: Pepcid PT/OT: Pending Prognosis is guarded
[2023-07-28] MEDS: FAMOTIDINE 20 MG/2 ML VIAL IV SCH ×2 (08:29→21:49)
[2023-07-28] MEDS: methylPREDNISolone SOD SUCCI 40 MG/ML 1 ML VIAL IV SCH ×2 (08:29→21:48)
[2023-07-28] MEDS ORDERED: HEPARIN SODIUM,PORCINE 5,000 UNIT/ML 1 ML VIAL SQ SCH (09:00)
[2023-07-28] MEDS ORDERED: DEXTROSE 50% SYRINGE 50 ML IVP PRN ×2 (09:16)
--- NOTE | 2023-07-28 12:09 | P.CNPUL ---
History of Present Illness Consult date: 07/28/23 Requesting physician: Magen Cardona Reason for consult: dyspnea, cough, hypoxemia, pneumonia, abnormal CXR/CT Chief complaint: Shortness of breath. History of present illness: Pulmonary consult dated 07/28/2023. 83-year-old female, seen today in the emergency department, room 3. The patient apparently was brought into the emergency department, by EMS, with increased work of breathing, and fever, from a local long term. I believe she came in from [facility]. The patient apparently has a history of dementia, hypothyroidism, atrial fibrillation, diabetes, and hypertension. Currently, the patient's on BiPAP, with settings of 12/5, and 30%. She's getting saline at 20 mL an hour. A pro-calcitonin level was checked. In addition, she was placed on Rocephin and azithromycin empirically. The patient did test positive for respiratory syncytial virus, and is thought to possibly have a urinary tract infection. The patient is very lethargic and sleepy, and really cannot give any additional history. Labs include a white count 8.8, hemoglobin 12.2, hematocrit 39.1, and a platelet count of 239,000. Venous blood gases show pCO2 of 40, and a pH of 7.24. Sodium 134, chlorides 102, CO2 23, anion gap 9, BUN 16, creatinine 0.47. Glucose 113. N-terminal proBNP is 1640. Urine is cloudy, with trace protein. Leukocyte esterase is large positive. There is 136 WBCs, and many bacteria. Chest x-ray was unremarkable. Review of Systems REVIEW OF SYSTEMS: CONSTITUTIONAL: Fever, lethargy. NEUROLOGIC: [ Negative.] HEENT: [ Negative.] CARDIAC: [Negative.] PULMONARY: Increased work of breathing. GI: [Negative.] : [Negative.] RHEUMATOLOGIC: [ Negative.] IMMUNOLOGIC: [ Negative.] ENDOCRINE: [Negative. ] DERMATOLOGIC: [Negative.] Past Medical History Past Medical History: Atrial Fibrillation, Diabetes Mellitus, Fibromyalgia, Hypertension, Thyroid Disorder Additional Past Medical History / Comment(s): sepsis, UTI, Type 2 DM, hypothyroidism History of Any Multi-Drug Resistant Organisms: VRE Date of last positivie culture/infection: 02/24/21 MDRO Source:: VRE URINE Past Surgical History: Hysterectomy Additional Past Surgical History / Comment(s): Knee replacement Past Anesthesia/Blood Transfusion Reactions: No Reported Reaction Past Psychological History: Depression Smoking Status: Never smoker Past Alcohol Use History: None Reported Past Drug Use History: None Reported Medications and Allergies Home Medications Medication Instructions Recorded Confirmed Type Levothyroxine Sodium [Synthroid] 100 mcg PO DAILY@0800 02/07/21 07/28/23 History Milnacipran HCl [Savella] 100 mg PO BID@0800,1700 02/07/21 07/28/23 History Pioglitazone [Actos] 15 mg PO DAILY@0800 02/07/21 07/28/23 History Trospium Chloride [Sanctura] 20 mg PO BID@0800,1700 02/07/21 07/28/23 History metFORMIN HCL 500 mg PO DAILY@0800 02/07/21 07/28/23 History Atorvastatin [Lipitor] 40 mg PO HS tab 02/13/21 07/28/23 Rx Apixaban [Eliquis] 5 mg PO BID@0800,1700 02/22/21 07/28/23 History Diltiazem Oral [Cardizem*] 60 mg PO TID@0600,1400,2100 02/22/21 07/28/23 History Magnesium Hydroxide [Milk of 7,200 mg PO Q2D PRN 02/22/21 07/28/23 History Magnesia Concentrate] Metoprolol Tartrate [Lopressor] 100 mg PO BID@0800,1700 02/22/21 07/28/23 History Na Phos,M-B/Na Phos,Di-Ba [Fleet 133 ml RECTAL DAILY PRN 02/22/21 07/28/23 History Adult] bisacodyL 10 mg RECTAL DAILY PRN 02/22/21 07/28/23 History lisinopriL [Prinivil] 10 mg PO DAILY@0800 02/22/21 07/28/23 History traMADol HCL 50 mg PO Q12H PRN 02/22/21 07/28/23 History Acetaminophen Tab [Tylenol] 650 mg PO Q4H PRN 06/11/22 07/28/23 History L.acidoph,Paracasei, B.lactis 1 cap PO DAILY@0800 06/11/22 07/28/23 History [Probiotic] Loperamide HCl [Loperamide] 2 mg PO QID PRN 06/11/22 07/28/23 History Sennosides [Senokot] 8.6 mg PO BID PRN 06/11/22 07/28/23 History Sennosides [Senokot] 8.6 mg PO HS 06/11/22 07/28/23 History Venlafaxine HCl ER [Effexor XR] 150 mg PO DAILY@0800 06/11/22 07/28/23 History levETIRAcetam [Keppra] 500 mg PO Q12HR #60 tab 06/15/22 07/28/23 Rx LORazepam [Ativan] 0.5 mg PO Q4H PRN 07/28/23 07/28/23 History Maalox Plus 30 ml PO Q6H PRN 07/28/23 07/28/23 History Oxymetazoline 0.05% Nasl [place] 2 spray EA NOSTRIL DAILY PRN 07/28/23 07/28/23 History [Afrin 0.05% Nasal [place]] guaiFENesin [guaiFENesin Oral 200 mg PO Q6H PRN 07/28/23 07/28/23 History Solution] Allergies Allergy/AdvReac Type Severity Reaction Status Date / Time codeine Allergy Itching Verified 07/28/23 08:10 Physical Exam Osteopathic Statement: *. No significant issues noted on an osteopathic struct ural exam other than those noted in the History and Physical/Consult. Vitals: Vital Signs Temp Pulse Resp BP Pulse Ox FiO2 07/28/23 11:00 85 20 151/92 07/28/23 10:30 83 22 150/95 97 07/28/23 10:08 87 07/28/23 10:01 30 07/28/23 10:00 84 22 156/83 07/28/23 09:58 79 07/28/23 09:41 81 20 156/83 98 07/28/23 09:30 80 20 156/83 98 07/28/23 09:00 81 20 150/94 98 07/28/23 08:30 83 20 142/86 98 07/28/23 08:00 85 18 143/79 98 07/28/23 07:48 30 07/28/23 07:28 86 18 151/87 99 07/28/23 06:17 86 24 138/82 99 07/28/23 04:15 40 07/28/23 04:00 99.2 F 07/28/23 03:43 115 H 24 164/97 99 07/28/23 03:09 50 07/28/23 03:03 70 07/28/23 02:53 101.6 F H 103 H 30 H 169/99 97 Intake and Output 07/27/23 07/28/23 07/28/23 22:59 06:59 14:59 Output Total 150 Balance -150 Output: Urine 150 Straight 150 Other: Weight 99.79 kg No acute distress, lethargic, barely opens her eyes, BiPAP mask in place. HEENT examination is grossly unremarkable. Neck supple. Full range of motion. No adenopathy thyromegaly or neck vein distention. Cardiovascular examination reveals regular rhythm rate. S1-S2 normal. No S3 or S4. No discernible murmur noted. Heart rate 85 bpm. Heart sounds are distant. Lungs reveal scattered mild rhonchi. No wheezes or crackles. Breath sounds equal bilaterally. Saturations are in the mid to high 90s. Abdomen soft bowel sounds are heard. No masses or tenderness. Extremities are intact. No cyanosis clubbing or edema. Skin is without rash or lesion. Neurologic examination is difficult to assess at this time. Results - Laboratory Findings CBC and BMP: 07/28/23 03:32 07/28/23 03:32 PT/INR, D-dimer PT 11.8 sec (10.0-12.5) 07/28/23 03:32 INR 1.1 (<1.2) 07/28/23 03:32 Abnormal lab findings: Abnormal Labs 07/28/23 07/28/23 07/28/23 03:32 03:32 04:09 VBG pH 7.24 L VBG HCO3 17 L Sodium 134 L Creatinine 0.47 L Glucose 113 H Total Bilirubin 1.8 H AST 54 H Total Protein 8.4 H Urine Appearance Cloudy H Urine Protein Trace H Ur Leukocyte Esterase Large H Urine WBC 136 H Urine Bacteria Many H Urine Mucus Few H RSV (PCR) 07/28/23 05:04 VBG pH VBG HCO3 Sodium Creatinine Glucose Total Bilirubin AST Total Protein Urine Appearance Urine Protein Ur Leukocyte Esterase Urine WBC Urine Bacteria Urine Mucus RSV (PCR) Detected A - Diagnostic Findings Chest x-ray: image reviewed Assessment and Plan Assessment: Acute mental status changes, which may relate to encephalopathy, secondary to urinary tract infection/urosepsis. Patient tested positive for RSV, but has a normal chest x-ray, without evidence of infiltrate/pneumonia. History of atrial fibrillation. History of diabetes mellitus. History of hypertension. History of hypothyroidism. History of fibromyalgia. Obesity. Plan: Plan dated 07/28/2023. The patient is seen in the emergency department, room #3. The patient may have a urinary tract infection, and does have mental status changes, which may be consistent with metabolic/septic encephalopathy. The patient is positive for RSV, but her chest x-ray is normal. She's currently on BiPAP, with an FiO2 of 30%, and very reasonable saturations. She was started on Rocephin and azithromycin empirically. A pro-calcitonin level was ordered. Labs, x-rays, an d medications are reviewed. Additional recommendations and suggestions are forthcoming. Prognosis is guarded. CODE STATUS should be addressed. The patient is 83 years of age. Time with Patient: Greater than 30
[2023-07-28] MEDS: IPRATROPIUM-ALBUTEROL 3 ML NEB INHALATION PRN ×3 (12:25→19:44)
[2023-07-28] MEDS ORDERED: LOPERAMIDE 2 MG CAP PO PRN (13:39)
[2023-07-28] MEDS ORDERED: NA PHOS,M-B/NA PHOS,DI-BA 133 ML ENEMA RECTAL PRN (13:39)
[2023-07-28] MEDS ORDERED: traMADol 50 MG TAB PO PRN (13:39)
[2023-07-28] MEDS ORDERED: bisacodyL 10 MG SUPP RECTAL PRN (13:39)
[2023-07-28] MEDS ORDERED: OXYMETAZOLINE 0.05% NASL SPRAY 1 SPRAY BOTTLE EA NOSTRIL PRN (13:39)
[2023-07-28] MEDS ORDERED: SENNOSIDES 8.6 MG TAB PO PRN (13:39)
[2023-07-28 15:04] LABS: Glucose,Whole Blood 215 mg/dL (70-110)
[2023-07-28] MEDS: DILTIAZEM ORAL 60 MG TAB PO SCH ×2 (15:12→21:48)
[2023-07-28] MEDS: levETIRAcetam 500 MG TAB PO SCH ×2 (15:13→21:48)
[2023-07-28] MEDS: INSULIN ASPART (NovoLOG) 100 UNIT/ML VIAL SQ SCH ×3 (15:15→21:49)
[2023-07-28] MEDS: METOPROLOL TARTRATE 50 MG TAB PO SCH (18:26)
[2023-07-28] MEDS: APIXABAN 5 MG TAB PO SCH (18:26)
[2023-07-28 19:39] LABS: Glucose,Whole Blood 241 mg/dL (70-110)
[2023-07-28] MEDS: BUDESONIDE 0.5 MG/2 ML NEBU INHALATION SCH (19:44)
[2023-07-28] MEDS: ATORVASTATIN 40 MG TAB PO SCH ×2 (21:48→22:15)
[2023-07-28] MEDS: SENNOSIDES 8.6 MG TAB PO SCH ×2 (21:48→22:15)
--- NOTE | 2023-07-28 22:18 | P.CONS ---
History of Present Illness - Reason for Consult Consult date: 07/28/23 - History of Present Illness Patient is a 83-year-old female with a past medical history elevated for diabetes mellitus type remission fibromyalgia atrial fibrillation [facility] patient has been sent to the ER for evaluation of increasing shortness of breath that apparently has been getting worse from the night before presentation to the hospital patient also noted to have a cough and the patient [facility] the [facility] on presentation to this facility patient did spike a fever of 101.2 F patient was hypoxic requiring BiPAP for respiratory support patient did have a white count of 8.8, creatinine 0.47 bilirubin AST mildly elevated urine was mildly positive patient did tested positive for RSV COVID influenza was negative patient did have a chest x-ray no acute cardiopulmonary disease process patient has been admitted to the hospital infectious disease was consulted for further management most information has been obtained from review the chart and talking to the nursing staff and the patient was slightly lethargic and not a good historian. Past Medical History Past Medical History: Atrial Fibrillation, Diabetes Mellitus, Fibromyalgia, Hypertension, Thyroid Disorder Additional Past Medical History / Comment(s): sepsis, UTI, Type 2 DM, hypothyroidism History of Any Multi-Drug Resistant Organisms: VRE Year Discovered:: 02/24/21 MDRO Source:: VRE URINE Past Surgical History: Hysterectomy Additional Past Surgical History / Comment(s): Knee replacement Past Anesthesia/Blood Transfusion Reactions: No Reported Reaction Past Psychological History: Depression Smoking Status: Never smoker Past Alcohol Use History: None Reported Past Drug Use History: None Reported Medications and Allergies Home Medications Medication Instructions Recorded Confirmed Type Levothyroxine Sodium [Synthroid] 100 mcg PO DAILY@0800 02/07/21 07/28/23 History Milnacipran HCl [Savella] 100 mg PO BID@0800,1700 02/07/21 07/28/23 History Pioglitazone [Actos] 15 mg PO DAILY@0800 02/07/21 07/28/23 History Trospium Chloride [Sanctura] 20 mg PO BID@0800,1700 02/07/21 07/28/23 History metFORMIN HCL 500 mg PO DAILY@0800 02/07/21 07/28/23 History Atorvastatin [Lipitor] 40 mg PO HS tab 02/13/21 07/28/23 Rx Apixaban [Eliquis] 5 mg PO BID@0800,1700 02/22/21 07/28/23 History Diltiazem Oral [Cardizem*] 60 mg PO TID@0600,1400,2100 02/22/21 07/28/23 History Magnesium Hydroxide [Milk of 7,200 mg PO Q2D PRN 02/22/21 07/28/23 History Magnesia Concentrate] Metoprolol Tartrate [Lopressor] 100 mg PO BID@0800,1700 02/22/21 07/28/23 History Na Phos,M-B/Na Phos,Di-Ba [Fleet 133 ml RECTAL DAILY PRN 02/22/21 07/28/23 History Adult] bisacodyL 10 mg RECTAL DAILY PRN 02/22/21 07/28/23 History lisinopriL [Prinivil] 10 mg PO DAILY@0800 02/22/21 07/28/23 History traMADol HCL 50 mg PO Q12H PRN 02/22/21 07/28/23 History Acetaminophen Tab [Tylenol] 650 mg PO Q4H PRN 06/11/22 07/28/23 History L.acidoph,Paracasei, B.lactis 1 cap PO DAILY@0800 06/11/22 07/28/23 History [Probiotic] Loperamide HCl [Loperamide] 2 mg PO QID PRN 06/11/22 07/28/23 History Sennosides [Senokot] 8.6 mg PO BID PRN 06/11/22 07/28/23 History Sennosides [Senokot] 8.6 mg PO HS 06/11/22 07/28/23 History Venlafaxine HCl ER [Effexor XR] 150 mg PO DAILY@0800 06/11/22 07/28/23 History levETIRAcetam [Keppra] 500 mg PO Q12HR #60 tab 06/15/22 07/28/23 Rx LORazepam [Ativan] 0.5 mg PO Q4H PRN 07/28/23 07/28/23 History Maalox Plus 30 ml PO Q6H PRN 07/28/23 07/28/23 History Oxymetazoline 0.05% Nasl [place] 2 spray EA NOSTRIL DAILY PRN 07/28/23 07/28/23 History [Afrin 0.05% Nasal [place]] guaiFENesin [guaiFENesin Oral 200 mg PO Q6H PRN 07/28/23 07/28/23 History Solution] Allergies Allergy/AdvReac Type Severity Reaction Status Date / Time codeine Allergy Itching Verified 07/28/23 08:10 Physical Exam Vitals: Vital Signs Temp Pulse Resp BP Pulse Ox FiO2 07/28/23 11:00 85 20 151/92 07/28/23 10:30 83 22 150/95 97 07/28/23 10:08 87 07/28/23 10:01 30 07/28/23 10:00 84 22 156/83 07/28/23 09:58 79 07/28/23 09:41 81 20 156/83 98 07/28/23 09:30 80 20 156/83 98 07/28/23 09:00 81 20 150/94 98 07/28/23 08:30 83 20 142/86 98 07/28/23 08:00 85 18 143/79 98 07/28/23 07:48 30 07/28/23 07:28 86 18 151/87 99 07/28/23 06:17 86 24 138/82 99 07/28/23 04:15 40 07/28/23 04:00 99.2 F 07/28/23 03:43 115 H 24 164/97 99 07/28/23 03:09 50 07/28/23 03:03 70 07/28/23 02:53 101.6 F H 103 H 30 H 169/99 97 Intake and Output 07/27/23 07/28/23 07/28/23 22:59 06:59 14:59 Output Total 150 Balance -150 Output: Urine 150 Straight 150 Other: Weight 99.79 kg Results CBC & Chem 7: 07/29/23 07:57 07/29/23 07:57 Labs: Abnormal Lab Results - Last 24 Hours (Table) 07/28/23 07/28/23 07/28/23 Range/Units 03:32 03:32 04:09 VBG pH 7.24 L (7.31-7.41) VBG HCO3 17 L (24-28) mmol/L Sodium 134 L (137-145) mmol/L Creatinine 0.47 L (0.52-1.04) mg/dL Glucose 113 H (74-99) mg/dL Total Bilirubin 1.8 H (0.2-1.3) mg/dL AST 54 H (14-36) U/L Total Protein 8.4 H (6.3-8.2) g/dL Urine Appearance Cloudy H (Clear) Urine Protein Trace H (Negative) Ur Leukocyte Esterase Large H (Negative) Urine WBC 136 H (0-5) /hpf Urine Bacteria Many H (None) /hpf Urine Mucus Few H (None) /hpf RSV (PCR) (Not Detectd) 07/28/23 Range/Units 05:04 VBG pH (7.31-7.41) VBG HCO3 (24-28) mmol/L Sodium (137-145) mmol/L Creatinine (0.52-1.04) mg/dL Glucose (74-99) mg/dL Total Bilirubin (0.2-1.3) mg/dL AST (14-36) U/L Total Protein (6.3-8.2) g/dL Urine Appearance (Clear) Urine Protein (Negative) Ur Leukocyte Esterase (Negative) Urine WBC (0-5) /hpf Urine Bacteria (None) /hpf Urine Mucus (None) /hpf RSV (PCR) Detected A (Not Detectd) Assessment and Plan Plan: 1-Patient presented to hospital with fever and mental status changes which is likely multifactorial in this patient did have a fever with respiratory symptoms however chest x-ray was reported negative for acute infiltrate she did tested positive for RSV treatment of which is mostly supportive patient did have a positive UA and concerning for possible symptomatic urinary infection causing more likely her symptoms of fever and confusion 2-patient to continue Rocephin 1 g daily while waiting for the culture to finalize 3-treatment for RSV will be mostly supportive 4-droplet isolation We will follow on clinical condition and cultures to further adjust medication if needed Thank you for this consultation we will follow the patient along with you Dictation was produced using [employer] dictation software. please excuse any g rammatical, word or spelling errors.
[2023-07-29] MEDS: IPRATROPIUM-ALBUTEROL 3 ML NEB INHALATION PRN ×4 (01:32→21:25)
[2023-07-29 05:51] LABS: Glucose,Whole Blood 195 mg/dL (70-110)
[2023-07-29] MEDS: INSULIN ASPART (NovoLOG) 100 UNIT/ML VIAL SQ SCH ×4 (06:01→21:23)
[2023-07-29] MEDS: SODIUM CHLORIDE 0.9% 1,000 ML IV SCH (06:04)
[2023-07-29] MEDS: lisinopriL 10 MG TAB PO SCH ×2 (06:08→15:18)
[2023-07-29] MEDS: DILTIAZEM ORAL 60 MG TAB PO SCH ×2 (06:08→22:59)
[2023-07-29] MEDS: BUDESONIDE 0.5 MG/2 ML NEBU INHALATION SCH ×2 (06:25→21:25)
[2023-07-29] MEDS ORDERED: DILTIAZEM 5 MG/ML 5 ML VIAL IVP STA (06:27)
[2023-07-29] MEDS: hydrALAZINE HCL 20 MG/ML 1 ML VIAL IVP PRN ×2 (06:42→21:22)
[2023-07-29] MEDS ORDERED: PIOGLITAZONE 15 MG TAB PO SCH (08:00)
[2023-07-29 08:40] LABS: Basophils % (A) 0 %; Eosinophils % (A) 0 %; HCT 37.2 % (34.0-46.0); HGB 11.5 gm/dL (11.4-16.0); Hypochromasia Marked; Lymphocytes # (A) 0.8 k/uL (1.0-4.8); Lymphocytes % (A) 8 %; MCH 28.9 pg (25.0-35.0); MCHC 30.9 g/dL (31.0-37.0); MCV 93.4 fL (80.0-100.0); Mean Platelet Volume 7.7; Monocytes # (A) 0.3 k/uL (0-1.0); Monocytes % (A) 3 %; Neutrophils # (A) 8.4 k/uL (1.3-7.7); Neutrophils % (A) 88 %; Platelet Count 228 k/uL (150-450); RBC 3.98 m/uL (3.80-5.40); WBC 9.5 k/uL (3.8-10.6)
[2023-07-29 08:52] LABS: African American GFR (CKD) >90 (>60 ml/min/1.73 sqM); Anion Gap 15 mmol/L; Blood Urea Nitrogen 12 mg/dL (7-17); Calcium 9.2 mg/dL (8.4-10.2); Carbon Dioxide 23 mmol/L (22-30); Chloride 105 mmol/L (98-107); Glucose 198 mg/dL (74-99); Non-African American GFR(CKD) >90 (>60 ml/min/1.73 sqM); Potassium 4.1 mmol/L (3.5-5.1); Sodium 143 mmol/L (137-145)
[2023-07-29] MEDS: methylPREDNISolone SOD SUCCI 40 MG/ML 1 ML VIAL IV SCH (09:34)
[2023-07-29] MEDS: FAMOTIDINE 20 MG/2 ML VIAL IV SCH ×2 (09:34→21:22)
[2023-07-29] MEDS ORDERED: HALOPERIDOL LACTATE 5 MG/ML 1 ML VIAL IVP PRN (11:15)
[2023-07-29 11:58] LABS: Glucose,Whole Blood 190 mg/dL (70-110)
--- NOTE | 2023-07-29 13:05 | P.PN ---
Subjective This is a pleasant 83 years old female with multiple medical problems as below. Sent from [facility] for respiratory distress of one-day duration since 1 PM. Patient herself is poor historian. She is currently on BiPAP which limits her a bility to come to gait but she opens eyes to take Tectile and verbal stimuli's. She smiles and keep nodding [id number] as he "yes" but she does not answers questions. She goes back to sleep right away. Chest mildly tachypneic and currently on BiPAP with the setting of 12/5 with FiO2 of 40%. She does not have suprapubic tenderness. No leg edema. Other history is limited because of patient condition. However she is having significant wheezing bilaterally. On admission patient had a fever of 101.6. She is tachycardic around 100 for 15 and tachypneic at 24 breaths per minute. Labs reviewed showing unremarkable CBC, INR, BMP, LFTs and troponin are negative. 10 with no leukocytosis and WBCs 8.8. Total bili is mildly elevated 1.8. Patient has a low pH of 7.2, HCO3 is low at 17 with normal pCO2 Patient received antibiotics of Rocephin and continued with same dose of ceftriaxone. Also received 1 time dose of Zithromax 07/29/2023 Patient awake, answers some questions but she is confused, she is refusing to take medication. She denies headache or dizziness. She moves both upper and lower extremities equally. Pupils are equal and reactive to light. No obvious focal neurological deficits on cranial nerve examination. Her confusion most likely secondary to metabolic/toxic encephalopathy complicated by her infection. Both UTI and RSV acute bronchitis Also on IV steroids IV Solu-Medrol 40 mg twice daily for acute bronchitis, since stress may contribute to her confusion when going to switch it to Medrol Dosepak tomorrow. Continue with inhaled steroids and a bronchodilator. Her urine culture is growing gram-negative bacilli. She remains on Rocephin. Her fever subsided, tachycardia is better, she is not tachypneic today. CBC and BMP were unremarkable. Priorcalcitonin is negative at 0.03. He is mildly elevated 3.8. Blood cultures pending. As per daughter who is the legal guardian patient should be no code and order placed. Bladder scan showed no evidence of retention with residual 11-30 mL Objective - Vital Signs Vital signs: Vital Signs Temp 98.3 F 07/29/23 04:00 Pulse 100 07/29/23 12:18 Resp 16 07/29/23 08:00 BP 138/97 07/29/23 08:00 Pulse Ox 97 07/29/23 08:00 FiO2 30 07/29/23 01:44 Intake & Output 07/28/23 07/29/23 07/29/23 18:59 06:59 18:59 Intake Total 10 Output Total 400 Balance -390 Weight 99.79 kg Intake: IV 10 Invasive Line 3 10 Output: Urine 400 Other: Voiding Method External Catheter External Catheter # Voids 1 - Exam -GENERAL: The patient is confused, not in any acute distress. Well developed, well nourished. HEENT: Pupils are round and equally reacting to light. EOMI. No scleral icterus. No conjunctival pallor. Normocephalic, atraumatic. No pharyngeal erythema. No thyromegaly. CARDIOVASCULAR: S1 and S2 present. No murmurs, rubs, or gallops. PULMONARY: Chest is clear to auscultation, no wheezing , no crackles. ABDOMEN: Soft, nontender, nondistended, normoactive bowel sounds. No palpable organomegaly. MUSCULOSKELETAL: No joint swelling or deformity. EXTREMITIES: No cyanosis, clubbing, or pedal edema. NEUROLOGICAL: Gross neurological examination did not reveal any focal deficits. She moves both upper and lower extremities equally and symmetrically SKIN: No rashes. no petechiae. - Labs CBC & Chem 7: 07/29/23 07:57 07/29/23 07:57 Labs: Abnormal Lab Results - Last 24 Hours (Table) 07/28/23 07/28/23 07/28/23 Range/Units 03:32 15:02 19:38 MCHC (31.0-37.0) g/dL Neutrophils # (1.3-7.7) k/uL Lymphocytes # (1.0-4.8) k/uL Creatinine (0.52-1.04) mg/dL Glucose (74-99) mg/dL POC Glucose (mg/dL) 215 H 241 H (70-110) mg/dL C-Reactive Protein 3.8 H (<1.0) mg/dL 07/29/23 07/29/23 07/29/23 Range/Units 05:47 07:57 07:57 MCHC 30.9 L (31.0-37.0) g/dL Neutrophils # 8.4 H (1.3-7.7) k/uL Lymphocytes # 0.8 L (1.0-4.8) k/uL Creatinine 0.40 L (0.52-1.04) mg/dL Glucose 198 H (74-99) mg/dL POC Glucose (mg/dL) 195 H (70-110) mg/dL C-Reactive Protein (<1.0) mg/dL 07/29/23 Range/Units 11:56 MCHC (31.0-37.0) g/dL Neutrophils # (1.3-7.7) k/uL Lymphocytes # (1.0-4.8) k/uL Creatinine (0.52-1.04) mg/dL Glucose (74-99) mg/dL POC Glucose (mg/dL) 190 H (70-110) mg/dL C-Reactive Protein (<1.0) mg/dL Microbiology - Last 24 Hours (Table) 07/28/23 05:25 Blood Culture - Preliminary Blood 07/28/23 05:40 Blood Culture - Preliminary Blood 07/28/23 04:09 Urine Culture - Preliminary Urine,Catheterized Gram Neg Bacilli Assessment and Plan Assessment: Acute urinary tract infection secondary to gram-negative bacilli Sepsis with fever, tachycardia and tachypnea Metabolic acidosis Acute RSV bronchitis Metabolic/toxic encephalopathy Obesity with BMI of 39 Paroxysmal atrial fibrillation Diabetes mellitus Hypertension Hypothyroidism History of fibromyalgia Plan: Continue with Rocephin Follow-up urine culture (I talked to the lab and to the nurses of emergency room) Follow-up procalcitonin and CRP Follow-up blood culture Infectious disease on pulmonary team consult Labs and medication were reviewed.. Continue same treatment. Continue with symptomatic treatment. Resume home medication. Monitor labs and vitals. DVT and GI prophylaxis. Further recommendations as per clinical course of the patient DVT prophylaxis: Subcutaneous heparin (may resume eliquis was verified as retirement medication) GI Prophylaxis: Pepcid PT/OT: Pending Prognosis is guarded
--- NOTE | 2023-07-29 14:49 | P.PN ---
Subjective Progress Note Date: 07/29/23 Principal diagnosis: Respiratory failure. Pulmonary consult dated 07/28/2023. 83-year-old female, seen today in the emergency department, room 3. The patient apparently was brought into the emergency department, by EMS, with increased work of breathing, and fever, from a local detention. I believe she came in from [facility]. The patient apparently has a history of dementia, hypothyroidism, atrial fibrillation, diabetes, and hypertension. Currently, the patient's on BiPAP, with settings of 12/5, and 30%. She's getting saline at 20 mL an hour. A pro-calcitonin level was checked. In addition, she was placed on Rocephin and azithromycin empirically. The patient did test positive for respiratory syncytial virus, and is thought to possibly have a urinary tract infection. The patient is very lethargic and sleepy, and really cannot give any additional history. Labs include a white count 8.8, hemoglobin 12.2, hematocrit 39.1, and a platelet count of 239,000. Venous blood gases show pCO2 of 40, and a pH of 7.24. Sodium 134, chlorides 102, CO2 23, anion gap 9, BUN 16, creatinine 0.47. Glucose 113. N-terminal proBNP is 1640. Urine is cloudy, w ith trace protein. Leukocyte esterase is large positive. There is 136 WBCs, and many bacteria. Chest x-ray was unremarkable. Progress note dated 07/29/2023. 83-year-old female seen yesterday in consultation, in the emergency department. She was brought to the emergency department, by EMS, with increased work of breathing, fever, and mental status changes, from a local detention. Currently, the patient is seen in room 383. Patient is currently on 3 L of oxygen. When not using nasal cannula, she is on BiPAP with settings of 12/5 and 30%. She's getting saline at 20 mL an hour. Her mental status is poor, and not much history can be obtained from the patient. Currently labs include a white count 9.5, hemoglobin 11.5, hematocrit 37.2, and platelet count 228,000. Sodium 143, potassium 4.1, chlorides 105, CO2 23, anion gap 15, BUN 12, creatinine 0.40. Glucose 198. Calcium is 9.2. Chest x-ray on admission, was normal. Objective - Vital Signs Vital signs: Vital Signs Temp 98.3 F 07/29/23 04:00 Pulse 100 07/29/23 12:18 Resp 16 07/29/23 12:00 BP 176/89 07/29/23 12:00 Pulse Ox 96 07/29/23 12:00 FiO2 30 07/29/23 01:44 Intake & Output 07/28/23 07/29/23 07/29/23 18:59 06:59 18:59 Intake Total 10 Output Total 400 Balance -390 Weight 99.79 kg Intake: IV 10 Invasive Line 3 10 Output: Urine 400 Other: Voiding Method External Catheter External Catheter # Voids 1 - Exam No acute distress, lethargic, barely opens her eyes, currently on nasal O2 at 3 L. HEENT examination is grossly unremarkable. Neck supple. Full range of motion. No adenopathy thyromegaly or neck vein distention. Cardiovascular examination reveals regular rhythm rate. S1-S2 normal. No S3 or S4. No discernible murmur noted. Heart rate 100 bpm. Heart sounds are distant. Lungs reveal scattered mild rhonchi. No wheezes or crackles. Breath sounds equal bilaterally. Saturations are 96%. Abdomen soft bowel sounds are heard. No masses or tenderness. Extremities are intact. No cyanosis clubbing or edema. Skin is without rash or lesion. Neurologic examination is difficult to assess at this time. - Labs CBC & Chem 7: 07/29/23 07:57 07/29/23 07:57 Labs: Abnormal Lab Results - Last 24 Hours (Table) 07/28/23 07/28/23 07/29/23 Range/Units 15:02 19:38 05:47 MCHC (31.0-37.0) g/dL Neutrophils # (1.3-7.7) k/uL Lymphocytes # (1.0-4.8) k/uL Creatinine (0.52-1.04) mg/dL Glucose (74-99) mg/dL POC Glucose (mg/dL) 215 H 241 H 195 H (70-110) mg/dL 07/29/23 07/29/23 07/29/23 Range/Units 07:57 07:57 11:56 MCHC 30.9 L (31.0-37.0) g/dL Neutrophils # 8.4 H (1.3-7.7) k/uL Lymphocytes # 0.8 L (1.0-4.8) k/uL Creatinine 0.40 L (0.52-1.04) mg/dL Glucose 198 H (74-99) mg/dL POC Glucose (mg/dL) 190 H (70-110) mg/dL Microbiology - Last 24 Hours (Table) 07/28/23 05:25 Blood Culture - Preliminary Blood 07/28/23 05:40 Blood Culture - Preliminary Blood 07/28/23 04:09 Urine Culture - Preliminary Urine,Catheterized Gram Neg Bacilli Assessment and Plan Assessment: Acute mental status changes, which may relate to encephalopathy, secondary to urinary tract infection/urosepsis. Patient tested positive for RSV, but has a normal chest x-ray, without evidence of infiltrate/pneumonia. History of atrial fibrillation. History of diabetes mellitus. History of hypertension. History of hypothyroidism. History of fibromyalgia. Obesity. Plan: Plan dated 07/28/2023. The patient is seen in the emergency department, room #3. The patient may have a urinary tract infection, and does have mental status changes, which may be consistent with metabolic/septic encephalopathy. The patient is positive for RSV, but her chest x-ray is normal. She's currently on BiPAP, with an FiO2 of 30%, and very reasonable saturations. She was started on Rocephin and azithromycin empirically. A pro-calcitonin level was ordered. Labs, x-rays, and medications are reviewed. Additional recommendations and suggestions are forthcoming. Prognosis is guarded. CODE STATUS should be addressed. The patient is 83 years of age. Plan dated 07/29/2023. Urine is showing evidence of gram-negative bacilli, yet to be identified. The patient is currently on 3 L of oxygen. She does have the BiPAP device in the room with settings of 12/5, and 30%. The patient's also getting saline at KVO. The patient continues on ceftriaxone. Labs, x-rays, medications are reviewed. The patient's pro-calcitonin level was only 0.3. Additional recommendations and suggestions are forthcoming. The patient's prognosis is poor. We will continue to follow make recommendations along the way. Time with Patient: Less than 30
--- NOTE | 2023-07-29 15:07 | P.PN ---
Subjective Progress Note Date: 07/29/23 Principal diagnosis: Reason for follow-up is RSV and gram-negative urinary tract infection Patient is a 83-year-old female with a past medical history elevated for diabetes mellitus type remission fibromyalgia atrial fibrillation patient is a resident of the local group home patient has been sent to the ER for evaluation of increasing shortness of breath, patient was febrile with a temperature of 101.2 F on presentation to hospital did have a positive UA and also tested positive for RSV On today's evaluation that is 07/29/2023 patient did have resolution of her fever and is afebrile this morning patient apparently is not allowing the BiPAP currently on a 3 to nasal cannula and satting around 96% patient remains to be lethargic not a very good historian and did not answer any question no vomiting or diarrhea was reported by the nursing staff. Patient white count of 9.5, creatinine 0.40 urine is showing gram-negative blood cultures so far pending Objective - Vital Signs Vital signs: Vital Signs Temp 98.3 F 07/29/23 04:00 Pulse 100 07/29/23 12:18 Resp 16 07/29/23 08:00 BP 138/97 07/29/23 08:00 Pulse Ox 97 07/29/23 08:00 FiO2 30 07/29/23 01:44 Intake & Output 07/28/23 07/29/23 07/29/23 18:59 06:59 18:59 Intake Total 10 Output Total 400 Balance -390 Weight 99.79 kg Intake: IV 10 Invasive Line 3 10 Output: Urine 400 Other: Voiding Method External Catheter External Catheter # Voids 1 - Exam GENERAL DESCRIPTION: An elderly female lying in bed in no distress RESPIRATORY SYSTEM: Unlabored breathing , coarse breath sounds bilaterally HEART: S1 S2 regular rate and rhythm , ABDOMEN: Soft , no tenderness EXTREMITIES: No edema feet - Labs CBC & Chem 7: 07/29/23 07:57 07/29/23 07:57 Labs: Abnormal Lab Results - Last 24 Hours (Table) 07/28/23 07/28/23 07/28/23 Range/Units 03:32 15:02 19:38 MCHC (31.0-37.0) g/dL Neutrophils # (1.3-7.7) k/uL Lymphocytes # (1.0-4.8) k/uL Creatinine (0.52-1.04) mg/dL Glucose (74-99) mg/dL POC Glucose (mg/dL) 215 H 241 H (70-110) mg/dL C-Reactive Protein 3.8 H (<1.0) mg/dL 07/29/23 07/29/23 07/29/23 Range/Units 05:47 07:57 07:57 MCHC 30.9 L (31.0-37.0) g/dL Neutrophils # 8.4 H (1.3-7.7) k/uL Lymphocytes # 0.8 L (1.0-4.8) k/uL Creatinine 0.40 L (0.52-1.04) mg/dL Glucose 198 H (74-99) mg/dL POC Glucose (mg/dL) 195 H (70-110) mg/dL C-Reactive Protein (<1.0) mg/dL 07/29/23 Range/Units 11:56 MCHC (31.0-37.0) g/dL Neutrophils # (1.3-7.7) k/uL Lymphocytes # (1.0-4.8) k/uL Creatinine (0.52-1.04) mg/dL Glucose (74-99) mg/dL POC Glucose (mg/dL) 190 H (70-110) mg/dL C-Reactive Protein (<1.0) mg/dL Microbiology - Last 24 Hours (Table) 07/28/23 05:25 Blood Culture - Preliminary Blood 07/28/23 05:40 Blood Culture - Preliminary Blood 07/28/23 04:09 Urine Culture - Preliminary Urine,Catheterized Gram Neg Bacilli Assessment and Plan (1) Febrile illness, acute Current Visit: Yes Status: Acute Code(s): R50.9 - FEVER, UNSPECIFIED SNOMED Code(s): 165153274 (2) RSV (respiratory syncytial virus infection) Current Visit: Yes Status: Acute Code(s): B33.8 - OTHER SPECIFIED VIRAL DISEASES SNOMED Code(s): 23103194 (3) UTI (urinary tract infection) Current Visit: Yes Status: Acute Code(s): N39.0 - URINARY TRACT INFECTION, SITE NOT SPECIFIED SNOMED Code(s): 92146033 Plan: 1-Patient presented to hospital with fever and mental status changes which is likely multifactorial in this patient did have a fever with respiratory symptoms however chest x-ray was reported negative for acute infiltrate she did tested positive for RSV treatment of which is mostly supportive patient did have a positive UA and concerning for possible symptomatic urinary infection causing more likely her symptoms of fever and confusion 2patient did have resolution of her fever urine is currently showing gram- negative with ID sensitivities pending blood culture negative we will keep the patient on Rocephin while waiting for the culture to finalize and monitor clinical course closely Dictation was produced using [employer] dictation software. please excuse any grammatical, word or spelling errors. Time with Patient: Less than 30
[2023-07-29] MEDS: APIXABAN 5 MG TAB PO SCH ×2 (15:18→16:41)
[2023-07-29] MEDS: metFORMIN 500 MG TAB PO SCH (15:18)
[2023-07-29] MEDS: LEVOTHYROXINE 100 MCG TAB PO SCH (15:18)
[2023-07-29] MEDS: levETIRAcetam 500 MG TAB PO SCH ×2 (15:19→21:23)
[2023-07-29] MEDS: VENLAFAXINE HCL ER 150 MG CAP PO SCH (15:19)
[2023-07-29] MEDS: METOPROLOL TARTRATE 50 MG TAB PO SCH ×2 (15:19→16:41)
[2023-07-29 16:23] LABS: Glucose,Whole Blood 223 mg/dL (70-110)
[2023-07-29 20:12] LABS: Glucose,Whole Blood 219 mg/dL (70-110)
[2023-07-29] MEDS: SENNOSIDES 8.6 MG TAB PO SCH (21:23)
[2023-07-29] MEDS: ATORVASTATIN 40 MG TAB PO SCH (21:23)
[2023-07-29] MEDS: QUEtiapine 25 MG TAB PO SCH (21:24)
[2023-07-30] MEDS: DILTIAZEM ORAL 60 MG TAB PO SCH ×4 (00:01→21:28)
[2023-07-30 06:08] LABS: Glucose,Whole Blood 176 mg/dL (70-110)
[2023-07-30] MEDS: SODIUM CHLORIDE 0.9% 1,000 ML IV SCH (06:44)
[2023-07-30] MEDS: INSULIN ASPART (NovoLOG) 100 UNIT/ML VIAL SQ SCH ×4 (06:47→21:28)
[2023-07-30] MEDS: IPRATROPIUM-ALBUTEROL 3 ML NEB INHALATION PRN ×2 (09:09→19:49)
[2023-07-30] MEDS: BUDESONIDE 0.5 MG/2 ML NEBU INHALATION SCH ×2 (09:09→19:49)
[2023-07-30] MEDS: LEVOTHYROXINE 100 MCG TAB PO SCH (09:40)
[2023-07-30] MEDS: FAMOTIDINE 20 MG/2 ML VIAL IV SCH ×2 (09:40→21:29)
[2023-07-30] MEDS: metFORMIN 500 MG TAB PO SCH (09:40)
[2023-07-30] MEDS: METOPROLOL TARTRATE 50 MG TAB PO SCH ×2 (09:40→16:34)
[2023-07-30] MEDS: lisinopriL 10 MG TAB PO SCH (09:41)
[2023-07-30] MEDS: APIXABAN 5 MG TAB PO SCH ×2 (09:41→16:34)
[2023-07-30] MEDS: levETIRAcetam 500 MG TAB PO SCH ×2 (09:41→21:28)
[2023-07-30] MEDS: VENLAFAXINE HCL ER 150 MG CAP PO SCH (09:42)
[2023-07-30] MEDS: methylPREDNISolone 4 MG TAB TAPER PO SCH (09:42)
[2023-07-30 11:40] LABS: Glucose,Whole Blood 252 mg/dL (70-110)
--- NOTE | 2023-07-30 14:33 | CDI ---
Documentation Clarification Form Date: 07/30/2023 02:13:18 PM From: Jillian Tyson RN CCDS Phone: [phone] Admit Date: 07/28/2023 05:53:00 AM Patient Name: Sari Duran Visit Number: [id number] Discharge Date: ATTENTION: The Clinical Documentation Specialists (CDI) and [facility] Coding Staff appreciate your assistance in clarifying documentation. Please respond to the clarification below the line at the bottom and electronically sign. The CDI & [facility] Coding staff will review the response and follow-up if needed. Please note: Queries are made part of the Legal Health Record. If you have any questions, please contact the author of this message via ITS. Dr. Deo Vivas Your patient was on oxygen via BiPAP and nasal cannula. Based on this information and the findings below, is there an additional diagnosis that is clinically appropriate for this patient? History/Risk Factors: 83-year-old female presented to the ED with increased work of breathing and fever. Medical History DM, HTN, Atrial fib and Dementia. 07/28, Pulmonary consult Clinical Indicators: Vital signs, 07/28 02:53: B/P 169/99, HR 103, Temp 101.6 F Oral, RR 30, SpO2 97% BiPAP FiO2 70 SpO2, 07/28: 98% 08:00 BiPAP FiO2 30 SpO2, 07/28, 12:53: SpO2 95% 4l Nasal cannula Lung assessment, Pulmonary consult 07/28: Scattered mild rhonchi. Breath sounds equal bilaterally. Saturations are int mid to high 90s. Venous Blood gas: pH 7.24 pCO2 40 HCO3 17 Pulmonary consult, 07/28: Patient tested positive for RSV but has a normal CXR. Treatment: 07/28 Pulmicort, Inhalation BID PEDRITO, 07/28 07/29 Solumedrol IV 40mg Q12HR Breathing Treatment: 07/28 Duoneb Inhalation x 1; Duoneb Inhalation QID PRN BiPap and Nasal cannula Is there an additional diagnosis that is clinically appropriate for this patient? [ ] Acute Hypoxic Respiratory Failure (pO2 <60 mm Hg or SpO2 <91% on room air) [ ] Other Diagnosis, please specify [ ] Unable to determine (Template Last Revised: October 2020) Unable to determine. Patient only had a venous blood gas. MTDD
--- NOTE | 2023-07-30 15:16 | P.PN ---
Subjective Progress Note Date: 07/30/23 Principal diagnosis: Respiratory failure. Pulmonary consult dated 07/28/2023. 83-year-old female, seen today in the emergency department, room 3. The patient apparently was brought into the emergency department, by EMS, with increased work of breathing, and fever, from a local halfway. I believe she came in from [facility]. The patient apparently has a history of dementia, hypothyroidism, atrial fibrillation, diabetes, and hypertension. Currently, the patient's on BiPAP, with settings of 12/5, and 30%. She's getting saline at 20 mL an hour. A pro-calcitonin level was checked. In addition, she was placed on Rocephin and azithromycin empirically. The patient did test positive for respiratory syncytial virus, and is thought to possibly have a urinary tract infection. The patient is very lethargic and sleepy, and really cannot give any additional history. Labs include a white count 8.8, hemoglobin 12.2, hematocrit 39.1, and a platelet count of 239,000. Venous blood gases show pCO2 of 40, and a pH of 7.24. Sodium 134, chlorides 102, CO2 23, anion gap 9, BUN 16, creatinine 0.47. Glucose 113. N-terminal proBNP is 1640. Urine is cloudy, w ith trace protein. Leukocyte esterase is large positive. There is 136 WBCs, and many bacteria. Chest x-ray was unremarkable. Progress note dated 07/29/2023. 83-year-old female seen yesterday in consultation, in the emergency department. She was brought to the emergency department, by EMS, with increased work of breathing, fever, and mental status changes, from a local halfway. Currently, the patient is seen in room 383. Patient is currently on 3 L of oxygen. When not using nasal cannula, she is on BiPAP with settings of 12/5 and 30%. She's getting saline at 20 mL an hour. Her mental status is poor, and not much history can be obtained from the patient. Currently labs include a white count 9.5, hemoglobin 11.5, hematocrit 37.2, and platelet count 228,000. Sodium 143, potassium 4.1, chlorides 105, CO2 23, anion gap 15, BUN 12, creatinine 0.40. Glucose 198. Calcium is 9.2. Chest x-ray on admission, was normal. Progress note dated 07/30/2023. 83-year-old female seen in room 383. Currently, the patient's on saline at 20 mL an hour, and getting oxygen, 3 L by nasal cannula. The patient also has a BiPAP device in her room, with settings of 12/5, and 30%. Clinically, the patient is feeling a bit better. She was admitted from a local halfway, with increased work of breathing, fever, and mental status changes. She cannot give much of a history at this time even after a few days in the hospital. No new labs today other than a glucose of 252. Urine cultures were positive for Proteus mirabilis. She is currently on Rocephin. Objective - Vital Signs Vital signs: Vital Signs Temp 97.4 F L 07/30/23 04:00 Pulse 77 07/30/23 12:00 Resp 16 07/30/23 12:00 BP 120/56 07/30/23 12:00 Pulse Ox 93 L 07/30/23 12:00 FiO2 30 07/29/23 01:44 Intake & Output 07/29/23 07/30/23 07/30/23 18:59 06:59 18:59 Intake Total 224 Output Total 850 500 500 Balance -850 -500 -276 Weight 99.79 kg Intake: Oral 224 Output: Urine 850 500 500 Other: Voiding Method External Catheter External Catheter External Catheter - Exam No acute distress, lethargic, barely opens her eyes, currently on nasal O2 at 3 L. HEENT examination is grossly unremarkable. Neck supple. Full range of motion. No adenopathy thyromegaly or neck vein distention. Cardiovascular examination reveals regular rhythm rate. S1-S2 normal. No S3 or S4. No discernible murmur noted. Heart rate 77 bpm. Heart sounds are distant. Lungs reveal scattered mild rhonchi. No wheezes or crackles. Breath sounds eq ual bilaterally. Saturations are 93 %. Abdomen soft bowel sounds are heard. No masses or tenderness. Extremities are intact. No cyanosis clubbing or edema. Skin is without rash or lesion. Neurologic examination is difficult to assess at this time. - Labs CBC & Chem 7: 07/29/23 07:57 07/29/23 07:57 Labs: Abnormal Lab Results - Last 24 Hours (Table) 07/29/23 07/29/23 07/29/23 Range/Units 07:57 16:22 20:04 POC Glucose (mg/dL) 223 H 219 H (70-110) mg/dL Hemoglobin A1c 6.5 H (<=6.0) % 07/30/23 07/30/23 Range/Units 05:57 11:33 POC Glucose (mg/dL) 176 H 252 H (70-110) mg/dL Hemoglobin A1c (<=6.0) % Microbiology - Last 24 Hours (Table) 07/28/23 04:09 Urine Culture - Final Urine,Catheterized Proteus mirabilis 07/28/23 05:25 Blood Culture - Preliminary Blood 07/28/23 05:40 Blood Culture - Preliminary Blood Assessment and Plan Assessment: Acute mental status changes, which may relate to encephalopathy, secondary to urinary tract infection/urosepsis. Proteus mirabilis urinary tract infection. Patient tested positive for RSV, but has a normal chest x-ray, without evidence of infiltrate/pneumonia. History of atrial fibrillation. History of diabetes mellitus. History of hypertension. History of hypothyroidism. History of fibromyalgia. Obesity. Plan: Plan dated 07/28/2023. The patient is seen in the emergency department, room #3. The patient may have a urinary tract infection, and does have mental status changes, which may be c onsistent with metabolic/septic encephalopathy. The patient is positive for RSV, but her chest x-ray is normal. She's currently on BiPAP, with an FiO2 of 30%, and very reasonable saturations. She was started on Rocephin and azithromycin empirically. A pro-calcitonin level was ordered. Labs, x-rays, and medications are reviewed. Additional recommendations and suggestions are forthcoming. Prognosis is guarded. CODE STATUS should be addressed. The patient is 83 years of age. Plan dated 07/29/2023. Urine is showing evidence of gram-negative bacilli, yet to be identified. The patient is currently on 3 L of oxygen. She does have the BiPAP device in the room with settings of 12/5, and 30%. The patient's also getting saline at KVO. The patient continues on ceftriaxone. Labs, x-rays, medications are reviewed. The patient's pro-calcitonin level was only 0.3. Additional recommendations and suggestions are forthcoming. The patient's prognosis is poor. We will continue to follow make recommendations along the way. Plan dated 07/30/2023. Urine specimen, came back positive for Proteus mirabilis. She is currently on Rocephin. The patient's getting oxygen by nasal cannula at 3 L. The BiPAP device is in the room, but it's not clear that she used it. Her pro-calcitonin level was only 0.3. Labs, x-rays, and medications are reviewed. We will continue to follow the patient, and make recommendations along the way. Prognosis is guarded. Time with Patient: Less than 30
[2023-07-30 16:17] LABS: Glucose,Whole Blood 137 mg/dL (70-110)
--- NOTE | 2023-07-30 17:20 | P.PN ---
Subjective Progress Note Date: 07/30/23 83 years old female with multiple medical problems as below. Sent from [facility] for respiratory distress of one-day duration since 1 PM. Patient herself is poor historian. She is currently on BiPAP which limits her ability to come to gait but she opens eyes to take Tectile and verbal stimuli's. She smiles and keep nodding [id number] as he "yes" but she does not answers questions. She goes back to sleep right away. Chest mildly tachypneic and currently on BiPAP with the setting of 12/5 with FiO2 of 40%. She does not have suprapubic tenderness. No leg edema. Other history is limited because of patient condition. However she is having significant wheezing bilaterally. On admission patient had a fever of 101.6. She is tachycardic around 100 for 15 and tachypneic at 24 breaths per minute. Labs reviewed showing unremarkable CBC, INR, BMP, LFTs and troponin are negative. 10 with no leukocytosis and WBCs 8.8. Total bili is mildly elevated 1.8. Patient has a low pH of 7.2, HCO3 is low at 17 with normal pCO2 Patient received antibiotics of Rocephin and continued with same dose of c eftriaxone. Also received 1 time dose of Zithromax Objective - Vital Signs Vital signs: Vital Signs Temp 97.4 F L 07/30/23 04:00 Pulse 90 07/30/23 09:22 Resp 16 07/30/23 08:00 BP 157/74 07/30/23 08:00 Pulse Ox 98 07/30/23 08:00 FiO2 30 07/29/23 01:44 Intake & Output 07/29/23 07/30/23 07/30/23 18:59 06:59 18:59 Intake Total 224 Output Total 850 500 500 Balance -850 -500 -276 Weight 99.79 kg Intake: Oral 224 Output: Urine 850 500 500 Other: Voiding Method External Catheter External Catheter External Catheter - Exam -GENERAL: The patient is confused, not in any acute distress. Well developed, well nourished. HEENT: Pupils are round and equally reacting to light. EOMI. No scleral icterus. No conjunctival pallor. Normocephalic, atraumatic. No pharyngeal erythema. No thyromegaly. CARDIOVASCULAR: S1 and S2 present. No murmurs, rubs, or gallops. PULMONARY: Chest is clear to auscultation, no wheezing , no crackles. ABDOMEN: Soft, nontender, nondistended, normoactive bowel sounds. No palpable organomegaly. MUSCULOSKELETAL: No joint swelling or deformity. EXTREMITIES: No cyanosis, clubbing, or pedal edema. NEUROLOGICAL: Gross neurological examination did not reveal any focal deficits. She moves both upper and lower extremities equally and symmetrically SKIN: No rashes. no petechiae. - Labs CBC & Chem 7: 07/29/23 07:57 07/29/23 07:57 Labs: Abnormal Lab Results - Last 24 Hours (Table) 07/29/23 07/29/23 07/29/23 Range/Units 07:57 16:22 20:04 POC Glucose (mg/dL) 223 H 219 H (70-110) mg/dL Hemoglobin A1c 6.5 H (<=6.0) % 07/30/23 07/30/23 Range/Units 05:57 11:33 POC Glucose (mg/dL) 176 H 252 H (70-110) mg/dL Hemoglobin A1c (<=6.0) % Microbiology - Last 24 Hours (Table) 07/28/23 05:25 Blood Culture - Preliminary Blood 07/28/23 05:40 Blood Culture - Preliminary Blood 07/28/23 04:09 Urine Culture - Preliminary Urine,Catheterized Gram Neg Bacilli Assessment and Plan Assessment: Acute urinary tract infection secondary to gram-negative bacilli Sepsis with fever, tachycardia and tachypnea Metabolic acidosis Acute RSV bronchitis Metabolic/toxic encephalopathy Obesity with BMI of 39 Paroxysmal atrial fibrillation Diabetes mellitus Hypertension Hypothyroidism History of fibromyalgia Plan: Continue with Rocephin Follow-up urine culture (I talked to the lab and to the nurses of emergency room) Follow-up procalcitonin and CRP Follow-up blood culture Infectious disease on pulmonary team consult Labs and medication were reviewed.. Continue same treatment. Continue with symptomatic treatment. Resume home medication. Monitor labs and vitals. DVT and GI prophylaxis. Further recommendations as per clinical course of the patient DVT prophylaxis: Subcutaneous heparin (may resume eliquis was verified as care home medication) GI Prophylaxis: Pepcid
[2023-07-30] MEDS: guaiFENesin SYRUP 100MG/5ML 200 MG/10 ML CUP PO PRN (17:58)
[2023-07-30 20:31] LABS: Glucose,Whole Blood 202 mg/dL (70-110)
[2023-07-30] MEDS: SENNOSIDES 8.6 MG TAB PO SCH (21:28)
[2023-07-30] MEDS: QUEtiapine 25 MG TAB PO SCH (21:28)
[2023-07-30] MEDS: ATORVASTATIN 40 MG TAB PO SCH (21:28)
[2023-07-31 06:10] LABS: Glucose,Whole Blood 151 mg/dL (70-110)
[2023-07-31] MEDS: INSULIN ASPART (NovoLOG) 100 UNIT/ML VIAL SQ SCH ×4 (07:13→21:04)
[2023-07-31] MEDS: METOPROLOL TARTRATE 50 MG TAB PO SCH ×2 (09:02→18:20)
[2023-07-31] MEDS: APIXABAN 5 MG TAB PO SCH ×2 (09:02→18:20)
[2023-07-31] MEDS: DILTIAZEM ORAL 60 MG TAB PO SCH ×3 (09:03→21:40)
[2023-07-31] MEDS: VENLAFAXINE HCL ER 150 MG CAP PO SCH (09:03)
[2023-07-31] MEDS: lisinopriL 10 MG TAB PO SCH (09:03)
[2023-07-31] MEDS: metFORMIN 500 MG TAB PO SCH (09:03)
[2023-07-31] MEDS: levETIRAcetam 500 MG TAB PO SCH ×2 (09:03→21:04)
[2023-07-31] MEDS: LEVOTHYROXINE 100 MCG TAB PO SCH (09:03)
[2023-07-31] MEDS: methylPREDNISolone 4 MG TAB TAPER PO SCH (09:04)
[2023-07-31] MEDS: FAMOTIDINE 20 MG/2 ML VIAL IV SCH ×2 (09:05→21:04)
[2023-07-31] MEDS: BUDESONIDE 0.5 MG/2 ML NEBU INHALATION SCH ×2 (09:12→21:10)
--- NOTE | 2023-07-31 11:07 | P.PN ---
Subjective Progress Note Date: 07/31/23 Principal diagnosis: Respiratory failure. Pulmonary consult dated 07/28/2023. 83-year-old female, seen today in the emergency department, room 3. The patient apparently was brought into the emergency department, by EMS, with increased work of breathing, and fever, from a local halfway. I believe she came in from [facility]. The patient apparently has a history of dementia, hypothyroidism, atrial fibrillation, diabetes, and hypertension. Currently, the patient's on BiPAP, with settings of 12/5, and 30%. She's getting saline at 20 mL an hour. A pro-calcitonin level was checked. In addition, she was placed on Rocephin and azithromycin empirically. The patient did test positive for respiratory syncytial virus, and is thought to possibly have a urinary tract infection. The patient is very lethargic and sleepy, and really cannot give any additional history. Labs include a white count 8.8, hemoglobin 12.2, hematocrit 39.1, and a platelet count of 239,000. Venous blood gases show pCO2 of 40, and a pH of 7.24. Sodium 134, chlorides 102, CO2 23, anion gap 9, BUN 16, creatinine 0.47. Glucose 113. N-terminal proBNP is 1640. Urine is cloudy, w ith trace protein. Leukocyte esterase is large positive. There is 136 WBCs, and many bacteria. Chest x-ray was unremarkable. Progress note dated 07/29/2023. 83-year-old female seen yesterday in consultation, in the emergency department. She was brought to the emergency department, by EMS, with increased work of breathing, fever, and mental status changes, from a local halfway. Currently, the patient is seen in room 383. Patient is currently on 3 L of oxygen. When not using nasal cannula, she is on BiPAP with settings of 12/5 and 30%. She's getting saline at 20 mL an hour. Her mental status is poor, and not much history can be obtained from the patient. Currently labs include a white count 9.5, hemoglobin 11.5, hematocrit 37.2, and platelet count 228,000. Sodium 143, potassium 4.1, chlorides 105, CO2 23, anion gap 15, BUN 12, creatinine 0.40. Glucose 198. Calcium is 9.2. Chest x-ray on admission, was normal. Progress note dated 07/30/2023. 83-year-old female seen in room 383. Currently, the patient's on saline at 20 mL an hour, and getting oxygen, 3 L by nasal cannula. The patient also has a BiPAP device in her room, with settings of 12/5, and 30%. Clinically, the patient is feeling a bit better. She was admitted from a local halfway, with increased work of breathing, fever, and mental status changes. She cannot give much of a history at this time even after a few days in the hospital. No new labs today other than a glucose of 252. Urine cultures were positive for Proteus mirabilis. She is currently on Rocephin. Progress note dated 07/31/2023. 83-year-old female seen today in room 483. Currently, the patient's on room air, with saturations of 90%. She has a BiPAP in her room, with settings of 12/5, and 30%. The patient is getting saline at 20 mL an hour. According to her nurse, her cough is weak. No new labs today other than a glucose of 151. No chest x-ray today. The patient's urine sampling was positive for Proteus mirabilis. She continues on Rocephin. Objective - Vital Signs Vital signs: Vital Signs Temp 98.5 F 07/31/23 04:00 Pulse 112 H 07/31/23 09:21 Resp 16 07/31/23 08:00 BP 188/88 07/31/23 08:00 Pulse Ox 95 07/31/23 09:15 FiO2 30 07/29/23 01:44 Intake & Output 07/30/23 07/31/23 07/31/23 18:59 06:59 18:59 Intake Total 334 0 200 Output Total 500 200 Balance -166 -200 200 Intake: Oral 334 0 200 Output: Urine 500 200 Other: Voiding Method External Catheter External Catheter External Catheter - Exam No acute distress, much more awake and alert, currently on room air, with saturations of 90%. HEENT examination is grossly unremarkable. Neck supple. Full range of motion. No adenopathy thyromegaly or neck vein di stention. Cardiovascular examination reveals regular rhythm rate. S1-S2 normal. No S3 or S4. No discernible murmur noted. Heart rate 100 bpm. Heart sounds are distant. Lungs reveal scattered mild rhonchi. No wheezes or crackles. Breath sounds equal bilaterally. Saturations are 90 %. Abdomen soft bowel sounds are heard. No masses or tenderness. Extremities are intact. No cyanosis clubbing or edema. Skin is without rash or lesion. Neurologic examination is improved. - Labs CBC & Chem 7: 07/29/23 07:57 07/29/23 07:57 Labs: Abnormal Lab Results - Last 24 Hours (Table) 07/30/23 07/30/23 07/30/23 Range/Units 11:33 16:11 20:29 POC Glucose (mg/dL) 252 H 137 H 202 H (70-110) mg/dL 07/31/23 Range/Units 06:09 POC Glucose (mg/dL) 151 H (70-110) mg/dL Microbiology - Last 24 Hours (Table) 07/28/23 04:09 Urine Culture - Final Urine,Catheterized Proteus mirabilis 07/28/23 05:25 Blood Culture - Preliminary Blood 07/28/23 05:40 Blood Culture - Preliminary Blood Assessment and Plan Assessment: Acute mental status changes, which may relate to encephalopathy, secondary to urinary tract infection/urosepsis. Proteus mirabilis urinary tract infection. Patient tested positive for RSV, but has a normal chest x-ray, without evidence of infiltrate/pneumonia. History of atrial fibrillation. History of diabetes mellitus. History of hypertension. History of hypothyroidism. History of fibromyalgia. Obesity. Plan: Plan dated 07/28/2023. The patient is seen in the emergency department, room #3. The patient may have a urinary tract infection, and does have mental status changes, which may be consistent with metabolic/septic encephalopathy. The patient is positive for RSV, but her chest x-ray is normal. She's currently on BiPAP, with an FiO2 of 30%, and very reasonable saturations. She was started on Rocephin and azithromycin empirically. A pro-calcitonin level was ordered. Labs, x-rays, and medications are reviewed. Additional recommendations and suggestions are forthcoming. Prognosis is guarded. CODE STATUS should be addressed. The patient is 83 years of age. Plan dated 07/29/2023. Urine is showing evidence of gram-negative bacilli, yet to be identified. The patient is currently on 3 L of oxygen. She does have the BiPAP device in the room with settings of 12/5, and 30%. The patient's also getting saline at KVO. The patient continues on ceftriaxone. Labs, x-rays, medications are reviewed. The patient's pro-calcitonin level was only 0.3. Additional recommendations and suggestions are forthcoming. The patient's prognosis is poor. We will continue to follow make recommendations along the way. Plan dated 07/30/2023. Urine specimen, came back positive for Proteus mirabilis. She is currently on Rocephin. The patient's getting oxygen by nasal cannula at 3 L. The BiPAP device is in the room, but it's not clear that she used it. Her pro-calcitonin level was only 0.3. Labs, x-rays, and medications are reviewed. We will continue to follow the patient, and make recommendations along the way. Prognosis is guarded. Plan dated 07/31/2023. The patient appears to be doing relatively well. She's being treated for Proteus mirabilis urinary tract infection with Rocephin. The patient is much more awake and alert today. Her room air saturation is 90%. The patient is receiving saline at 20 mL an hour. She has a BiPAP in her room, but I'm not sure that she used it. Labs, x-rays, and medications are reviewed. Prognosis is certainly guarded. We will continue to follow the patient, and make recomm endations along the way. Time with Patient: Less than 30
[2023-07-31 12:00] LABS: Glucose,Whole Blood 275 mg/dL (70-110)
[2023-07-31] MEDS: IPRATROPIUM-ALBUTEROL 3 ML NEB INHALATION PRN (12:04)
[2023-07-31] MEDS: SODIUM CHLORIDE 0.9% 1,000 ML IV SCH (12:18)
[2023-07-31] MEDS ORDERED: DEXTROSE 5%-0.9% NACL 1,000 ML IV SCH (13:30)
[2023-07-31 14:25] LABS: Basophils # (A) 0.1 k/uL (0-0.2); Basophils % (A) 1 %; Eosinophils % (A) 0 %; HCT 41.7 % (34.0-46.0); HGB 13.1 gm/dL (11.4-16.0); Hypochromasia Moderate; Lymphocytes # (A) 1.1 k/uL (1.0-4.8); Lymphocytes % (A) 8 %; MCHC 31.4 g/dL (31.0-37.0); MCV 92.2 fL (80.0-100.0); Mean Platelet Volume 9.4; Monocytes # (A) 0.5 k/uL (0-1.0); Monocytes % (A) 4 %; Neutrophils # (A) 11.7 k/uL (1.3-7.7); Neutrophils % (A) 84 %; Platelet Count 206 k/uL (150-450); RBC 4.53 m/uL (3.80-5.40); RDW 15.1 % (11.5-15.5); WBC 13.8 k/uL (3.8-10.6)
[2023-07-31 14:33] LABS: ALT 22 U/L (4-34); AST 37 U/L (14-36); African American GFR (CKD) >90 (>60 ml/min/1.73 sqM); Albumin 3.5 g/dL (3.5-5.0); Albumin/Globulin Ratio 0.9; Alkaline Phosphatase 74 U/L (38-126); Anion Gap 13 mmol/L; Bilirubin,Unconjugated 0.1 mg/dL (0.0-1.1); Blood Urea Nitrogen 27 mg/dL (7-17); Carbon Dioxide 22 mmol/L (22-30); Chloride 106 mmol/L (98-107); Globulin 3.8 g/dL; Glucose 234 mg/dL (74-99); Non-African American GFR(CKD) >90 (>60 ml/min/1.73 sqM); Sodium 141 mmol/L (137-145); Total Bilirubin 0.6 mg/dL (0.2-1.3); Total Protein 7.3 g/dL (6.3-8.2)
[2023-07-31 14:36] LABS: Potassium 4.3 mmol/L (3.5-5.1)
--- NOTE | 2023-07-31 16:03 | P.PN ---
Subjective Progress Note Date: 07/31/23 83 years old female with multiple medical problems as below. Sent from [facility] for respiratory distress of one-day duration since 1 PM. Patient herself is poor historian. She is currently on BiPAP which limits her ability to come to gait but she opens eyes to take Tectile and verbal stimuli's. She smiles and keep nodding [id number] as he "yes" but she does not answers questions. She goes back to sleep right away. Chest mildly tachypneic and currently on BiPAP with the setting of 07/13 with FiO2 of 40%. She does not have suprapubic tenderness. No leg edema. Other history is limited because of patient condition. However she is having significant wheezing bilaterally. On admission patient had a fever of 101.6. She is tachycardic around 100 for 15 and tachypneic at 24 breaths per minute. Labs reviewed showing unremarkable CBC, INR, BMP, LFTs and troponin are negative. 10 with no leukocytosis and WBCs 8.8. Total bili is mildly elevated 1.8. Patient has a low pH of 7.2, HCO3 is low at 17 with normal pCO2 Patient received antibiotics of Rocephin and continued with same dose of c eftriaxone. Also received 1 time dose of Zithromax 24-hour interval change 07/31/2023 Patient is seen and evaluated in room at bedside; admitted with RSV infection and UTI; encephalopathy related to UTI - Vital signs are reviewed and remained stable Patient remains on IV Rocephin; urine culture is positive for Proteus mirabilis sensitive to Rocephin Pulmonary and infectious disease service on board Objective - Vital Signs Vital signs: Vital Signs Temp 98.5 F 07/31/23 04:00 Pulse 112 H 07/31/23 09:21 Resp 16 07/31/23 08:00 BP 188/88 07/31/23 08:00 Pulse Ox 95 07/31/23 09:15 FiO2 30 07/29/23 01:44 Intake & Output 07/30/23 07/31/23 07/31/23 18:59 06:59 18:59 Intake Total 334 0 200 Output Total 500 200 Balance -166 -200 200 Intake: Oral 334 0 200 Output: Urine 500 200 Other: Voiding Method External Catheter External Catheter External Catheter - Exam -GENERAL: The patient is confused, not in any acute distress. Well developed, well nourished. HEENT: Pupils are round and equally reacting to light. EOMI. No scleral icterus. No conjunctival pallor. Normocephalic, atraumatic. No pharyngeal erythema. No thyromegaly. CARDIOVASCULAR: S1 and S2 present. No murmurs, rubs, or gallops. PULMONARY: Chest is clear to auscultation, no wheezing , no crackles. ABDOMEN: Soft, nontender, nondistended, normoactive bowel sounds. No palpable organomegaly. MUSCULOSKELETAL: No joint swelling or deformity. EXTREMITIES: No cyanosis, clubbing, or pedal edema. NEUROLOGICAL: Gross neurological examination did not reveal any focal deficits. She moves both upper and lower extremities equally and symmetrically SKIN: No rashes. no petechiae. - Labs CBC & Chem 7: 07/31/23 13:08 07/31/23 13:08 Labs: Abnormal Lab Results - Last 24 Hours (Table) 07/30/23 07/30/23 07/30/23 Range/Units 11:33 16:11 20:29 POC Glucose (mg/dL) 252 H 137 H 202 H (70-110) mg/dL 07/31/23 Range/Units 06:09 POC Glucose (mg/dL) 151 H (70-110) mg/dL Microbiology - Last 24 Hours (Table) 07/28/23 04:09 Urine Culture - Final Urine,Catheterized Proteus mirabilis 07/28/23 05:25 Blood Culture - Preliminary Blood 07/28/23 05:40 Blood Culture - Preliminary Blood Assessment and Plan Assessment: Acute urinary tract infection secondary to gram-negative bacilli Sepsis with fever, tachycardia and tachypnea Metabolic acidosis Acute RSV bronchitis Metabolic/toxic encephalopathy Obesity with BMI of 39 Paroxysmal atrial fibrillation Diabetes mellitus Hypertension Hypothyroidism History of fibromyalgia Plan: Continue with Rocephin Follow-up urine culture (I talked to the lab and to the nurses of emergency room) Follow-up procalcitonin and CRP Follow-up blood culture Infectious disease on pulmonary team consult Labs and medication were reviewed.. Continue same treatment. Continue with symptomatic treatment. Resume home medication. Monitor labs and vitals. DVT and GI prophylaxis. Further recommendations as per clinical course of the patient DVT prophylaxis: Subcutaneous heparin (may resume eliquis was verified as intermediate medication) GI Prophylaxis: Pepcid
[2023-07-31 16:43] LABS: Glucose,Whole Blood 165 mg/dL (70-110)
[2023-07-31 20:07] LABS: Glucose,Whole Blood 185 mg/dL (70-110)
[2023-07-31] MEDS: QUEtiapine 25 MG TAB PO SCH (21:04)
[2023-07-31] MEDS: ATORVASTATIN 40 MG TAB PO SCH (21:04)
[2023-07-31] MEDS: SENNOSIDES 8.6 MG TAB PO SCH (21:04)
--- NOTE | 2023-07-31 21:38 | P.PN ---
Subjective Progress Note Date: 07/30/23 Principal diagnosis: Reason for follow-up is RSV and gram-negative urinary tract infection Patient is a 83-year-old female with a past medical history elevated for diabetes mellitus type remission fibromyalgia atrial fibrillation patient is a resident of the local senior living patient has been sent to the ER for evaluation of increasing shortness of breath, patient was febrile with a temperature of 101.2 F on presentation to hospital did have a positive UA and also tested positive for RSV On today's evaluation that is 07/30/2023 patient remains to be afebrile, patient is breathing comfortably on 3 L nasal cannula oxygen patient remains to be not a very good historian and did not answer any question and no vomiting diarrhea or any other changes reported by the nursing staff. Patient did have white count of 9.5 and a creatinine 0.40 as of yesterday urine culture has not been finalized. Objective - Vital Signs Vital signs: Vital Signs Temp 97.4 F L 07/30/23 04:00 Pulse 77 07/30/23 12:00 Resp 16 07/30/23 12:00 BP 120/56 07/30/23 12:00 Pulse Ox 93 L 07/30/23 12:00 FiO2 30 07/29/23 01:44 Intake & Output 07/29/23 07/30/23 07/30/23 18:59 06:59 18:59 Intake Total 224 Output Total 850 500 500 Balance -850 -500 -276 Weight 99.79 kg Intake: Oral 224 Output: Urine 850 500 500 Other: Voiding Method External Catheter External Catheter External Catheter - Exam GENERAL DESCRIPTION: An elderly female lying in bed in no distress RESPIRATORY SYSTEM: Unlabored breathing , coarse breath sounds bilaterally HEART: S1 S2 regular rate and rhythm , ABDOMEN: Soft , no tenderness EXTREMITIES: No edema feet - Labs CBC & Chem 7: 07/31/23 13:08 07/31/23 13:08 Labs: Abnormal Lab Results - Last 24 Hours (Table) 07/29/23 07/29/23 07/29/23 Range/Units 07:57 16:22 20:04 POC Glucose (mg/dL) 223 H 219 H (70-110) mg/dL Hemoglobin A1c 6.5 H (<=6.0) % 07/30/23 07/30/23 Range/Units 05:57 11:33 POC Glucose (mg/dL) 176 H 252 H (70-110) mg/dL Hemoglobin A1c (<=6.0) % Microbiology - Last 24 Hours (Table) 07/28/23 05:25 Blood Culture - Preliminary Blood 07/28/23 05:40 Blood Culture - Preliminary Blood 07/28/23 04:09 Urine Culture - Preliminary Urine,Catheterized Gram Neg Bacilli Assessment and Plan (1) Febrile illness, acute Current Visit: Yes Status: Acute Code(s): R50.9 - FEVER, UNSPECIFIED SNOMED Code(s): 033342390 (2) RSV (respiratory syncytial virus infection) Current Visit: Yes Status: Acute Code(s): B33.8 - OTHER SPECIFIED VIRAL DISEASES SNOMED Code(s): 36907480 (3) UTI (urinary tract infection) Current Visit: Yes Status: Acute Code(s): N39.0 - URINARY TRACT INFECTION, SITE NOT SPECIFIED SNOMED Code(s): 92411721 Plan: 1-Patient presented to hospital with fever and mental status changes which is likely multifactorial in this patient did have a fever with respiratory symptoms however chest x-ray was reported negative for acute infiltrate she did tested positive for RSV treatment of which is mostly supportive patient did have a positive UA and concerning for possible symptomatic urinary infection causing more likely her symptoms of fever and confusion 2the patient did have resolution of the fever and the patient white count normalized we will keep the patient on Rocephin while waiting for the culture to finalize and monitor clinical course closely Dictation was produced using [employer] dictation software. please excuse any grammatical, word or spelling errors. Time with Patient: Less than 30
--- NOTE | 2023-07-31 21:39 | P.PN ---
Subjective Progress Note Date: 07/31/23 Principal diagnosis: Reason for follow-up is RSV and gram-negative urinary tract infection Patient is a 83-year-old female with a past medical history elevated for diabetes mellitus type remission fibromyalgia atrial fibrillation patient [facility] patient has been sent to the ER for evaluation of increasing shortness of breath, patient was febrile with a temperature of 101.2 F on presentation to hospital did have a positive UA and also tested positive for RSV On today's evaluation that is 07/31/2023 patient continues to be afebrile p atient is breathing comfortably on 3 L nasal cannula oxygen the patient remains to be pleasantly confused and cannot provide reliable history no vomiting diarrhea or any other changes reported by the nursing staff. Patient did have white count of 13.8 creatinine 0.43 blood culture has been negative urine has been finalized with Proteus that is sensitive to Rocephin Objective - Vital Signs Vital signs: Vital Signs Temp 98 F 07/31/23 10:50 Pulse 96 07/31/23 12:13 Resp 17 07/31/23 10:50 BP 159/96 07/31/23 10:50 Pulse Ox 93 L 07/31/23 10:50 FiO2 30 07/29/23 01:44 Intake & Output 07/30/23 07/31/23 07/31/23 18:59 06:59 18:59 Intake Total 334 0 200 Output Total 500 200 Balance -166 -200 200 Intake: Oral 334 0 200 Output: Urine 500 200 Other: Voiding Method External Catheter External Catheter External Catheter - Exam GENERAL DESCRIPTION: An elderly female lying in bed in no distress RESPIRATORY SYSTEM: Unlabored breathing , coarse breath sounds bilaterally HEART: S1 S2 regular rate and rhythm , ABDOMEN: Soft , no tenderness EXTREMITIES: No edema feet - Labs CBC & Chem 7: 07/31/23 13:08 07/31/23 13:08 Labs: Abnormal Lab Results - Last 24 Hours (Table) 07/30/23 07/30/23 07/31/23 Range/Units 16:11 20:29 06:09 POC Glucose (mg/dL) 137 H 202 H 151 H (70-110) mg/dL 07/31/23 Range/Units 11:59 POC Glucose (mg/dL) 275 H (70-110) mg/dL Microbiology - Last 24 Hours (Table) 07/28/23 05:25 Blood Culture - Preliminary Blood 07/28/23 05:40 Blood Culture - Preliminary Blood 07/28/23 04:09 Urine Culture - Final Urine,Catheterized Proteus mirabilis Assessment and Plan (1) Febrile illness, acute Current Visit: Yes Status: Acute Code(s): R50.9 - FEVER, UNSPECIFIED SNOMED Code(s): 479071767 (2) RSV (respiratory syncytial virus infection) Current Visit: Yes Status: Acute Code(s): B33.8 - OTHER SPECIFIED VIRAL DISEASES SNOMED Code(s): 41924449 (3) UTI (urinary tract infection) Current Visit: Yes Status: Acute Code(s): N39.0 - URINARY TRACT INFECTION, SITE NOT SPECIFIED SNOMED Code(s): 88786600 Plan: 1-Patient presented to hospital with fever and mental status changes which is likely multifactorial in this patient did have a fever with respiratory symptoms however chest x-ray was reported negative for acute infiltrate she did tested positive for RSV treatment of which is mostly supportive patient did have a positive UA and concerning for possible symptomatic urinary infection causing more likely her symptoms of fever and confusion 2the patient urine has been finalized with a Proteus that is sensitive to Rocephin which will be continued patient noted to have slight worsening of the white count and will monitor closely and continue with supportive care Dictation was produced using [employer] dictation software. please excuse any grammatical, word or spelling errors.
[2023-08-01] MEDS: SODIUM CHLORIDE 0.9% 1,000 ML IV SCH (05:02)
[2023-08-01 05:46] LABS: Glucose,Whole Blood 136 mg/dL (70-110)
[2023-08-01] MEDS: INSULIN ASPART (NovoLOG) 100 UNIT/ML VIAL SQ SCH ×4 (05:51→22:01)
[2023-08-01] MEDS: guaiFENesin SYRUP 100MG/5ML 200 MG/10 ML CUP PO PRN (06:06)
[2023-08-01] MEDS: methylPREDNISolone 4 MG TAB TAPER PO SCH (08:08)
[2023-08-01] MEDS: levETIRAcetam 500 MG TAB PO SCH ×2 (08:08→22:01)
[2023-08-01] MEDS: DILTIAZEM ORAL 60 MG TAB PO SCH ×3 (08:08→22:01)
[2023-08-01] MEDS: VENLAFAXINE HCL ER 150 MG CAP PO SCH (08:08)
[2023-08-01] MEDS: metFORMIN 500 MG TAB PO SCH (08:08)
[2023-08-01] MEDS: LEVOTHYROXINE 100 MCG TAB PO SCH (08:08)
[2023-08-01] MEDS: lisinopriL 10 MG TAB PO SCH (08:09)
[2023-08-01] MEDS: FAMOTIDINE 20 MG/2 ML VIAL IV SCH ×2 (08:09→22:02)
[2023-08-01] MEDS: APIXABAN 5 MG TAB PO SCH ×2 (08:09→16:43)
[2023-08-01] MEDS: METOPROLOL TARTRATE 50 MG TAB PO SCH ×2 (08:09→16:43)
[2023-08-01] MEDS: BUDESONIDE 0.5 MG/2 ML NEBU INHALATION SCH ×2 (08:11→18:22)
[2023-08-01 10:24] LABS: HCT 40.9 % (37.2-46.3); HGB 12.9 g/dL (12.0-15.0); MCH 28.7 pg (27.0-32.0); MCHC 31.5 g/dL (32.0-37.0); MCV 91.1 FL (80.0-97.0); Mean Platelet Volume 10.3 FL (9.5-12.2); NRBC Per 100 WBC 0 X 10*3/uL (0.00-0.01); Platelet Count 298 X 10*3/uL (140-440); RBC 4.49 X 10*6/uL (4.10-5.20)
--- NOTE | 2023-08-01 11:03 | P.PN ---
Subjective Progress Note Date: 08/01/23 83-year-old female, seen today in the emergency department, room 3. The patient apparently was brought into the emergency department, by EMS, with increased work of breathing, and fever, from a local longterm. I believe she came in from [facility]. The patient apparently has a history of dementia, hypothyroidism, atrial fibrillation, diabetes, and hypertension. Currently, the patient's on BiPAP, with settings of 12/5, and 30%. She's getting saline at 20 mL an hour. A pro-calcitonin level was checked. In addition, she was placed on Rocephin and azithromycin empirically. The patient did test positive for respiratory syncytial virus, and is thought to possibly have a urinary tract infection. The patient is very lethargic and sleepy, and really cannot give any additional history. Labs include a white count 8.8, hemoglobin 12.2, hematocrit 39.1, and a platelet count of 239,000. Venous blood gases show pCO2 of 40, and a pH of 7.24. Sodium 134, chlorides 102, CO2 23, anion gap 9, BUN 16, creatinine 0.47. Glucose 113. N-terminal proBNP is 1640. Urine is cloudy, with trace protein. Leukocyte esterase is large positive. There is 136 WBCs, and many bacteria. Chest x-ray was unremarkable. Progress note dated 07/29/2023. 83-year-old female seen yesterday in consultation, in the emergency department. She was brought to the emergency department, by EMS, with increased work of breathing, fever, and mental status changes, from a local longterm. Currently, the patient is seen in room 383. Patient is currently on 3 L of oxygen. When not using nasal cannula, she is on BiPAP with settings of 12/5 and 30%. She's getting saline at 20 mL an hour. Her mental status is poor, and not much history can be obtained from the patient. Currently labs include a white count 9.5, hemoglobin 11.5, hematocrit 37.2, and platelet count 228,000. Sodium 143, potassium 4.1, chlorides 105, CO2 23, anion gap 15, BUN 12, creatinine 0.40. Glucose 198. Calcium is 9.2. Chest x-ray on admission, was normal. Progress note dated 07/30/2023. 83-year-old female seen in room 383. Currently, the patient's on saline at 20 mL an hour, and getting oxygen, 3 L by nasal cannula. The patient also has a BiPAP device in her room, with settings of 12/5, and 30%. Clinically, the patient is feeling a bit better. She was admitted from a local longterm, with increased work of breathing, fever, and mental status changes. She cannot give much of a history at this time even after a few days in the hospital. No new labs today other than a glucose of 252. Urine cultures were positive for Proteus mirabilis. She is currently on Rocephin. Progress note dated 07/31/2023. 83-year-old female seen today in room 483. Currently, the patient's on room air, with saturations of 90%. She has a BiPAP in her room, with settings of 12/5, and 30%. The patient is getting saline at 20 mL an hour. According to her nurse, her cough is weak. No new labs today other than a glucose of 151. No chest x-ray today. The patient's urine sampling was positive for Proteus mirabilis. She continues on Rocephin. The patient is seen today 08/01/2023 in follow-up on the regular medical floor. She is currently resting comfortably in bed. Awake and alert in no acute distress. Maintaining good O2 saturations in the 90s on 3 L/m per nasal cannula. She has normal saline at 20 ML's per hour. She's not utilizing the BiPAP. Urine culture is positive for Proteus mirabilis. Blood cultures revealing no growth. White count 15.2. Hemoglobin 12.9. Platelets 298. Glucose 136. Remains on DuoNeb inhalations, Pulmicort and Perforomist inhalations, Medrol Dosepak. Anticoagulated with Eliquis. Continued on ceftriaxone. Objective - Vital Signs Vital signs: Vital Signs Temp 98.3 F 08/01/23 06:53 Pulse 67 08/01/23 06:53 Resp 17 08/01/23 06:53 BP 146/86 08/01/23 06:53 Pulse Ox 95 08/01/23 06:53 FiO2 30 07/29/23 01:44 Intake & Output 12/23/23 12/24/23 12/24/23 18:59 06:59 18:59 Intake Total 200 Output Total 110 Balance 200 -110 Intake: Oral 200 Output: Urine 110 Other: Voiding Method External Catheter Diaper Diaper # Voids 2 1 # Bowel Movements 1 1 - Exam GENERAL EXAM: Alert, 83-year-old female, resting in bed, on 3 L nasal cannula, comfortable in no apparent distress. HEAD: Normocephalic. EYES: Normal reaction of pupils, equal size. NOSE: Clear with pink turbinates. THROAT: No erythema or exudates. NECK: No masses, no JVD. CHEST: No chest wall deformity. LUNGS: Equal air entry with bilateral end expiratory wheeze, diminished. CVS: S1 and S2 normal with no audible murmur, regular rhythm. ABDOMEN: No hepatosplenomegaly, normal bowel sounds, no guarding or rigidity. SPINE: No scoliosis or deformity SKIN: No rashes CENTRAL NERVOUS SYSTEM: No focal deficits, tone is normal in all 4 extremities. EXTREMITIES: There is no peripheral edema. No clubbing, no cyanosis. Peripheral pulses are intact. - Labs CBC & Chem 7: 08/01/23 06:13 07/31/23 13:08 Labs: Abnormal Lab Results - Last 24 Hours (Table) 07/31/23 07/31/23 07/31/23 Range/Units 11:59 13:08 13:08 WBC 13.8 H (3.8-10.6) k/uL MCHC (32.0-37.0) g/dL RDW (11.5-14.5) % Neutrophils # 11.7 H (1.3-7.7) k/uL BUN 27 H (7-17) mg/dL Creatinine 0.43 L (0.52-1.04) mg/dL Glucose 234 H (74-99) mg/dL POC Glucose (mg/dL) 275 H (70-110) mg/dL AST 37 H (14-36) U/L 07/31/23 07/31/23 08/01/23 Range/Units 16:42 20:05 05:44 WBC (3.8-10.6) k/uL MCHC (32.0-37.0) g/dL RDW (11.5-14.5) % Neutrophils # (1.3-7.7) k/uL BUN (7-17) mg/dL Creatinine (0.52-1.04) mg/dL Glucose (74-99) mg/dL POC Glucose (mg/dL) 165 H 185 H 136 H (70-110) mg/dL AST (14-36) U/L 08/01/23 Range/Units 06:13 WBC 15.20 H (3.8-10.6) k/uL MCHC 31.5 L (32.0-37.0) g/dL RDW 15.0 H (11.5-14.5) % Neutrophils # (1.3-7.7) k/uL BUN (7-17) mg/dL Creatinine (0.52-1.04) mg/dL Glucose (74-99) mg/dL POC Glucose (mg/dL) (70-110) mg/dL AST (14-36) U/L Microbiology - Last 24 Hours (Table) 07/28/23 05:25 Blood Culture - Preliminary Blood 07/28/23 05:40 Blood Culture - Preliminary Blood Assessment and Plan Assessment: Acute mental status changes, which may relate to encephalopathy, secondary to urinary tract infection/urosepsis. Proteus mirabilis urinary tract infection. Patient tested positive for RSV, but has a normal chest x-ray, without evidence of infiltrate/pneumonia. History of atrial fibrillation. History of diabetes mellitus. History of hypertension. History of hypothyroidism. History of fibromyalgia. Obesity. Plan: Patient was seen and evaluated Labs and medications reviewed Continued on ceftriaxone for UTI Continued on bronchodilators, steroids Stable and on 3 L nasal cannula Not utilizing BiPAP We will continue to follow I have personally seen and examined the patient, performed the documentation and the assessment and plan as written. Number of minutes spent on the visit: 10.
[2023-08-01 11:25] LABS: Glucose,Whole Blood 199 mg/dL (70-110)
[2023-08-01 11:37] LABS: Basophils # (A) 0.05 X 10*3/uL (0.00-0.10); Basophils % (A) 0.3 %; Eosinophils # (A) 0 X 10*3/uL (0.04-0.35); Eosinophils % (A) 0 %; Lymphocytes # (A) 3.24 X 10*3/uL (0.90-5.00); Lymphocytes % (A) 21.3 %; Monocytes # (A) 1.15 X 10*3/uL (0.20-1.00); Monocytes % (A) 7.6 %; Neutrophils # (A) 10.66 X 10*3/uL (1.80-7.70); Neutrophils % (A) 70.1 %; RBC Morphology Normal (Normal)
[2023-08-01 11:53] LABS: Blood Urea Nitrogen 19.9 mg/dL (9.0-27.0); Glucose 168 mg/dL (70-110)
[2023-08-01 11:54] LABS: Calcium 8.9 mg/dL (8.7-10.3); Carbon Dioxide 20.8 mmol/L (21.6-31.8); Chloride 105 mmol/L (96-109); Potassium 3.8 mmol/L (3.5-5.5); Sodium 142 mmol/L (135-145)
[2023-08-01 16:36] LABS: Glucose,Whole Blood 216 mg/dL (70-110)
--- NOTE | 2023-08-01 17:29 | P.PN ---
Subjective Progress Note Date: 08/01/23 83 years old female with multiple medical problems as below. Sent from [facility] for respiratory distress of one-day duration since 1 PM. Patient herself is poor historian. She is currently on BiPAP which limits her ability to come to gait but she opens eyes to take [employer] and verbal stimuli's. She smiles and keep nodding [id number] as he "yes" but she does not answers questions. She goes back to sleep right away. Chest mildly tachypneic and currently on BiPAP with the setting of 12/ with FiO2 of 40%. She does not have suprapubic tenderness. No leg edema. Other history is limited because of patient condition. However she is having significant wheezing bilaterally. On admission patient had a fever of 101.6. She is tachycardic around 100 for 15 and tachypneic at 24 breaths per minute. Labs reviewed showing unremarkable CBC, INR, BMP, LFTs and troponin are negative. 10 with no leukocytosis and WBCs 8.8. Total bili is mildly elevated 1.8. Patient has a low pH of 7.2, HCO3 is low at 17 with normal pCO2 Patient received antibiotics of Rocephin and continued with same dose of c eftriaxone. Also received 1 time dose of Zithromax 24-hour interval change 07/31/2023 Patient is seen and evaluated in room at bedside; admitted with RSV infection and UTI; encephalopathy related to UTI - Vital signs are reviewed and remained stable Patient remains on IV Rocephin; urine culture is positive for Proteus mirabilis sensitive to Rocephin Pulmonary and infectious disease service on board 08/01/2023 Patient is seen and evaluated in follow-up on the regular medical floor. She is currently resting comfortably in bed. Awake and alert in no acute distress. Maintaining good O2 saturations in the 90s on 3 L/m per nasal cannula. She has normal saline at 20 ML's per hour. She's not utilizing the BiPAP. Urine culture is positive for Proteus mirabilis. Blood cultures revealing no growth. White count 15.2. Hemoglobin 12.9. Platelets 298. Glucose 136. Remains on DuoNeb inhalations, Pulmicort and Perforomist inhalations, Medrol Dosepak. Anticoagulated with Eliquis. Continued on ceftriaxone. Patient to return to [facility] when clinically stable Objective - Vital Signs Vital signs: Vital Signs Temp 98.3 F 08/01/23 06:53 Pulse 67 08/01/23 06:53 Resp 17 08/01/23 06:53 BP 146/86 08/01/23 06:53 Pulse Ox 95 08/01/23 06:53 FiO2 30 07/29/23 01:44 Intake & Output 07/31/23 08/01/23 08/01/23 18:59 06:59 18:59 Intake Total 200 Output Total 110 Balance 200 -110 Intake: Oral 200 Output: Urine 110 Other: Voiding Method External Catheter Diaper Diaper # Voids 2 1 # Bowel Movements 1 1 - Exam -GENERAL: The patient is confused, not in any acute distress. Well developed, well nourished. HEENT: Pupils are round and equally reacting to light. EOMI. No scleral icterus. No conjunctival pallor. Normocephalic, atraumatic. No pharyngeal erythema. No thyromegaly. CARDIOVASCULAR: S1 and S2 present. No murmurs, rubs, or gallops. PULMONARY: Chest is clear to auscultation, no wheezing , no crackles. ABDOMEN: Soft, nontender, nondistended, normoactive bowel sounds. No palpable organomegaly. MUSCULOSKELETAL: No joint swelling or deformity. EXTREMITIES: No cyanosis, clubbing, or pedal edema. NEUROLOGICAL: Gross neurological examination did not reveal any focal deficits. She moves both upper and lower extremities equally and symmetrically SKIN: No rashes. no petechiae. - Labs CBC & Chem 7: 08/01/23 06:13 08/01/23 06:13 Labs: Abnormal Lab Results - Last 24 Hours (Table) 07/31/23 07/31/23 07/31/23 Range/Units 13:08 13:08 16:42 WBC 13.8 H (3.8-10.6) k/uL MCHC (32.0-37.0) g/dL RDW (11.5-14.5) % Immature Gran # (0.00-0.04) X 10*3/uL Neutrophils # 11.7 H (1.3-7.7) k/uL Monocytes # (0.20-1.00) X 10*3/uL Eosinophils # (0.04-0.35) X 10*3/uL Carbon Dioxide (21.6-31.8) mmol/L Anion Gap (4.00-12.00) mmol/L BUN 27 H (7-17) mg/dL Creatinine 0.43 L (0.52-1.04) mg/dL BUN/Creatinine Ratio (12.00-20.00) Ratio Glucose 234 H (74-99) mg/dL POC Glucose (mg/dL) 165 H (70-110) mg/dL AST 37 H (14-36) U/L 07/31/23 08/01/23 08/01/23 Range/Units 20:05 05:44 06:13 WBC 15.20 H (3.8-10.6) k/uL MCHC 31.5 L (32.0-37.0) g/dL RDW 15.0 H (11.5-14.5) % Immature Gran # 0.10 H (0.00-0.04) X 10*3/uL Neutrophils # 10.66 H (1.3-7.7) k/uL Monocytes # 1.15 H (0.20-1.00) X 10*3/uL Eosinophils # 0 L (0.04-0.35) X 10*3/uL Carbon Dioxide (21.6-31.8) mmol/L Anion Gap (4.00-12.00) mmol/L BUN (7-17) mg/dL Creatinine (0.52-1.04) mg/dL BUN/Creatinine Ratio (12.00-20.00) Ratio Glucose (74-99) mg/dL POC Glucose (mg/dL) 185 H 136 H (70-110) mg/dL AST (14-36) U/L 08/01/23 08/01/23 Range/Units 06:13 11:23 WBC (3.8-10.6) k/uL MCHC (32.0-37.0) g/dL RDW (11.5-14.5) % Immature Gran # (0.00-0.04) X 10*3/uL Neutrophils # (1.3-7.7) k/uL Monocytes # (0.20-1.00) X 10*3/uL Eosinophils # (0.04-0.35) X 10*3/uL Carbon Dioxide 20.8 L (21.6-31.8) mmol/L Anion Gap 16.20 H (4.00-12.00) mmol/L BUN (7-17) mg/dL Creatinine 0.5 L (0.52-1.04) mg/dL BUN/Creatinine Ratio 39.80 H (12.00-20.00) Ratio Glucose 168 H (74-99) mg/dL POC Glucose (mg/dL) 199 H (70-110) mg/dL AST (14-36) U/L Microbiology - Last 24 Hours (Table) 07/28/23 05:25 Blood Culture - Preliminary Blood 07/28/23 05:40 Blood Culture - Preliminary Blood Assessment and Plan Assessment: Acute urinary tract infection secondary to gram-negative bacilli Sepsis with fever, tachycardia and tachypnea Metabolic acidosis Acute RSV bronchitis Metabolic/toxic encephalopathy Obesity with BMI of 39 Paroxysmal atrial fibrillation Diabetes mellitus Hypertension Hypothyroidism History of fibromyalgia Plan: Continue with Rocephin Follow-up urine culture (I talked to the lab and to the nurses of emergency room) Follow-up procalcitonin and CRP Follow-up blood culture Infectious disease on pulmonary team consult Labs and medication were reviewed.. Continue same treatment. Continue with symptomatic treatment. Resume home medication. Monitor labs and vitals. DVT and GI prophylaxis. Further recommendations as per clinical course of the patient DVT prophylaxis: Subcutaneous heparin (may resume eliquis was verified as snf medication) GI Prophylaxis: Pepcid
[2023-08-01] MEDS: IPRATROPIUM-ALBUTEROL 3 ML NEB INHALATION PRN (18:27)
[2023-08-01 21:33] LABS: Glucose,Whole Blood 188 mg/dL (70-110)
[2023-08-01] MEDS: SENNOSIDES 8.6 MG TAB PO SCH (22:01)
[2023-08-01] MEDS: QUEtiapine 25 MG TAB PO SCH (22:01)
[2023-08-01] MEDS: ATORVASTATIN 40 MG TAB PO SCH ×2 (22:01→22:08)
[2023-08-02 06:08] LABS: Glucose,Whole Blood 218 mg/dL (70-110)
[2023-08-02] MEDS: SODIUM CHLORIDE 0.9% 1,000 ML IV SCH (06:22)
[2023-08-02] MEDS: INSULIN ASPART (NovoLOG) 100 UNIT/ML VIAL SQ SCH ×4 (06:26→21:15)
[2023-08-02] MEDS: metFORMIN 500 MG TAB PO SCH (08:46)
[2023-08-02] MEDS: LEVOTHYROXINE 100 MCG TAB PO SCH (08:46)
[2023-08-02] MEDS: VENLAFAXINE HCL ER 150 MG CAP PO SCH (08:46)
[2023-08-02] MEDS: APIXABAN 5 MG TAB PO SCH ×2 (08:46→16:10)
[2023-08-02] MEDS: lisinopriL 10 MG TAB PO SCH (08:47)
[2023-08-02] MEDS: levETIRAcetam 500 MG TAB PO SCH ×2 (08:47→21:15)
[2023-08-02] MEDS: METOPROLOL TARTRATE 50 MG TAB PO SCH ×2 (08:47→16:10)
[2023-08-02] MEDS: FAMOTIDINE 20 MG/2 ML VIAL IV SCH ×2 (08:47→21:15)
[2023-08-02] MEDS: methylPREDNISolone 4 MG TAB TAPER PO SCH (08:48)
[2023-08-02] MEDS: DILTIAZEM ORAL 60 MG TAB PO SCH ×3 (08:48→21:22)
[2023-08-02] MEDS: IPRATROPIUM-ALBUTEROL 3 ML NEB INHALATION PRN ×2 (09:04→18:30)
[2023-08-02] MEDS: BUDESONIDE 0.5 MG/2 ML NEBU INHALATION SCH ×2 (09:04→18:30)
[2023-08-02 09:13] LABS: BUN/Creat Ratio 43.67 Ratio (12.00-20.00); Blood Urea Nitrogen 26.2 mg/dL (9.0-27.0); Calcium 8.8 mg/dL (8.7-10.3); Carbon Dioxide 25.5 mmol/L (21.6-31.8); Chloride 106 mmol/L (96-109); Glucose 217 mg/dL (70-110); Potassium 3.5 mmol/L (3.5-5.5); Sodium 141 mmol/L (135-145)
--- NOTE | 2023-08-02 11:10 | P.PN ---
Subjective Progress Note Date: 08/02/23 83-year-old female, seen today in the emergency department, room 3. The patient apparently was brought into the emergency department, by EMS, with increased work of breathing, and fever, from a local correction. I believe she came in from [facility]. The patient apparently has a history of dementia, hypothyroidism, atrial fibrillation, diabetes, and hypertension. Currently, the patient's on BiPAP, with settings of 12/5, and 30%. She's getting saline at 20 mL an hour. A pro-calcitonin level was checked. In addition, she was placed on Rocephin and azithromycin empirically. The patient did test positive for respiratory syncytial virus, and is thought to possibly have a urinary tract infection. The patient is very lethargic and sleepy, and really cannot give any additional history. Labs include a white count 8.8, hemoglobin 12.2, hematocrit 39.1, and a platelet count of 239,000. Venous blood gases show pCO2 of 40, and a pH of 7.24. Sodium 134, chlorides 102, CO2 23, anion gap 9, BUN 16, creatinine 0.47. Glucose 113. N-terminal proBNP is 1640. Urine is cloudy, with trace protein. Leukocyte esterase is large positive. There is 136 WBCs, and many bacteria. Chest x-ray was unremarkable. Progress note dated 07/29/2023. 83-year-old female seen yesterday in consultation, in the emergency department. She was brought to the emergency department, by EMS, with increased work of breathing, fever, and mental status changes, from a local correction. Currently, the patient is seen in room 383. Patient is currently on 3 L of oxygen. When not using nasal cannula, she is on BiPAP with settings of 12/5 and 30%. She's getting saline at 20 mL an hour. Her mental status is poor, and not much history can be obtained from the patient. Currently labs include a white count 9.5, hemoglobin 11.5, hematocrit 37.2, and platelet count 228,000. Sodium 143, potassium 4.1, chlorides 105, CO2 23, anion gap 15, BUN 12, creatinine 0.40. Glucose 198. Calcium is 9.2. Chest x-ray on admission, was normal. Progress note dated 07/30/2023. 83-year-old female seen in room 383. Currently, the patient's on saline at 20 mL an hour, and getting oxygen, 3 L by nasal cannula. The patient also has a BiPAP device in her room, with settings of 12/5, and 30%. Clinically, the patient is feeling a bit better. She was admitted from a local correction, with increased work of breathing, fever, and mental status changes. She cannot give much of a history at this time even after a few days in the hospital. No new labs today other than a glucose of 252. Urine cultures were positive for Proteus mirabilis. She is currently on Rocephin. Progress note dated 07/31/2023. 83-year-old female seen today in room 483. Currently, the patient's on room air, with saturations of 90%. She has a BiPAP in her room, with settings of 12/5, and 30%. The patient is getting saline at 20 mL an hour. According to her nurse, her cough is weak. No new labs today other than a glucose of 151. No chest x-ray today. The patient's urine sampling was positive for Proteus mirabilis. She continues on Rocephin. The patient is seen today 08/01/2023 in follow-up on the regular medical floor. She is currently resting comfortably in bed. Awake and alert in no acute distress. Maintaining good O2 saturations in the 90s on 3 L/m per nasal cannula. She has normal saline at 20 ML's per hour. She's not utilizing the BiPAP. Urine culture is positive for Proteus mirabilis. Blood cultures revealing no growth. White count 15.2. Hemoglobin 12.9. Platelets 298. Glucose 136. Remains on DuoNeb inhalations, Pulmicort and Perforomist inhalations, Medrol Dosepak. Anticoagulated with Eliquis. Continued on ceftriaxone. The patient is seen today 08/02/2023 in follow-up on the regular medical floor. She is currently resting comfortably in bed. Awake and alert in no acute dis tress. She is maintaining O2 saturations in the 90s on 3 L/m per nasal cannula. No IV fluids. She denies any worsening shortness of breath, cough or congestion. Urine culture was positive for Proteus mirabilis. Blood cultures revealed no growth. Sodium 141 potassium 3.5. Bicarb 25. BUN 26. Creatinine 0.6. Glucose 217. She is continued on DuoNeb inhalations, Pulmicort and Perforomist inhalations, Medrol Dosepak. Anticoagulated with Eliquis. Continued on ceftriaxone. Objective - Vital Signs Vital signs: Vital Signs Temp 98.2 F 08/02/23 08:14 Pulse 70 08/02/23 09:18 Resp 18 08/02/23 08:14 BP 186/99 08/02/23 08:14 Pulse Ox 97 08/02/23 09:07 FiO2 30 07/29/23 01:44 Intake & Output 08/01/23 08/02/23 08/02/23 18:59 06:59 18:59 Intake Total 240 50 Output Total 500 Balance -500 240 50 Intake: Intake, IV Titration 50 Amount cefTRIAXone 1 gm In 50 Sodium Chloride 0.9% 50 ml @ 100 mls/hr IVPB Q24HR [facility] Rx#:[id number] Oral 240 Output: Urine 500 Other: Voiding Method Diaper External Catheter - Exam GENERAL EXAM: Alert, pleasant 83-year-old female, on 3 L nasal cannula, comfortable in no apparent distress. HEAD: Normocephalic. EYES: Normal reaction of pupils, equal size. NOSE: Clear with pink turbinates. THROAT: No erythema or exudates. NECK: No masses, no JVD. CHEST: No chest wall deformity. LUNGS: Equal air entry with bilateral end expiratory wheeze, diminished. CVS: S1 and S2 normal with no audible murmur, regular rhythm. ABDOMEN: No hepatosplenomegaly, normal bowel sounds, no guarding or rigidity. SPINE: No scoliosis or deformity SKIN: No rashes CENTRAL NERVOUS SYSTEM: No focal deficits, tone is normal in all 4 extremities. EXTREMITIES: There is no peripheral edema. No clubbing, no cyanosis. Peripheral pulses are intact. - Labs CBC & Chem 7: 08/01/23 06:13 08/02/23 06:30 Labs: Abnormal Lab Results - Last 24 Hours (Table) 08/01/23 08/01/23 08/01/23 Range/Units 06:13 06:13 11:23 Immature Gran # 0.10 H (0.00-0.04) X 10*3/uL Neutrophils # 10.66 H (1.80-7.70) X 10*3/uL Monocytes # 1.15 H (0.20-1.00) X 10*3/uL Eosinophils # 0 L (0.04-0.35) X 10*3/uL Carbon Dioxide 20.8 L (21.6-31.8) mmol/L Anion Gap 16.20 H (4.00-12.00) mmol/L Creatinine 0.5 L (0.6-1.5) mg/dL BUN/Creatinine Ratio 39.80 H (12.00-20.00) Ratio Glucose 168 H (70-110) mg/dL POC Glucose (mg/dL) 199 H (70-110) mg/dL 08/01/23 08/01/23 08/02/23 Range/Units 16:35 21:32 06:06 Immature Gran # (0.00-0.04) X 10*3/uL Neutrophils # (1.80-7.70) X 10*3/uL Monocytes # (0.20-1.00) X 10*3/uL Eosinophils # (0.04-0.35) X 10*3/uL Carbon Dioxide (21.6-31.8) mmol/L Anion Gap (4.00-12.00) mmol/L Creatinine (0.6-1.5) mg/dL BUN/Creatinine Ratio (12.00-20.00) Ratio Glucose (70-110) mg/dL POC Glucose (mg/dL) 216 H 188 H 218 H (70-110) mg/dL 08/02/23 Range/Units 06:30 Immature Gran # (0.00-0.04) X 10*3/uL Neutrophils # (1.80-7.70) X 10*3/uL Monocytes # (0.20-1.00) X 10*3/uL Eosinophils # (0.04-0.35) X 10*3/uL Carbon Dioxide (21.6-31.8) mmol/L Anion Gap (4.00-12.00) mmol/L Creatinine (0.6-1.5) mg/dL BUN/Creatinine Ratio 43.67 H (12.00-20.00) Ratio Glucose 217 H (70-110) mg/dL POC Glucose (mg/dL) (70-110) mg/dL Assessment and Plan Assessment: Acute mental status changes, which may relate to encephalopathy, secondary to urinary tract infection/urosepsis. Proteus mirabilis urinary tract infection Patient tested positive for RSV, but has a normal chest x-ray, without evidence of infiltrate/pneumonia History of atrial fibrillation History of diabetes mellitus History of hypertension History of hypothyroidism History of fibromyalgia Obesity Plan: The patient was seen and evaluated Labs and medications reviewed Continued on ceftriaxone for UTI Continued on bronchodilators, steroids Stable and on 3 L nasal cannula Titrate down the FiO2 as tolerated The plan is to return to [facility] upon discharge This patient was seen independently by the pulmonary nurse practitioner I have personally seen and examined the patient, performed the documentation and the assessment and plan as written. Number of minutes spent on the visit: 22.
[2023-08-02 11:45] LABS: Glucose,Whole Blood 450 mg/dL (70-110)
--- NOTE | 2023-08-02 14:39 | P.PN ---
Subjective Progress Note Date: 08/01/23 Principal diagnosis: Reason for follow-up is RSV and gram-negative urinary tract infection Patient is a 83-year-old female with a past medical history elevated for diabetes mellitus type remission fibromyalgia atrial fibrillation patient is a resident of the local residential patient has been sent to the ER for evaluation of increasing shortness of breath, patient was febrile with a temperature of 101.2 F on presentation to hospital did have a positive UA and also tested positive for RSV On today's evaluation that is 08/01/2023, the patient remains to be afebrile patient is breathing comfortably on 3 to nasal cannula oxygen slightly more awake and alert however not a very good historian no vomiting diarrhea or any other changes reported by the nursing staff. Patient white count slightly up to 15.20 today creatinine 0.5 Objective - Vital Signs Vital signs: Vital Signs Temp 98.3 F 08/01/23 06:53 Pulse 67 08/01/23 06:53 Resp 17 08/01/23 06:53 BP 146/86 08/01/23 06:53 Pulse Ox 95 08/01/23 06:53 FiO2 30 07/29/23 01:44 Intake & Output 07/31/23 08/01/23 08/01/23 18:59 06:59 18:59 Intake Total 200 Output Total 110 Balance 200 -110 Intake: Oral 200 Output: Urine 110 Other: Voiding Method External Catheter Diaper Diaper # Voids 2 1 # Bowel Movements 1 1 - Exam GENERAL DESCRIPTION: An elderly female lying in bed in no distress RESPIRATORY SYSTEM: Unlabored breathing , coarse breath sounds bilaterally HEART: S1 S2 regular rate and rhythm , ABDOMEN: Soft , no tenderness EXTREMITIES: No edema feet - Labs CBC & Chem 7: 08/01/23 06:13 08/02/23 06:30 Labs: Abnormal Lab Results - Last 24 Hours (Table) 07/31/23 07/31/23 07/31/23 Range/Units 11:59 13:08 13:08 WBC 13.8 H (3.8-10.6) k/uL MCHC (32.0-37.0) g/dL RDW (11.5-14.5) % Neutrophils # 11.7 H (1.3-7.7) k/uL BUN 27 H (7-17) mg/dL Creatinine 0.43 L (0.52-1.04) mg/dL Glucose 234 H (74-99) mg/dL POC Glucose (mg/dL) 275 H (70-110) mg/dL AST 37 H (14-36) U/L 07/31/23 07/31/23 08/01/23 Range/Units 16:42 20:05 05:44 WBC (3.8-10.6) k/uL MCHC (32.0-37.0) g/dL RDW (11.5-14.5) % Neutrophils # (1.3-7.7) k/uL BUN (7-17) mg/dL Creatinine (0.52-1.04) mg/dL Glucose (74-99) mg/dL POC Glucose (mg/dL) 165 H 185 H 136 H (70-110) mg/dL AST (14-36) U/L 08/01/23 08/01/23 Range/Units 06:13 11:23 WBC 15.20 H (3.8-10.6) k/uL MCHC 31.5 L (32.0-37.0) g/dL RDW 15.0 H (11.5-14.5) % Neutrophils # (1.3-7.7) k/uL BUN (7-17) mg/dL Creatinine (0.52-1.04) mg/dL Glucose (74-99) mg/dL POC Glucose (mg/dL) 199 H (70-110) mg/dL AST (14-36) U/L Microbiology - Last 24 Hours (Table) 07/28/23 05:25 Blood Culture - Preliminary Blood 07/28/23 05:40 Blood Culture - Preliminary Blood Assessment and Plan (1) Febrile illness, acute Current Visit: Yes Status: Acute Code(s): R50.9 - FEVER, UNSPECIFIED SNOMED Code(s): 331641053 (2) RSV (respiratory syncytial virus infection) Current Visit: Yes Status: Acute Code(s): B33.8 - OTHER SPECIFIED VIRAL DISEASES SNOMED Code(s): 40064374 (3) UTI (urinary tract infection) Current Visit: Yes Status: Acute Code(s): N39.0 - URINARY TRACT INFECTION, SITE NOT SPECIFIED SNOMED Code(s): 55513887 Plan: 1-Patient presented to hospital with fever and mental status changes which is likely multifactorial in this patient did have a fever with respiratory symptoms however chest x-ray was reported negative for acute infiltrate she did tested positive for RSV treatment of which is mostly supportive patient did have a positive UA and concerning for possible symptomatic urinary infection causing more likely her symptoms of fever and confusion 2the patient urine has been finalized with a Proteus that is sensitive to Rocephin which will be continued 3-leukocytosis more likely steroid related as no evidence of any worsening infection and will be monitored closely Dictation was produced using [employer] dictation software. please excuse any grammatical, word or spelling errors. Time with Patient: Less than 30
--- NOTE | 2023-08-02 14:40 | P.PN ---
Subjective Progress Note Date: 08/02/23 Principal diagnosis: Reason for follow-up is RSV and gram-negative urinary tract infection Patient is a 83-year-old female with a past medical history elevated for diabetes mellitus type remission fibromyalgia atrial fibrillation patient is a resident of the local retirement patient has been sent to the ER for evaluation of increasing shortness of breath, patient was febrile with a temperature of 101.2 F on presentation to hospital did have a positive UA and also tested positive for RSV On today's evaluation that is 08/02/2023, the patient continues to be afebrile patient is breathing comfortably on room air without need for supplemental oxygen patient is more awake alert and appropriate and mentions she is feeling better patient denies having any chest pain or cough no vomiting or diarrhea has been reported by the nursing staff Patient white count slightly up to 15.20 as of yesterday no CBC was done today Objective - Vital Signs Vital signs: Vital Signs Temp 98.2 F 08/02/23 08:14 Pulse 68 08/02/23 14:00 Resp 20 08/02/23 14:00 BP 142/83 08/02/23 14:00 Pulse Ox 91 L 08/02/23 14:00 FiO2 30 07/29/23 01:44 Intake & Output 08/01/23 08/02/23 08/02/23 18:59 06:59 18:59 Intake Total 240 50 Output Total 500 Balance -500 240 50 Intake: Intake, IV Titration 50 Amount cefTRIAXone 1 gm In 50 Sodium Chloride 0.9% 50 ml @ 100 mls/hr IVPB Q24HR [facility] Rx#:[id number] Oral 240 Output: Urine 500 Other: Voiding Method Diaper External Catheter - Exam GENERAL DESCRIPTION: An elderly female lying in bed in no distress RESPIRATORY SYSTEM: Unlabored breathing , coarse breath sounds bilaterally HEART: S1 S2 regular rate and rhythm , ABDOMEN: Soft , no tenderness EXTREMITIES: No edema feet - Labs CBC & Chem 7: 08/01/23 06:13 08/02/23 06:30 Labs: Abnormal Lab Results - Last 24 Hours (Table) 08/01/23 08/01/23 08/02/23 Range/Units 16:35 21:32 06:06 BUN/Creatinine Ratio (12.00-20.00) Ratio Glucose (70-110) mg/dL POC Glucose (mg/dL) 216 H 188 H 218 H (70-110) mg/dL 08/02/23 08/02/23 Range/Units 06:30 11:37 BUN/Creatinine Ratio 43.67 H (12.00-20.00) Ratio Glucose 217 H (70-110) mg/dL POC Glucose (mg/dL) 450 H (70-110) mg/dL Microbiology - Last 24 Hours (Table) 07/28/23 05:25 Blood Culture - Final Blood 07/28/23 05:40 Blood Culture - Final Blood Assessment and Plan (1) Febrile illness, acute Current Visit: Yes Status: Acute Code(s): R50.9 - FEVER, UNSPECIFIED SNOMED Code(s): 409447095 (2) RSV (respiratory syncytial virus infection) Current Visit: Yes Status: Acute Code(s): B33.8 - OTHER SPECIFIED VIRAL DISEASES SNOMED Code(s): 13414144 (3) UTI (urinary tract infection) Current Visit: Yes Status: Acute Code(s): N39.0 - URINARY TRACT INFECTION, SITE NOT SPECIFIED SNOMED Code(s): 99683956 Plan: 1-Patient presented to hospital with fever and mental status changes which is likely multifactorial in this patient did have a fever with respiratory symptoms however chest x-ray was reported negative for acute infiltrate she did tested positive for RSV treatment of which is mostly supportive patient did have a positive UA and concerning for possible symptomatic urinary infection causing more likely her symptoms of fever and confusion 2the patient urine has been finalized with a Proteus that is sensitive to Rocephin which will be continued 3-leukocytosis more likely steroid related as no evidence of any worsening infection and patient has shown clinical improvement will repeat her CBC and inflammatory markers with a.m. lab Dictation was produced using [employer] dictation software. please excuse any grammatical, word or spelling errors. Time with Patient: Less than 30
--- NOTE | 2023-08-02 15:54 | P.PN ---
Subjective Progress Note Date: 08/02/23 83 years old female with multiple medical problems as below. Sent from [facility] for respiratory distress of one-day duration since 1 PM. Patient herself is poor historian. She is currently on BiPAP which limits her ability to come to gait but she opens eyes to take [employer] and verbal stimuli's. She smiles and keep nodding [id number] as he "yes" but she does not answers questions. She goes back to sleep right away. Chest mildly tachypneic and currently on BiPAP with the setting of 12/ with FiO2 of 40%. She does not have suprapubic tenderness. No leg edema. Other history is limited because of patient condition. However she is having significant wheezing bilaterally. On admission patient had a fever of 101.6. She is tachycardic around 100 for 15 and tachypneic at 24 breaths per minute. Labs reviewed showing unremarkable CBC, INR, BMP, LFTs and troponin are negative. 10 with no leukocytosis and WBCs 8.8. Total bili is mildly elevated 1.8. Patient has a low pH of 7.2, HCO3 is low at 17 with normal pCO2 Patient received antibiotics of Rocephin and continued with same dose of c eftriaxone. Also received 1 time dose of Zithromax 24-hour interval change 07/31/2023 Patient is seen and evaluated in room at bedside; admitted with RSV infection and UTI; encephalopathy related to UTI - Vital signs are reviewed and remained stable Patient remains on IV Rocephin; urine culture is positive for Proteus mirabilis sensitive to Rocephin Pulmonary and infectious disease service on board 08/01/2023 Patient is seen and evaluated in follow-up on the regular medical floor. She is currently resting comfortably in bed. Awake and alert in no acute distress. Maintaining good O2 saturations in the 90s on 3 L/m per nasal cannula. She has normal saline at 20 ML's per hour. She's not utilizing the BiPAP. Urine culture is positive for Proteus mirabilis. Blood cultures revealing no growth. White count 15.2. Hemoglobin 12.9. Platelets 298. Glucose 136. Remains on DuoNeb inhalations, Pulmicort and Perforomist inhalations, Medrol Dosepak. Anticoagulated with Eliquis. Continued on ceftriaxone. Patient to return to [facility] when clinically stable 08/02/2023 Patient is at bedside; She is currently resting comfortably in bed. Awake and alert in no acute distress. She is maintaining O2 saturations in the 90s on 3 L/m per nasal cannula. No IV fluids. She denies any worsening shortness of breath, cough or congestion. Urine culture was positive for Proteus mirabilis. Blood cultures revealed no growth. Sodium 141 potassium 3.5. Bicarb 25. BUN 26. Creatinine 0.6. Glucose 217. She is continued on DuoNeb inhalations, Pulmicort and Perforomist inhalations, Medrol Dosepak. Anticoagulated with Eliquis. Continued on ceftriaxone. ID following for UTI; urine culture positive for Proteus which is sensitive to Rocephin; white blood count is elevated but likely related to steroid use; patient shows clinical improvement -- IV to make final recommendations on discharge antibiotics Patient to return to [facility] when clinically stable, likely in next 24 hours Objective - Vital Signs Vital signs: Vital Signs Temp 98.2 F 08/02/23 08:14 Pulse 68 08/02/23 14:00 Resp 20 08/02/23 14:00 BP 142/83 08/02/23 14:00 Pulse Ox 91 L 08/02/23 14:00 FiO2 30 07/29/23 01:44 Intake & Output 08/01/23 08/02/23 08/02/23 18:59 06:59 18:59 Intake Total 240 50 Output Total 500 Balance -500 240 50 Intake: Intake, IV Titration 50 Amount cefTRIAXone 1 gm In 50 Sodium Chloride 0.9% 50 ml @ 100 mls/hr IVPB Q24HR [facility] Rx#:[id number] Oral 240 Output: Urine 500 Other: Voiding Method Diaper External Catheter - Exam -GENERAL: The patient is confused, not in any acute distress. Well developed, well nourished. HEENT: Pupils are round and equally reacting to light. EOMI. No scleral icterus. No conjunctival pallor. Normocephalic, atraumatic. No pharyngeal erythema. No thyromegaly. CARDIOVASCULAR: S1 and S2 present. No murmurs, rubs, or gallops. PULMONARY: Chest is clear to auscultation, no wheezing , no crackles. ABDOMEN: Soft, nontender, nondistended, normoactive bowel sounds. No palpable organomegaly. MUSCULOSKELETAL: No joint swelling or deformity. EXTREMITIES: No cyanosis, clubbing, or pedal edema. NEUROLOGICAL: Gross neurological examination did not reveal any focal deficits. She moves both upper and lower extremities equally and symmetrically SKIN: No rashes. no petechiae. - Labs CBC & Chem 7: 08/01/23 06:13 08/02/23 06:30 Labs: Abnormal Lab Results - Last 24 Hours (Table) 08/01/23 08/01/23 08/02/23 Range/Units 16:35 21:32 06:06 BUN/Creatinine Ratio (12.00-20.00) Ratio Glucose (70-110) mg/dL POC Glucose (mg/dL) 216 H 188 H 218 H (70-110) mg/dL 08/02/23 08/02/23 Range/Units 06:30 11:37 BUN/Creatinine Ratio 43.67 H (12.00-20.00) Ratio Glucose 217 H (70-110) mg/dL POC Glucose (mg/dL) 450 H (70-110) mg/dL Microbiology - Last 24 Hours (Table) 07/28/23 05:25 Blood Culture - Final Blood 07/28/23 05:40 Blood Culture - Final Blood Assessment and Plan Assessment: Acute urinary tract infection secondary to gram-negative bacilli Sepsis with fever, tachycardia and tachypnea Metabolic acidosis Acute RSV bronchitis Metabolic/toxic encephalopathy Obesity with BMI of 39 Paroxysmal atrial fibrillation Diabetes mellitus Hypertension Hypothyroidism History of fibromyalgia Plan: Continue with Rocephin Follow-up urine culture (I talked to the lab and to the nurses of emergency room) Follow-up procalcitonin and CRP Follow-up blood culture Infectious disease on pulmonary team consult Labs and medication were reviewed.. Continue same treatment. Continue with symptomatic treatment. Resume home medication. Monitor labs and vitals. DVT and GI prophylaxis. Further recommendations as per clinical course of the patient DVT prophylaxis: Subcutaneous heparin (may resume eliquis was verified as nu rsing home medication) GI Prophylaxis: Pepcid
[2023-08-02 16:33] LABS: Glucose,Whole Blood 128 mg/dL (70-110)
[2023-08-02 19:03] LABS: Glucose,Whole Blood 256 mg/dL (70-110)
[2023-08-02] MEDS: SENNOSIDES 8.6 MG TAB PO SCH (21:15)
[2023-08-02] MEDS: QUEtiapine 25 MG TAB PO SCH (21:15)
[2023-08-02] MEDS: ATORVASTATIN 40 MG TAB PO SCH (21:15)
[2023-08-03 06:03] LABS: Glucose,Whole Blood 165 mg/dL (70-110)
[2023-08-03] MEDS: SODIUM CHLORIDE 0.9% 1,000 ML IV SCH ×2 (06:37→21:58)
[2023-08-03] MEDS: INSULIN ASPART (NovoLOG) 100 UNIT/ML VIAL SQ SCH ×4 (06:39→22:03)
[2023-08-03] MEDS: IPRATROPIUM-ALBUTEROL 3 ML NEB INHALATION PRN ×2 (08:12→20:48)
[2023-08-03] MEDS: BUDESONIDE 0.5 MG/2 ML NEBU INHALATION SCH ×2 (08:12→20:48)
[2023-08-03] MEDS: APIXABAN 5 MG TAB PO SCH ×2 (08:52→17:42)
[2023-08-03] MEDS: METOPROLOL TARTRATE 50 MG TAB PO SCH ×2 (08:52→17:42)
[2023-08-03] MEDS: DILTIAZEM ORAL 60 MG TAB PO SCH ×3 (08:52→21:52)
[2023-08-03] MEDS: lisinopriL 10 MG TAB PO SCH (08:52)
[2023-08-03] MEDS: guaiFENesin SYRUP 100MG/5ML 200 MG/10 ML CUP PO PRN ×2 (08:52→17:43)
[2023-08-03] MEDS: VENLAFAXINE HCL ER 150 MG CAP PO SCH (08:52)
[2023-08-03] MEDS: LEVOTHYROXINE 100 MCG TAB PO SCH (08:53)
[2023-08-03] MEDS: metFORMIN 500 MG TAB PO SCH (08:53)
[2023-08-03] MEDS: levETIRAcetam 500 MG TAB PO SCH ×2 (08:53→21:51)
[2023-08-03] MEDS: FAMOTIDINE 20 MG/2 ML VIAL IV SCH ×2 (08:53→21:50)
[2023-08-03] MEDS: methylPREDNISolone 4 MG TAB TAPER PO SCH (08:53)
[2023-08-03 09:18] LABS: Blood Urea Nitrogen 22.2 mg/dL (9.0-27.0); C Reactive Protein <0.30 mg/dL (0.00-0.80); Chloride 104 mmol/L (96-109); Glucose 156 mg/dL (70-110); Potassium 3.9 mmol/L (3.5-5.5); Sodium 140 mmol/L (135-145)
[2023-08-03 09:19] LABS: ALT 17 U/L (8-44); AST 9 U/L (13-35); Albumin 3.2 g/dL (3.8-4.9); Albumin/Globulin Ratio 1.19 Ratio (1.60-3.17); Alkaline Phosphatase 74 U/L (41-126); Calcium 8.8 mg/dL (8.7-10.3); Carbon Dioxide 27.6 mmol/L (21.6-31.8); Globulin 2.7 g/dL (1.6-3.3); Total Bilirubin 0.4 mg/dL (0.3-1.2); Total Protein 5.9 g/dL (6.2-8.2)
[2023-08-03 09:34] LABS: Basophils # (A) 0.01 X 10*3/uL (0.00-0.10); Basophils % (A) 0.1 %; Eosinophils # (A) 0.01 X 10*3/uL (0.04-0.35); Eosinophils % (A) 0.1 %; HCT 37.8 % (37.2-46.3); HGB 11.9 g/dL (12.0-15.0); Lymphocytes % (A) 20.3 %; MCHC 31.5 g/dL (32.0-37.0); MCV 88.9 FL (80.0-97.0); Mean Platelet Volume 10.5 FL (9.5-12.2); Monocytes # (A) 0.97 X 10*3/uL (0.20-1.00); Monocytes % (A) 8.2 %; NRBC Per 100 WBC 0 X 10*3/uL (0.00-0.01); Neutrophils # (A) 8.33 X 10*3/uL (1.80-7.70); Neutrophils % (A) 70.5 %; Platelet Count 247 X 10*3/uL (140-440); RBC 4.25 X 10*6/uL (4.10-5.20); RDW 14.7 % (11.5-14.5); WBC 11.81 X 10*3/uL (4.50-10.00)
[2023-08-03 11:39] LABS: Glucose,Whole Blood 170 mg/dL (70-110)
--- NOTE | 2023-08-03 15:51 | P.PN ---
Subjective Progress Note Date: 08/03/23 Principal diagnosis: Reason for follow-up is RSV and gram-negative urinary tract infection Patient is a 83-year-old female with a past medical history elevated for diabetes mellitus type remission fibromyalgia atrial fibrillation patient is a resident of the local halfway patient has been sent to the ER for evaluation of increasing shortness of breath, patient was febrile with a temperature of 101.2 F on presentation to hospital did have a positive UA and also tested positive for RSV On today's evaluation that is 08/03/2023 patient remains to be afebrile, the patient is breathing comfortably on 3 L nasal cannula oxygen patient denies having any chest pain or cough no vomiting diarrhea or any other changes reported by the nursing staff. Patient did have white count of 11.81, creatinine 0.5 Objective - Vital Signs Vital signs: Vital Signs Temp 95.5 F L 08/03/23 14:43 Pulse 62 08/03/23 14:43 Resp 19 08/03/23 14:43 BP 143/84 08/03/23 14:43 Pulse Ox 91 L 08/03/23 14:43 FiO2 30 07/29/23 01:44 Intake & Output 08/02/23 08/03/23 08/03/23 18:59 06:59 18:59 Intake Total 530 Output Total 475 250 Balance 55 -250 Intake: Intake, IV Titration 50 Amount cefTRIAXone 1 gm In 50 Sodium Chloride 0.9% 50 ml @ 100 mls/hr IVPB Q24HR [facility] Rx#:[id number] Oral 480 Output: Urine 475 250 Other: Voiding Method External Catheter External Catheter - Exam GENERAL DESCRIPTION: An elderly female lying in bed in no distress RESPIRATORY SYSTEM: Unlabored breathing , coarse breath sounds bilaterally HEART: S1 S2 regular rate and rhythm , ABDOMEN: Soft , no tenderness EXTREMITIES: No edema feet - Labs CBC & Chem 7: 08/03/23 05:14 08/03/23 05:14 Labs: Abnormal Lab Results - Last 24 Hours (Table) 08/02/23 08/02/23 08/03/23 Range/Units 16:31 19:02 05:14 WBC 11.81 H (4.50-10.00) X 10*3/uL Hgb 11.9 L (12.0-15.0) g/dL MCHC 31.5 L (32.0-37.0) g/dL RDW 14.7 H (11.5-14.5) % Immature Gran # 0.09 H (0.00-0.04) X 10*3/uL Neutrophils # 8.33 H (1.80-7.70) X 10*3/uL Eosinophils # 0.01 L (0.04-0.35) X 10*3/uL Creatinine (0.6-1.5) mg/dL BUN/Creatinine Ratio (12.00-20.00) Ratio Glucose (70-110) mg/dL POC Glucose (mg/dL) 128 H 256 H (70-110) mg/dL AST (13-35) U/L Total Protein (6.2-8.2) g/dL Albumin (3.8-4.9) g/dL Albumin/Globulin Ratio (1.60-3.17) Ratio 08/03/23 08/03/23 08/03/23 Range/Units 05:14 06:01 11:37 WBC (4.50-10.00) X 10*3/uL Hgb (12.0-15.0) g/dL MCHC (32.0-37.0) g/dL RDW (11.5-14.5) % Immature Gran # (0.00-0.04) X 10*3/uL Neutrophils # (1.80-7.70) X 10*3/uL Eosinophils # (0.04-0.35) X 10*3/uL Creatinine 0.5 L (0.6-1.5) mg/dL BUN/Creatinine Ratio 44.40 H (12.00-20.00) Ratio Glucose 156 H (70-110) mg/dL POC Glucose (mg/dL) 165 H 170 H (70-110) mg/dL AST 9 L (13-35) U/L Total Protein 5.9 L (6.2-8.2) g/dL Albumin 3.2 L (3.8-4.9) g/dL Albumin/Globulin Ratio 1.19 L (1.60-3.17) Ratio Microbiology - Last 24 Hours (Table) 07/28/23 05:25 Blood Culture - Final Blood 07/28/23 05:40 Blood Culture - Final Blood Assessment and Plan (1) Febrile illness, acute Current Visit: Yes Status: Acute Code(s): R50.9 - FEVER, UNSPECIFIED SNOMED Code(s): 487853986 (2) RSV (respiratory syncytial virus infection) Current Visit: Yes Status: Acute Code(s): B33.8 - OTHER SPECIFIED VIRAL DISEASES SNOMED Code(s): 63008340 (3) UTI (urinary tract infection) Current Visit: Yes Status: Acute Code(s): N39.0 - URINARY TRACT INFECTION, SITE NOT SPECIFIED SNOMED Code(s): 90376544 Plan: 1-Patient presented to hospital with fever and mental status changes which is likely multifactorial in this patient did have a fever with respiratory symptoms however chest x-ray was reported negative for acute infiltrate she did tested positive for RSV treatment of which is mostly supportive patient did have a positive UA and concerning for possible symptomatic urinary infection causing more likely her symptoms of fever and confusion 2the patient urine has been finalized with a Proteus that is sensitive to Rocephin 3the patient white count is trending down and will be monitored closely continue patient on Rocephin and finishing therapy with oral Ceftin Dictation was produced using [employer] software. please excuse any grammatical, word or spelling errors.
[2023-08-03 17:03] LABS: Glucose,Whole Blood 210 mg/dL (70-110)
--- NOTE | 2023-08-03 19:34 | P.PN ---
Subjective Progress Note Date: 08/03/23 83-year-old female, seen today in the emergency department, room 3. The patient apparently was brought into the emergency department, by EMS, with increased work of breathing, and fever, from a local residential. I believe she came in from [facility]. The patient apparently has a history of dementia, hypothyroidism, atrial fibrillation, diabetes, and hypertension. Currently, the patient's on BiPAP, with settings of 12/5, and 30%. She's getting saline at 20 mL an hour. A pro-calcitonin level was checked. In addition, she was placed on Rocephin and azithromycin empirically. The patient did test positive for respiratory syncytial virus, and is thought to possibly have a urinary tract infection. The patient is very lethargic and sleepy, and really cannot give any additional history. Labs include a white count 8.8, hemoglobin 12.2, hematocrit 39.1, and a platelet count of 239,000. Venous blood gases show pCO2 of 40, and a pH of 7.24. Sodium 134, chlorides 102, CO2 23, anion gap 9, BUN 16, creatinine 0.47. Glucose 113. N-terminal proBNP is 1640. Urine is cloudy, with trace protein. Leukocyte esterase is large positive. There is 136 WBCs, and many bacteria. Chest x-ray was unremarkable. Progress note dated 07/29/2023. 83-year-old female seen yesterday in consultation, in the emergency department. She was brought to the emergency department, by EMS, with increased work of breathing, fever, and mental status changes, from a local residential. Currently, the patient is seen in room 383. Patient is currently on 3 L of oxygen. When not using nasal cannula, she is on BiPAP with settings of 12/5 and 30%. She's getting saline at 20 mL an hour. Her mental status is poor, and not much history can be obtained from the patient. Currently labs include a white count 9.5, hemoglobin 11.5, hematocrit 37.2, and platelet count 228,000. Sodium 143, potassium 4.1, chlorides 105, CO2 23, anion gap 15, BUN 12, creatinine 0.40. Glucose 198. Calcium is 9.2. Chest x-ray on admission, was normal. Progress note dated 07/30/2023. 83-year-old female seen in room 383. Currently, the patient's on saline at 20 mL an hour, and getting oxygen, 3 L by nasal cannula. The patient also has a BiPAP device in her room, with settings of 12/5, and 30%. Clinically, the patient is feeling a bit better. She was admitted from a local residential, with increased work of breathing, fever, and mental status changes. She cannot give much of a history at this time even after a few days in the hospital. No new labs today other than a glucose of 252. Urine cultures were positive for Proteus mirabilis. She is currently on Rocephin. Progress note dated 07/31/2023. 83-year-old female seen today in room 483. Currently, the patient's on room air, with saturations of 90%. She has a BiPAP in her room, with settings of 12/5, and 30%. The patient is getting saline at 20 mL an hour. According to her nurse, her cough is weak. No new labs today other than a glucose of 151. No chest x-ray today. The patient's urine sampling was positive for Proteus mirabilis. She continues on Rocephin. The patient is seen today 08/01/2023 in follow-up on the regular medical floor. She is currently resting comfortably in bed. Awake and alert in no acute distress. Maintaining good O2 saturations in the 90s on 3 L/m per nasal cannula. She has normal saline at 20 ML's per hour. She's not utilizing the BiPAP. Urine culture is positive for Proteus mirabilis. Blood cultures revealing no growth. White count 15.2. Hemoglobin 12.9. Platelets 298. Glucose 136. Remains on DuoNeb inhalations, Pulmicort and Perforomist inhalations, Medrol Dosepak. Anticoagulated with Eliquis. Continued on ceftriaxone. The patient is seen today 08/02/2023 in follow-up on the regular medical floor. She is currently resting comfortably in bed. Awake and alert in no acute di stress. She is maintaining O2 saturations in the 90s on 3 L/m per nasal cannula. No IV fluids. She denies any worsening shortness of breath, cough or congestion. Urine culture was positive for Proteus mirabilis. Blood cultures revealed no growth. Sodium 141 potassium 3.5. Bicarb 25. BUN 26. Creatinine 0.6. Glucose 217. She is continued on DuoNeb inhalations, Pulmicort and Perforomist inhalations, Medrol Dosepak. Anticoagulated with Eliquis. Continued on ceftriaxone. On today's evaluation of 08/03/2023, the patient is being seen for a follow-up. This patient is infected with RSV, the patient continues to have cough congestion and bronchospasm and wheeze. Patient also has a Proteus mirabilis urinary tract infection. For the time being, the patient is being treated with IV Rocephin regarding the UTI. The patient is also on steroids and currently is completing a Medrol Dosepak. Patient remains on anticoagulation with Eliquis. The patient has dementia, chronic A. fib and the patient on anticoagulants with Eliquis, diabetes mellitus and hypertension and history of dementia and the patient is a residential resident. Blood work from today shows a WBC count of 11.8, hemoglobin of 11.9, platelet count of 247, BUN is at 22 with a creatinine of 0.5 and a sodium levels is 140. Chest x-ray the time of admission showed no acute cardiac pulmonary process. Pro-calcitonin level is not elevated at 0.03 Objective - Vital Signs Vital signs: Vital Signs Temp 98.0 F 08/03/23 07:10 Pulse 75 08/03/23 08:23 Resp 18 08/03/23 07:10 BP 176/98 08/03/23 07:10 Pulse Ox 99 08/03/23 08:13 FiO2 30 07/29/23 01:44 Intake & Output 08/02/23 08/03/23 08/03/23 18:59 06:59 18:59 Intake Total 530 Output Total 475 250 Balance 55 -250 Intake: Intake, IV Titration 50 Amount cefTRIAXone 1 gm In 50 Sodium Chloride 0.9% 50 ml @ 100 mls/hr IVPB Q24HR [facility] Rx#:[id number] Oral 480 Output: Urine 475 250 Other: Voiding Method External Catheter External Catheter - Exam GENERAL EXAM: Alert, pleasant 83-year-old female, on room air oxygen with a pulse ox of 91%, comfortable in no apparent distress. HEAD: Normocephalic. EYES: Normal reaction of pupils, equal size. NOSE: Clear with pink turbinates. THROAT: No erythema or exudates. NECK: No masses, no JVD. CHEST: No chest wall deformity. LUNGS: Equal air entry with bilateral end expiratory wheeze, diminished. CVS: S1 and S2 normal with no audible murmur, regular rhythm. ABDOMEN: No hepatosplenomegaly, normal bowel sounds, no guarding or rigidity. SPINE: No scoliosis or deformity SKIN: No rashes CENTRAL NERVOUS SYSTEM: No focal deficits, tone is normal in all 4 extremities. EXTREMITIES: There is no peripheral edema. No clubbing, no cyanosis. Peripheral pulses are intact. - Labs CBC & Chem 7: 08/03/23 05:14 08/03/23 05:14 Labs: Abnormal Lab Results - Last 24 Hours (Table) 08/02/23 08/02/23 08/03/23 Range/Units 16:31 19:02 05:14 WBC 11.81 H (4.50-10.00) X 10*3/uL Hgb 11.9 L (12.0-15.0) g/dL MCHC 31.5 L (32.0-37.0) g/dL RDW 14.7 H (11.5-14.5) % Immature Gran # 0.09 H (0.00-0.04) X 10*3/uL Neutrophils # 8.33 H (1.80-7.70) X 10*3/uL Eosinophils # 0.01 L (0.04-0.35) X 10*3/uL Creatinine (0.6-1.5) mg/dL BUN/Creatinine Ratio (12.00-20.00) Ratio Glucose (70-110) mg/dL POC Glucose (mg/dL) 128 H 256 H (70-110) mg/dL AST (13-35) U/L Total Protein (6.2-8.2) g/dL Albumin (3.8-4.9) g/dL Albumin/Globulin Ratio (1.60-3.17) Ratio 08/03/23 08/03/23 08/03/23 Range/Units 05:14 06:01 11:37 WBC (4.50-10.00) X 10*3/uL Hgb (12.0-15.0) g/dL MCHC (32.0-37.0) g/dL RDW (11.5-14.5) % Immature Gran # (0.00-0.04) X 10*3/uL Neutrophils # (1.80-7.70) X 10*3/uL Eosinophils # (0.04-0.35) X 10*3/uL Creatinine 0.5 L (0.6-1.5) mg/dL BUN/Creatinine Ratio 44.40 H (12.00-20.00) Ratio Glucose 156 H (70-110) mg/dL POC Glucose (mg/dL) 165 H 170 H (70-110) mg/dL AST 9 L (13-35) U/L Total Protein 5.9 L (6.2-8.2) g/dL Albumin 3.2 L (3.8-4.9) g/dL Albumin/Globulin Ratio 1.19 L (1.60-3.17) Ratio Microbiology - Last 24 Hours (Table) 07/28/23 05:25 Blood Culture - Final Blood 07/28/23 05:40 Blood Culture - Final Blood Assessment and Plan Plan: Acute mental status changes, which may relate to encephalopathy, secondary to urinary tract infection/urosepsis. Clinically improving Proteus mirabilis urinary tract infection, currently on IV Rocephin Acute bronchitis secondary to viral infection/RSV. Patient tested positive for RSV, but has a normal chest x-ray, without evidence of infiltrate/pneumonia History of atrial fibrillation, currently on anticoagulation with Eliquis History of diabetes mellitus History of hypertension History of hypothyroidism History of fibromyalgia Obesity Plan: Complete the Medrol Dosepak Continued on ceftriaxone for UTI Continued on bronchodilators, steroids Stable and on 2 L of O2 nasal cannula Titrate down the FiO2 as tolerated The plan is to return to [facility] upon discharge
[2023-08-03 20:21] LABS: Glucose,Whole Blood 118 mg/dL (70-110)
[2023-08-03] MEDS: hydrALAZINE HCL 20 MG/ML 1 ML VIAL IVP PRN (21:50)
[2023-08-03] MEDS: QUEtiapine 25 MG TAB PO SCH (21:51)
[2023-08-03] MEDS: ATORVASTATIN 40 MG TAB PO SCH (21:51)
[2023-08-03] MEDS: SENNOSIDES 8.6 MG TAB PO SCH (21:51)
--- NOTE | 2023-08-03 22:37 | P.PN ---
Subjective This is a pleasant 83 years old female with multiple medical problems as below. Sent from [facility] for respiratory distress of one-day duration since 1 PM. Patient herself is poor historian. She is currently on BiPAP which limits her a bility to come to gait but she opens eyes to take Tect[employer] and verbal stimuli's. She smiles and keep nodding [id number] as he "yes" but she does not answers questions. She goes back to sleep right away. Chest mildly tachypneic and currently on BiPAP with the setting of 12/5 with FiO2 of 40%. She does not have suprapubic tenderness. No leg edema. Other history is limited because of patient condition. However she is having significant wheezing bilaterally. On admission patient had a fever of 101.6. She is tachycardic around 100 for 15 and tachypneic at 24 breaths per minute. Labs reviewed showing unremarkable CBC, INR, BMP, LFTs and troponin are negative. 10 with no leukocytosis and WBCs 8.8. Total bili is mildly elevated 1.8. Patient has a low pH of 7.2, HCO3 is low at 17 with normal pCO2 Patient received antibiotics of Rocephin and continued with same dose of ceftriaxone. Also received 1 time dose of Zithromax 07/29/2023 Patient awake, answers some questions but she is confused, she is refusing to take medication. She denies headache or dizziness. She moves both upper and lower extremities equally. Pupils are equal and reactive to light. No obvious focal neurological deficits on cranial nerve examination. Her confusion most likely secondary to metabolic/toxic encephalopathy complicated by her infection. Both UTI and RSV acute bronchitis Also on IV steroids IV Solu-Medrol 40 mg twice daily for acute bronchitis, since stress may contribute to her confusion when going to switch it to Medrol Dosepak tomorrow. Continue with inhaled steroids and a bronchodilator. Her urine culture is growing gram-negative bacilli. She remains on Rocephin. Her fever subsided, tachycardia is better, she is not tachypneic today. CBC and BMP were unremarkable. Priorcalcitonin is negative at 0.03. He is mildly elevated 3.8. Blood cultures pending. As per daughter who is the legal guardian patient should be no code and order placed. Bladder scan showed no evidence of retention with residual 11-30 mL 08/03/2023, I'm resuming the care of the patient today. His breathing is improving, wheezing is improving No significant urinary tract symptoms Extremities on ceftriaxone Plan to discharge tomorrow wound was cleared by ID and pulmonary team Discussed with the bedside nurse Objective - Vital Signs Vital signs: Vital Signs Temp 98.2 F 08/03/23 19:05 Pulse 70 08/03/23 21:05 Resp 18 08/03/23 19:05 BP 166/80 08/03/23 19:05 Pulse Ox 94 L 08/03/23 19:05 FiO2 30 07/29/23 01:44 Intake & Output 08/03/23 08/03/23 08/04/23 06:59 18:59 06:59 Output Total 250 800 Balance -250 -800 Output: Urine 250 800 Other: Voiding Method External Catheter External Catheter - Exam GENERAL: The patient is alert and oriented x3, not in any acute distress. Well developed, well nourished. HEENT: Pupils are round and equally reacting to light. EOMI. No scleral icterus. No conjunctival pallor. Normocephalic, atraumatic. No pharyngeal erythema. No thyromegaly. CARDIOVASCULAR: S1 and S2 present. No murmurs, rubs, or gallops. -PULMONARY: Chest is clear to auscultation, improvement in wheezing , no crackles. ABDOMEN: Soft, nontender, nondistended, normoactive bowel sounds. No palpable organomegaly. MUSCULOSKELETAL: No joint swelling or deformity. EXTREMITIES: No cyanosis, clubbing, or pedal edema. NEUROLOGICAL: Gross neurological examination did not reveal any focal deficits. SKIN: No rashes. no petechiae. - Labs CBC & Chem 7: 08/03/23 05:14 08/03/23 05:14 Labs: Abnormal Lab Results - Last 24 Hours (Table) 08/03/23 08/03/23 08/03/23 Range/Units 05:14 05:14 06:01 WBC 11.81 H (4.50-10.00) X 10*3/uL Hgb 11.9 L (12.0-15.0) g/dL MCHC 31.5 L (32.0-37.0) g/dL RDW 14.7 H (11.5-14.5) % Immature Gran # 0.09 H (0.00-0.04) X 10*3/uL Neutrophils # 8.33 H (1.80-7.70) X 10*3/uL Eosinophils # 0.01 L (0.04-0.35) X 10*3/uL Creatinine 0.5 L (0.6-1.5) mg/dL BUN/Creatinine Ratio 44.40 H (12.00-20.00) Ratio Glucose 156 H (70-110) mg/dL POC Glucose (mg/dL) 165 H (70-110) mg/dL AST 9 L (13-35) U/L Total Protein 5.9 L (6.2-8.2) g/dL Albumin 3.2 L (3.8-4.9) g/dL Albumin/Globulin Ratio 1.19 L (1.60-3.17) Ratio 08/03/23 08/03/23 08/03/23 Range/Units 11:37 16:59 20:17 WBC (4.50-10.00) X 10*3/uL Hgb (12.0-15.0) g/dL MCHC (32.0-37.0) g/dL RDW (11.5-14.5) % Immature Gran # (0.00-0.04) X 10*3/uL Neutrophils # (1.80-7.70) X 10*3/uL Eosinophils # (0.04-0.35) X 10*3/uL Creatinine (0.6-1.5) mg/dL BUN/Creatinine Ratio (12.00-20.00) Ratio Glucose (70-110) mg/dL POC Glucose (mg/dL) 170 H 210 H 118 H (70-110) mg/dL AST (13-35) U/L Total Protein (6.2-8.2) g/dL Albumin (3.8-4.9) g/dL Albumin/Globulin Ratio (1.60-3.17) Ratio Assessment and Plan Assessment: Acute urinary tract infection secondary to gram-negative bacilli Sepsis with fever, tachycardia and tachypnea Metabolic acidosis Acute RSV bronchitis Metabolic/toxic encephalopathy Obesity with BMI of 39 Paroxysmal atrial fibrillation Diabetes mellitus Hypertension Hypothyroidism History of fibromyalgia Plan: Continue with Rocephin Continue with Medrol Dosepak Infectious disease on pulmonary team consult Labs and medication were reviewed.. Continue same treatment. Continue with s ymptomatic treatment. Resume home medication. Monitor labs and vitals. DVT and GI prophylaxis. Further recommendations as per clinical course of the patient DVT prophylaxis: Subcutaneous heparin (may resume eliquis was verified as custodial medication) GI Prophylaxis: Pepcid PT/OT: Back to custodial
[2023-08-04 06:33] LABS: Glucose,Whole Blood 123 mg/dL (70-110)
[2023-08-04] MEDS: INSULIN ASPART (NovoLOG) 100 UNIT/ML VIAL SQ SCH ×3 (06:40→17:10)
[2023-08-04] MEDS: LEVOTHYROXINE 100 MCG TAB PO SCH (08:16)
[2023-08-04] MEDS: lisinopriL 10 MG TAB PO SCH (08:16)
[2023-08-04] MEDS: METOPROLOL TARTRATE 50 MG TAB PO SCH ×2 (08:16→16:34)
[2023-08-04] MEDS: methylPREDNISolone 4 MG TAB TAPER PO SCH (08:16)
[2023-08-04] MEDS: metFORMIN 500 MG TAB PO SCH (08:16)
[2023-08-04] MEDS: FAMOTIDINE 20 MG/2 ML VIAL IV SCH (08:16)
[2023-08-04] MEDS: DILTIAZEM ORAL 60 MG TAB PO SCH ×2 (08:17→16:34)
[2023-08-04] MEDS: APIXABAN 5 MG TAB PO SCH ×2 (08:17→16:33)
[2023-08-04] MEDS: VENLAFAXINE HCL ER 150 MG CAP PO SCH (08:17)
[2023-08-04] MEDS: levETIRAcetam 500 MG TAB PO SCH (08:17)
[2023-08-04] MEDS: BUDESONIDE 0.5 MG/2 ML NEBU INHALATION SCH (09:14)
[2023-08-04] MEDS: IPRATROPIUM-ALBUTEROL 3 ML NEB INHALATION PRN (09:14)
--- NOTE | 2023-08-04 12:13 | P.DS ---
Providers Date of admission: 07/28/23 05:53 Attending physician: Magen Cardona Consults: 07/28/23 05:51 Consult Physician Routine Consulting Provider: Deo Vivas Consult Reason/Comments: respiratory failure on bipap Do you want consulting provider notified?: Yes 07/28/23 07:20 Consult Physician Routine Consulting Provider: Penelope Underwood Consult Reason/Comments: sepsis Do you want consulting provider notified?: Yes Primary care physician: Kalin Devin [facility] Course: Diagnoses: Acute urinary tract infection secondary to Proteus, which is sensitive to Rocephin in the hospital, improved Sepsis with fever, tachycardia and tachypnea, improved Metabolic acidosis, improved Acute RSV bronchitis, improving Metabolic/toxic encephalopathy, improved Obesity with BMI of 39 Paroxysmal atrial fibrillation Diabetes mellitus Hypertension Hypothyroidism History of fibromyalgia Hospital course: This is a pleasant 83 years old female with multiple medical problems as below. Sent from [facility] for respiratory distress of one-day duration since 1 PM. Patient was confused secondary to metabolic encephalopathy with sepsis and metabolic acidosis and she was wheezing with RSV was positive. Patient was evaluated by pulmonary and infectious disease treated. She was treated with IV steroids switch to Medrol Dosepak Dosepak and Rocephin. Urine culture came back positive for Proteus in her urine symptoms and sepsis improved. Patient is back to basic mentation, no urinary symptoms. Also there was a significantly improved and currently she is on room air. No other new complaints. No change in bowel habits. No fever. Patient wants to be discharged today. Patient was cleared for discharge by both pulmonary and infectious disease team. Patient will be discharged on short course of antibiotics per ID team Problems and management plan were discussed with the patient and he verbalized understanding and acceptance Patient was found stable and can be discharged home in guarded prognosis however he needs follow-up as an outpatient. Patient was instructed to follow up with PCP within one week and patient agrees Patient may benefit from pulmonary follow-up as an outpatient in 3-4 weeks Physical exam Gen: patient is a AAOx3, no distress CVS: S1-S2, RRR, no murmur Lungs: B/L CTA, no wheezing Abdomen: soft, no distention, no tenderness, positive bowel sounds Extremity: no leg edema or induration Time spent more than 35 minutes Patient Condition at Discharge: Stable Plan - Discharge Summary Discharge Rx Participant: No New Discharge Prescriptions: No Action Trospium Chloride [Sanctura] 20 mg PO BID@0800,1700 Pioglitazone [Actos] 15 mg PO DAILY@0800 Levothyroxine Sodium [Synthroid] 100 mcg PO DAILY@0800 Atorvastatin [Lipitor] 40 mg PO HS tab lisinopriL [Prinivil] 10 mg PO DAILY@0800 Diltiazem Oral [Cardizem*] 60 mg PO TID@0600,1400,2100 Apixaban [Eliquis] 5 mg PO BID@0800,1700 Na Phos,M-B/Na Phos,Di-Ba [Fleet Adult] 133 ml RECTAL DAILY PRN PRN Reason: Constipation Magnesium Hydroxide [Milk of Magnesia Concentrate] 7,200 mg PO Q2D PRN PRN Reason: Constipation Sennosides [Senokot] 8.6 mg PO BID PRN PRN Reason: Constipation Acetaminophen Tab [Tylenol] 650 mg PO Q4H PRN PRN Reason: Fever And/ Or Pain L.acidoph,Paracasei, B.lactis [Probiotic] 1 cap PO DAILY@0800 Maalox Plus 30 ml PO Q6H PRN PRN Reason: Indigestion guaiFENesin [guaiFENesin Oral Solution] 200 mg PO Q6H PRN PRN Reason: Cough Milnacipran HCl [Savella] 100 mg PO BID@0800,1700 metFORMIN HCL 500 mg PO DAILY@0800 traMADol HCL 50 mg PO Q12H PRN PRN Reason: Pain Metoprolol Tartrate [Lopressor] 100 mg PO BID@0800,1700 bisacodyL 10 mg RECTAL DAILY PRN PRN Reason: Constipation Loperamide HCl [Loperamide] 2 mg PO QID PRN PRN Reason: Diarrhea Venlafaxine HCl ER [Effexor XR] 150 mg PO DAILY@0800 Sennosides [Senokot] 8.6 mg PO HS levETIRAcetam [Keppra] 500 mg PO Q12HR #60 tab LORazepam [Ativan] 0.5 mg PO Q4H PRN PRN Reason: Anxiety Oxymetazoline 0.05% Nasl Villalba [Afrin 0.05% Nasal Villalba] 2 spray EA NOSTRIL DAILY PRN PRN Reason: DRY/BLOODY NOSE Discharge Medication List Levothyroxine Sodium [Synthroid] 100 mcg PO DAILY@0800 02/07/21 [History] Milnacipran HCl [Savella] 100 mg PO BID@0800,1700 02/07/21 [History] Pioglitazone [Actos] 15 mg PO DAILY@0802/07/21 [History] Trospium Chloride [Sanctura] 20 mg PO BID@0800,1700 02/07/21 [History] metFORMIN HCL 500 mg PO DAILY@0802/07/21 [History] Atorvastatin [Lipitor] 40 mg PO HS tab 02/13/21 [Rx] Apixaban [Eliquis] 5 mg PO BID@0800,1700 02/22/21 [History] Diltiazem Oral [Cardizem*] 60 mg PO TID@0600,1400,2100 02/22/21 [History] Magnesium Hydroxide [Milk of Magnesia Concentrate] 7,200 mg PO Q2D PRN 02/22/21 [History] Metoprolol Tartrate [Lopressor] 100 mg PO BID@0800,1700 02/22/21 [History] Na Phos,M-B/Na Phos,Di-Ba [Fleet Adult] 133 ml RECTAL DAILY PRN 02/22/21 [History] bisacodyL 10 mg RECTAL DAILY PRN 02/22/21 [History] lisinopriL [Prinivil] 10 mg PO DAILY@0802/22/21 [History] traMADol HCL 50 mg PO Q12H PRN 02/22/21 [History] Acetaminophen Tab [Tylenol] 650 mg PO Q4H PRN 06/11/22 [History] L.acidoph,Paracasei, B.lactis [Probiotic] 1 cap PO DAILY@0806/11/22 [History] Loperamide HCl [Loperamide] 2 mg PO QID PRN 06/11/22 [History] Sennosides [Senokot] 8.6 mg PO BID PRN 06/11/22 [History] Sennosides [Senokot] 8.6 mg PO HS 06/11/22 [History] Venlafaxine HCl ER [Effexor XR] 150 mg PO DAILY@0800 06/11/22 [History] levETIRAcetam [Keppra] 500 mg PO Q12HR #60 tab 06/15/22 [Rx] LORazepam [Ativan] 0.5 mg PO Q4H PRN 07/28/23 [History] Maalox Plus 30 ml PO Q6H PRN 07/28/23 [History] Oxymetazoline 0.05% Nasl Villalba [Afrin 0.05% Nasal Villalba] 2 spray EA NOSTRIL DAILY PRN 07/28/23 [History] guaiFENesin [guaiFENesin Oral Solution] 200 mg PO Q6H PRN 07/28/23 [History] Follow up Appointment(s)/Referral(s): Kalin Beltran MD [Primary Care Provider] - 1 Week ([facility] please call for follow-up appointment.)
--- NOTE | 2023-08-04 14:01 | P.PN ---
Subjective Progress Note Date: 08/04/23 83-year-old female, seen today in the emergency department, room 3. The patient apparently was brought into the emergency department, by EMS, with increased work of breathing, and fever, from a local [facility]it[facility]. I believe she came in from [facility]. The patient apparently has a history of dementia, hypothyroidism, atrial fibrillation, diabetes, and hypertension. Currently, the patient's on BiPAP, with settings of 12/5, and 30%. She's getting saline at 20 mL an hour. A pro-calcitonin level was checked. In addition, she was placed on Rocephin and azithromycin empirically. The patient did test positive for respiratory syncytial virus, and is thought to possibly have a urinary tract infection. The patient is very lethargic and sleepy, and really cannot give any additional history. Labs include a white count 8.8, hemoglobin 12.2, hematocrit 39.1, and a platelet count of 239,000. Venous blood gases show pCO2 of 40, and a pH of 7.24. Sodium 134, chlorides 102, CO2 23, anion gap 9, BUN 16, creatinine 0.47. Glucose 113. N-terminal proBNP is 1640. Urine is cloudy, with trace protein. Leukocyte esterase is large positive. There is 136 WBCs, and many bacteria. Chest x-ray was unremarkable. Progress note dated 07/29/2023. 83-year-old female seen yesterday in consultation, in the emergency department. She was brought to the emergency department, by EMS, with increased work of breathing, fever, and mental status changes, from a local penitentiary. Currently, the patient is seen in room 383. Patient is currently on 3 L of oxygen. When not using nasal cannula, she is on BiPAP with settings of 12/5 and 30%. She's getting saline at 20 mL an hour. Her mental status is poor, and not much history can be obtained from the patient. Currently labs include a white count 9.5, hemoglobin 11.5, hematocrit 37.2, and platelet count 228,000. Sodium 143, potassium 4.1, chlorides 105, CO2 23, anion gap 15, BUN 12, creatinine 0.40. Glucose 198. Calcium is 9.2. Chest x-ray on admission, was normal. Progress note dated 07/30/2023. 83-year-old female seen in room 383. Currently, the patient's on saline at 20 mL an hour, and getting oxygen, 3 L by nasal cannula. The patient also has a BiPAP device in her room, with settings of 12/5, and 30%. Clinically, the patient is feeling a bit better. She was admitted from a local penitentiary, with increased work of breathing, fever, and mental status changes. She cannot give much of a history at this time even after a few days in the hospital. No new labs today other than a glucose of 252. Urine cultures were positive for Proteus mirabilis. She is currently on Rocephin. Progress note dated 07/31/2023. 83-year-old female seen today in room 483. Currently, the patient's on room air, with saturations of 90%. She has a BiPAP in her room, with settings of 12/5, and 30%. The patient is getting saline at 20 mL an hour. According to her nurse, her cough is weak. No new labs today other than a glucose of 151. No chest x-ray today. The patient's urine sampling was positive for Proteus mirabilis. She continues on Rocephin. The patient is seen today 08/01/2023 in follow-up on the regular medical floor. She is currently resting comfortably in bed. Awake and alert in no acute distress. Maintaining good O2 saturations in the 90s on 3 L/m per nasal cannula. She has normal saline at 20 ML's per hour. She's not utilizing the BiPAP. Urine culture is positive for Proteus mirabilis. Blood cultures revealing no growth. White count 15.2. Hemoglobin 12.9. Platelets 298. Glucose 136. Remains on DuoNeb inhalations, Pulmicort and Perforomist inhalations, Medrol Dosepak. Anticoagulated with Eliquis. Continued on ceftriaxone. The patient is seen today 08/02/2023 in follow-up on the regular medical floor. She is currently resting comfortably in bed. Awake and alert in no acute di stress. She is maintaining O2 saturations in the 90s on 3 L/m per nasal cannula. No IV fluids. She denies any worsening shortness of breath, cough or congestion. Urine culture was positive for Proteus mirabilis. Blood cultures revealed no growth. Sodium 141 potassium 3.5. Bicarb 25. BUN 26. Creatinine 0.6. Glucose 217. She is continued on DuoNeb inhalations, Pulmicort and Perforomist inhalations, Medrol Dosepak. Anticoagulated with Eliquis. Continued on ceftriaxone. On today's evaluation of 08/03/2023, the patient is being seen for a follow-up. This patient is infected with RSV, the patient continues to have cough congestion and bronchospasm and wheeze. Patient also has a Proteus mirabilis urinary tract infection. For the time being, the patient is being treated with IV Rocephin regarding the UTI. The patient is also on steroids and currently is completing a Medrol Dosepak. Patient remains on anticoagulation with Eliquis. The patient has dementia, chronic A. fib and the patient on anticoagulants with Eliquis, diabetes mellitus and hypertension and history of dementia and the patient is a penitentiary resident. Blood work from today shows a WBC count of 11.8, hemoglobin of 11.9, platelet count of 247, BUN is at 22 with a creatinine of 0.5 and a sodium levels is 140. Chest x-ray the time of admission showed no acute cardiac pulmonary process. Pro-calcitonin level is not elevated at 0.03 On 08/04/2023, the patient's cough and congestion has subsided and the patient is a specific complaints completing a course of Medrol Dosepak. She was also treated for a Proteus mirabilis UTI. She remains on IV Rocephin that was started on her on 07/29/2023. No other new complaints otherwise for now. She is resting comfortably in bed. She remains on anticoagulation with Eliquis. She has underlying dementia. She is having episodes of delirium and confusion. No new labs are available from today. Labs from yesterday was noted. Pro- calcitonin level was at 0.03. Objective - Vital Signs Vital signs: Vital Signs Temp 98.2 F 08/04/23 08:00 Pulse 64 08/04/23 09:30 Resp 18 08/04/23 08:00 BP 166/91 08/04/23 08:00 Pulse Ox 94 L 08/04/23 09:16 FiO2 30 07/29/23 01:44 Intake & Output 08/03/23 08/04/23 08/04/23 18:59 06:59 18:59 Output Total 800 1500 Balance -800 -1500 Output: Urine 800 1500 Other: Voiding Method External Catheter External Catheter - Exam GENERAL EXAM: Alert, pleasant 83-year-old female, on room air oxygen with a pulse ox of 91%, comfortable in no apparent distress. HEAD: Normocephalic. EYES: Normal reaction of pupils, equal size. NOSE: Clear with pink turbinates. THROAT: No erythema or exudates. NECK: No masses, no JVD. CHEST: No chest wall deformity. LUNGS: Equal air entry with bilateral end expiratory wheeze, diminished. CVS: S1 and S2 normal with no audible murmur, regular rhythm. ABDOMEN: No hepatosplenomegaly, normal bowel sounds, no guarding or rigidity. SPINE: No scoliosis or deformity SKIN: No rashes CENTRAL NERVOUS SYSTEM: No focal deficits, tone is normal in all 4 extremities. EXTREMITIES: There is no peripheral edema. No clubbing, no cyanosis. Periph eral pulses are intact. - Labs CBC & Chem 7: 08/03/23 05:14 08/03/23 05:14 Labs: Abnormal Lab Results - Last 24 Hours (Table) 08/03/23 08/03/23 08/04/23 Range/Units 16:59 20:17 06:32 POC Glucose (mg/dL) 210 H 118 H 123 H (70-110) mg/dL Assessment and Plan Plan: Acute mental status changes, which may relate to encephalopathy, secondary to urinary tract infection/urosepsis. Clinically improving. The patient has underlying dementia with episodes of delirium and confusion. Proteus mirabilis urinary tract infection, currently on IV Rocephin, started on 07/29/2023 and the patient is completing the course of antibiotics Acute bronchitis secondary to viral infection/RSV. Patient tested positive for RSV, but has a normal chest x-ray, without evidence of infiltrate/pneumonia, currently on a Medrol Dosepak History of atrial fibrillation, currently on anticoagulation with Eliquis History of diabetes mellitus History of hypertension History of hypothyroidism History of fibromyalgia Obesity Plan: Complete the Medrol Dosepak Continued on ceftriaxone for UTI Continued on bronchodilators, steroids Stable and on 2 L of O2 nasal cannula Titrate down the FiO2 as tolerated The plan is to return to [facility] upon discharge
[2023-08-04 15:33] VITALS: BMI 38.9
[2023-08-04 16:42] VITALS: BP 155/76; PULSE 63; RESP 20; TEMP 98.5
[2023-08-04 17:02] LABS: Glucose,Whole Blood 167 mg/dL (70-110)
== END 2023-08-04 19:22 | DRG 871 ==
LOC: EC 02:44 → 3SCARD 05:53 → 4SSUR 07-31 10:36
PROVIDERS: ADMIT Hospitalist; ATTEND Hospitalist
PROC: 5A09357 Assistance with Respiratory Ventilation, Less than 24 Consecutive Hours, Continuous Positive Airway Pressure (ICD-10-PCS; principal; 2023-07-28)
PROC: 8E0ZXY6 Isolation (ICD-10-PCS; 2023-07-28)
DX: A41.50 Gram-negative sepsis, unspecified (principal); G92.8 Other toxic encephalopathy; J96.91 Respiratory failure, unspecified with hypoxia; F03.93 Unspecified dementia, unspecified severity, with mood disturbance; N39.0 Urinary tract infection, site not specified; E87.20 Acidosis, unspecified; B96.4 Proteus (mirabilis) (morganii) as the cause of diseases classified elsewhere; E03.9 Hypothyroidism, unspecified; E66.9 Obesity, unspecified; Z68.39 Body mass index [BMI] 39.0-39.9, adult; F32.A Depression, unspecified; I11.0 Hypertensive heart disease with heart failure; I48.0 Paroxysmal atrial fibrillation; J20.5 Acute bronchitis due to respiratory syncytial virus; M79.7 Fibromyalgia; Z79.01 Long term (current) use of anticoagulants; Z79.84 Long term (current) use of oral hypoglycemic drugs; Z79.890 Hormone replacement therapy; Z79.899 Other long term (current) drug therapy; Z96.659 Presence of unspecified artificial knee joint; Z87.440 Personal history of urinary (tract) infections; Z11.52 Encounter for screening for COVID-19; Z88.5 Allergy status to narcotic agent
CPT/HCPCS: 36415; 71045; 80048; 80053; 80076; 81001; 82803; 83036; 83605; 83735; 83880; 84145; 84484; 85025; 85610; 85730; 86140; 87040; 87077; 87086; 87186; 87636; 93005; 94640; 94660; 94760; 96365; 96367; 96372; 96375; 99291

== ENCOUNTER 2023-12-30 12:43 | Emergency (ER) | payer MEDICARE, OTHER ==
--- NOTE | 2023-12-30 13:14 | ED ---
Extremity Problem HPI - General Stated complaint: R Fibula Fracture Time Seen by Provider: 12/30/23 12:43 Source: EMS, RN notes reviewed, old records reviewed Mode of arrival: EMS - History of Present Illness Initial comments: 83-year-old female history of CVA history of type 2 diabetes history of mood disorder who is at her baseline mentation per paramedics who is here from [facility] for evaluation of a fracture of the distal right lower extremity. Reports a fibula fracture noted. Apparently patient has been pushing a wheelchair by staff when her foot was put down and rolled underneath the wheelchair. Apparent swelling to the right foot and apparently an x-ray revealed a fracture to the distal fibula. MD Complaint: extremity pain - Related Data Home Medications Medication Instructions Recorded Confirmed Levothyroxine Sodium [Synthroid] 100 mcg PO DAILY@0800 02/07/21 12/30/23 Milnacipran HCl [Savella] 100 mg PO BID@0800,1700 02/07/21 12/30/23 Pioglitazone [Actos] 15 mg PO DAILY@0800 02/07/21 12/30/23 Trospium Chloride [Sanctura] 20 mg PO BID@0800,1700 02/07/21 12/30/23 metFORMIN HCL 500 mg PO DAILY@0800 02/07/21 12/30/23 Apixaban [Eliquis] 5 mg PO BID@0800,1700 02/22/21 12/30/23 Diltiazem Oral [Cardizem*] 60 mg PO TID@0600,1400,2100 02/22/21 12/30/23 Magnesium Hydroxide [Milk of 7,200 mg PO Q48H PRN 02/22/21 12/30/23 Magnesia Concentrate] Metoprolol Tartrate [Lopressor] 100 mg PO BID@0800,1700 02/22/21 12/30/23 Na Phos,M-B/Na Phos,Di-Ba [Fleet 133 ml RECTAL DAILY PRN 02/22/21 12/30/23 Adult] bisacodyL 10 mg RECTAL DAILY PRN 02/22/21 12/30/23 lisinopriL [Prinivil] 10 mg PO DAILY@0800 02/22/21 12/30/23 traMADol HCL 50 mg PO Q12H PRN 02/22/21 12/30/23 Acetaminophen Tab [Tylenol] 650 mg PO Q4H PRN 06/11/22 12/30/23 L.acidoph,Paracasei, B.lactis 1 cap PO DAILY@0800 06/11/22 12/30/23 [Probiotic] Sennosides [Senokot] 8.6 mg PO BID PRN 06/11/22 12/30/23 Sennosides [Senokot] 8.6 mg PO HS@2100 06/11/22 12/30/23 Venlafaxine HCl ER [Effexor XR] 150 mg PO DAILY@0800 06/11/22 12/30/23 LORazepam [Ativan] 0.5 mg PO Q4H PRN 12/30/23 12/30/23 cefUROXime axetiL [Cefuroxime] 500 mg PO BID@0800,1700 12/30/23 12/30/23 levETIRAcetam [Keppra] 500 mg PO BID@0800,2100 12/30/23 12/30/23 Previous Rx's Medication Instructions Recorded Atorvastatin [Lipitor] 40 mg PO HS tab 02/13/21 Allergies Allergy/AdvReac Type Severity Reaction Status Date / Time codeine Allergy Itching Verified 12/30/23 14:06 Review of Systems ROS Statement: Those systems with pertinent positive or pertinent negative responses have been documented in the HPI. ROS Other: All systems not noted in ROS Statement are negative. Past Medical History Past Medical History: Atrial Fibrillation, Diabetes Mellitus, Fibromyalgia, Hypertension, Thyroid Disorder Additional Past Medical History / Comment(s): sepsis, UTI, Type 2 DM, hypothyroidism History of Any Multi-Drug Resistant Organisms: VRE Date of last positivie culture/infection: 02/24/21 MDRO Source:: VRE URINE Past Surgical History: Hysterectomy Additional Past Surgical History / Comment(s): Knee replacement Past Anesthesia/Blood Transfusion Reactions: No Reported Reaction Past Psychological History: Depression Smoking Status: Never smoker Past Alcohol Use History: None Reported Past Drug Use History: None Reported General Exam - General Exam Comments Initial Comments: This is a well-developed well-nourished awake alert pleasantly confused female General appearance: alert, anxious Head exam: Present: atraumatic, normocephalic, normal inspection Eye exam: Present: normal appearance, PERRL, EOMI. Absent: scleral icterus, conjunctival injection, periorbital swelling ENT exam: Present: normal exam, mucous membranes moist Neck exam: Present: normal inspection, full ROM. Absent: tenderness, meningismus, lymphadenopathy Respiratory exam: Present: normal lung sounds bilaterally. Absent: respiratory distress, wheezes, rales, rhonchi, stridor Cardiovascular Exam: Present: regular rate, normal rhythm, normal heart sounds. Absent: systolic murmur, diastolic murmur, rubs, gallop, clicks GI/Abdominal exam: Present: soft, normal bowel sounds. Absent: distended, tenderness, guarding, rebound, rigid, bruit, pulsatile mass Extremities exam: Present: normal inspection, tenderness (Is palpation of the right hip right knee right tib-fib as well as right foot with some edema noted no definitive shortening or rotation.). Absent: full ROM Back exam: Present: normal inspection Neurological exam: Present: alert, altered, CN II-XII intact. Absent: motor sensory deficit Psychiatric exam: Present: normal affect, normal mood Skin exam: Present: warm, dry, intact, normal color. Absent: rash Course Vital Signs 12/30/23 12/30/23 12/30/23 12:54 13:00 14:00 Temperature 98.2 F Pulse Rate 82 83 86 Respiratory 20 20 20 Rate Blood Pressure 157/77 158/93 154/95 O2 Sat by Pulse 95 94 L 94 L Oximetry 12/30/23 16:08 Temperature Pulse Rate 97 Respiratory 18 Rate Blood Pressure 138/69 O2 Sat by Pulse 94 L Oximetry Procedures - Orthopedic Splinting/Casting Injury #1 Side: right Lower Extremity Injury Location: short leg, ankle, foot Lower Extremity Immobilizer: posterior splint, stirrup splint Additional Comments: Posterior splint with a 5 x 30 OCL followed by a stirrup using 3 x 35 OCL. This was after copious amounts of padding placed at the affected site and Sebas wrap in place. There was good capillary refill normal neuroexam afterwards. Patient did tolerate this well. The patient's son was in the room during the procedure. Medical Decision Making - Medical Decision Making I did discuss the findings with the patient's son as well as with Dr. Beltran and with Eligio Cisneros covering for Dr. Eduardo. The patient was placed in the posterior and stirrup OCL with adequate padding and immobilization using Sebas wrap. Good neurovascular exam afterwards. Patient is to be return to [facility] and possible follow-up with Dr. Eduardo tomorrow the [facility] facility is to call in the morning for an appointment. Was pt. sent in by a medical professional or institution (, PA, AIRPORT RAMP ATTENDANT, urgent care, hospital, or penitentiary...) When possible be specific @ -No Did you speak to anyone other than the patient for history (EMS, parent, family, police, friend...)? What history was obtained from this source @ -Paramedics Did you review nursing and triage notes (agree or disagree)? Why? @ -I reviewed and agree with nursing and triage notes Were old charts reviewed (outside hosp., previous admission, EMS record, old EKG, old radiological studies, urgent care reports/EKG's, penitentiary records)? Report findings @ -[facility] old charts were reviewed Differential Diagnosis (chest pain, altered mental status, abdominal pain women, abdominal pain men, vaginal bleeding, weakness, fever, dyspnea, syncope, headache, dizziness, GI bleed, back pain, seizure, CVA, palpatations, mental health, musculoskeletal)? @ -Distal right fibula fracture rule out tibia also femur and pelvis. EKG interpreted by me (3pts min.). @ -Not indicated X-rays interpreted by me (1pt min.). @ -X-rays interpreted by me pelvis fracture negative for acute process right femur. Negative for acute process tib-fib on the right demonstrates a distal fibular fracture question posterior distal tibia involvement. Right foot x-ray negative for acute process CT interpreted by me (1pt min.). @ -None done U/S interpreted by me (1pt. min.). @ -None done What testing was considered but not performed or refused? (CT, X-rays, U/S, labs)? Why? @ -None What meds were considered but not given or refused? Why? @ -None Did you discuss the management of the patient with other professionals (professionals i.e. , PA, AIRPORT RAMP ATTENDANT, lab, RT, psych nurse, medical social worker, sociology research assistant, teacher, medical scientific officer, employment case manager)? Give summary @ -Dr. Beltran and Eligio Cisneros Was smoking cessation discussed for >3mins.? @ -No Was critical care preformed (if so, how long)? @ -No Were there social determinants of health that impacted care today? How? (Homelessness, low income, unemployed, alcoholism, drug addiction, transportation, low edu. Level, literacy, decrease access to med. care, detention, rehab)? @ -History of dementia and penitentiary patient Was there de-escalation of care discussed even if they declined (Discuss DNR or withdrawal of care, Hospice)? DNR status @ -No What co-morbidities impacted this encounter? (DM, HTN, Smoking, COPD, CAD, Cancer, CVA, ARF, Chemo, Hep., AIDS, mental health diagnosis, sleep apnea, morbid obesity)? @ -Dementia, type 2 diabetes, depression, hypertension, limited mobility Was patient admitted / discharged? Hospital course, mention meds given and route, prescriptions, significant lab abnormalities, going to OR and other pertinent info. @ -The patient was [facility]. Undiagnosed new problem with uncertain prognosis? @ -No Drug Therapy requiring intensive monitoring for toxicity (Heparin, Nitro, Insulin, Cardizem)? @ -No Were any procedures done? @ -No Diagnosis/symptom? @ -Distal right fibula fracture, distal right tibia fracture Acute, or Chronic, or Acute on Chronic? @ -Acute Uncomplicated (without systemic symptoms) or Complicated (systemic symptoms)? @ -Default Side effects of treatment? @ -No Exacerbation, Progression, or Severe Exacerbation? @ -No Poses a threat to life or bodily function? How? (Chest pain, USA, MD, pneumonia, PE, COPD, DKA, ARF, appy, cholecystitis, CVA, Diverticulitis, Homicidal, Suicidal, threat to staff... and all critical care pts) @ -No - Radiology Data Imaging interpreted by me distal right fibular fracture with minimal displacement question posterior distal tibial involvement. Disposition Clinical Impression: Fracture of distal end of right fibula, Fracture of distal end of right tibia Disposition: HOME SELF-CARE Condition: Good Additional Instructions: Tylenol for pain. Call Dr. Eduardo's office in the morning for a possible appointment that day. Is patient prescribed a controlled substance at d/c from ED?: No Referrals: Kalin Beltran MD [Primary Care Provider] - 1-2 days Issa Eduardo DO [Doctor of Osteopathic Medicine] - 1-2 days Time of Disposition: 17:10 Decision Date: 12/30/23 Decision Time: 17:10
[2023-12-30 14:08] VITALS: TEMP 98.2
--- NOTE | 2023-12-30 14:54 | XR ---
EXAMINATION TYPE: XR foot limited RT DATE OF EXAM: 12/30/2023 2:06 PM CLINICAL INDICATION:Female, 83 years old with history of Trauma; [facility] COMPARISON: None TECHNIQUE: XR foot limited RT examined in the AP, oblique, and lateral projections. FINDINGS: Diffuse osseous demineralization. There is diffuse edema throughout the foot. No evidence o f fracture. No evidence of any acute osseous pathology. Multifocal degeneration changes throughout the joints of the foot with osteophyte formation and joint space narrowing. IMPRESSION: Diffuse osseous demineralization. There is diffuse edema throughout the foot. No evidence of fracture .
--- NOTE | 2023-12-30 14:56 | XR ---
EXAMINATION TYPE: XR tibia fibula RT DATE OF EXAM: 12/30/2023 2:07 PM CLINICAL INDICATION:Female, 83 years old with history of Trauma; [facility] COMPARISON: None TECHNIQUE: XR tibia fibula RT; tibia/fibula was examined in AP and lateral projections. FINDINGS/IMPRESSION: 1. Distal fibular fracture with mild displacement. The tibia may also demonstrate a posterior fractu re 2. Total knee arthroplasty changes. Limited evaluation demonstrates grossly intact hardware..
--- NOTE | 2023-12-30 14:57 | XR ---
EXAMINATION TYPE: XR femur RT, XR pelvis AP view DATE OF EXAM: 12/30/2023 2:07 PM CLINICAL INDICATION:Female, 83 years old with history of Trauma; [facility] COMPARISON: None TECHNIQUE: XR femur RT, XR pelvis AP view examined in Frontal and lateral projections. Frontal view of the pelvis. FINDINGS: No evidence of acute osseous pathology, joint dislocation, or soft tissue swelling Total right knee arthroplasty changes hardware appears intact. The hip also appears intact. Mild dege neration changes of the hips. Few scattered pelvic fullness. Degeneration changes of the spine. IMPRESSION: 1. No acute osseous pathology. 2. Total knee arthroplasty changes with hardware intact.
[2023-12-30 16:50] VITALS: RESP 18
[2023-12-30 19:15] VITALS: BP 158/64; PULSE 64
== END 2023-12-30 19:30 | disposition home or self-care (01) ==
LOC: EC 12:43
DX: S82.301A Unspecified fracture of lower end of right tibia, initial encounter for closed fracture (principal); S82.831A Other fracture of upper and lower end of right fibula, initial encounter for closed fracture; E11.9 Type 2 diabetes mellitus without complications; I10 Essential (primary) hypertension; F32.A Depression, unspecified; F03.90 Unspecified dementia, unspecified severity, without behavioral disturbance, psychotic disturbance, mood disturbance, and anxiety; Z88.5 Allergy status to narcotic agent; Z79.84 Long term (current) use of oral hypoglycemic drugs; Z79.899 Other long term (current) drug therapy; Z86.73 Personal history of transient ischemic attack (TIA), and cerebral infarction without residual deficits; X50.1XXA Overexertion from prolonged static or awkward postures, initial encounter
CPT/HCPCS: 29515; 72170; 99283

== ENCOUNTER → 2024-03-16 | Outpatient (CLI) | payer MEDICARE, OTHER | END | disposition home or self-care (01) | LOC: LABPRL 02:30 | PROVIDERS: ATTEND Internal Medicine Geriatric Medicine | DX: E11.9 Type 2 diabetes mellitus without complications (principal); E03.9 Hypothyroidism, unspecified | CPT/HCPCS: 87077; 87086; 87186 ==